=== PATIENT | male | born 1940 | race Caucasian/White ===

== ENCOUNTER → 2016-10-02 | Outpatient (CLI) | payer MEDICARE ==
[2016-10-02 09:50] LABS: INR 1.2 (<1.1); Partial Thromboplastin Time 26.7 sec (22.0-30.0); Prothrombin Time 11.8 sec (9.0-12.0)
[2016-10-02 10:00] LABS: Potassium 4.4 mmol/L (3.5-5.1)
== END | disposition home or self-care (01) ==
LOC: LABMAIN 08:28
PROVIDERS: ATTEND Orthopaedic Surgery
DX: Z01.812 Encounter for preprocedural laboratory examination (principal)
CPT/HCPCS: 36415; 80051; 85610; 85730

== ENCOUNTER → 2016-12-28 | Outpatient (CLI) | payer MEDICARE ==
--- NOTE | 2016-12-28 08:19 | CT ---
EXAMINATION TYPE: CT lumbar spine wo con DATE OF EXAM: 12/28/2016 7:15 AM COMPARISON: 07/02/2015 HISTORY: Hx of Lumbar Fusion CT DLP: 2158 mGycm CONTRAST: Unenhanced CT of the lumbar spine is performed. Unenhanced CT of the lumbar spine was performed. Bone and soft tissue window settings are submitted as well as coronal and sagittal reconstructions. L1-L2: Severe degenerative disc disease with vacuum disks noted. Circumferential disc bulge with enca psulating spur resulting in disc endplate complex. Mild effacement ventral thecal sac. No evidence fo r flash central stenosis. Facet joint arthropathy resulting in bilateral foraminal encroachment. L2-L3: Severe degenerative disc disease with vacuum disks noted. Circumferential disc bulge with enca psulating spur resulting in disc endplate complex. Mild effacement ventral thecal sac. No evidence fo r flash central stenosis. Facet joint arthropathy resulting in bilateral foraminal encroachment. L3-L4: Severe degenerative disc disease with vacuum disks noted. Circumferential disc bulge with enca psulating spur resulting in disc endplate complex. Moderate effacement ventral thecal sac. Borderline to mild central stenosis difficult to exclude. Facet joint arthropathy resulting in bilateral forami nal encroachment. L4-L5: Postoperative changes of lumbar fusion and laminectomy. Pedicular screws are in place. Grade 1 retrolisthesis L4 and L5 of 5 mm is unchanged. Streak artifact limits evaluation of the spinal canal . No definite disc herniation appreciated at this time. L5-S1: Postoperative changes of lumbar fusion and laminectomy. Pedicular screws are in place. Grade 2 anterolisthesis L5 on S1 measuring 1.3 cm appears stable. Extensive streak artifact limits evaluatio n of this level. Distortion of the thecal sac without definite central stenosis. No paraspinal masses are identified. Lumbar segments are free if fracture. IMPRESSION: 1. Interval postoperative changes of lumbar laminectomy and fusion at L4-5 and L5-S1. Grade 1 retroli sthesis of L4 on L5 and grade 2 anterolisthesis of L5 on S1. 2. Severe multilevel degenerative disc disease. Mild central stenosis at L3-4 difficult to exclude.
== END | disposition home or self-care (01) ==
LOC: RADCTMAIN 06:54
PROVIDERS: ATTEND Specialist
DX: Z09 Encounter for follow-up examination after completed treatment for conditions other than malignant neoplasm (principal); M51.36 Other intervertebral disc degeneration, lumbar region; M43.17 Spondylolisthesis, lumbosacral region; Z98.890 Other specified postprocedural states
CPT/HCPCS: 72131

== ENCOUNTER → 2017-03-28 | Outpatient (CLI) | payer MEDICARE ==
[2017-03-28 12:44] LABS: CH 29.9; CHCM 32.9; HDW 2.63; HGB 13.3 gm/dL (13.0-17.5); MCH 30.2 pg (25.0-35.0); MCHC 33.2 g/dL (31.0-37.0); MCV 91.1 fL (80.0-100.0); Mean Platelet Volume 7.9; RBC 4.39 m/uL (4.30-5.90); RDW 15.3 % (11.5-15.5); WBC 5.7 k/uL (3.8-10.6)
[2017-03-28 12:47] LABS: Appearance,Urine Clear (Clear); Bilirubin,Urine Negative (Negative); Glucose,Urine (UA) Negative (Negative); Ketones,Urine Negative (Negative); Leukocyte Esterase,Urine Negative (Negative); Nitrite,Urine Negative (Negative); PH, Urine 6.5 (5.0-8.0); Protein,Urine Negative (Negative); Specific Gravity,Urine 1.013 (1.001-1.035); UA Billing (MACRO vs. MICRO) CHEM; Urobilinogen,Urine <2.0 mg/dL (<2.0)
[2017-03-28 12:53] LABS: INR 1.9 (<1.2); Partial Thromboplastin Time 33.4 sec (22.0-30.0)
[2017-03-28 13:00] LABS: ALT 32 U/L (21-72); AST 28 U/L (17-59); Alkaline Phosphatase 64 U/L (38-126); Anion Gap 7 mmol/L; Blood Urea Nitrogen 27 mg/dL (9-20); Calcium 9.2 mg/dL (8.4-10.2); Carbon Dioxide 35 mmol/L (22-30); Chloride 97 mmol/L (98-107); Glucose 83 mg/dL (74-99); Non-African American GFR(MDRD) >60 (>60 ml/min/1.73 sqM); Sodium 139 mmol/L (137-145); Total Bilirubin 0.9 mg/dL (0.2-1.3); Total Protein 6.9 g/dL (6.3-8.2)
== END | disposition home or self-care (01) ==
LOC: LABPAT 12:26
PROVIDERS: ATTEND Orthopaedic Surgery Sports Medicine
DX: Z01.810 Encounter for preprocedural cardiovascular examination (principal); Z79.01 Long term (current) use of anticoagulants; Z01.812 Encounter for preprocedural laboratory examination
CPT/HCPCS: 80053; 81003; 85027; 85610; 85730

== ENCOUNTER 2017-03-30 12:10 | Inpatient (IN) | payer MEDICARE ==
[2017-03-29 09:32] VITALS: BMI 48.5
[~2017-03-30 12:10] MED LIST: DEXAMETHASONE SOD PHOSPHATE 10 MG/ML 1 ML VIAL IV ONE; LIDOCAINE 1% 20 ML VIAL (10MG/ML) FOR IV START INTRADERMA PRN; MELOXICAM 7.5 MG TAB PO ONE; MIDAZOLAM 2 MG/2 ML VIAL IV PRN; ONDANSETRON 4 MG/2 ML VIAL IVP ONE; SCOPOLAMINE 1.5MG/72HR PATCH TRANSDERM ONE; ceFAZolin 3 GM in SODIUM CHLORIDE 0.9% 100 ML IVPB ONE
[2017-03-30] MEDS: ACETAMINOPHEN TAB 500 MG TAB PO ONE ×2 (13:03→16:53)
[2017-03-30] MEDS: LACTATED RINGERS 1,000 ML IV SCH ×3 (13:06→19:55)
[2017-03-30 13:31] LABS: INR 1.4 (<1.2); Prothrombin Time 13.8 sec (9.0-12.0)
[2017-03-30] MEDS ORDERED: SUCCINYLCHOLINE CHLORIDE VIAL 200 MG/10 ML VIAL IV ONE (13:46)
[2017-03-30] MEDS ORDERED: LIDOCAINE 1% INJ 10MG/ML (20 ML MDV) ONE (13:46)
[2017-03-30] MEDS ORDERED: MIDAZOLAM 2 MG/2 ML VIAL ONE (13:46)
[2017-03-30] MEDS ORDERED: PROPOFOL 10 MG/ML 20 ML VIAL IV ONE (13:46)
[2017-03-30] MEDS ORDERED: ROCURONIUM BROMIDE 10 MG/ML 10 ML VIAL IV ONE (13:46)
[2017-03-30] MEDS ORDERED: ePHEDrine 50 MG/ML 1 ML AMP ONE (13:46)
[2017-03-30] MEDS ORDERED: NEOSTIGMINE 1 MG/ML 10 ML VIAL ONE (13:46)
[2017-03-30] MEDS ORDERED: GLYCOPYRROLATE 0.2 MG/ML 2 ML VIAL ONE (13:46)
[2017-03-30] MEDS ORDERED: fentaNYL (PF) 50 MCG/ML 2 ML AMP ONE (13:46)
[2017-03-30] MEDS ORDERED: ceFAZolin 3,000 MG in SODIUM CHLORIDE 0.9% IRRIGATIO 3,000 ML IRRIGATION ONE (14:28)
[2017-03-30] MEDS ORDERED: VANCOMYCIN 1,000 MG VIAL MISCELLANE ONE (14:41)
[2017-03-30] MEDS ORDERED: LACTATED RINGERS 1,000 ML IV ONE (15:13)
[2017-03-30] MEDS ORDERED: NALOXONE 0.4 MG/ML 1 ML VIAL IV PRN (15:26)
[2017-03-30] MEDS ORDERED: HYDROmorphone 1 MG/ML 1 ML SYRINGE IVP PRN ×2 (15:26)
[2017-03-30] MEDS ORDERED: DIAZEPAM 5 MG TAB PO PRN ×2 (15:26→19:58)
[2017-03-30] MEDS ORDERED: ONDANSETRON 4 MG/2 ML VIAL IVP PRN (15:26)
[2017-03-30] MEDS ORDERED: HYDROcodone/APAP 7.5-325MG 1 EACH TAB PO PRN (15:26)
[2017-03-30] MEDS ORDERED: MAGNESIUM HYDROXIDE 2,400 MG/10 ML CUP PO PRN (15:26)
[2017-03-30] MEDS ORDERED: NA PHOS,M-B/NA PHOS,DI-BA 133 ML ENEMA RECTAL PRN (15:26)
[2017-03-30] MEDS ORDERED: ACETAMINOPHEN TAB 325 MG TAB PO PRN (15:26)
[2017-03-30] MEDS ORDERED: BISACODYL 10 MG SUPP RECTAL PRN (15:26)
[2017-03-30] MEDS ORDERED: TEMAZEPAM 15 MG CAP PO PRN (15:26)
[2017-03-30] MEDS: HYDROmorphone 1 MG/ML 1 ML SYRINGE IVP PRN ×6 (15:47→20:15)
[2017-03-30] MEDS ORDERED: KETOROLAC 30 MG/ML 1 ML VIAL IVP ONE (15:53)
[2017-03-30] MEDS: MEPERIDINE 50 MG/ML SYRINGE IVP ONE ×2 (16:16→16:22)
[2017-03-30] MEDS ORDERED: WARFARIN 2.5 MG TAB PO ONE (18:00)
[2017-03-30] MEDS: SENNOSIDES-DOCUSATE SODIUM 1 EACH TAB PO SCH (20:18)
[2017-03-30] MEDS: ceFAZolin 3 GM in SODIUM CHLORIDE 0.9% 100 ML IVPB SCH (20:18)
[2017-03-30] MEDS: CARVEDILOL 6.25 MG TAB PO SCH (22:04)
[2017-03-30] MEDS: GABAPENTIN 100 MG CAP PO SCH (22:04)
[2017-03-30] MEDS: LOSARTAN 25 MG TAB PO SCH (22:05)
[2017-03-30] MEDS: PRAVASTATIN SODIUM 40 MG TAB PO SCH (22:05)
[2017-03-31] MEDS: HYDROcodone/APAP 7.5-325MG 1 EACH TAB PO PRN ×4 (00:56→21:19)
[2017-03-31] MEDS: LACTATED RINGERS 1,000 ML IV SCH ×2 (05:20→15:19)
[2017-03-31] MEDS: ceFAZolin 3 GM in SODIUM CHLORIDE 0.9% 100 ML IVPB SCH (05:22)
[2017-03-31] MEDS: PRAMIPEXOLE 1 MG TAB PO PRN ×3 (07:26→20:21)
[2017-03-31] MEDS: CARVEDILOL 6.25 MG TAB PO SCH ×2 (07:28→18:09)
[2017-03-31] MEDS: METOLAZONE 2.5 MG TAB PO SCH (07:28)
[2017-03-31] MEDS: CHOLECALCIFEROL 1,000 UNIT TAB PO SCH (07:28)
[2017-03-31] MEDS: GABAPENTIN 100 MG CAP PO SCH ×2 (07:28→20:21)
[2017-03-31] MEDS: PANTOPRAZOLE 40 MG TABLET PO SCH (07:28)
[2017-03-31 08:00] LABS: Basophils % (A) 0 %; CH 30.2; CHCM 33.2; Eosinophils % (A) 0 %; HCT 37.8 % (39.0-53.0); HDW 2.56; HGB 12.2 gm/dL (13.0-17.5); Luc # (Auto) 0.06; Luc % (Auto) 1; Lymphocytes # (A) 0.6 k/uL (1.0-4.8); Lymphocytes % (A) 8 %; MCH 29.4 pg (25.0-35.0); MCHC 32.2 g/dL (31.0-37.0); MCV 91.5 fL (80.0-100.0); Mean Platelet Volume 7.6; Monocytes # (A) 0.3 k/uL (0-1.0); Monocytes % (A) 4 %; Neutrophils # (A) 6.3 k/uL (1.3-7.7); Neutrophils % (A) 87 %; RBC 4.13 m/uL (4.30-5.90); RDW 15.2 % (11.5-15.5); WBC 7.3 k/uL (3.8-10.6); WBC (Perox) 7.15
[2017-03-31 08:13] LABS: INR 1.3 (<1.2); Prothrombin Time 12.6 sec (9.0-12.0)
[2017-03-31] MEDS ORDERED: MULTIVITAMIN PO SCH (09:00)
--- NOTE | 2017-03-31 09:41 | P.PN ---
Subjective Principal diagnosis: Patellar instability Patient is seen at bedside this morning. He is postop day #1 from left knee lateral retinacular release and medial reefing. He has pain at the surgical site as expected but denies any new complaints. He denies numbness, tingling or calf pain. Review of systems is negative for fever, chills, chest pain, shortness of breath or other Objective - Vital Signs Vital signs: Vital Signs Temp 97.8 F 03/31/17 07:25 Pulse 92 03/31/17 07:25 Resp 16 03/31/17 07:25 BP 137/71 03/31/17 07:25 Pulse Ox 97 03/31/17 07:25 Intake & Output 03/30/17 03/31/17 03/31/17 18:59 06:59 18:59 Intake Total 2151 1470 Output Total 600 1040 Balance 1551 430 Intake: IV 1501 800 Lactated Ringers 1,000 ml 800 @ 100 mls/hr IV .Q10H PHUONG Rx#:[id number] Oral 650 670 Output: Urine 550 1040 Uretheral (Rooney) 340 Estimated Blood Loss 50 Other: Voiding Method Indwelling Catheter Indwelling Catheter Indwelling Catheter - Exam Inspection reveals a benign surgical wound with immobilizer and bandage intact. There is no signs of active bleeding or drainage. Neurovascular status is intact throughout the lower extremity with motor and sensation fully intact. Calf is soft and nontender. 2+ dorsalis pedis pulse and less than 2 second cap refill is present. - Constitutional General appearance: Present: no acute distress - Psychiatric Psychiatric: Present: A&O x's 3, appropriate affect, intact judgment & insight - Labs CBC & Chem 7: 03/31/17 07:19 Labs: Abnormal Lab Results - Last 24 Hours (Table) 03/30/17 03/31/17 03/31/17 Range/Units 12:59 07:19 07:19 RBC 4.13 L (4.30-5.90) m/uL Hgb 12.2 L (13.0-17.5) gm/dL Hct 37.8 L (39.0-53.0) % Lymphocytes # 0.6 L (1.0-4.8) k/uL PT 13.8 H 12.6 H (9.0-12.0) sec INR 1.4 H 1.3 H (<1.2) Assessment and Plan (1) Patellar instability Narrative/Plan: He will continue with routine postop orthopedic protocol including pain management, wound care, physical therapy, DVT prophylaxis and medical management. He is to maintain knee immobilizer at all times. He is touchdown weightbearing. Plan is for him to transfer to an extended Care facility in the next few days Status: Acute Time with Patient: Less than 30
--- NOTE | 2017-03-31 11:19 | XR ---
EXAMINATION TYPE: XR chest 1V DATE OF EXAM: 03/31/2017 COMPARISON: 04/05/2016 INDICATION: Rehabilitation placement TECHNIQUE: Single frontal view of the chest is obtained. FINDINGS: The heart size is normal. The pulmonary vasculature is normal. The lungs are clear. Previous right lower lobe infiltrate has resolved. Pacemaker overlies left chest IMPRESSION: 1. No acute pulmonary process.
[2017-03-31] MEDS: MULTIVITAMINS, THERA 1 EACH TAB PO SCH (13:29)
[2017-03-31] MEDS: FERROUS SULFATE 325 MG TAB PO SCH (13:29)
[2017-03-31] MEDS: hydrOXYzine PAMOATE 25 MG CAP PO PRN (13:30)
[2017-03-31] MEDS ORDERED: WARFARIN 7.5 MG TAB PO ONE (18:00)
[2017-03-31] MEDS ORDERED: WARFARIN 5 MG TAB PO ONE (18:15)
[2017-03-31] MEDS: PRAVASTATIN SODIUM 40 MG TAB PO SCH (20:21)
[2017-03-31] MEDS: LOSARTAN 25 MG TAB PO SCH (20:21)
[2017-03-31] MEDS: SENNOSIDES-DOCUSATE SODIUM 1 EACH TAB PO SCH (20:21)
[2017-04-01] MEDS: LACTATED RINGERS 1,000 ML IV SCH ×4 (00:09→18:06)
[2017-04-01 07:35] LABS: INR 1.4 (<1.2); Prothrombin Time 13.4 sec (9.0-12.0)
[2017-04-01] MEDS: PANTOPRAZOLE 40 MG TABLET PO SCH (08:43)
[2017-04-01] MEDS: CARVEDILOL 6.25 MG TAB PO SCH ×2 (08:43→16:11)
[2017-04-01] MEDS: HYDROcodone/APAP 7.5-325MG 1 EACH TAB PO PRN ×3 (08:44→21:55)
[2017-04-01] MEDS: CHOLECALCIFEROL 1,000 UNIT TAB PO SCH (08:44)
[2017-04-01] MEDS: GABAPENTIN 100 MG CAP PO SCH ×2 (08:44→21:56)
[2017-04-01] MEDS: METOLAZONE 2.5 MG TAB PO SCH (08:44)
--- NOTE | 2017-04-01 08:47 | P.PN ---
Subjective Principal diagnosis: Patellar instability left knee This is a 77-year-old male who is status post lateral retinacular release and medial reefing of the left knee. He is doing well from an orthopedic standpoint. He has no new complaints or concerns today. Objective - Vital Signs Vital signs: Vital Signs Temp 97.5 F L 04/01/17 03:12 Pulse 60 04/01/17 03:12 Resp 16 04/01/17 03:12 BP 108/69 04/01/17 03:12 Pulse Ox 94 L 04/01/17 03:12 Intake & Output 03/31/17 04/01/17 04/01/17 18:59 06:59 18:59 Intake Total 300 1150 Output Total 900 1200 Balance -600 -50 Intake: IV 300 Lactated Ringers 1,000 ml 300 @ 100 mls/hr IV .Q10H PHUONG Rx#:[id number] Oral 1150 Output: Urine 900 1200 Uretheral (Rooney) 700 Other: Voiding Method Indwelling Catheter Toilet Urinal # Voids 4 - Exam This is a pleasant 77-year-old male in no acute distress. He is alert and oriented 3. Exam of the left knee reveals that his dressing is clean, dry and intact. Knee immobilizer is in place. He has full foot and ankle motion without difficulty or pain. There is mild calf pain with palpation but Homans is negative. Neurovascular status to the lower extremity is intact. - Labs CBC & Chem 7: 03/31/17 07:19 Labs: Abnormal Lab Results - Last 24 Hours (Table) 04/01/17 Range/Units 06:18 PT 13.4 H (9.0-12.0) sec INR 1.4 H (<1.2) Assessment and Plan (1) Patellar instability Status: Acute (2) Morbid obesity Status: Acute Plan: The clinical findings are discussed the patient. His knee immobilizer is well padded with ABDs and repositioned. We are planning discharge to inpatient rehab Monday. Continue current care.
--- NOTE | 2017-04-01 09:30 | CONS ---
REASON FOR CONSULTATION: Medical management for patient after his knee surgery. HISTORY OF PRESENT ILLNESS: This 77-year-old male with past medical history significant for hypertension, atrial fibrillation and knee pain who presented to the hospital after he failed conservative outpatient management and tolerated the procedure well. The patient seems to be in no acute distress, denying chest pain, shortness of breath, nausea, vomiting, abdominal pain, dizziness, lightheadedness or blurry vision. The patient underwent complete rehab evaluation by his family care physician including blood work, EKG and chest x-ray that all showed normal findings. REVIEW OF SYSTEMS: All 14 systems were reviewed and negative except as above. Home medications reviewed and you can find in chart. PAST MEDICAL AND SURGICAL HISTORY: 1. Hypertension. 2. Atrial fibrillation. 3. Hyperlipidemia. 4. Obstructive sleep apnea. 5. Anxiety. 6. Anemia. 7. Peripheral neuropathy. 8. Morbid obesity. 9. Obstructive sleep apnea. 10. Atrial fibrillation. 11. Vitamin D deficiency. 12. Bilateral shoulder surgery. 13. Appendectomy. 14. Prior knee surgery. FAMILY HISTORY: Reviewed and negative. SOCIAL HISTORY: The patient denied tobacco, alcohol or drug abuse. Said that he is independent, lives with his who is at the bedside. PHYSICAL EXAMINATION: VITAL SIGNS: Reviewed and stable. HEENT: Atraumatic, normocephalic. PERRLA. NECK: Supple. No masses, no thyromegaly. LUNGS: Clear to auscultation bilaterally. HEART: S1/S2. ABDOMEN: Soft, no tenderness. Positive bowel sounds. LEFT KNEE: Dressing clean, intact and dry. Pulses are positive bilaterally. PSYCH: Alert and oriented x3. IMAGING AND LABS: Reviewed and stable. ASSESSMENT AND PLAN: 1. Patellar instability of the left knee. We will continue with current recommendation for DVT prophylaxis and pain management per your recommendation. 2. Atrial fibrillation. Heart rate is controlled. Will continue his home regimen. Will resume Coumadin per primary recommendation. 3. Hypertension, under control. Will resume his home medication. 4. Hyperlipidemia. Continue statin. 5 . Obstructive sleep apnea. Use his own CPAP from home. 6. Morbid obesity. Consultation regarding weight loss. 7. Discharge planning per primary team recommendation. CHEMO
[2017-04-01] MEDS: MULTIVITAMINS, THERA 1 EACH TAB PO SCH (12:25)
[2017-04-01] MEDS: FERROUS SULFATE 325 MG TAB PO SCH (12:25)
[2017-04-01] MEDS: PRAMIPEXOLE 1 MG TAB PO PRN ×3 (13:47→22:24)
--- NOTE | 2017-04-01 15:29 | P.PN ---
Subjective 77-year-old male one of Dr Francisco's patients with multiple medical problem known to have atherosclerotic heart disease A. fib and congestive heart failure and hypertension, with morbid obesity with obstructive sleep apnea, patient appeared he was standing and try to turn around and suddenly felt a popping sensation of the left knee and severe pain he ended up seeing orthopedic surgery and he ended up going for a lateral release of the knee tendon with medial reehing due to left knee instability, currently in an immobilizer, his pain is well controlled today, and he is to be seen by physical therapy , and the plan to go to [facility] a Monday morning. Objective - Vital Signs Vital signs: Vital Signs Temp 98.1 F 04/01/17 07:00 Pulse 68 04/01/17 07:00 Resp 16 04/01/17 07:00 BP 123/85 04/01/17 07:00 Pulse Ox 96 04/01/17 07:00 Intake & Output 03/31/17 04/01/17 04/01/17 18:59 06:59 18:59 Intake Total 300 1150 Output Total 900 1200 Balance -600 -50 Intake: IV 300 Lactated Ringers 1,000 ml 300 @ 100 mls/hr IV .Q10H PHUONG Rx#:[id number] Oral 1150 Output: Urine 900 1200 Uretheral (Rooney) 700 Other: Voiding Method Indwelling Catheter Toilet Toilet Urinal Urinal # Voids 4 - Constitutional General appearance: Present: no acute distress, obese - EENT Eyes: Present: anicteric sclerae, EOMI, PERRLA, normal appearance. Absent: ptosis, scleral icterus ENT: Present: hearing grossly normal, NA/AT, normal oropharynx. Absent: thrush Ears: bilateral: normal - Neck Neck: Present: normal ROM. Absent: lymphadenopathy, rigidity Carotids: bilateral: upstroke normal Thyroid: bilateral: normal size - Respiratory Respiratory: bilateral: diminished, negative: dullness, rales, rhonchi, wheezing , prolonged expiration, prolonged inspiration - Cardiovascular Rhythm: regularly irregular Heart sounds: normal: S1, S2 Abnormal Heart Sounds: Present: systolic murmur - Gastrointestinal General gastrointestinal: Present: normal bowel sounds, soft. Absent: tenderness, umbilical hernia, ventral hernia - Integumentary Integumentary: Present: normal, normal turgor - Neurologic Neurologic: Present: CNII-XII intact - Musculoskeletal Musculoskeletal: Absent: gait normal - Psychiatric Psychiatric: Present: A&O x's 3, appropriate affect, intact judgment & insight - Labs CBC & Chem 7: 03/31/17 07:19 Labs: Abnormal Lab Results - Last 24 Hours (Table) 04/01/17 Range/Units 06:18 PT 13.4 H (9.0-12.0) sec INR 1.4 H (<1.2) Assessment and Plan Plan: Assessment and plan: 1. Postoperative day #1 status post left knee instability with the lateral release of the tendon and reefing of the medial aspect. Patient is currently in an immobilizer, continue current pain management, patient was instructed about valuation by physical therapy and his likely will need to go for physical therapy and rehabilitation at [facility]. 2. chronic systolic heart failure. Continue Coreg 6.25 mg orally twice every day, metolazone 2.5 mg orally once every day, losartan 25 mg orally once every day. 3. Chronic atrial fibrillation. Continue patient on Coreg 6.25 mg orally twice every day, Coumadin keep an INR between 2-3. 4. BPH: Continue Flomax 0.4 mg daily. 5. chronic anemia. Remain on iron 325 mg orally once every day. 6.Restless leg syndrome. Continue Mirapex 1 mg 3 times a day. 7. Hyperlipidemia. On Pravachol 40 mg daily. 8. chronic pain syndrome: Patient remain on hydrocodone and tramadol as needed. 9. obstructive sleep apnea. Continue CPAP. 10. GI prophylaxis. Continue Protonix 40 mg orally once every day. 11. DVT prophylaxis. Continue Coumadin to keep the INR 2-3. 12. Hypertension and hypertensive cardiovascular disease. Continue losartan 25 mg orally once every day, Coreg 6.25 mg orally twice every day. 13. Discharge planning. [facility] on Monday.
[2017-04-01] MEDS: WARFARIN 2.5 MG TAB PO SCH (18:08)
[2017-04-01] MEDS: SENNOSIDES-DOCUSATE SODIUM 1 EACH TAB PO SCH (21:56)
[2017-04-01] MEDS: LOSARTAN 25 MG TAB PO SCH (21:56)
[2017-04-01] MEDS: PRAVASTATIN SODIUM 40 MG TAB PO SCH (21:56)
[2017-04-02] MEDS: HYDROcodone/APAP 7.5-325MG 1 EACH TAB PO PRN ×3 (04:09→17:50)
[2017-04-02] MEDS: hydrOXYzine PAMOATE 25 MG CAP PO PRN (05:29)
[2017-04-02] MEDS: traMADol 50 MG TAB PO PRN ×2 (05:29→15:40)
[2017-04-02] MEDS: LACTATED RINGERS 1,000 ML IV SCH ×3 (06:11→14:06)
[2017-04-02 07:57] LABS: Basophils % (A) 1 %; CH 29.7; CHCM 32.5; Eosinophils # (A) 0.2 k/uL (0-0.7); Eosinophils % (A) 4 %; HCT 39.1 % (39.0-53.0); HDW 2.53; HGB 12.6 gm/dL (13.0-17.5); Luc % (Auto) 2; Lymphocytes % (A) 19 %; MCH 29.6 pg (25.0-35.0); MCHC 32.3 g/dL (31.0-37.0); MCV 91.8 fL (80.0-100.0); Mean Platelet Volume 6.6; Monocytes # (A) 0.3 k/uL (0-1.0); Monocytes % (A) 6 %; Neutrophils # (A) 3.5 k/uL (1.3-7.7); Neutrophils % (A) 69 %; RBC 4.26 m/uL (4.30-5.90); RDW 14.7 % (11.5-15.5); WBC 5.1 k/uL (3.8-10.6); WBC (Perox) 5.39
[2017-04-02 08:16] LABS: INR 1.5 (<1.2); Prothrombin Time 14.2 sec (9.0-12.0)
[2017-04-02] MEDS: CHOLECALCIFEROL 1,000 UNIT TAB PO SCH (08:28)
[2017-04-02] MEDS: CARVEDILOL 6.25 MG TAB PO SCH ×2 (08:28→17:50)
[2017-04-02] MEDS: GABAPENTIN 100 MG CAP PO SCH ×2 (08:28→20:41)
[2017-04-02] MEDS: METOLAZONE 2.5 MG TAB PO SCH (08:28)
[2017-04-02] MEDS: PANTOPRAZOLE 40 MG TABLET PO SCH (08:28)
[2017-04-02 08:44] LABS: ALT 23 U/L (21-72); AST 40 U/L (17-59); Alkaline Phosphatase 51 U/L (38-126); Anion Gap 4 mmol/L; Blood Urea Nitrogen 22 mg/dL (9-20); Calcium 8.8 mg/dL (8.4-10.2); Carbon Dioxide 34 mmol/L (22-30); Chloride 100 mmol/L (98-107); Glucose 79 mg/dL (74-99); Non-African American GFR(MDRD) >60 (>60 ml/min/1.73 sqM); Sodium 138 mmol/L (137-145); Total Protein 6.2 g/dL (6.3-8.2)
[2017-04-02 08:50] LABS: Potassium 4.5 mmol/L (3.5-5.1)
--- NOTE | 2017-04-02 10:08 | P.PN ---
Subjective Principal diagnosis: Patellar instability left knee This is a 77-year-old male who is status post lateral retinacular release and medial reefing of the left knee. He is doing well from an orthopedic standpoint. He has no new complaints or concerns today. Objective - Vital Signs Vital signs: Vital Signs Temp 97.0 F L 04/02/17 07:00 Pulse 63 04/02/17 07:00 Resp 16 04/02/17 07:00 BP 136/63 04/02/17 07:00 Pulse Ox 96 04/02/17 07:00 Intake & Output 04/01/17 04/02/17 04/02/17 18:59 06:59 18:59 Intake Total 450 240 Output Total 450 400 Balance 0 -160 Intake: Oral 450 240 Output: Urine 450 400 Other: Voiding Method Toilet Urinal # Voids 3 1 - Exam This is a pleasant 77-year-old male in no acute distress. He is alert and oriented 3. Knee immobilizer is in place but is completely vent and distorted on the posterior aspect. Immobilizer is removed. The patient's dressing has slid down the lower leg. Dressing is removed and changed. Incision looks good with no erythema and no drainage.. He has full foot and ankle motion without difficulty or pain. There is mild calf pain with palpation but Homans is negative. Neurovascular status to the lower extremity is intact. - Labs CBC & Chem 7: 04/02/17 07:18 04/02/17 07:18 Labs: Abnormal Lab Results - Last 24 Hours (Table) 04/02/17 04/02/17 04/02/17 Range/Units 07:18 07:18 07:18 RBC 4.26 L (4.30-5.90) m/uL Hgb 12.6 L (13.0-17.5) gm/dL Plt Count 147 L (150-450) k/uL PT 14.2 H (9.0-12.0) sec INR 1.5 H (<1.2) Carbon Dioxide 34 H (22-30) mmol/L BUN 22 H (9-20) mg/dL Total Protein 6.2 L (6.3-8.2) g/dL Albumin 3.4 L (3.5-5.0) g/dL Assessment and Plan (1) Patellar instability Status: Acute (2) Morbid obesity Status: Acute Plan: The clinical findings are discussed the patient. I have ordered a new knee immobilizer which the nurses instructed to pad well and apply to the leg when it arrives. We are planning discharge to inpatient rehab Monday. Continue current care.
[2017-04-02] MEDS: MULTIVITAMINS, THERA 1 EACH TAB PO SCH (11:27)
[2017-04-02] MEDS: FERROUS SULFATE 325 MG TAB PO SCH (11:27)
[2017-04-02] MEDS: PRAMIPEXOLE 1 MG TAB PO PRN ×2 (14:07→20:41)
--- NOTE | 2017-04-02 14:53 | P.PN ---
Subjective 77-year-old male one of Dr Francisco's patients with multiple medical problem known to have atherosclerotic heart disease A. fib and congestive heart failure and hypertension, with morbid obesity with obstructive sleep apnea, patient appeared he was standing and try to turn around and suddenly felt a popping sensation of the left knee and severe pain he ended up seeing orthopedic surgery and he ended up going for a lateral release of the knee tendon with medial reehing due to left knee instability, currently in an immobilizer, his pain is well controlled today, and he is to be seen by physical therapy , and the plan to go to [facility] a Monday morning. 04/02: Patient moved to a different room today because of significant issues with the patient next door, patient is tolerating his treatment very well, he denies any chest pain, shortness of breath, he has no abdominal pain, he has urinary frequency, without any dysuria, the plan is to transfer the patient to [facility] for physical therapy rehabitation tomorrow morning. Objective - Vital Signs Vital signs: Vital Signs Temp 97.5 F L 04/02/17 02:18 Pulse 68 04/02/17 02:18 Resp 17 04/02/17 02:18 BP 106/67 04/02/17 02:18 Pulse Ox 96 04/02/17 02:18 Intake & Output 04/01/17 04/02/17 04/02/17 18:59 06:59 18:59 Intake Total 450 240 Output Total 450 400 Balance 0 -160 Intake: Oral 450 240 Output: Urine 450 400 Other: Voiding Method Toilet Urinal # Voids 3 1 - Exam - Constitutional General appearance: Present: no acute distress, obese - EENT Eyes: Present: anicteric sclerae, EOMI, PERRLA, normal appearance. Absent: ptosis, scleral icterus ENT: Present: hearing grossly normal, NA/AT, normal oropharynx. Absent: thrush Ears: bilateral: normal - Neck Neck: Present: normal ROM. Absent: lymphadenopathy, rigidity Carotids: bilateral: upstroke normal Thyroid: bilateral: normal size - Respiratory Respiratory: bilateral: diminished, negative: dullness, rales, rhonchi, wheezing , prolonged expiration, prolonged inspiration - Cardiovascular Rhythm: regularly irregular Heart sounds: normal: S1, S2 Abnormal Heart Sounds: Present: systolic murmur - Gastrointestinal General gastrointestinal: Present: normal bowel sounds, soft. Absent: tenderness, umbilical hernia, ventral hernia - Integumentary Integumentary: Present: normal, normal turgor - Neurologic Neurologic: Present: CNII-XII intact - Musculoskeletal Musculoskeletal: Absent: gait normal - Psychiatric Psychiatric: Present: A&O x's 3, appropriate affect, intact judgment & insight - Labs CBC & Chem 7: 04/02/17 07:18 04/02/17 07:18 Labs: Abnormal Lab Results - Last 24 Hours (Table) 04/02/17 04/02/17 04/02/17 Range/Units 07:18 07:18 07:18 RBC 4.26 L (4.30-5.90) m/uL Hgb 12.6 L (13.0-17.5) gm/dL Plt Count 147 L (150-450) k/uL PT 14.2 H (9.0-12.0) sec INR 1.5 H (<1.2) Carbon Dioxide 34 H (22-30) mmol/L BUN 22 H (9-20) mg/dL Total Protein 6.2 L (6.3-8.2) g/dL Albumin 3.4 L (3.5-5.0) g/dL Assessment and Plan Plan: Assessment and plan: 1. Postoperative day #1 status post left knee instability with the lateral release of the tendon and reefing of the medial aspect. Patient is currently in an immobilizer, continue current pain management, patient was instructed about valuation by physical therapy and his likely will need to go for physical therapy and rehabilitation at [facility]. 2. chronic systolic heart failure. Continue Coreg 6.25 mg orally twice every day, metolazone 2.5 mg orally once every day, losartan 25 mg orally once every day. 3. Chronic atrial fibrillation. Continue patient on Coreg 6.25 mg orally twice every day, Coumadin keep an INR between 2-3. 4. BPH: Continue Flomax 0.4 mg daily. 5. chronic anemia. Remain on iron 325 mg orally once every day. 6.Restless leg syndrome. Continue Mirapex 1 mg 3 times a day. 7. Hyperlipidemia. On Pravachol 40 mg daily. 8. chronic pain syndrome: Patient remain on hydrocodone and tramadol as needed. 9. obstructive sleep apnea. Continue CPAP. 10. GI prophylaxis. Continue Protonix 40 mg orally once every day. 11. DVT prophylaxis. Continue Coumadin to keep the INR 2-3. 12. Hypertension and hypertensive cardiovascular disease. Continue losartan 25 mg orally once every day, Coreg 6.25 mg orally twice every day. 13. Discharge planning. on Monday.
[2017-04-02] MEDS: WARFARIN 2.5 MG TAB PO SCH (17:50)
[2017-04-02] MEDS: SENNOSIDES-DOCUSATE SODIUM 1 EACH TAB PO SCH (20:40)
[2017-04-02] MEDS: PRAVASTATIN SODIUM 40 MG TAB PO SCH (20:41)
[2017-04-02] MEDS: LOSARTAN 25 MG TAB PO SCH (20:41)
[2017-04-03] MEDS: LACTATED RINGERS 1,000 ML IV SCH ×2 (02:41→09:42)
[2017-04-03] MEDS: HYDROcodone/APAP 7.5-325MG 1 EACH TAB PO PRN ×2 (06:23→11:31)
[2017-04-03 07:26] VITALS: BP 139/76; PULSE 61; RESP 16; TEMP 98.1
[2017-04-03 07:36] LABS: INR 1.5 (<1.2); Prothrombin Time 14.4 sec (9.0-12.0)
--- NOTE | 2017-04-03 08:32 | P.DS ---
Providers Date of admission: 03/30/17 12:10 Expected date of discharge: 04/03/17 Attending physician: Robert Gonzalez Consults: 03/30/17 15:26 Consult Physician Routine Consulting Provider: Ethan Francisco Reason/Comments: post op medical management Do you want consulting provider notified?: Yes Primary care physician: Ethan Francisco - Discharge Diagnosis(es) (1) Patellar instability Current Visit: Yes Status: Acute Hospital Course: This is a pleasant 77-year-old male who was admitted for left knee lateral retinacular release and medial reefing for patellar instability. Patient has been progressing postsurgically. The patient tolerated the procedure well and did well postoperatively. A new knee immobilizer was ordered yesterday. This has been placed and appears to be in good position. Patient states he does have some pain with the left lower extremity while he's mobile. We discussed he will be toe-touch weightbearing on left lower extremity only. He feels he is ready for discharge today. Condition on day of discharge stable. Patient will be discharged home [facility] rehabilitation facility. Patient was cleared preoperatively for surgery by Dr. Francisco. Patient currently denies any nausea, vomiting, fever, or chills. Patient is eating and voiding freely without difficulty. Patient was keep the immobilizer intact at all times. He should continue to keep the wound clean and dry. He may elevate the left lower extremity and apply ice for comfort support as needed. He will continue me toe- touch weightbearing only. He is given prescriptions for [place] 7.5 mg/325 mg 1- 2 tabs every 4-6 hours dispense 90 as needed for pain. We will plan to have him continue with warfarin as previously prescribed. Patient takes warfarin 5 mg Monday, Monday, and Monday. Patient takes warfarin 2.5 mg on Monday, Monday, , and Monday. Patient will plan to follow up with Dr. Robert Gonzalez in 10 days. Physical Exam on day of discharge: Patient is awake, alert, and oriented 3 Vital signs stable Good chest excursion with deep inspiration and expiration Abdomen soft nontender Knee immobilizer intact over the left lower extremity Dressing remains intact below the knee immobilizer Knee immobilizer is clean, dry, and intact with no obvious signs of drainage Patient is able to perform dorsiflexion and plantarflexion mobile toes left lower extremity has significant difficulty Neurovascularly intact left lower extremity No significant calf pain Procedures: Left knee lateral retinacular release and medial reefing Patient Condition at Discharge: Stable Plan - Discharge Summary New Discharge Prescriptions: New HYDROcodone/APAP 7.5-325MG [[place] 7.5-325] 1 - 2 each PO Q4-6H PRN #90 tab PRN Reason: Pain Continue Omeprazole [PriLOSEC] 20 mg PO AC-BRKFST Cholecalciferol [Vitamin D3] 2,000 unit PO DAILY Warfarin [Coumadin] 5 mg PO MOWE Pravastatin Sodium [Pravachol] 40 mg PO HS Warfarin [Coumadin] 2.5 mg PO SUTUTHSA Ferrous Sulfate [Iron (65 MG Elemental)] 325 mg PO DAILY Carvedilol [Coreg] 6.25 mg PO BID #0 Metolazone [Zaroxolyn] 2.5 mg PO DAILY Losartan Potassium [Cozaar] 25 mg PO HS Pramipexole [Mirapex] 1 mg PO TID PRN PRN Reason: RESTLESS LEG SYNDROME Furosemide [Lasix] 40 mg PO DAILY Gabapentin [Neurontin] 100 mg PO BID Multivitamin [Multivitamins Adult Gummies] 1 tab PO DAILY Diazepam [Valium] 10 mg PO DAILY PRN PRN Reason: RESTLESS LEG SYNDROME Discontinued traMADol HCL [Ultram] 50 mg PO TID PRN PRN Reason: Pain HYDROcodone/APAP 7.5-325MG [[place] 7.5-325] 1 tab PO Q6HR PRN PRN Reason: Pain Discharge Medication List Cholecalciferol [Vitamin D3] 2,000 unit PO DAILY 11/22/14 [History] Omeprazole [PriLOSEC] 20 mg PO AC-BRKFST 11/22/14 [History] Pravastatin Sodium [Pravachol] 40 mg PO HS 11/22/14 [History] Warfarin [Coumadin] 5 mg PO MOWEFR 11/22/14 [History] Warfarin [Coumadin] 2.5 mg PO SUTUTHSA 01/02/15 [History] Ferrous Sulfate [Iron (65 MG Elemental)] 325 mg PO DAILY 08/26/15 [History] Carvedilol [Coreg] 6.25 mg PO BID #0 08/31/15 [Rx] Losartan Potassium [Cozaar] 25 mg PO HS 04/04/16 [History] Metolazone [Zaroxolyn] 2.5 mg PO DAILY 04/04/16 [History] Diazepam [Valium] 10 mg PO DAILY PRN 03/29/17 [History] Furosemide [Lasix] 40 mg PO DAILY 03/29/17 [History] Gabapentin [Neurontin] 100 mg PO BID 03/29/17 [History] Multivitamin [Multivitamins Adult Gummies] 1 tab PO DAILY 03/29/17 [History] Pramipexole [Mirapex] 1 mg PO TID PRN 03/29/17 [History] HYDROcodone/APAP 7.5-325MG [[place] 7.5-325] 1 - 2 each PO Q4-6H PRN #90 tab 04/02 [Rx] Follow up Appointment(s)/Referral(s): Robert Gonzalez MD [STAFF PHYSICIAN] - 10 Days Ambulatory/Diagnostic Orders: Prothrombin Time INR [LAB.AMB] Location: Determined By Patient Activity/Diet/Wound Care/Special Instructions: Touch down weightbearing Maintain knee immobilizer at all times Keep wound clean and dry Take meds as directed F/U with Dr. Gonzalez in office, [phone] Elevate lower extremity Discharge Disposition: TRANSFER TO SNF/ECF
[2017-04-03] MEDS: GABAPENTIN 100 MG CAP PO SCH (09:45)
[2017-04-03] MEDS: CHOLECALCIFEROL 1,000 UNIT TAB PO SCH (09:45)
[2017-04-03] MEDS: CARVEDILOL 6.25 MG TAB PO SCH (09:45)
[2017-04-03] MEDS: METOLAZONE 2.5 MG TAB PO SCH (09:45)
[2017-04-03] MEDS: PANTOPRAZOLE 40 MG TABLET PO SCH (09:45)
[2017-04-03] MEDS: PRAMIPEXOLE 1 MG TAB PO PRN (10:37)
[2017-04-03] MEDS: hydrOXYzine PAMOATE 25 MG CAP PO PRN (11:31)
--- NOTE | 2017-04-03 15:07 | P.PN ---
Subjective 77-year-old male one of Dr Francisco's patients with multiple medical problem known to have atherosclerotic heart disease A. fib and congestive heart failure and hypertension, with morbid obesity with obstructive sleep apnea, patient appeared he was standing and try to turn around and suddenly felt a popping sensation of the left knee and severe pain he ended up seeing orthopedic surgery and he ended up going for a lateral release of the knee tendon with medial reehing due to left knee instability, currently in an immobilizer, his pain is well controlled today, and he is to be seen by physical therapy , and the plan to go to [facility] a Monday morning. 04/02: Patient moved to a different room today because of significant issues with the patient next door, patient is tolerating his treatment very well, he denies any chest pain, shortness of breath, he has no abdominal pain, he has urinary frequency, without any dysuria, the plan is to transfer the patient to [facility] for physical therapy rehabitation tomorrow morning. 04/03: Patient is being prepared for discharge today to [facility] under the care of Dr. Francisco. INR today is at 1.5 and patient will resume his normal regime of Coumadin. Hemoglobin is stable at 12.6. Patient is being discharged today in stable condition. Medication reconciliation completed. Objective - Vital Signs Vital signs: Vital Signs Temp 98.1 F 04/03/17 07:00 Pulse 61 04/03/17 07:00 Resp 16 04/03/17 07:00 BP 139/76 04/03/17 07:00 Pulse Ox 94 L 04/03/17 07:00 Intake & Output 04/02/17 04/03/17 04/03/17 18:59 06:59 18:59 Intake Total 240 980 180 Output Total 400 1 Balance -160 980 179 Intake: Oral 240 980 180 Output: Urine 400 Stool 1 Other: Voiding Method Toilet Urinal # Voids 1 2 1 - Exam General appearance: Present: no acute distress, obese - EENT Eyes: Present: anicteric sclerae, EOMI, PERRLA, normal appearance. Absent: ptosis, scleral icterus ENT: Present: hearing grossly normal, NA/AT, normal oropharynx. Absent: thrush Ears: bilateral: normal - Neck Neck: Present: normal ROM. Absent: lymphadenopathy, rigidity Carotids: bilateral: upstroke normal Thyroid: bilateral: normal size - Respiratory Respiratory: bilateral: diminished, negative: dullness, rales, rhonchi, wheezing , prolonged expiration, prolonged inspiration - Cardiovascular Rhythm: regularly irregular Heart sounds: normal: S1, S2 Abnormal Heart Sounds: Present: systolic murmur - Gastrointestinal General gastrointestinal: Present: normal bowel sounds, soft. Absent: tenderness, umbilical hernia, ventral hernia - Integumentary Integumentary: Present: normal, normal turgor - Neurologic Neurologic: Present: CNII-XII intact - Musculoskeletal Musculoskeletal: Absent: gait normal - Psychiatric Psychiatric: Present: A&O x's 3, appropriate affect, intact judgment & insight - Labs CBC & Chem 7: 04/02/17 07:18 04/02/17 07:18 Labs: Abnormal Lab Results - Last 24 Hours (Table) 04/03/17 Range/Units 06:53 PT 14.4 H (9.0-12.0) sec INR 1.5 H (<1.2) Assessment and Plan Plan: 1. Status post left knee instability with the lateral release of the tendon and reefing of the medial aspect. Patient is currently in an immobilizer, continue current pain management, patient was instructed about valuation by physical therapy and his likely will need to go for physical therapy and rehabilitation at [facility]. 2. chronic systolic heart failure. Continue Coreg 6.25 mg orally twice every day, metolazone 2.5 mg orally once every day, losartan 25 mg orally once every day. 3. Chronic atrial fibrillation. Continue patient on Coreg 6.25 mg orally twice every day, Coumadin keep an INR between 2-3. 4. BPH: Continue Flomax 0.4 mg daily. 5. chronic anemia. Remain on iron 325 mg orally once every day. 6.Restless leg syndrome. Continue Mirapex 1 mg 3 times a day. 7. Hyperlipidemia. On Pravachol 40 mg daily. 8. chronic pain syndrome: Patient remain on hydrocodone and tramadol as needed. 9. obstructive sleep apnea. Continue CPAP. 10. GI prophylaxis. Continue Protonix 40 mg orally once every day. 11. DVT prophylaxis. Continue Coumadin to keep the INR 2-3. 12. Hypertension and hypertensive cardiovascular disease. Continue losartan 25 mg orally once every day, Coreg 6.25 mg orally twice every day. 13. Discharge planning. [facility] on Monday under the care of Dr. Francisco. Impression and plan of care have been directed as dictated by the signing physician. Martha Monsivais nurse practitioner acting as scribe for signing physician.
[2017-04-03] MEDS ORDERED: WARFARIN 5 MG TAB PO SCH (18:00)
--- NOTE | 2017-04-05 11:50 | OP ---
DATE OF PROCEDURE: 03/30/2017 PREOPERATIVE DIAGNOSIS: Left knee lateral patellar instability. POSTOPERATIVE DIAGNOSIS: Left knee lateral patellar instability. OPERATION: 1. Left knee open lateral retinacular release. 2. Left knee medical retinaculum imbrication. SURGEON: JENNIFER BAILEY MD DIRECTOR OF EARLY CHILDHOOD: RUFINO LIU PA-C ANESTHESIA: General endotracheal. ESTIMATED BLOOD LOSS: 50 mL. TOURNIQUET TIME: 23 minutes at 250 mmHg. COMPLICATIONS: None apparent. DRAINS: None. DISPOSITION: Post-anesthesia care. INDICATIONS: Derrick is a very pleasant 77-year-old male who I performed a left total knee arthroplasty on 6 to 9 months ago. Recently, he had a twisting injury where he sprained his medical collateral ligament and then subsequently has developed lateral patellar instability. This was late onset instability, did not have any instability up until this twisting incident that happened in the last 3 weeks. He is having a fairly debilitating lateral patellar instability at this point and it is bother him with sleep. Unfortunately, Derrick is unable to do much by way of physical therapy and that has complicated the management of this. We did discuss surgical treatment and at this point, he feels as if he would like to proceed with operative management of his patellar instability. The risks of the procedure were discussed with him in detail. The risks include , but are not limited to a risk of infection, nerve damage, bleeding, pain and a small risk of deep vein thrombosis which could lead to pulmonary embolism. There is also risk of recurrent patellar instability. He understands these risks. He understands that there is no guarantee as to a resolution of his symptoms. All of his questions were answered to his satisfaction. An appropriate informed consent was obtained. DESCRIPTION OF THE PROCEDURE: Patient identified in the preoperative holding area, surgical site is marked by both the patient and myself. He is given 2 gm of Ancef IV for prophylactic purposes. He was then transferred to the operative suite, was placed supine on the operative table. General anesthetic was then administered and dose per the Anesthesia Department without apparent complication. Examination under anesthesia was then performed. The patient had full extension. He had flexed into 115 degrees. The medial collateral ligament showed grade 1 opening in full extension and grade 1 to 2 opening and 20 degrees of flexion. The posterior cruciate ligament was stable. The lateral patellar instability was not reproducible on the table in an examination under anesthesia. A tourniquet was then placed high in the left upper thigh, well padded in preparation for surgery. The patient's left lower extremity is then prepped and draped in the usual sterile fashion. Standard surgical pause was then undertaken which showed that were are operating on the correct site and the appropriate preoperative antibiotics have been given. All staff in the room were in agreement and we proceeded. Previous midline incision was then marked with surgical pen. The lower two- thirds of the incision was than opened incised with a 10 blade scalpel. Sections were then carried down sharply to the overlying fascia. Great care was taken to minimize the skin flaps as much as possible. I then performed a lateral retinacular release. This was done utilizing the Bovie. I released the lateral retinaculum. It was released from the joint line and then proximally to the level of the vastus lateralis insertion. We stopped short of the vastus lateralis insertion in hopes of preserving the lateral genicular artery blood supply to the patella. I utilized palpation and my finger to insure a complete release laterally. I then proceeded with a medial imbrication. The nonabsorbable sutures that were used for the closely had migrated medially, insignificant laxity noted in the medial tissues of the knee. I then utilized a technique where the vastus medialis was then freed up and released at the nearest attachment onto the quadriceps tendon. The medial retinaculum was also opened. I then performed a pants over vest type repair and imbrication of the medial retinaculum. The vastus medialis was then advanced inferiorly and laterally as much as possible. The imbrication was done and the suture was to the overlying fascia of the patella. This tightened up the medial soft tissues of his knee quite a bit. The wound was then thoroughly irrigated with sterile saline solution with antibiotic additive. I did use 1 gm of vancomycin powder which was sprinkled within the wound. The subcutaneous tissues were closed with 2-0 Vicryl interrupted suture and the skin was closed with a running 3-0 Quill suture. Sterile compression dressing was then applied and the patient was placed into a knee immobilizer with his knee locked in full extension. The tourniquet was deflated prior to closure. The total tourniquet time for the procedure was 23 minutes at 250 mmHg. All sponge and needle counts were deemed correct prior to closure. The patient tolerated the procedure without apparent complication. He is transferred to the recovery room in stable condition. CHEMO
== END 2017-04-03 13:19 | DRG 501 ==
LOC: 2ORMAIN 12:10 → 3SUR 15:51
PROVIDERS: ADMIT Orthopaedic Surgery Sports Medicine; ATTEND Orthopaedic Surgery Sports Medicine
PROC: 0LQR0ZZ Repair Left Knee Tendon, Open Approach (ICD-10-PCS; principal; 2017-03-30 14:25)
PROC: 0LNR0ZZ Release Left Knee Tendon, Open Approach (ICD-10-PCS; principal; 2017-03-30 14:25)
DX: S83.412A Sprain of medial collateral ligament of left knee, initial encounter (principal); I50.22 Chronic systolic (congestive) heart failure; I11.0 Hypertensive heart disease with heart failure; I48.2 Chronic atrial fibrillation; D64.9 Anemia, unspecified; G62.9 Polyneuropathy, unspecified; E66.01 Morbid (severe) obesity due to excess calories; E78.5 Hyperlipidemia, unspecified; E55.9 Vitamin D deficiency, unspecified; G25.81 Restless legs syndrome; Z79.899 Other long term (current) drug therapy; Z95.0 Presence of cardiac pacemaker; Z87.891 Personal history of nicotine dependence; G47.33 Obstructive sleep apnea (adult) (pediatric); G89.4 Chronic pain syndrome; I25.10 Atherosclerotic heart disease of native coronary artery without angina pectoris; N40.0 Benign prostatic hyperplasia without lower urinary tract symptoms; Z79.01 Long term (current) use of anticoagulants; Z96.652 Presence of left artificial knee joint; F41.9 Anxiety disorder, unspecified
CPT/HCPCS: 71010; 80053; 85025; 85610

== ENCOUNTER 2017-10-04 08:49 | Day surgery (SDC) | payer MEDICARE ==
[2017-09-29 15:42] VITALS: BMI 48.8
[~2017-10-04 08:49] MED LIST changes: -DEXAMETHASONE SOD PHOSPHATE 10 MG/ML 1 ML VIAL IV ONE; +LACTATED RINGERS 1,000 ML IV SCH; -MELOXICAM 7.5 MG TAB PO ONE; -MIDAZOLAM 2 MG/2 ML VIAL IV PRN; -ONDANSETRON 4 MG/2 ML VIAL IVP ONE; -SCOPOLAMINE 1.5MG/72HR PATCH TRANSDERM ONE; -ceFAZolin 3 GM in SODIUM CHLORIDE 0.9% 100 ML IVPB ONE
[2017-10-04 09:09] VITALS: RESP 16; TEMP 97.8
[2017-10-04] MEDS ORDERED: PROPOFOL 10 MG/ML 20 ML VIAL IV ONE (09:31)
[2017-10-04] MEDS ORDERED: KETAMINE 10 MG/ML 20 ML VIAL ONE (09:31)
[2017-10-04] MEDS ORDERED: GLYCOPYRROLATE 0.2 MG/ML 2 ML VIAL ONE (09:31)
--- NOTE | 2017-10-04 09:52 | P.PCN ---
Date of Procedure: 10/04/17 Procedure(s) Performed: BRIEF HISTORY: Patient is a 77-year-old pleasant white male, scheduled for an elective colonoscopy as a part of evaluation of prior history of colon polyps. Last colonoscopy was 5 years ago. PROCEDURE PERFORMED: Colonoscopy with snare polypectomy. PREOPERATIVE DIAGNOSIS: History of colon polyps. IV sedation per Anesthesia. PROCEDURE: After informed consent was obtained, the patient, was brought into the endoscopy unit. IV sedation was administered by Anesthesia under continuous monitoring. Digital rectal examination was normal. Initially the Olympus CF- 160 flexible video colonoscope was then inserted in the rectum, gradually advanced into the cecum without any difficulty. Careful examination was performed as the scope was gradually being withdrawn. Ileocecal valve and the appendiceal orifice were visualized and appeared normal. Prep was excellent. Mucosa of the cecum, ascending colon, appeared normal. In the transverse colon there was a 7 mm polyp removed by snare polypectomy. The rest of the transverse colon, descending colon, sigmoid colon, and rectum appeared normal. Retroflexion was performed in the rectum and no lesions were seen. Scattered sigmoidal diverticulosis seen. The patient tolerated the procedure well. IMPRESSION: 7 mm transverse colon polyp status post polypectomy Scattered sigmoid diverticulosis RECOMMENDATIONS: Findings of this examination were discussed with the patient as well as family. He was advised to follow with the biopsy results. If the biopsy shows a tubular adenoma he can have a repeat colonoscopy in 5 years.
[2017-10-04 10:20] VITALS: BP 102/63; PULSE 66
== END 2017-10-04 10:35 | disposition home or self-care (01) ==
LOC: ORWHC2ENDO 08:49
PROVIDERS: ATTEND Internal Medicine Gastroenterology
DX: Z12.11 Encounter for screening for malignant neoplasm of colon (principal); D12.3 Benign neoplasm of transverse colon; K57.30 Diverticulosis of large intestine without perforation or abscess without bleeding; I10 Essential (primary) hypertension; K21.9 Gastro-esophageal reflux disease without esophagitis; E78.5 Hyperlipidemia, unspecified; G47.33 Obstructive sleep apnea (adult) (pediatric); G25.81 Restless legs syndrome; I48.91 Unspecified atrial fibrillation; Z79.01 Long term (current) use of anticoagulants; Z79.891 Long term (current) use of opiate analgesic; Z79.899 Other long term (current) drug therapy; Z90.3 Acquired absence of stomach [part of]; Z95.0 Presence of cardiac pacemaker
CPT/HCPCS: 88305; 45385; J2704

== ENCOUNTER → 2017-11-29 | Outpatient (CLI) | payer MEDICARE ==
[2017-11-29 10:30] LABS: HCT 40.6 % (39.0-53.0); HGB 13.3 gm/dL (13.0-17.5); MCH 29.2 pg (25.0-35.0); MCHC 32.7 g/dL (31.0-37.0); MCV 89.4 fL (80.0-100.0); Mean Platelet Volume 6.9; Platelet Count 144 k/uL (150-450); RBC 4.54 m/uL (4.30-5.90); RDW 14.8 % (11.5-15.5); WBC 6.9 k/uL (3.8-10.6)
[2017-11-29 13:19] LABS: Color,BF Red
[2017-11-29 13:20] LABS: Appearance,BF Bloody; Nucleated Cells, Body Fluid 160 /uL; RBC, Body Fluid 69480 /uL
[2017-11-29 13:24] LABS: Mononuclear WBC,Body Fluid 86 %; Polynuclear WBC,Body Fluid 14 %; Total Cells Counted,Body Fluid 100
[2017-11-29 13:39] LABS: Erythrocyte Sedimentation Rate 29 mm/hr (0-15)
== END | disposition home or self-care (01) ==
LOC: LABWHC1 10:09
PROVIDERS: ATTEND Orthopaedic Surgery Sports Medicine
DX: M17.12 Unilateral primary osteoarthritis, left knee (principal); S83.412D Sprain of medial collateral ligament of left knee, subsequent encounter; M54.30 Sciatica, unspecified side; Z47.1 Aftercare following joint replacement surgery; Z79.01 Long term (current) use of anticoagulants; Z48.89 Encounter for other specified surgical aftercare
CPT/HCPCS: 36415; 83520; 85027; 85652; 86140; 87070; 87075; 87205; 89050; 89060

== ENCOUNTER → 2017-12-18 | Outpatient (CLI) | payer MEDICARE ==
[2017-12-18 09:22] LABS: Appearance,Urine Clear (Clear); Bilirubin,Urine Negative (Negative); Blood,Urine Negative (Negative); Color,Urine Yellow; Glucose,Urine (UA) Negative (Negative); Ketones,Urine Negative (Negative); Leukocyte Esterase,Urine Negative (Negative); Nitrite,Urine Negative (Negative); Protein,Urine Trace (Negative); Specific Gravity,Urine 1.019 (1.001-1.035); Urobilinogen,Urine <2.0 mg/dL (<2.0)
[2017-12-18 09:23] LABS: HCT 41.4 % (39.0-53.0); HGB 13.5 gm/dL (13.0-17.5); MCH 29.1 pg (25.0-35.0); MCHC 32.5 g/dL (31.0-37.0); MCV 89.5 fL (80.0-100.0); Mean Platelet Volume 6.6; Platelet Count 157 k/uL (150-450); RBC 4.62 m/uL (4.30-5.90); RDW 14.5 % (11.5-15.5); WBC 5.7 k/uL (3.8-10.6)
[2017-12-18 09:36] LABS: ALT 22 U/L (21-72); AST 24 U/L (17-59); Albumin 3.7 g/dL (3.5-5.0); Alkaline Phosphatase 76 U/L (38-126); Anion Gap 11 mmol/L; Blood Urea Nitrogen 28 mg/dL (9-20); Calcium 9.1 mg/dL (8.4-10.2); Carbon Dioxide 32 mmol/L (22-30); Chloride 100 mmol/L (98-107); Glucose 97 mg/dL (74-99); Potassium 4.1 mmol/L (3.5-5.1); Sodium 143 mmol/L (137-145); Total Protein 6.3 g/dL (6.3-8.2)
[2017-12-18 09:37] LABS: INR 2.9 (<1.2); Partial Thromboplastin Time 35.7 sec (22.0-30.0); Prothrombin Time 25.6 sec (9.0-12.0)
== END | disposition home or self-care (01) ==
LOC: LABPAT 08:11
PROVIDERS: ATTEND Orthopaedic Surgery
DX: Z01.812 Encounter for preprocedural laboratory examination (principal)
CPT/HCPCS: 36415; 80053; 81003; 85027; 85610; 85730; 87070

== ENCOUNTER 2017-12-26 09:23 | Inpatient (IN) | payer MEDICARE ==
[2017-12-18 14:29] VITALS: BMI 48.8
[~2017-12-26 09:23] MED LIST changes: +ACETAMINOPHEN TAB 500 MG TAB PO ONE; +DEXAMETHASONE SOD PHOSPHATE 10 MG/ML 1 ML VIAL IV ONE; +HYDROmorphone 0.5 MG/0.5 ML SYRINGE IVP PRN; -LACTATED RINGERS 1,000 ML IV SCH; +MELOXICAM 7.5 MG TAB PO ONE; +MIDAZOLAM 2 MG/2 ML VIAL IV PRN; +ONDANSETRON ODT 4 MG TAB PO ONE; +ROPIVACAINE 246.25 MG, EPINEPHrine 0.5 MG, KETOROLAC 30 MG, cloNIDine HCL/PF 80 MCG, WA... MISCELLANE ONE; +SCOPOLAMINE 1.5MG/72HR PATCH TRANSDERM ONE; +TRANEXAMIC ACID 1,000 MG in SODIUM CHLORIDE 0.9% 50 ML IVPB ONE
[2017-12-26] MEDS ORDERED: ONDANSETRON 4 MG/2 ML VIAL ONE (10:27)
[2017-12-26 10:45] LABS: INR 1.2 (<1.2); Prothrombin Time 11.4 sec (9.0-12.0)
[2017-12-26] MEDS: LACTATED RINGERS 1,000 ML IV SCH (10:45)
[2017-12-26] MEDS ORDERED: ONDANSETRON 4 MG/2 ML VIAL IVP ONE (10:46)
[2017-12-26] MEDS ORDERED: NA PHOS,M-B/NA PHOS,DI-BA 133 ML ENEMA RECTAL PRN (11:32)
[2017-12-26] MEDS ORDERED: DIAZEPAM 5 MG TAB PO PRN ×2 (11:32)
[2017-12-26] MEDS ORDERED: NALOXONE 0.4 MG/ML 1 ML VIAL IV PRN (11:32)
[2017-12-26] MEDS ORDERED: MORPHINE SULFATE 4 MG/ML SYRINGE IVP PRN ×4 (11:32)
[2017-12-26] MEDS ORDERED: MAGNESIUM HYDROXIDE 2,400 MG/10 ML CUP PO PRN (11:32)
[2017-12-26] MEDS ORDERED: BISACODYL 10 MG SUPP RECTAL PRN (11:32)
[2017-12-26] MEDS ORDERED: hydrOXYzine PAMOATE 25 MG CAP PO PRN (11:32)
[2017-12-26] MEDS ORDERED: ONDANSETRON 4 MG/2 ML VIAL IVP PRN (11:32)
[2017-12-26] MEDS ORDERED: ceFAZolin 3,000 MG in SODIUM CHLORIDE 0.9% IRRIGATIO 3,000 ML IRRIGATION ONE ×4 (12:41)
[2017-12-26] MEDS ORDERED: LACTATED RINGERS 1,000 ML IV ONE (14:09)
--- NOTE | 2017-12-26 14:20 | P.OP ---
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 Anesthesia: spinal Surgeon: Manohar Street Casing Cleaner #1: Robert Gonzalez Casing Cleaner #2: Candi Aviles Estimated Blood Loss (ml): 50 Pathology: other (Cultures aerobic and anaerobic 2. Frozen section) Condition: stable Disposition: PACU Indications for Procedure: This is a 77-year-old gentleman has had a left total knee arthroplasty performed by Dr. Robert Gonzalez in the past. Continues to have pain in his x-rays demonstrate subsidence of his tibial component indicating loosening. After discussing the surgical nonsurgical treatment options with him at length, he wishes to have a revision of his left total knee arthroplasty and informed consent was obtained. Operative Findings: The operative findings are consistent with a loose left tibial component. The intraoperative frozen section was found to be negative. Description of Procedure: Patient was seen in the preoperative area consent was reviewed and operative site was marked with a skin marker. Patient was then brought to the operating room and given preoperative antibiotics intravenously. A spinal anesthetic was administered by the anesthesia department. A tourniquet was placed on the upper thigh and the lower extremity was prepped and draped in usual sterile fashion. A gram of transexamic acid was given. A universal timeout was then performed which confirmed the patient's name, surgical site, ALLERGIES, and consent. The lower extremity was then exsanguinated and tourniquet was inflated to 250 mmHg. A standard and anterior midline approach to the knee was performed with the prior scar being excised.. The skin and subcutaneous tissue was dissected down to the patellar tendon. A medial parapatellar arthrotomy was then performed. The knee was then extended, the patellar was everted, and the knee was again flexed. The knee fluid was cultured 2 and a frozen section was obtained of the synovium. The frozen section was negative for acute inflammation. On gross visual inspection, the tibial component was found to be subsided and loose. First, using a small oscillating saw, the interface between the femoral component and the cement was disrupted. The femoral component was then removed with minimal bone loss. Attention was then directed to the tibia. The tibial component was then removed with an osteotome and a mallet. The tibial component was removed easily secondary to the component being loose. Next, attention was redirected back to the femur. The femoral canal was sequentially hand reamed to the appropriate size. The distal cutting block was then placed over the reamer, and the distal femur was then cut. Minimal bone was resected. Next the femur was sized, and the 4-in-1 cutting block was then placed over the reamer and pinned in place and appropriate rotation. Anterior, posterior, and chamfer cuts were then performed through this cutting guide. The femoral trial was then placed, and the box cutting guide was then placed. Using the box reamer, the bone was reamed for the femoral box. Femoral trial was then removed. The tibia was then gently subluxed forward with a large bent knee retractor and exposed. Sequential hand reaming of the tibial canal was then performed with appropriate size. The extra medullary tibial cutting guide was then placed over the reamer, the proximal tibia was then cut. The tibia was then sized and the proximal tibia is broached and reamed. Both tibia and femoral trials were then placed with appropriate stems and sequential sized constrained liners were used. Final liner showed excellent stability of the knee throughout all range of motion with full extension and flexion to 115. The trials were then removed. The cut surfaces of bone were then irrigated with pulsatile lavage. The posterior structures were injected with the ropivacaine solution. The knee was also irrigated with Irrisept solution. The components were then opened, the cement was mixed, and the components were then cemented in place. The cement was allowed to harden with the knee in full extension. While the cement was hardening, the remaining soft tissues were then injected with a ropivacaine solution, which consisted of 246.25 mg of ropivacaine, 0.5 mg of epinephrine, 30 mg of Toradol, 80 g of clonidine, and 48.45 mL of sterile water, for a total of 100 mL of fluid injected. After the cemented hardened. The tourniquet was released, and hemostasis was obtained. A second gram of transexamic acid was given. The knee was again irrigated. The knee was again taken through range of motion and found to be stable throughout all range of motion of 0-130 , and the patella tracked normally. The fascia was then closed with #2 strata fix suture. The subcutaneous tissue was closed with 3-0 Vicryl and 3-0 strata fix. Dermabond glue was used for the skin and placed with the knee in flexion. The patient was placed in a sterile silver dressing. Patient was then transferred to recovery room in stable condition. The recruitment and outreach assistant DOROTHY Barnes was required due the complexity surgery and the need for a skilled surgical asst. She assisted in positioning, draping, retraction, and closure of the wound.
[2017-12-26] MEDS: MORPHINE SULFATE 2 MG/ML SYRINGE IV PRN ×2 (15:25→15:37)
--- NOTE | 2017-12-26 15:32 | XR ---
EXAMINATION TYPE: XR knee limited LT DATE OF EXAM: 12/26/2017 CLINICAL HISTORY: Left knee prosthesis replacement. TECHNIQUE: Portable AP and crosstable lateral views of the left knee are obtained immediately postop eratively. COMPARISON: Left knee x-ray June 23, 2016 FINDINGS: Metallic hardware from new long stem total left knee arthroplasty is seen and appears sati sfactory in alignment and position. There is evidence of recent surgery with diffuse subcutaneous ga s and soft tissue swelling noted anteriorly. IMPRESSION: METALLIC HARDWARE FROM TOTAL LEFT KNEE LONG STEM ARTHROPLASTY IS SATISFACTORY IN ALIGNME NT.
[2017-12-26] MEDS: HYDROcodone/APAP 7.5-325MG 1 EACH TAB PO PRN (17:32)
[2017-12-26] MEDS ORDERED: WARFARIN 2.5 MG TAB PO SCH (18:00)
[2017-12-26] MEDS: SENNOSIDES-DOCUSATE SODIUM 1 EACH TAB PO SCH (19:27)
[2017-12-26] MEDS: PRAMIPEXOLE 1 MG TAB PO PRN (22:48)
[2017-12-27] MEDS: SODIUM CHLORIDE 0.9% 1,000 ML IV SCH ×3 (00:45→21:05)
[2017-12-27] MEDS: HYDROcodone/APAP 7.5-325MG 1 EACH TAB PO PRN ×3 (05:01→21:41)
[2017-12-27 07:40] LABS: Basophils % (A) 0 %; Eosinophils % (A) 0 %; HCT 37.4 % (39.0-53.0); HGB 11.9 gm/dL (13.0-17.5); Lymphocytes # (A) 0.6 k/uL (1.0-4.8); Lymphocytes % (A) 5 %; MCH 28.2 pg (25.0-35.0); MCHC 31.7 g/dL (31.0-37.0); MCV 88.9 fL (80.0-100.0); Mean Platelet Volume 7.8; Monocytes # (A) 0.5 k/uL (0-1.0); Monocytes % (A) 4 %; Neutrophils # (A) 10.6 k/uL (1.3-7.7); Neutrophils % (A) 91 %; Platelet Count 160 k/uL (150-450); RBC 4.21 m/uL (4.30-5.90); RDW 14.5 % (11.5-15.5); WBC 11.7 k/uL (3.8-10.6)
[2017-12-27] MEDS: LACTATED RINGERS 1,000 ML IV SCH (07:43)
[2017-12-27 07:47] LABS: INR 1.3 (<1.2); Prothrombin Time 12.1 sec (9.0-12.0)
[2017-12-27] MEDS ORDERED: HYDROmorphone 2 MG TAB PO PRN ×3 (07:53→07:54)
[2017-12-27] MEDS ORDERED: HYDROmorphone 4 MG TABLET PO PRN (07:54)
[2017-12-27] MEDS: FERROUS SULFATE 325 MG TAB PO SCH (08:09)
[2017-12-27] MEDS: CHOLECALCIFEROL 1,000 UNIT TAB PO SCH (08:09)
[2017-12-27] MEDS: GABAPENTIN 100 MG CAP PO SCH ×2 (08:09→21:06)
[2017-12-27] MEDS: CARVEDILOL 6.25 MG TAB PO SCH ×2 (08:09→18:12)
[2017-12-27] MEDS: POTASSIUM CHLORIDE ER 20 MEQ TAB.ER PO SCH (08:09)
[2017-12-27] MEDS: FUROSEMIDE 40 MG TAB PO SCH (08:09)
[2017-12-27] MEDS: METOLAZONE 2.5 MG TAB PO SCH (08:10)
--- NOTE | 2017-12-27 08:37 | P.PN ---
Subjective Progress Note Date: 12/27/17 This is a 77-year-old male who is status post revision left total knee arthroplasty. This is postoperative day #1. Patient states that he does have pain today, but it is under control. Patient denies any new complaints today. Patient denies any fever/chills, numbness, weakness, tingling, abdominal pain, shortness of breath or chest pain. Objective - Vital Signs Vital signs: Vital Signs Temp 98.8 F 12/27/17 07:15 Pulse 63 12/27/17 07:15 Resp 16 12/27/17 01:14 BP 118/71 12/27/17 07:15 Pulse Ox 95 12/27/17 07:15 Intake & Output 12/26/17 12/27/17 12/27/17 18:59 06:59 18:59 Intake Total 1401 1727.5 180 Output Total 50 1250 Balance 1351 477.5 180 Intake: IV 1401 Intake, IV Titration 977.5 Amount Sodium Chloride 0.9% 1, 877.5 000 ml @ 65 mls/hr IV . [id number] [facility] Rx#:[id number] ceFAZolin 3 gm In Sodium 100 Chloride 0.9% 50 ml @ 100 mls/hr IVPB Q8H [facility] Rx#: [id number] Oral 750 180 Output: Urine 1250 Straight 1250 Estimated Blood Loss 50 - Exam Vital signs are stable. Patient is in no acute distress and is alert and oriented 3. Calf is soft and nontender to palpation. Dressing is clean, dry, and intact. Patient has full foot and ankle motion without pain or difficulty. Neurovascular status and circulatory status are intact. - Labs CBC & Chem 7: 12/27/17 07:17 Labs: Abnormal Lab Results - Last 24 Hours (Table) 12/26/17 12/27/17 12/27/17 Range/Units 10:15 07:17 07:17 WBC 11.7 H (3.8-10.6) k/uL RBC 4.21 L (4.30-5.90) m/uL Hgb 11.9 L (13.0-17.5) gm/dL Hct 37.4 L (39.0-53.0) % Neutrophils # 10.6 H (1.3-7.7) k/uL Lymphocytes # 0.6 L (1.0-4.8) k/uL PT 12.1 H (9.0-12.0) sec INR 1.2 H 1.3 H (<1.2) Microbiology - Last 24 Hours (Table) 12/26/17 12:35 Gram Stain - Preliminary Knee - Left Wound Culture - Preliminary 12/26/17 12:35 Gram Stain - Preliminary Knee - Left Wound Culture - Preliminary 12/26/17 12:35 Anaerobic Culture - Preliminary Knee - Left 12/26/17 12:35 Anaerobic Culture - Preliminary Knee - Left Assessment and Plan (1) Status post revision of total replacement of left knee Current Visit: Yes Status: Acute Code(s): Z96.652 - PRESENCE OF LEFT ARTIFICIAL KNEE JOINT SNOMED Code(s): 673903541 (2) Loose total knee arthroplasty Current Visit: Yes Status: Acute Code(s): T84.038A - MECHANICAL LOOSENING OF OTH INTERNAL PROSTHETIC JOINT, INIT; Z96.659 - PRESENCE OF UNSPECIFIED ARTIFICIAL KNEE JOINT SNOMED Code(s): 675645392 Plan: #1 Continue with routine postoperative care, leave dressing in place for 10 days. #2 Anticoagulation with Coumadin. #3 Physical therapy and CPM today. #4 Appreciate input from medicine. #5 Anticipate discharge home with home care or to rehab in the next 1-2 days.
[2017-12-27] MEDS: TAMSULOSIN 0.4 MG CAP.ER.24H PO SCH (08:48)
[2017-12-27] MEDS ORDERED: CALCIUM CARBONATE 500 MG CHEWABLE PO PRN (10:24)
[2017-12-27] MEDS: PANTOPRAZOLE 40 MG TABLET PO SCH (10:52)
[2017-12-27] MEDS ORDERED: traMADol 50 MG TAB PO PRN (10:57)
[2017-12-27] MEDS: PRAMIPEXOLE 1 MG TAB PO PRN (11:56)
--- NOTE | 2017-12-27 13:25 | P.CONS ---
History of Present Illness - Reason for Consult Consult date: 12/27/17 Medical management - History of Present Illness This is a 77-year-old male patient of Dr. Francisco. He has underlying history of chronic systolic heart failure, chronic atrial fibrillation on Coumadin, benign prostatic hypertrophy, chronic anemia, restless leg syndrome, hyperlipidemia, chronic pain syndrome, obstructive sleep apnea, hypertension hypertensive cardio vascular disease. Patient has been admitted by Dr. Manohar Street status post revision left total knee arthroplasty. Patient had low blood pressure readings yesterday which has resolved. Patient has required straight cath 2. He'll be started on Flomax. He has had problems with urinary retention on previous admission. Patient is complaining of gastric reflux and Protonix added. Review of Systems All systems: negative Constitutional: Denies chills, Denies fever Eyes: denies blurred vision, denies pain Ears, nose, mouth and throat: Denies headache, Denies sore throat Cardiovascular: Denies chest pain, Denies shortness of breath Respiratory: Denies cough Gastrointestinal: Denies abdominal pain, Denies diarrhea, Denies nausea, Denies vomiting Genitourinary: Reports urinary retention Musculoskeletal: Denies myalgias Musculoskeletal: left: knee pain Integumentary: Denies pruritus, Denies rash Neurological: Denies numbness, Denies weakness Psychiatric: Denies anxiety, Denies depression Endocrine: Denies fatigue, Denies weight change Past Medical History Past Medical History: Atrial Fibrillation, GERD/Reflux, Hyperlipidemia, Hypertension, Osteoarthritis (OA), Prostate Disorder, Sleep Apnea/CPAP/BIPAP Additional Past Medical History / Comment(s): HX OF POLYPS, restless leg syndrome,chronic back pain, DDD spinal stenosis, hemorrhoids, UTI in past. History of Any Multi-Drug Resistant Organisms: None Reported Past Surgical History: Back Surgery, Bariatric Surgery, Cholecystectomy, Heart Catheterization, Orthopedic Surgery, Pacemaker, Prostate Surgery Additional Past Surgical History / Comment(s): RODS IN BACK, PACEMAKER 11/2004 & REPLACED 04/2013, TURP, GASTRIC SLEEVE (12/2012),LEFT HEEL SPUR, RUMA TOTAL KNEE., RUMA ROTATOR CUFF, Back injections; RUMA KNEE SCOPES x 4, SINUS SX X 2. LEFT KNEE SX TENDON REPAIR Past Anesthesia/Blood Transfusion Reactions: No Reported Reaction Type of Cardiac Device: Permanent Pacemaker Device Placement Date:: -11/2004, REPLACED 04/2013-[employer] Past Psychological History: Depression Additional Psychological History / Comment(s): Pt resides with his spouse. He uses a cane to ambulate. He drives. Smoking Status: Former smoker Past Alcohol Use History: Occasional Additional Past Alcohol Use History / Comment(s): Patient smoked one pack per day for 20 years ago quit in 1987. He drinks 4-5 drinks per week. Past Drug Use History: None Reported - Past Family History Father Family Medical History: Cancer Additional Family Medical History / Comment(s): Father of prostate cancer in his mid 60's. Mother Family Medical History: Coronary Artery Disease (CAD), Myocardial Infarction ([place] ) Additional Family Medical History / Comment(s): Mother of a [place] at the age of 73 yrs. Brother(s) Family Medical History: No Reported History Sister(s) Family Medical History: CVA/TIA Daughter(s) Family Medical History: No Reported History Son(s) Family Medical History: No Reported History Medications and Allergies Home Medications Medication Instructions Recorded Confirmed Type Cholecalciferol [Vitamin D3] 2,000 unit PO DAILY 11/22/14 12/26/17 History Pravastatin Sodium [Pravachol] 40 mg PO HS 11/22/14 12/26/17 History Warfarin [Coumadin] 5 mg PO MOWEFR 11/22/14 12/26/17 History Warfarin [Coumadin] 2.5 mg PO SUTUTHSA 01/02/15 12/26/17 History Ferrous Sulfate [Iron (65 MG 325 mg PO DAILY 08/26/15 12/26/17 History Elemental)] Carvedilol [Coreg] 6.25 mg PO BID #0 08/31/15 12/26/17 Rx Losartan Potassium [Cozaar] 25 mg PO HS 04/04/16 12/26/17 History Metolazone [Zaroxolyn] 2.5 mg PO DAILY 04/04/16 12/26/17 History Furosemide [Lasix] 40 mg PO DAILY 03/29/17 12/26/17 History Gabapentin [Neurontin] 200 mg PO BID 03/29/17 12/26/17 History Pramipexole [Mirapex] 1 mg PO TID PRN 03/29/17 12/26/17 History Diazepam [Valium] 10 mg PO TID PRN 09/29/17 12/26/17 History Potassium Chloride [Klor-Con 20] 20 meq PO DAILY 09/29/17 12/26/17 History traMADol HCL [Ultram] 50 mg PO Q8H PRN 09/29/17 12/26/17 History HYDROcodone/APAP 7.5-325MG [[place] 1 - 2 tab PO Q4-6H PRN 12/26/17 12/26/17 History 7.5-325] Allergies Allergy/AdvReac Type Severity Reaction Status Date / Time No Known Allergies Allergy Verified 12/26/17 11:41 Physical Exam Vitals: Vital Signs Temp Pulse Resp BP Pulse Ox 12/27/17 07:15 98.8 F 63 118/71 95 12/27/17 01:14 97.6 F 62 16 105/66 96 12/26/17 20:00 97.8 F 66 18 101/68 95 12/26/17 17:30 77 111/68 12/26/17 17:15 69 135/74 12/26/17 17:00 61 134/73 12/26/17 16:45 67 156/74 12/26/17 16:30 161/82 12/26/17 16:12 97.0 F L 65 14 145/83 95 12/26/17 16:00 60 16 144/69 96 12/26/17 15:45 70 16 125/83 97 12/26/17 15:30 61 16 139/81 97 12/26/17 15:15 67 16 139/87 96 12/26/17 15:00 61 16 140/86 94 L 12/26/17 14:50 96.8 F L 60 16 133/70 95 12/26/17 10:18 97.2 F L 63 16 124/71 96 Intake and Output 12/26/17 12/27/17 12/27/17 22:59 06:59 14:59 Intake Total 527.5 1200 180 Output Total 900 350 Balance -372.5 850 180 Intake: Intake, IV Titration 277.5 700 Amount Sodium Chloride 0.9% 1, 227.5 650 000 ml @ 65 mls/hr IV . [id number] [facility] Rx#:[id number] ceFAZolin 3 gm In Sodium 50 50 Chloride 0.9% 50 ml @ 100 mls/hr IVPB Q8H [facility] Rx#: [id number] Oral 250 500 180 Output: Urine 900 350 Straight 900 350 General appearance: Present: no acute distress, obese - EENT Eyes: Present: anicteric sclerae, EOMI, PERRLA, normal appearance. Absent: ptosis, scleral icterus ENT: Present: hearing grossly normal, NA/AT, normal oropharynx. Absent: thrush Ears: bilateral: normal - Neck Neck: Present: normal ROM. Absent: lymphadenopathy, rigidity Carotids: bilateral: upstroke normal Thyroid: bilateral: normal size - Respiratory Respiratory: bilateral: diminished, negative: dullness, rales, rhonchi, wheezing , prolonged expiration, prolonged inspiration - Cardiovascular Rhythm: regularly irregular Heart sounds: normal: S1, S2 Abnormal Heart Sounds: Present: systolic murmur - Gastrointestinal General gastrointestinal: Present: normal bowel sounds, soft. Absent: tenderness, umbilical hernia, ventral hernia - Integumentary Integumentary: Present: normal, normal turgor - Neurologic Neurologic: Present: CNII-XII intact - Musculoskeletal Musculoskeletal: Absent: gait normal - Psychiatric Psychiatric: Present: A&O x's 3, appropriate affect, intact judgment & insight Results CBC & Chem 7: 12/27/17 07:17 Labs: Abnormal Lab Results - Last 24 Hours (Table) 12/26/17 12/27/17 12/27/17 Range/Units 10:15 07:17 07:17 WBC 11.7 H (3.8-10.6) k/uL RBC 4.21 L (4.30-5.90) m/uL Hgb 11.9 L (13.0-17.5) gm/dL Hct 37.4 L (39.0-53.0) % Neutrophils # 10.6 H (1.3-7.7) k/uL Lymphocytes # 0.6 L (1.0-4.8) k/uL PT 12.1 H (9.0-12.0) sec INR 1.2 H 1.3 H (<1.2) Microbiology - Last 24 Hours (Table) 12/26/17 12:35 Gram Stain - Preliminary Knee - Left Wound Culture - Preliminary 12/26/17 12:35 Gram Stain - Preliminary Knee - Left Wound Culture - Preliminary 12/26/17 12:35 Anaerobic Culture - Preliminary Knee - Left 12/26/17 12:35 Anaerobic Culture - Preliminary Knee - Left Assessment and Plan Plan: 1. Status post revision left total knee arthroplasty. Continue current pain management, continue PT and OT per orthopedics. Continue incentive spirometry to reduce incidence of atelectasis and hospital-acquired pneumonia. 2. Chronic systolic heart failure. Continue Coreg 6.25 mg twice daily, metolazone 2.5 mg daily, losartan 25 mg at hs. 3. Chronic atrial fibrillation. Continue patient on Coreg 6.25 mg orally twice daily, Coumadin keep an INR between 2-3. 4. BPH and urinary retention requiring straight cath 2. Flomax started at 0.4 mg daily. 5. Chronic anemia. Continue iron 325 mg orally daily. 6. Hypertension and hypertensive cardiovascular disease. Continue losartan 25 mg daily, Coreg 6.25 mg orally twice daily. 7. Hyperlipidemia. On Pravachol 40 mg hs. 8. Chronic pain syndrome. Continue current pain management 9. Obstructive sleep apnea. Continue CPAP. 10. Restless leg syndrome. Continue Mirapex 1 mg 3 times a day. 11. DVT prophylaxis. Continue Coumadin to keep the INR 2-3. 12. GI prophylaxis. Continue Protonix 40 mg orally once every day. Discharge planning: Home with [facility]. Impression and plan of care have been directed as dictated by the signing physician. Martha Monsivais nurse practitioner acting as scribe for signing physician.
[2017-12-27] MEDS ORDERED: WARFARIN 5 MG TAB PO SCH (18:00)
[2017-12-27] MEDS ORDERED: PRAVASTATIN SODIUM 40 MG TAB PO SCH (21:00)
[2017-12-27] MEDS ORDERED: LOSARTAN 25 MG TAB PO SCH (21:00)
[2017-12-27] MEDS: SENNOSIDES-DOCUSATE SODIUM 1 EACH TAB PO SCH (21:08)
[2017-12-28 02:57] VITALS: RESP 16
[2017-12-28] MEDS: LACTATED RINGERS 1,000 ML IV SCH (04:42)
[2017-12-28] MEDS: HYDROcodone/APAP 7.5-325MG 1 EACH TAB PO PRN (04:58)
[2017-12-28 07:42] LABS: INR 1.4 (<1.2); Prothrombin Time 12.7 sec (9.0-12.0)
[2017-12-28 08:09] VITALS: BP 95/64; PULSE 62; TEMP 98
--- NOTE | 2017-12-28 09:01 | P.DS ---
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 The patient presents for evaluation. After discussion and consideration patient elects to proceed with revision left total knee arthroplasty. The patient is seen preoperatively by Dr. Street and medically cleared for surgery by their primary care physician. Patient is admitted to [facility] on 12/26/2017 for revision left total knee arthroplasty. The procedures performed without complication or sequelae. The patient is doing well postoperatively. Labs and vital signs are stable on day of discharge. On day of discharge patient's knee incision is healing well. There is minimal erythema. There is no drainage noted at this time. There is minimal soft tissue swelling to the knee. Patient has full foot and ankle motion without difficulty or pain. Calf is soft and nontender to palpation. Neurovascular status to the left lower extremity is intact. Patient is discharged home in good condition. Please see med rec for accurate list of home medications. Plan - Discharge Summary Discharge Rx Participant: Yes New Discharge Prescriptions: New Sennosides [Senokot] 1 tab PO BID #60 tablet traMADol HCl [Ultram] 1 - 2 tab PO Q6H PRN #90 tab PRN Reason: Pain No Action Cholecalciferol [Vitamin D3] 2,000 unit PO DAILY Warfarin [Coumadin] 5 mg PO MOWEFR Pravastatin Sodium [Pravachol] 40 mg PO HS Warfarin [Coumadin] 2.5 mg PO SUTUTHSA Ferrous Sulfate [Iron (65 MG Elemental)] 325 mg PO DAILY Carvedilol [Coreg] 6.25 mg PO BID #0 Metolazone [Zaroxolyn] 2.5 mg PO DAILY Losartan Potassium [Cozaar] 25 mg PO HS Pramipexole [Mirapex] 1 mg PO TID PRN PRN Reason: RESTLESS LEG SYNDROME Furosemide [Lasix] 40 mg PO DAILY Gabapentin [Neurontin] 200 mg PO BID Potassium Chloride [Klor-Con 20] 20 meq PO DAILY traMADol HCL [Ultram] 50 mg PO Q8H PRN PRN Reason: RESTLESS LEG Diazepam [Valium] 10 mg PO TID PRN PRN Reason: restless legs HYDROcodone/APAP 7.5-325MG [[place] 7.5-325] 1 - 2 tab PO Q4-6H PRN PRN Reason: Pain Discharge Medication List Cholecalciferol [Vitamin D3] 2,000 unit PO DAILY 11/22/14 [History] Pravastatin Sodium [Pravachol] 40 mg PO HS 11/22/14 [History] Warfarin [Coumadin] 5 mg PO MOWEFR 11/22/14 [History] Warfarin [Coumadin] 2.5 mg PO SUTUTHSA 01/02/15 [History] Ferrous Sulfate [Iron (65 MG Elemental)] 325 mg PO DAILY 08/26/15 [History] Carvedilol [Coreg] 6.25 mg PO BID #0 08/31/15 [Rx] Losartan Potassium [Cozaar] 25 mg PO HS 04/04/16 [History] Metolazone [Zaroxolyn] 2.5 mg PO DAILY 04/04/16 [History] Furosemide [Lasix] 40 mg PO DAILY 03/29/17 [History] Gabapentin [Neurontin] 200 mg PO BID 03/29/17 [History] Pramipexole [Mirapex] 1 mg PO TID PRN 03/29/17 [History] Diazepam [Valium] 10 mg PO TID PRN 09/29/17 [History] Potassium Chloride [Klor-Con 20] 20 meq PO DAILY 09/29/17 [History] traMADol HCL [Ultram] 50 mg PO Q8H PRN 09/29/17 [History] HYDROcodone/APAP 7.5-325MG [[place] 7.5-325] 1 - 2 tab PO Q4-6H PRN 12/26/17 [ History] Sennosides [Senokot] 1 tab PO BID #60 tablet 12/28/17 [Rx] traMADol HCl [Ultram] 1 - 2 tab PO Q6H PRN #90 tab 12/28/17 [Rx] Follow up Appointment(s)/Referral(s): [facility], [NON-STAFF] - Manohar Street DO [Doctor of Osteopathic Medicine] - 01/08/18 8:00 am Ambulatory/Diagnostic Orders: Continuous Passive Motion (CPM) Machine [DME.AMB1] Time Frame: 3 Weeks, Location : Determined By Patient Activity/Diet/Wound Care/Special Instructions: [facility] - [facility] - Please call once home to set up [facility] - [phone] Discharge Disposition: HOME WITH HOME HEALTH SERVICES
[2017-12-28] MEDS: PANTOPRAZOLE 40 MG TABLET PO SCH (09:29)
[2017-12-28] MEDS: FUROSEMIDE 40 MG TAB PO SCH (09:29)
[2017-12-28] MEDS: FERROUS SULFATE 325 MG TAB PO SCH (09:29)
[2017-12-28] MEDS: GABAPENTIN 100 MG CAP PO SCH (09:29)
[2017-12-28] MEDS: CHOLECALCIFEROL 1,000 UNIT TAB PO SCH (09:30)
[2017-12-28] MEDS: TAMSULOSIN 0.4 MG CAP.ER.24H PO SCH (09:30)
[2017-12-28] MEDS: POTASSIUM CHLORIDE ER 20 MEQ TAB.ER PO SCH (09:30)
[2017-12-28] MEDS: SODIUM CHLORIDE 0.9% 1,000 ML IV SCH (09:31)
[2017-12-28] MEDS: METOLAZONE 2.5 MG TAB PO SCH (09:31)
[2017-12-28] MEDS: CARVEDILOL 6.25 MG TAB PO SCH (09:32)
[2017-12-28] MEDS: PRAMIPEXOLE 1 MG TAB PO PRN (12:48)
[2017-12-28] MEDS ORDERED: WARFARIN 5 MG TAB PO ONE (18:00)
[2017-12-30] MEDS ORDERED: WARFARIN 2.5 MG TAB PO SCH (18:00)
== END 2017-12-28 13:25 | disposition home health service (06) | DRG 467 ==
LOC: 2ORMAIN 09:23 → 3SUR 15:10
PROVIDERS: ADMIT Orthopaedic Surgery; ATTEND Orthopaedic Surgery
PROC: 0SRD069 Replacement of Left Knee Joint with Oxidized Zirconium on Polyethylene Synthetic Substitute, Cemented, Open Approach (ICD-10-PCS; 2017-12-26)
PROC: 0SPD0JZ Removal of Synthetic Substitute from Left Knee Joint, Open Approach (ICD-10-PCS; principal; 2017-12-26 11:35)
DX: T84.033A Mechanical loosening of internal left knee prosthetic joint, initial encounter (principal); I50.22 Chronic systolic (congestive) heart failure; D63.8 Anemia in other chronic diseases classified elsewhere; I11.0 Hypertensive heart disease with heart failure; I48.2 Chronic atrial fibrillation; G25.81 Restless legs syndrome; G89.4 Chronic pain syndrome; G47.33 Obstructive sleep apnea (adult) (pediatric); R33.9 Retention of urine, unspecified; F32.9 Major depressive disorder, single episode, unspecified; M48.00 Spinal stenosis, site unspecified; N40.1 Benign prostatic hyperplasia with lower urinary tract symptoms; D64.9 Anemia, unspecified; E78.00 Pure hypercholesterolemia, unspecified; R33.8 Other retention of urine; R01.1 Cardiac murmur, unspecified; K21.9 Gastro-esophageal reflux disease without esophagitis; Z87.440 Personal history of urinary (tract) infections; Z87.19 Personal history of other diseases of the digestive system; Z98.84 Bariatric surgery status; Z90.49 Acquired absence of other specified parts of digestive tract; Z95.0 Presence of cardiac pacemaker; Z79.01 Long term (current) use of anticoagulants; Z96.653 Presence of artificial knee joint, bilateral; Z87.891 Personal history of nicotine dependence; Z80.42 Family history of malignant neoplasm of prostate; Z82.49 Family history of ischemic heart disease and other diseases of the circulatory system; Z82.3 Family history of stroke; Z79.899 Other long term (current) drug therapy; Z79.891 Long term (current) use of opiate analgesic; Z83.3 Family history of diabetes mellitus
CPT/HCPCS: 85025; 85610; 87070; 87075; 87205; 88305; 88331; 94760

== ENCOUNTER → 2018-01-19 | Outpatient (CLI) | payer MEDICARE ==
[2018-01-19 11:46] LABS: Appearance,Urine Clear (Clear); Bilirubin,Urine Negative (Negative); Blood,Urine Negative (Negative); Color,Urine Yellow; Glucose,Urine (UA) Negative (Negative); Ketones,Urine Negative (Negative); Leukocyte Esterase,Urine Negative (Negative); Nitrite,Urine Negative (Negative); Protein,Urine Negative (Negative); Specific Gravity,Urine 1.013 (1.001-1.035); Urobilinogen,Urine <2.0 mg/dL (<2.0)
[2018-01-19 11:58] LABS: HCT 36.6 % (39.0-53.0); HGB 11.9 gm/dL (13.0-17.5); Hypochromasia Slight; MCH 29.2 pg (25.0-35.0); MCHC 32.5 g/dL (31.0-37.0); MCV 89.9 fL (80.0-100.0); Mean Platelet Volume 6.4; Platelet Count 214 k/uL (150-450); RBC 4.07 m/uL (4.30-5.90); RDW 14.7 % (11.5-15.5); WBC 5.4 k/uL (3.8-10.6)
[2018-01-19 12:10] LABS: Albumin 3.7 g/dL (3.5-5.0); Calcium 9.2 mg/dL (8.4-10.2); Potassium 3.9 mmol/L (3.5-5.1); Total Bilirubin 0.8 mg/dL (0.2-1.3); Total Protein 6.5 g/dL (6.3-8.2)
[2018-01-19 12:16] LABS: INR 2.5 (<1.2); Partial Thromboplastin Time 36.8 sec (22.0-30.0); Prothrombin Time 22.3 sec (9.0-12.0)
== END | disposition home or self-care (01) ==
LOC: LABPAT 10:55
PROVIDERS: ATTEND Orthopaedic Surgery
DX: Z01.812 Encounter for preprocedural laboratory examination (principal); Z79.01 Long term (current) use of anticoagulants
CPT/HCPCS: 36415; 80053; 81003; 85027; 85610; 85730

== ENCOUNTER 2018-01-23 11:44 | Inpatient (IN) | payer MEDICARE ==
[2018-01-19 13:35] VITALS: BMI 48.8
[2018-01-23] MEDS ORDERED: LIDOCAINE 1% 20 ML VIAL (10MG/ML) FOR IV START INTRADERMA PRN (11:52)
[2018-01-23] MEDS ORDERED: LACTATED RINGERS 1,000 ML IV SCH (11:52)
[2018-01-23] MEDS ORDERED: MIDAZOLAM 2 MG/2 ML VIAL IV PRN (11:52)
[2018-01-23] MEDS ORDERED: ONDANSETRON 4 MG/2 ML VIAL IVP ONE (12:11)
[2018-01-23] MEDS ORDERED: DEXAMETHASONE SOD PHOSPHATE 10 MG/ML 1 ML VIAL IV ONE (12:11)
[2018-01-23] MEDS ORDERED: ONDANSETRON 4 MG/2 ML VIAL ONE (12:12)
[2018-01-23 12:26] LABS: INR 1.3 (<1.2); Prothrombin Time 12.3 sec (9.0-12.0)
[2018-01-23] MEDS ORDERED: HYDROmorphone 0.5 MG/0.5 ML SYRINGE IVP ONE ×3 (12:47→16:03)
[2018-01-23] MEDS ORDERED: hydrOXYzine PAMOATE 25 MG CAP PO PRN (14:35)
[2018-01-23] MEDS ORDERED: DIAZEPAM 5 MG TAB PO PRN ×2 (14:35)
[2018-01-23] MEDS ORDERED: BISACODYL 10 MG SUPP RECTAL PRN (14:35)
[2018-01-23] MEDS ORDERED: NA PHOS,M-B/NA PHOS,DI-BA 133 ML ENEMA RECTAL PRN (14:35)
[2018-01-23] MEDS ORDERED: ONDANSETRON 4 MG/2 ML VIAL IVP PRN (14:35)
[2018-01-23] MEDS ORDERED: NALOXONE 0.4 MG/ML 1 ML VIAL IV PRN (14:35)
[2018-01-23] MEDS ORDERED: MAGNESIUM HYDROXIDE 2,400 MG/10 ML CUP PO PRN (14:35)
[2018-01-23] MEDS ORDERED: HYDROmorphone 0.5 MG/0.5 ML SYRINGE IVP PRN ×4 (14:35)
[2018-01-23] MEDS ORDERED: HYDROcodone/APAP 7.5-325MG 1 EACH TAB PO PRN ×2 (14:35)
[2018-01-23] MEDS ORDERED: fentaNYL (PF) 50 MCG/ML 2 ML AMP ONE (14:55)
[2018-01-23] MEDS ORDERED: SUCCINYLCHOLINE CHLORIDE 100 MG/5 ML SYR IV ONE (14:55)
[2018-01-23] MEDS ORDERED: MIDAZOLAM 2 MG/2 ML VIAL ONE (14:55)
[2018-01-23] MEDS ORDERED: LIDOCAINE 1% INJ 10MG/ML (20 ML MDV) ONE (14:55)
[2018-01-23] MEDS ORDERED: MEPERIDINE 50 MG/ML SYRINGE ONE (14:55)
[2018-01-23] MEDS ORDERED: PROPOFOL 10 MG/ML 20 ML VIAL IV ONE (14:55)
--- NOTE | 2018-01-23 15:32 | P.OP ---
Date of Procedure: 01/23/18 Preoperative Diagnosis: Rupture medial retinaculum left knee Postoperative Diagnosis: Rupture medial retinaculum left knee Procedure(s) Performed: Medial retinacular repair and lateral release of the left knee Anesthesia: spinal Surgeon: Manohar Street Package Dyer #1: Candi Aviles Estimated Blood Loss (ml): 10 Pathology: none sent Condition: stable Disposition: PACU Indications for Procedure: This is a 77-year-old gentleman that had a revision of his left total knee done approximately 4 weeks ago. He has a history of having trouble with his patellar tracking from his prior knee replacement. He was doing well initially after surgery, then fell began having more pain in his knee. X-rays demonstrate lateral subluxation of his patella. Because of this, I recommended repair of his medial retinaculum. He is agreeable to this and informed consent was obtained. Operative Findings: The operative findings are consistent with a tear of the medial retinaculum of the left knee. Description of Procedure: Patient was seen and evaluated in the preoperative area. The consent was reviewed and the operative site was marked with a skin marker. Patient was then brought to the operating room and given 3 g of Ancef intravenously. A spinal anesthetic was administered by the anesthesia department. Tourniquet was placed on the left upper thigh and the left lower extremity is prepped and draped in the usual sterile fashion. A universal timeout was performed, which confirmed the patient's name, ALLERGIES, surgical site, and consent. The limb was then exsanguinated, and the tourniquet was inflated to 300 mmHg. His prior incision was utilized with the skin and subcutaneous tissue sharply incised. Incision was carried down to the medial retinaculum which was found to be torn. Hematoma was also evacuated. Next, a lateral release was performed of his patella. Then, using #5 Ethibond suture medial retinaculum was repaired and imbricated. After the repair, the patella appeared to be stable. Wound was then irrigated and closed with 2-0 Vicryl followed by veronica for the skin. Patient was then placed in the immobilizer and transferred to recovery room in stable condition. The public services assistant DOROTHY Barnes was required due to to the complexity of the surgery and the need for a skilled director surgical.
--- NOTE | 2018-01-23 16:30 | XR ---
EXAMINATION TYPE: XR knee limited LT DATE OF EXAM: 01/23/2018 CLINICAL HISTORY: Left knee pain and arthritis status post total knee replacement. TECHNIQUE: Portable AP and crosstable lateral views of the left knee are obtained immediately postop eratively. COMPARISON: Left knee x-ray December 26, 2017. FINDINGS: Metallic hardware from total left knee arthroplasty is again seen and appears satisfactory in alignment and position. Made of osseous structures are demineralized. There is evidence of recen t surgery with diffuse subcutaneous gas , vertical skin veronica, and subcutaneous edema noted more pr ominent versus most recent prior. IMPRESSION: METALLIC HARDWARE FROM TOTAL LEFT KNEE ARTHROPLASTY IS SATISFACTORY IN ALIGNMENT.
[2018-01-23] MEDS ORDERED: LACTATED RINGERS 1,000 ML IV ONE (16:45)
[2018-01-23] MEDS ORDERED: WARFARIN 5 MG TAB PO SCH (17:45)
--- NOTE | 2018-01-23 17:45 | P.CONS ---
History of Present Illness - Reason for Consult Consult date: 01/23/18 Medical Management Requesting physician: Manohar Street - Chief Complaint Post medial retinaculum repair. - History of Present Illness This is a 77-year-old male patient of Dr. Francisco. He has underlying history of chronic systolic heart failure, chronic atrial fibrillation on Coumadin, benign prostatic hypertrophy, chronic anemia, restless leg syndrome, hyperlipidemia, chronic pain syndrome, obstructive sleep apnea, hypertension hypertensive cardiovascular disease. Patient has been admitted by Dr. Manohar Street status post revision left total knee arthroplasty about 4 weeks ago and unfortunately fell coming out of the shower and landed on his buttock but his left knee hit the door, develop pain in his knee had an X-ray on Monday which showed lateral dislocation of his patella and he underwent medial retinaculum repair by Dr. Street today and was asked to see him for medical management. Review of Systems Eyes: denies blurred vision, denies bulging eye, denies decreased vision, denies diplopia Ears: deny: decreased hearing Ears, nose, mouth and throat: Denies dysphagia, Denies neck lump, Denies sore throat Cardiovascular: Reports decreased exercise tolerance, Reports dyspnea on exertion, Reports high blood pressure, Reports shortness of breath, Denies chest pain, Denies rapid heart beat, Denies syncope Respiratory: Reports sleep apnea, Reports snoring, Denies congestion, Denies cough with sputum, Denies home oxygen, Denies wheezing Gastrointestinal: Denies abdominal pain, Denies BRBPR, Denies heartburn, Denies hematemesis, Denies melena, Denies nausea, Denies vomiting Genitourinary: Reports nocturia, Denies dysuria Musculoskeletal: Denies myalgias Musculoskeletal: left: knee pain, absent: ankle pain, ankle stiffness, ankle swelling, elbow pain, elbow stiffness, elbow swelling, foot pain, foot stiffness , foot swelling, hand pain, hand stiffness, hand swelling, hip pain, hip stiffness, hip swelling, knee stiffness, knee swelling, shoulder pain, shoulder stiffness, shoulder swelling, wrist pain, wrist stiffness, wrist swelling Integumentary: Denies pruritus, Denies rash Neurological: Denies numbness, Denies weakness Psychiatric: Denies anxiety, Denies depression Endocrine: Denies fatigue, Denies weight change Past Medical History Past Medical History: Atrial Fibrillation, GERD/Reflux, Hyperlipidemia, Hypertension, Osteoarthritis (OA), Prostate Disorder, Sleep Apnea/CPAP/BIPAP Additional Past Medical History / Comment(s): HX OF POLYPS, restless leg syndrome, obesity,chronic back pain, DDD spinal stenosis, hemorrhoids, UTI in past. USES CPAP. PREVIOUS HX OF PROSTATE PROBLEMS. FELL W/ INJURY TO LT KNEECAP, HAD TOTAL LT KNEE 12/26/17. History of Any Multi-Drug Resistant Organisms: None Reported Past Surgical History: Back Surgery, Bariatric Surgery, Cholecystectomy, Heart Catheterization, Joint Replacement, Orthopedic Surgery, Pacemaker, Prostate Surgery Additional Past Surgical History / Comment(s): RODS IN BACK, PACEMAKER 11/2004 & REPLACED 04/2013, TURP, GASTRIC SLEEVE (12/2012),LEFT HEEL SPUR, RUMA TOTAL KNEE., RUMA ROTATOR CUFF, Back injections; RUMA KNEE SCOPES x 4, SINUS SX X 2. LEFT KNEE SX TENDON REPAIR. TOTAL LT KNEE 12/26/17. Past Anesthesia/Blood Transfusion Reactions: No Reported Reaction Type of Cardiac Device: Permanent Pacemaker Device Placement Date:: -11/2004, REPLACED 04/2013-[employer] Smoking Status: Former smoker - Past Family History Father Family Medical History: Cancer Additional Family Medical History / Comment(s): Father of prostate cancer in his mid 60's. Mother Family Medical History: Coronary Artery Disease (CAD), Myocardial Infarction ([place] ) Additional Family Medical History / Comment(s): Mother of a [place] at the age of 73 yrs. Brother(s) Family Medical History: No Reported History Sister(s) Family Medical History: CVA/TIA Daughter(s) Family Medical History: No Reported History Son(s) Family Medical History: No Reported History Medications and Allergies Home Medications Medication Instructions Recorded Confirmed Type Cholecalciferol [Vitamin D3] 2,000 unit PO DAILY 11/22/14 01/23/18 History Pravastatin Sodium [Pravachol] 40 mg PO HS 11/22/14 01/23/18 History Warfarin [Coumadin] 5 mg PO MOWEFR 11/22/14 01/23/18 History Warfarin [Coumadin] 2.5 mg PO SUTUTHSA 01/02/15 01/23/18 History Ferrous Sulfate [Iron (65 MG 325 mg PO DAILY 08/26/15 01/23/18 History Elemental)] Carvedilol [Coreg] 6.25 mg PO BID #0 08/31/15 01/23/18 Rx Losartan Potassium [Cozaar] 25 mg PO HS 04/04/16 01/23/18 History Metolazone [Zaroxolyn] 2.5 mg PO DAILY 04/04/16 01/23/18 History Furosemide [Lasix] 40 mg PO DAILY 03/29/17 01/23/18 History Gabapentin [Neurontin] 200 mg PO BID 03/29/17 01/23/18 History Pramipexole [Mirapex] 1 mg PO TID PRN 03/29/17 01/23/18 History Diazepam [Valium] 10 mg PO TID PRN 09/29/17 01/23/18 History Potassium Chloride [Klor-Con 20] 20 meq PO DAILY 09/29/17 01/23/18 History traMADol HCL [Ultram] 50 mg PO Q8H PRN 09/29/17 01/23/18 History HYDROcodone/APAP 7.5-325MG [[place] 1 - 2 tab PO Q4-6H PRN 12/26/17 01/23/18 History 7.5-325] Tamsulosin [Flomax] 0.4 mg PO DAILY #30 cap 12/28/17 01/23/18 Rx Sennosides [Senokot] 8.6 mg PO BID 01/23/18 01/23/18 History Allergies Allergy/AdvReac Type Severity Reaction Status Date / Time No Known Allergies Allergy Verified 01/23/18 16:36 Physical Exam Vitals: Vital Signs Temp Pulse Resp BP Pulse Ox 01/23/18 16:30 60 14 134/63 96 01/23/18 16:15 60 14 117/77 97 01/23/18 16:00 49 L 16 123/59 97 01/23/18 15:55 97.2 F L 63 16 122/66 96 01/23/18 12:48 61 99 01/23/18 12:01 97.2 F L 65 18 140/72 98 Intake and Output 01/23/18 01/23/18 01/23/18 06:59 14:59 22:59 Intake Total 700 350 Output Total 10 Balance 700 340 Intake: IV 700 350 Output: Estimated Blood Loss 10 - Constitutional General appearance: no acute distress, obese - EENT Eyes: anicteric sclerae, EOMI, PERRLA, no ptosis, no scleral icterus, normal appearance ENT: hearing grossly normal, NA/AT, normal oropharynx, no thrush Ears: bilateral: normal - Neck Neck: no lymphadenopathy, normal ROM, no rigidity, no stridor Carotids: bilateral: upstroke normal Thyroid: bilateral: normal size - Respiratory Respiratory: bilateral: diminished, negative: dullness, rales, rhonchi, wheezing , prolonged expiration, prolonged inspiration - Cardiovascular Rhythm: regular Heart sounds: normal: S1, S2 Abnormal Heart Sounds: systolic murmur - Gastrointestinal General gastrointestinal: soft, no splenomegaly, no tenderness, no umbilical hernia, no ventral hernia - Integumentary Integumentary: normal, normal turgor - Neurologic Neurologic: CNII-XII intact - Musculoskeletal Musculoskeletal: strength equal bilaterally - Psychiatric Psychiatric: A&O x's 3, appropriate affect, intact judgment & insight Results Labs: Abnormal Lab Results - Last 24 Hours (Table) 01/23/18 Range/Units 12:05 PT 12.3 H (9.0-12.0) sec INR 1.3 H (<1.2) Assessment and Plan Assessment: Assessment and plan: 1. Status post revision left medial retinaculum repair. Continue current pain management, continue PT and OT per orthopedics. Continue incentive spirometry to reduce incidence of atelectasis and hospital-acquired pneumonia, we will continue with his coumadin for DVT prophylaxis. 2. Chronic systolic heart failure. Continue Coreg 6.25 mg twice daily, metolazone 2.5 mg daily, losartan 25 mg at hs. 3. Chronic atrial fibrillation. Continue patient on Coreg 6.25 mg orally twice daily, Coumadin keep an INR between 2-3. 4. BPH and urinary retention in the past we will continue with Flomax 0.4 mg orally daily. 5. Chronic anemia. Continue iron 325 mg orally daily. 6. Hypertension and hypertensive cardiovascular disease. Continue losartan 25 mg daily, Coreg 6.25 mg orally twice daily. 7. Hyperlipidemia. On Pravachol 40 mg hs. 8. Chronic pain syndrome. Continue current pain management 9. Obstructive sleep apnea. Continue CPAP. 10. Restless leg syndrome. Continue Mirapex 1 mg 3 times a day. 11. DVT prophylaxis. continue with coumadin and will monitor INR. 12. GI prophylaxis. Continue Protonix 40 mg orally once every day. 13. Thank you for allowing us to be part in the care of your patient , we will follow up with you.
[2018-01-23] MEDS ORDERED: WARFARIN 2.5 MG TAB PO ONE (18:00)
[2018-01-23] MEDS ORDERED: WARFARIN 5 MG TAB PO ONE (18:00)
[2018-01-23] MEDS: CARVEDILOL 6.25 MG TAB PO SCH (19:07)
[2018-01-23] MEDS: SODIUM CHLORIDE 0.9% 1,000 ML IV SCH (20:25)
[2018-01-23] MEDS: SENNOSIDES 8.6 MG TAB PO SCH (20:40)
[2018-01-23] MEDS: GABAPENTIN 100 MG CAP PO SCH (20:40)
[2018-01-23] MEDS ORDERED: SENNOSIDES-DOCUSATE SODIUM 1 EACH TAB PO SCH (21:00)
[2018-01-23] MEDS ORDERED: PRAVASTATIN SODIUM 40 MG TAB PO SCH (21:00)
[2018-01-23] MEDS ORDERED: LOSARTAN 25 MG TAB PO SCH (21:00)
[2018-01-23] MEDS: PRAMIPEXOLE 1 MG TAB PO PRN (22:12)
[2018-01-24] MEDS: PRAMIPEXOLE 1 MG TAB PO PRN (05:27)
[2018-01-24] MEDS: SODIUM CHLORIDE 0.9% 1,000 ML IV SCH (05:27)
[2018-01-24 07:48] VITALS: BP 131/82; PULSE 76; RESP 20; TEMP 97.9
[2018-01-24 08:08] LABS: Basophils % (A) 0 %; Eosinophils % (A) 0 %; HCT 37.2 % (39.0-53.0); HGB 11.8 gm/dL (13.0-17.5); Hypochromasia Slight; Lymphocytes # (A) 0.5 k/uL (1.0-4.8); Lymphocytes % (A) 8 %; MCH 29.1 pg (25.0-35.0); MCHC 31.6 g/dL (31.0-37.0); MCV 91.9 fL (80.0-100.0); Mean Platelet Volume 6.5; Monocytes # (A) 0.2 k/uL (0-1.0); Monocytes % (A) 3 %; Neutrophils # (A) 6.3 k/uL (1.3-7.7); Neutrophils % (A) 88 %; Platelet Count 171 k/uL (150-450); RBC 4.04 m/uL (4.30-5.90); RDW 14.8 % (11.5-15.5); WBC 7.2 k/uL (3.8-10.6)
[2018-01-24 08:17] LABS: INR 1.3 (<1.2); Prothrombin Time 12.6 sec (9.0-12.0)
[2018-01-24] MEDS ORDERED: FERROUS SULFATE 325 MG TAB PO SCH (09:00)
[2018-01-24] MEDS ORDERED: METOLAZONE 2.5 MG TAB PO SCH (09:00)
[2018-01-24] MEDS ORDERED: TAMSULOSIN 0.4 MG CAP.ER.24H PO SCH (09:00)
[2018-01-24] MEDS ORDERED: CHOLECALCIFEROL 1,000 UNIT TAB PO SCH (09:00)
[2018-01-24] MEDS ORDERED: FUROSEMIDE 40 MG TAB PO SCH (09:00)
[2018-01-24] MEDS ORDERED: POTASSIUM CHLORIDE ER 20 MEQ TAB.ER PO SCH (09:00)
[2018-01-24] MEDS: GABAPENTIN 100 MG CAP PO SCH (09:04)
[2018-01-24] MEDS: CARVEDILOL 6.25 MG TAB PO SCH (09:04)
[2018-01-24] MEDS: SENNOSIDES 8.6 MG TAB PO SCH (09:05)
--- NOTE | 2018-01-24 09:51 | P.DS ---
Providers Date of admission: 01/23/18 11:44 Expected date of discharge: 01/24/18 Attending physician: Manohar Street Consults: 01/23/18 14:35 Consult Physician Routine Consulting Provider: Ethan Francisco Reason/Comments: medical management Do you want consulting provider notified?: Yes Primary care physician: Ethan Francisco - Discharge Diagnosis(es) (1) Traumatic rupture of left patella Current Visit: Yes Status: Acute Hospital Course: This is a 77-year-old male who sustained a rupture of the medial retinaculum and lateral subluxation of the left patella after a fall. Patient is status post revision left total knee arthroplasty on 12/26/2017. The patient presents for evaluation. After discussion and consideration patient elects to proceed with medial retinacular repair and lateral release of the left knee. The patient is seen preoperatively by Dr. Street and medically cleared for surgery by their primary care physician. Patient is admitted to [facility] on 01/23/2018 for medial retinacular repair and lateral release of the left knee. The procedures performed without complication or sequelae. The patient is doing well postoperatively. Labs and vital signs are stable on day of discharge. On day of discharge patient's knee incision is healing well. There is minimal erythema. There is no drainage noted at this time. There is minimal soft tissue swelling to the knee. Patient has full foot and ankle motion without difficulty or pain. Neurovascular status to the left lower extremity is intact. Patient is discharged home in good condition. Please see med rec for accurate list of home medications. Plan - Discharge Summary Discharge Rx Participant: No New Discharge Prescriptions: No Action Cholecalciferol [Vitamin D3] 2,000 unit PO DAILY Warfarin [Coumadin] 5 mg PO MOWEFR Pravastatin Sodium [Pravachol] 40 mg PO HS Warfarin [Coumadin] 2.5 mg PO SUTUTHSA Ferrous Sulfate [Iron (65 MG Elemental)] 325 mg PO DAILY Carvedilol [Coreg] 6.25 mg PO BID #0 Metolazone [Zaroxolyn] 2.5 mg PO DAILY Losartan Potassium [Cozaar] 25 mg PO HS Pramipexole [Mirapex] 1 mg PO TID PRN PRN Reason: RESTLESS LEG SYNDROME Furosemide [Lasix] 40 mg PO DAILY Gabapentin [Neurontin] 200 mg PO BID Potassium Chloride [Klor-Con 20] 20 meq PO DAILY traMADol HCL [Ultram] 50 mg PO Q8H PRN PRN Reason: RESTLESS LEG Diazepam [Valium] 10 mg PO TID PRN PRN Reason: restless legs HYDROcodone/APAP 7.5-325MG [[place] 7.5-325] 1 - 2 tab PO Q4-6H PRN PRN Reason: Pain Tamsulosin [Flomax] 0.4 mg PO DAILY #30 cap Sennosides [Senokot] 8.6 mg PO BID Discharge Medication List Cholecalciferol [Vitamin D3] 2,000 unit PO DAILY 11/22/14 [History] Pravastatin Sodium [Pravachol] 40 mg PO HS 11/22/14 [History] Warfarin [Coumadin] 5 mg PO MOWEFR 11/22/14 [History] Warfarin [Coumadin] 2.5 mg PO SUTUTHSA 01/02/15 [History] Ferrous Sulfate [Iron (65 MG Elemental)] 325 mg PO DAILY 08/26/15 [History] Carvedilol [Coreg] 6.25 mg PO BID #0 08/31/15 [Rx] Losartan Potassium [Cozaar] 25 mg PO HS 04/04/16 [History] Metolazone [Zaroxolyn] 2.5 mg PO DAILY 04/04/16 [History] Furosemide [Lasix] 40 mg PO DAILY 03/29/17 [History] Gabapentin [Neurontin] 200 mg PO BID 03/29/17 [History] Pramipexole [Mirapex] 1 mg PO TID PRN 03/29/17 [History] Diazepam [Valium] 10 mg PO TID PRN 09/29/17 [History] Potassium Chloride [Klor-Con 20] 20 meq PO DAILY 09/29/17 [History] traMADol HCL [Ultram] 50 mg PO Q8H PRN 09/29/17 [History] HYDROcodone/APAP 7.5-325MG [[place] 7.5-325] 1 - 2 tab PO Q4-6H PRN 12/26/17 [ History] Tamsulosin [Flomax] 0.4 mg PO DAILY #30 cap 12/28/17 [Rx] Sennosides [Senokot] 8.6 mg PO BID 01/23/18 [History] Follow up Appointment(s)/Referral(s): Manohar Street DO [Doctor of Osteopathic Medicine] - 2 Weeks Activity/Diet/Wound Care/Special Instructions: Weightbearing as tolerated with a walker and knee immobilizer. Avoid bending the left knee. Leave dressing intact. May be removed by home care nurse in 10 days. May shower with dressing on. Please call [facility] with any questions or concerns, Discharge Disposition: HOME SELF-CARE
--- NOTE | 2018-01-24 12:51 | P.PN ---
Subjective Progress Note Date: 01/24/18 This is a 77-year-old male patient of Dr. Francisco. He has underlying history of chronic systolic heart failure, chronic atrial fibrillation on Coumadin, benign prostatic hypertrophy, chronic anemia, restless leg syndrome, hyperlipidemia, chronic pain syndrome, obstructive sleep apnea, hypertension hypertensive cardiovascular disease. Patient has been admitted by Dr. Manohar Street status post revision left total knee arthroplasty about 4 weeks ago and unfortunately fell coming out of the shower and landed on his buttock but his left knee hit the door, develop pain in his knee had an X-ray on Monday which showed lateral dislocation of his patella and he underwent medial retinaculum repair by Dr. Street today and was asked to see him for medical management. 01/24: Patient is scheduled for discharge home today. Patient is to be weightbearing as tolerated with knee immobilizer in place. Patient states he does not have any significant pain. Hemoglobin 11.8, INR 1.3. Vital signs and stable. Pulse ox is 93% on room air. Objective - Vital Signs Vital signs: Vital Signs Temp 97.9 F 01/24/18 07:46 Pulse 76 01/24/18 07:46 Resp 20 01/24/18 07:46 BP 131/82 01/24/18 07:46 Pulse Ox 93 L 01/24/18 11:49 Intake & Output 01/23/18 01/24/18 01/24/18 18:59 06:59 18:59 Intake Total 1050 200 Output Total 10 400 Balance 1040 -400 200 Weight 158.757 kg Intake: IV 1050 Oral 200 Output: Urine 400 Estimated Blood Loss 10 Other: # Voids 1 - Exam General appearance: no acute distress, obese - EENT Eyes: anicteric sclerae, EOMI, PERRLA, no ptosis, no scleral icterus, normal appearance ENT: hearing grossly normal, NA/AT, normal oropharynx, no thrush Ears: bilateral: normal - Neck Neck: no lymphadenopathy, normal ROM, no rigidity, no stridor Carotids: bilateral: upstroke normal Thyroid: bilateral: normal size - Respiratory Respiratory: bilateral: diminished, negative: dullness, rales, rhonchi, wheezing , prolonged expiration, prolonged inspiration - Cardiovascular Rhythm: regular Heart sounds: normal: S1, S2 Abnormal Heart Sounds: systolic murmur - Gastrointestinal General gastrointestinal: soft, no splenomegaly, no tenderness, no umbilical hernia, no ventral hernia - Integumentary Integumentary: normal, normal turgor - Neurologic Neurologic: CNII-XII intact - Musculoskeletal Musculoskeletal: strength equal bilaterally - Psychiatric Psychiatric: A&O x's 3, appropriate affect, intact judgment & insight - Labs CBC & Chem 7: 01/24/18 07:36 Labs: Abnormal Lab Results - Last 24 Hours (Table) 01/24/18 01/24/18 Range/Units 07:36 07:36 RBC 4.04 L (4.30-5.90) m/uL Hgb 11.8 L (13.0-17.5) gm/dL Hct 37.2 L (39.0-53.0) % Lymphocytes # 0.5 L (1.0-4.8) k/uL PT 12.6 H (9.0-12.0) sec INR 1.3 H (<1.2) Assessment and Plan Plan: 1. Status post revision left medial retinaculum repair. Continue current pain management, continue PT and OT per orthopedics. Continue incentive spirometry to reduce incidence of atelectasis and hospital-acquired pneumonia, we will continue with his coumadin for DVT prophylaxis. 2. Chronic systolic heart failure. Continue Coreg 6.25 mg twice daily, metolazone 2.5 mg daily, losartan 25 mg at hs. 3. Chronic atrial fibrillation. Continue patient on Coreg 6.25 mg orally twice daily, Coumadin keep an INR between 2-3. 4. BPH and urinary retention in the past we will continue with Flomax 0.4 mg orally daily. 5. Chronic anemia. Continue iron 325 mg orally daily. 6. Hypertension and hypertensive cardiovascular disease. Continue losartan 25 mg daily, Coreg 6.25 mg orally twice daily. 7. Hyperlipidemia. On Pravachol 40 mg hs. 8. Chronic pain syndrome. Continue current pain management 9. Obstructive sleep apnea. Continue CPAP. 10. Restless leg syndrome. Continue Mirapex 1 mg 3 times a day. 11. DVT prophylaxis. continue with coumadin and will monitor INR. 12. GI prophylaxis. Continue Protonix 40 mg orally once every day. Discharge plan: Home Impression and plan of care have been directed as dictated by the signing physician. Martha Monsivais nurse practitioner acting as scribe for signing physician.
[2018-01-24] MEDS ORDERED: WARFARIN 5 MG TAB PO SCH (17:45)
[2018-01-24] MEDS ORDERED: WARFARIN 5 MG TAB PO ONE (18:00)
== END 2018-01-24 14:00 | disposition home or self-care (01) | DRG 501 ==
LOC: 2ORMAIN 11:44 → EDSTATUS 14:20 → 3SUR 16:28
PROVIDERS: ADMIT Orthopaedic Surgery; ATTEND Orthopaedic Surgery
PROC: 0MNP0ZZ Release Left Knee Bursa and Ligament, Open Approach (ICD-10-PCS; principal; 2018-01-23 13:50)
PROC: 0LQR0ZZ Repair Left Knee Tendon, Open Approach (ICD-10-PCS; principal; 2018-01-23 13:50)
DX: S83.012A Lateral subluxation of left patella, initial encounter (principal); I50.22 Chronic systolic (congestive) heart failure; D64.9 Anemia, unspecified; E78.5 Hyperlipidemia, unspecified; G25.81 Restless legs syndrome; G47.33 Obstructive sleep apnea (adult) (pediatric); G89.4 Chronic pain syndrome; I11.0 Hypertensive heart disease with heart failure; I48.2 Chronic atrial fibrillation; K21.9 Gastro-esophageal reflux disease without esophagitis; N40.1 Benign prostatic hyperplasia with lower urinary tract symptoms; W19.XXXA Unspecified fall, initial encounter; Z79.01 Long term (current) use of anticoagulants; Z79.899 Other long term (current) drug therapy; Z80.42 Family history of malignant neoplasm of prostate; Z82.49 Family history of ischemic heart disease and other diseases of the circulatory system; Z87.440 Personal history of urinary (tract) infections; Z87.891 Personal history of nicotine dependence; Z96.652 Presence of left artificial knee joint; Z79.891 Long term (current) use of opiate analgesic; Z95.0 Presence of cardiac pacemaker; Z98.84 Bariatric surgery status
CPT/HCPCS: 85025; 85610; 94760

== ENCOUNTER 2018-07-18 09:37 | Inpatient (IN) | payer MEDICARE ==
[2018-07-18] MEDS ORDERED: MAGNESIUM HYDROXIDE 2,400 MG/10 ML CUP PO PRN (09:59)
[2018-07-18] MEDS ORDERED: traMADol 50 MG TAB PO PRN (09:59)
[2018-07-18] MEDS ORDERED: HYDROcodone/APAP 7.5-325MG 1 EACH TAB PO PRN (09:59)
[2018-07-18] MEDS ORDERED: DIAZEPAM 5 MG TAB PO PRN ×2 (09:59→14:52)
[2018-07-18] MEDS ORDERED: HYDROcodone/APAP 5-325MG 1 EACH TAB PO PRN ×2 (09:59)
[2018-07-18] MEDS ORDERED: NA PHOS,M-B/NA PHOS,DI-BA 133 ML ENEMA RECTAL PRN (09:59)
[2018-07-18] MEDS ORDERED: ONDANSETRON 4 MG/2 ML VIAL IVP PRN (09:59)
[2018-07-18] MEDS ORDERED: BISACODYL 10 MG SUPP RECTAL PRN (09:59)
[2018-07-18] MEDS ORDERED: hydrOXYzine PAMOATE 25 MG CAP PO PRN (09:59)
[2018-07-18] MEDS ORDERED: HYDROmorphone 1 MG/ML 1 ML SYRINGE IVP PRN ×2 (09:59)
[2018-07-18] MEDS ORDERED: TEMAZEPAM 15 MG CAP PO PRN (09:59)
[2018-07-18] MEDS ORDERED: NALOXONE 0.4 MG/ML 1 ML VIAL IV PRN (09:59)
[2018-07-18] MEDS ORDERED: ACETAMINOPHEN TAB 325 MG TAB PO PRN (09:59)
--- NOTE | 2018-07-18 10:42 | P.HPOR ---
History of Present Illness H&P Date: 07/18/18 Chief Complaint: Right knee pain, inability to ambulate, s/p TKA Patient is 78 year old male direct admitted from our office today. Patient sustained new injury to his knee when his leg gave out on him causing him to fall on 07/15/18. He is status post revision left total knee arthroplasty on 12/26/17 and then medial retinacular repair and lateral release of the left knee on 01/23/2018. Xrays in office showed anterior subluxation of femur on tibia. COmponents remain intact and no evidence of fracture. He has knee pain as expected. He has no other current complaints Review of Systems All systems: negative Constitutional: Denies chills, Denies fever Eyes: denies blurred vision, denies pain Ears, nose, mouth and throat: Denies headache, Denies sore throat Cardiovascular: Denies chest pain, Denies shortness of breath Respiratory: Denies cough Gastrointestinal: Denies abdominal pain, Denies diarrhea, Denies nausea, Denies vomiting Musculoskeletal: Denies myalgias Integumentary: Denies pruritus, Denies rash Neurological: Denies numbness, Denies weakness Psychiatric: Denies anxiety, Denies depression Endocrine: Denies fatigue, Denies weight change Past Medical History Past Medical History: Atrial Fibrillation, GERD/Reflux, Hyperlipidemia, Hypertension, Osteoarthritis (OA), Prostate Disorder, Sleep Apnea/CPAP/BIPAP Additional Past Medical History / Comment(s): HX OF POLYPS, restless leg syndrome, obesity,chronic back pain, DDD spinal stenosis, hemorrhoids, UTI in past. USES CPAP. PREVIOUS HX OF PROSTATE PROBLEMS. FELL W/ INJURY TO LT KNEECAP, HAD TOTAL LT KNEE 12/26/17. History of Any Multi-Drug Resistant Organisms: None Reported Past Surgical History: Back Surgery, Bariatric Surgery, Cholecystectomy, Heart Catheterization, Joint Replacement, Orthopedic Surgery, Pacemaker, Prostate Surgery Additional Past Surgical History / Comment(s): RODS IN BACK, PACEMAKER 11/2004 & REPLACED 04/2013, TURP, GASTRIC SLEEVE (12/2012),LEFT HEEL SPUR, RUMA TOTAL KNEE., RUMA ROTATOR CUFF, Back injections; RUMA KNEE SCOPES x 4, SINUS SX X 2. LEFT KNEE SX TENDON REPAIR. TOTAL LT KNEE 12/26/17. Past Anesthesia/Blood Transfusion Reactions: No Reported Reaction Type of Cardiac Device: Permanent Pacemaker Device Placement Date:: , REPLACED 04/2013-[employer] Smoking Status: Former smoker - Past Family History Father Family Medical History: Cancer Additional Family Medical History / Comment(s): Father of prostate cancer in his mid 60's. Mother Family Medical History: Coronary Artery Disease (CAD), Myocardial Infarction ([place] ) Additional Family Medical History / Comment(s): Mother of a [place] at the age of 73 yrs. Brother(s) Family Medical History: No Reported History Sister(s) Family Medical History: CVA/TIA Daughter(s) Family Medical History: No Reported History Son(s) Family Medical History: No Reported History Medications and Allergies Home Medications Medication Instructions Recorded Confirmed Type Cholecalciferol [Vitamin D3] 2,000 unit PO DAILY 11/22/14 01/23/18 History Pravastatin Sodium [Pravachol] 40 mg PO HS 11/22/14 01/23/18 History Warfarin [Coumadin] 5 mg PO MOWEFR 11/22/14 01/23/18 History Warfarin [Coumadin] 2.5 mg PO SUTUTHSA 01/02/15 01/23/18 History Ferrous Sulfate [Iron (65 MG 325 mg PO DAILY 08/26/15 01/23/18 History Elemental)] Carvedilol [Coreg] 6.25 mg PO BID #0 08/31/15 01/23/18 Rx Losartan Potassium [Cozaar] 25 mg PO HS 04/04/16 01/23/18 History Metolazone [Zaroxolyn] 2.5 mg PO DAILY 04/04/16 01/23/18 History Furosemide [Lasix] 40 mg PO DAILY 03/29/17 01/23/18 History Gabapentin [Neurontin] 200 mg PO BID 03/29/17 01/23/18 History Pramipexole [Mirapex] 1 mg PO TID PRN 03/29/17 01/23/18 History Diazepam [Valium] 10 mg PO TID PRN 09/29/17 01/23/18 History Potassium Chloride [Klor-Con 20] 20 meq PO DAILY 09/29/17 01/23/18 History traMADol HCL [Ultram] 50 mg PO Q8H PRN 09/29/17 01/23/18 History HYDROcodone/APAP 7.5-325MG [[place] 1 - 2 tab PO Q4-6H PRN 12/26/17 01/23/18 History 7.5-325] Tamsulosin [Flomax] 0.4 mg PO DAILY #30 cap 12/28/17 01/23/18 Rx Sennosides [Senokot] 8.6 mg PO BID 01/23/18 01/23/18 History Allergies Allergy/AdvReac Type Severity Reaction Status Date / Time No Known Allergies Allergy Verified 01/23/18 16:36 Physical Examination General Exam: Constitutional: Patient is adequately groomed with no evidence of malnutrition. Skin: There are no rashes, ulcerations or lesions in the regions examined. Mental Status: Patient is oriented to time, place and person. Mood and affect are appropriate. Respiratory: No labored effort. No accessory muscle use. HEENT: Normal cephalic atraumatic. Extraocular movements are intact. T-scope brace is removed. He cannot fully extend the knee. Incision is healed well. There is no erythema or redness. Calf is soft and nontender to palpation. Neurovascular status and circulatory status are intact. Assessment and Plan (1) Morbid obesity Narrative/Plan: Patient is being admitted for pain management, neurovascular checks, DVT prophylaxis, medical management and placement/transfer as he will need additional surgery regarding his knee. He is strict non weightbearing. He needs constanza lift. Requesting Dr. Francisco's assistance with medical management and anticoagulation recommendations. Current Visit: No Status: Acute Code(s): E66.01 - MORBID (SEVERE) OBESITY DUE TO EXCESS CALORIES SNOMED Code(s): 335722201 (2) S/P total knee arthroplasty Current Visit: No Status: Acute Code(s): Z96.659 - PRESENCE OF UNSPECIFIED ARTIFICIAL KNEE JOINT SNOMED Code(s): 2456715921225 (3) Inability to ambulate due to knee Current Visit: Yes Status: Acute Code(s): R26.2 - DIFFICULTY IN WALKING, NOT ELSEWHERE CLASSIFIED SNOMED Code(s): 011264113 Time with Patient: Less than 30
[2018-07-18 11:09] VITALS: BMI 50.6
[2018-07-18] MEDS: HYDROmorphone 1 MG/ML 1 ML SYRINGE IVP PRN ×2 (12:13→16:48)
[2018-07-18 12:54] LABS: Albumin 3.7 g/dL (3.5-5.0); Calcium 9.2 mg/dL (8.4-10.2); Potassium 4.3 mmol/L (3.5-5.1); Total Bilirubin 1.3 mg/dL (0.2-1.3); Total Protein 6.8 g/dL (6.3-8.2)
[2018-07-18 13:01] LABS: HCT 44.9 % (39.0-53.0); HGB 14.7 gm/dL (13.0-17.5); MCH 29.3 pg (25.0-35.0); MCHC 32.8 g/dL (31.0-37.0); MCV 89.3 fL (80.0-100.0); Mean Platelet Volume 6.9; Platelet Count 154 k/uL (150-450); RBC 5.03 m/uL (4.30-5.90); RDW 15.4 % (11.5-15.5); WBC 7.1 k/uL (3.8-10.6)
--- NOTE | 2018-07-18 15:05 | P.CONS ---
History of Present Illness - Reason for Consult Consult date: 07/18/18 Medical management Requesting physician: Robert Gonzalez - Chief Complaint Right knee effusion pain and inability to ambulate knee gives out - History of Present Illness This is a 78-year-old male patient of Dr. Francisco. He has underlying history of chronic systolic heart failure, chronic atrial fibrillation on Coumadin, benign prostatic hypertrophy, chronic anemia, restless leg syndrome, hyperlipidemia, chronic pain syndrome, obstructive sleep apnea, hypertension hypertensive cardiovascular disease. Patient has been admitted under the service of Dr. Gonzalez for left knee effusion, difficulty ambulating, uncontrolled pain,. He had underwent a primary left total knee arthroplasty in December 2014, followed by a knee replacement 12/27/2017, in the division 2017. During his last admission, he had an injury after falling coming out of the shower and landed on his buttock but his left knee hit the door, develop pain in his knee had an X-ray on Monday which showed lateral dislocation of his patella and he underwent medial retinaculum repair by Dr. Street 01/23/2018 patient was admitted this time secondary to increasing effusion left knee increasing pain and inability to ambulate, patient apparently again fell down at home, hitting his left knee in the pavement. Patient denies any skin tears however he does have significant effusion, x-rays in the orthopedic office shows anterior subluxation of the femur on tibia.. Patient denies any history of spinal stenosis the past however he had lumbar disc surgery, patient denies any neuropathy in the lower extremities related to radiculitis or spinal stenosis. Patient denies any fever no cellulitis in the knee in the past, no septic joint history in the past. Patient has a knee brace left side, patient comes in now for Pain control, possible additional surgery regarding the knee, physical therapy. He needs a Farshad lift, history: Nonweightbearing to medicine is consulted for medical management as well as anticoagulation. Paper patient, patient does not require any surgery during this visit, he also will be referred to tertiary facility for planned left knee surgery in the future Review of Systems Constitutional: Reports as per HPI, Reports weight gain, Denies anorexia, Denies chills, Denies chronic headaches, Denies chronic pain, Denies daytime sleepiness, Denies fatigue, Denies fever, Denies lethargy, Denies malaise, Denies night sweats, Denies poor appetite, Denies sweats, Denies weakness, Denies weight loss Ears, nose, mouth and throat: Reports as per HPI, Denies ant. neck pain, Denies bleeding gums, Denies dental pain, Denies dysphagia, Denies epistaxis, Denies headache, Denies hoarseness, Denies mouth pain, Denies nasal congestion, Denies nasal discharge, Denies neck fullness/pressure, Denies neck lump, Denies nose pain, Denies odynophagia, Denies post-nasal drip, Denies sinus pain, Denies sinus pressure, Denies swelling in mouth, Denies swelling in throat, Denies sore throat, Denies vertigo, Denies voice changes Cardiovascular: Reports as per HPI, Denies chest pain, Denies claudication, Denies decreased exercise tolerance, Denies dyspnea on exertion, Denies edema, Denies high blood pressure, Denies irregular heart beat, Denies leg edema, Denies lightheadedness, Denies orthopnea, Denies palpitations, Denies paroxysmal nocturnal dyspnea, Denies phlebitis, Denies rapid heart beat, Denies shortness of breath, Denies syncope Respiratory: Reports as per HPI, Denies congestion, Denies cough, Denies cough with sputum, Denies dyspnea, Denies excessive sputum, Denies hemoptysis, Denies home oxygen, Denies pain, Denies pain on inspiration, Denies pleurisy, Denies respiratory infections, Denies sleep apnea, Denies snoring, Denies wheezing Gastrointestinal: Reports as per HPI, Denies abdominal pain, Denies belching, Denies bloating, Denies BRBPR, Denies change in bowel habits, Denies coffee ground emesis, Denies constipation, Denies diarrhea, Denies dyspepsia, Denies early satiety, Denies excessive gas, Denies heartburn, Denies hematemesis, Denies hematochezia, Denies indigestion, Denies jaundice, Denies lactose intolerance, Denies loss of appetite, Denies melena, Denies nausea, Denies vomiting Genitourinary: Denies nocturia, Denies polyuria, Denies urinary frequency, Denies urinary hesitancy, Denies urinary retention Musculoskeletal: Reports as per HPI, Reports frequent falls, Reports gait dysfunction, Reports limitation of motion, Reports low back pain, Reports muscle weakness, Reports shooting leg pain, Denies arm numbness/tingling, Denies atrophy, Denies fractures, Denies hot joints, Denies leg numbness/ tingling, Denies loss of height, Denies morning stiffness, Denies muscle cramps , Denies myalgias, Denies neck pain, Denies neck stiffness, Denies prior amputations, Denies redness of joints, Denies shooting arm pain Integumentary: Denies as per HPI, Denies boils Neurological: Reports as per HPI, Denies motor disturbance, Denies spasticity, Denies tremors Psychiatric: Reports as per HPI, Reports sleep disturbances Endocrine: Reports as per HPI Hematologic/Lymphatic: Reports as per HPI, Denies easy bleeding, Denies easy bruising, Denies lymphadenopathy, Denies lymphedema, Denies thrombophilia Allergic/Immunologic: Reports as per HPI, Denies allergic rhinitis, Denies anaphylaxis, Denies angioedema, Denies gluten intolerance, Denies persistent infections, Denies seasonal allergies, Denies urticaria, Denies wheezing Past Medical History Past Medical History: Atrial Fibrillation, GERD/Reflux, Hyperlipidemia, Hypertension, Osteoarthritis (OA), Prostate Disorder, Sleep Apnea/CPAP/BIPAP Additional Past Medical History / Comment(s): HX OF POLYPS, restless leg syndrome, obesity,chronic back pain, DDD spinal stenosis, hemorrhoids, UTI in past. USES CPAP. PREVIOUS HX OF PROSTATE PROBLEMS. FELL W/ INJURY TO LT KNEECAP, HAD TOTAL LT KNEE 12/26/17. History of Any Multi-Drug Resistant Organisms: None Reported Past Surgical History: Back Surgery, Bariatric Surgery, Cholecystectomy, Heart Catheterization, Joint Replacement, Orthopedic Surgery, Pacemaker, Prostate Surgery Additional Past Surgical History / Comment(s): RODS IN BACK, PACEMAKER 11/2004 & REPLACED 04/2013, TURP, GASTRIC SLEEVE (12/2012),LEFT HEEL SPUR, RUMA TOTAL KNEE., RUMA ROTATOR CUFF, Back injections; RUMA KNEE SCOPES x 4, SINUS SX X 2. LEFT KNEE SX TENDON REPAIR. TOTAL LT KNEE 12/26/17. Past Anesthesia/Blood Transfusion Reactions: No Reported Reaction Type of Cardiac Device: Permanent Pacemaker Device Placement Date:: -11/2004, REPLACED 04/2013-[facility] Past Psychological History: No Psychological Hx Reported Additional Psychological History / Comment(s): Pt resides with his spouse. He uses a walker to ambulate. He drives. Smoking Status: Never smoker Past Alcohol Use History: Occasional Additional Past Alcohol Use History / Comment(s): Patient smoked one pack per day for 20 years ago quit in 1987. He drinks 4-5 drinks per week. Past Drug Use History: None Reported - Past Family History Father Family Medical History: Cancer Additional Family Medical History / Comment(s): Father of prostate cancer in his mid 60's. Mother Family Medical History: Coronary Artery Disease (CAD), Myocardial Infarction (MO ) Additional Family Medical History / Comment(s): Mother of a MO at the age of 73 yrs. Brother(s) Family Medical History: No Reported History Sister(s) Family Medical History: CVA/TIA Daughter(s) Family Medical History: No Reported History Son(s) Family Medical History: No Reported History Medications and Allergies Home Medications Medication Instructions Recorded Confirmed Type Cholecalciferol [Vitamin D3] 2,000 unit PO DAILY 11/22/14 07/18/18 History Pravastatin Sodium [Pravachol] 40 mg PO HS 11/22/14 07/18/18 History Warfarin [Coumadin] 5 mg PO MOWEFRSA 11/22/14 07/18/18 History Warfarin [Coumadin] 2.5 mg PO SUTUTH 01/02/15 07/18/18 History Ferrous Sulfate [Iron (65 MG 325 mg PO DAILY 08/26/15 07/18/18 History Elemental)] Carvedilol [Coreg] 6.25 mg PO BID #0 08/31/15 07/18/18 Rx Losartan Potassium [Cozaar] 25 mg PO HS 04/04/16 07/18/18 History Metolazone [Zaroxolyn] 2.5 mg PO DAILY 04/04/16 07/18/18 History Furosemide [Lasix] 40 mg PO DAILY 03/29/17 07/18/18 History Pramipexole [Mirapex] 1 mg PO TID 03/29/17 07/18/18 History Potassium Chloride [Klor-Con 20] 20 meq PO DAILY 09/29/17 07/18/18 History traMADol HCL [Ultram] 50 mg PO Q8H 09/29/17 07/18/18 History HYDROcodone/APAP 7.5-325MG [[place] 1 tab PO Q4H PRN 12/26/17 07/18/18 History 7.5-325] Diazepam [Valium] 5 mg PO DAILY PRN 07/18/18 07/18/18 History Pregabalin [Lyrica] 75 mg PO BID 07/18/18 07/18/18 History Allergies Allergy/AdvReac Type Severity Reaction Status Date / Time No Known Allergies Allergy Verified 07/18/18 11:29 Physical Exam Vitals: Intake and Output 07/17/18 07/18/18 07/18/18 22:59 06:59 14:59 Other: Weight 164.654 kg - Constitutional General appearance: cooperative, morbidly obese - EENT Eyes: anicteric sclerae, EOMI, PERRLA, dentition normal, normal appearance ENT: hearing grossly normal, NA/AT, normal oropharynx - Neck Neck: normal ROM - Respiratory Respiratory: bilateral: CTA, negative: diminished, dullness, rales - Cardiovascular Rhythm: regular Heart sounds: normal: S1, S2 Abnormal Heart Sounds: no systolic murmur, no diastolic murmur, no rub, no S3 Gallop, no S4 Gallop, no click, no other - Gastrointestinal General gastrointestinal: normal bowel sounds, soft - Integumentary Integumentary: decreased turgor, normal - Neurologic Neurologic: CNII-XII intact - Musculoskeletal Musculoskeletal: gait normal, strength equal bilaterally - Psychiatric Psychiatric: A&O x's 3, appropriate affect, intact judgment & insight Results CBC & Chem 7: 07/18/18 12:06 07/18/18 12:06 Labs: Abnormal Lab Results - Last 24 Hours (Table) 07/18/18 Range/Units 12:06 Carbon Dioxide 32 H (22-30) mmol/L BUN 29 H (9-20) mg/dL Glucose 106 H (74-99) mg/dL ALT 20 L (21-72) U/L Laboratory Results WBC 7.1 k/uL (3.8-10.6) 07/18/18 12:06 RBC 5.03 m/uL (4.30-5.90) 07/18/18 12:06 Hgb 14.7 gm/dL (13.0-17.5) 07/18/18 12:06 Hct 44.9 % (39.0-53.0) 07/18/18 12:06 MCV 89.3 fL (80.0-100.0) 07/18/18 12:06 MCH 29.3 pg (25.0-35.0) 07/18/18 12:06 MCHC 32.8 g/dL (31.0-37.0) 07/18/18 12:06 RDW 15.4 % (11.5-15.5) 07/18/18 12:06 Plt Count 154 k/uL (150-450) 07/18/18 12:06 Sodium 139 mmol/L (137-145) 07/18/18 12:06 Potassium 4.3 mmol/L (3.5-5.1) 07/18/18 12:06 Chloride 100 mmol/L (98-107) 07/18/18 12:06 Carbon Dioxide 32 mmol/L (22-30) H 07/18/18 12:06 Anion Gap 7 mmol/L 07/18/18 12:06 BUN 29 mg/dL (9-20) H 07/18/18 12:06 Creatinine 1.08 mg/dL (0.66-1.25) 07/18/18 12:06 Est GFR (CKD-EPI)AfAm 77 (>60 ml/min/1.73 sqM) 07/18/18 12:06 Est GFR (CKD-EPI)NonAf 66 (>60 ml/min/1.73 sqM) 07/18/18 12:06 Glucose 106 mg/dL (74-99) H 07/18/18 12:06 Calcium 9.2 mg/dL (8.4-10.2) 07/18/18 12:06 Total Bilirubin 1.3 mg/dL (0.2-1.3) 07/18/18 12:06 AST 25 U/L (17-59) 07/18/18 12:06 ALT 20 U/L (21-72) L 07/18/18 12:06 Alkaline Phosphatase 73 U/L (38-126) 07/18/18 12:06 Total Protein 6.8 g/dL (6.3-8.2) 07/18/18 12:06 Albumin 3.7 g/dL (3.5-5.0) 07/18/18 12:06 Assessment and Plan Plan: 1. Internal derangement left knee with impaired walking, status post fall with effusions left knee, history of knee replacement, knee revision, and repair of retinaculum December 2017 patient is chronically on anticoagulation for atrial fibrillation, patient would be seen by physical therapy and occupational therapy , no plan for current surgical intervention, continue on anti-collate duration at this time. Patient most likely would be discharged to skilled therapy, with referral to a tertiary facility as noted by the patient after skilled rehabilitation at pain control, 2. Chronic systolic heart failure stable, chronic edema,. Continue Coreg 6.25 mg twice daily, metolazone 2.5 mg daily, losartan 25 mg at hs. continue Lasix 40 mg daily and Zaroxolyn 2.5 mg daily potassium 3. Chronic atrial fibrillation rate controlled. Continue patient on Coreg 6.25 mg orally twice daily, Coumadin keep an INR between 2-3. 4. BPH without lower in tract symptomatology, prior history of urinary retention, might need Flomax patient not on it prior to admission 5. Chronic anemia and anemia of chronic disease no GI losses at this time. Continue iron 325 mg orally daily. 6. Hypertension and hypertensive cardiovascular disease. Continue losartan 25 mg daily, Coreg 6.25 mg orally twice daily. 7. Hyperlipidemia. On Pravachol 40 mg hs. 8. Chronic pain syndrome. Continue current pain management 9. Obstructive sleep apnea. Continue CPAP. 10. Restless leg syndrome. Continue Mirapex 1 mg 3 times a day. 11. Peripheral neuropathy on Lyrica and tramadol no changes made 12. Long-term anticoagulation for atrial fibrillation, Coumadin dose at 5 mg Monday, others 2.5 mg Monday 13. DVT prophylaxis. Continue Coumadin to keep the INR 2-3. 12. GI prophylaxis. Continue Protonix 40 mg orally once every day. Discharge planning: skilled ecf
[2018-07-18] MEDS: POTASSIUM CHLORIDE ER 20 MEQ TAB.ER PO SCH (15:39)
[2018-07-18] MEDS: METOLAZONE 2.5 MG TAB PO SCH (15:39)
[2018-07-18] MEDS: FUROSEMIDE 40 MG TAB PO SCH (15:39)
[2018-07-18 15:55] LABS: INR 1.9 (<1.2); Prothrombin Time 17.3 sec (9.0-12.0)
[2018-07-18] MEDS: PRAMIPEXOLE 1 MG TAB PO SCH ×2 (16:05→20:41)
[2018-07-18] MEDS: traMADol 50 MG TAB PO SCH ×2 (16:05→23:29)
[2018-07-18] MEDS: WARFARIN 5 MG TAB PO SCH (17:24)
[2018-07-18] MEDS: CARVEDILOL 6.25 MG TAB PO SCH (17:24)
[2018-07-18] MEDS: LOSARTAN 25 MG TAB PO SCH (19:31)
[2018-07-18] MEDS: SENNOSIDES-DOCUSATE SODIUM 1 EACH TAB PO SCH (20:40)
[2018-07-18] MEDS: PREGABALIN 75 MG CAP PO SCH (20:41)
[2018-07-18] MEDS: PRAVASTATIN SODIUM 40 MG TAB PO SCH (20:41)
[2018-07-19] MEDS: FERROUS SULFATE 325 MG TAB PO SCH (07:22)
[2018-07-19] MEDS: traMADol 50 MG TAB PO SCH ×2 (07:22→16:43)
[2018-07-19] MEDS: METOLAZONE 2.5 MG TAB PO SCH (07:22)
[2018-07-19] MEDS: POTASSIUM CHLORIDE ER 20 MEQ TAB.ER PO SCH (07:22)
[2018-07-19] MEDS: FUROSEMIDE 40 MG TAB PO SCH (07:23)
[2018-07-19] MEDS: CARVEDILOL 6.25 MG TAB PO SCH ×2 (07:23→18:14)
[2018-07-19] MEDS: PREGABALIN 75 MG CAP PO SCH ×2 (07:23→20:22)
[2018-07-19] MEDS: PRAMIPEXOLE 1 MG TAB PO SCH ×3 (07:24→20:22)
[2018-07-19] MEDS: HYDROcodone/APAP 7.5-325MG 1 EACH TAB PO PRN ×4 (07:31→21:30)
[2018-07-19 08:59] LABS: Basophils % (A) 1 %; Eosinophils # (A) 0.2 k/uL (0-0.7); Eosinophils % (A) 4 %; HCT 41.7 % (39.0-53.0); Lymphocytes # (A) 0.9 k/uL (1.0-4.8); Lymphocytes % (A) 14 %; MCH 28.4 pg (25.0-35.0); MCHC 31.3 g/dL (31.0-37.0); MCV 90.8 fL (80.0-100.0); Mean Platelet Volume 7.4; Monocytes # (A) 0.4 k/uL (0-1.0); Monocytes % (A) 7 %; Neutrophils # (A) 4.8 k/uL (1.3-7.7); Neutrophils % (A) 73 %; Platelet Count 169 k/uL (150-450); RBC 4.59 m/uL (4.30-5.90); RDW 15.4 % (11.5-15.5); WBC 6.6 k/uL (3.8-10.6)
[2018-07-19 09:00] LABS: INR 1.9 (<1.2); Prothrombin Time 17.6 sec (9.0-12.0)
--- NOTE | 2018-07-19 09:35 | P.PN ---
Subjective Progress Note Date: 07/19/18 Principal diagnosis: Dislocated total left knee. This is a 78-year-old male admitted for placement. He has history of revision total left knee arthroplasty which is now dislocated. Attempt to reduce the knee in the office was unsuccessful. The patient is awaiting procedure scheduled with Dr. Cedeno for removal of implants and fusion of the knee. He is stable at this time. Vital signs are stable. He has no new complaints or concerns. Objective - Vital Signs Vital signs: Vital Signs Temp 98.7 F 07/19/18 07:00 Pulse 61 07/19/18 01:22 Resp 18 07/19/18 07:00 BP 98/66 07/19/18 07:00 Pulse Ox 94 L 07/19/18 07:00 Intake & Output 07/18/18 07/19/18 07/19/18 18:59 06:59 18:59 Intake Total 240 Output Total 200 Balance 40 Weight 164.654 kg Intake: Oral 240 Output: Urine 200 - Exam This is a pleasant 78-year-old male in no acute distress. He is alert and oriented 3. Exam of the lower extremity reveals that his knee has moderate swelling. There is no erythema or ecchymosis. There is pain on palpation about the knee. He has full foot and ankle motion without difficulty or pain. Neurovascular status to the lower extremity is intact. - Labs CBC & Chem 7: 07/19/18 07:15 07/18/18 12:06 Labs: Abnormal Lab Results - Last 24 Hours (Table) 07/18/18 07/18/18 07/19/18 Range/Units 12:06 12:06 07:15 Lymphocytes # 0.9 L (1.0-4.8) k/uL PT 17.3 H (9.0-12.0) sec INR 1.9 H (<1.2) Carbon Dioxide 32 H (22-30) mmol/L BUN 29 H (9-20) mg/dL Glucose 106 H (74-99) mg/dL ALT 20 L (21-72) U/L 07/19/18 Range/Units 07:15 Lymphocytes # (1.0-4.8) k/uL PT 17.6 H (9.0-12.0) sec INR 1.9 H (<1.2) Carbon Dioxide (22-30) mmol/L BUN (9-20) mg/dL Glucose (74-99) mg/dL ALT (21-72) U/L Assessment and Plan (1) Dislocation of knee, left, closed Current Visit: Yes Status: Acute Code(s): S83.105A - UNSPECIFIED DISLOCATION OF LEFT KNEE, INITIAL ENCOUNTER SNOMED Code(s): 27783328 (2) Inability to ambulate due to knee Current Visit: Yes Status: Acute Code(s): R26.2 - DIFFICULTY IN WALKING, NOT ELSEWHERE CLASSIFIED SNOMED Code(s): 262338227 (3) Morbid obesity Current Visit: No Status: Acute Code(s): E66.01 - MORBID (SEVERE) OBESITY DUE TO EXCESS CALORIES SNOMED Code(s): 255836096 Plan: The clinical findings are discussed the patient. He is planning on going to inpatient rehab Monday or Monday. Continue current care.
--- NOTE | 2018-07-19 11:56 | P.PN ---
Subjective Progress Note Date: 07/19/18 This is a 78-year-old male patient of Dr. Francisco. He has underlying history of chronic systolic heart failure, chronic atrial fibrillation on Coumadin, benign prostatic hypertrophy, chronic anemia, restless leg syndrome, hyperlipidemia, chronic pain syndrome, obstructive sleep apnea, hypertension hypertensive cardiovascular disease. Patient has been admitted under the service of Dr. Gonzalez for left knee effusion, difficulty ambulating, uncontrolled pain,. He had underwent a primary left total knee arthroplasty in December 2014, followed by a knee replacement 12/27/2017, in the division 2017. During his last admission, he had an injury after falling coming out of the shower and landed on his buttock but his left knee hit the door, develop pain in his knee had an X-ray on Monday which showed lateral dislocation of his patella and he underwent medial retinaculum repair by Dr. Street 01/23/2018 patient was admitted this time secondary to increasing effusion left knee increasing pain and inability to ambulate, patient apparently again fell down at home, hitting his left knee in the pavement. Patient denies any skin tears however he does have significant effusion, x-rays in the orthopedic office shows anterior subluxation of the femur on tibia.. Patient denies any history of spinal stenosis the past however he had lumbar disc surgery, patient denies any neuropathy in the lower extremities related to radiculitis or spinal stenosis. Patient denies any fever no cellulitis in the knee in the past, no septic joint history in the past. Patient has a knee brace left side, patient comes in now for Pain control, possible additional surgery regarding the knee, physical therapy. He needs a Farshad lift, history: Nonweightbearing to medicine is consulted for medical management as well as anticoagulation. Paper patient, patient does not require any surgery during this visit, he also will be referred to tertiary facility for planned left knee surgery in the future. 07/19: Patient is resting comfortably. He continues to be nonweightbearing and using a knee immobilizer for transfers. He is being followed by orthopedics as we await for him to be transferred to an extended care facility due to the nonweightbearing status. Patient to have surgery at [facility]. He is continue with upper extremity physical therapy. He denies any pain, nausea or vomiting. Objective - Vital Signs Vital signs: Vital Signs Temp 98.7 F 07/19/18 08:00 Pulse 64 07/19/18 08:00 Resp 18 07/19/18 08:00 BP 98/66 07/19/18 08:00 Pulse Ox 94 L 07/19/18 08:00 Intake & Output 07/18/18 07/19/18 07/19/18 18:59 06:59 18:59 Intake Total 240 Output Total 200 Balance 40 Weight 164.654 kg Intake: Oral 240 Output: Urine 200 - Labs CBC & Chem 7: 07/19/18 07:15 07/18/18 12:06 Labs: Abnormal Lab Results - Last 24 Hours (Table) 07/18/18 07/18/18 07/19/18 Range/Units 12:06 12:06 07:15 Lymphocytes # 0.9 L (1.0-4.8) k/uL PT 17.3 H (9.0-12.0) sec INR 1.9 H (<1.2) Carbon Dioxide 32 H (22-30) mmol/L BUN 29 H (9-20) mg/dL Glucose 106 H (74-99) mg/dL ALT 20 L (21-72) U/L 07/19/18 Range/Units 07:15 Lymphocytes # (1.0-4.8) k/uL PT 17.6 H (9.0-12.0) sec INR 1.9 H (<1.2) Carbon Dioxide (22-30) mmol/L BUN (9-20) mg/dL Glucose (74-99) mg/dL ALT (21-72) U/L Assessment and Plan Plan: 1. Internal derangement left knee with impaired walking, status post fall with effusions left knee, history of knee replacement, knee revision, and repair of retinaculum December 2017 patient is chronically on anticoagulation for atrial fibrillation, patient will have upper extremity physical therapy and occupational therapy, surgical intervention will be performed at another [facility], continue on anti-collate duration at this time. Patient most likely would be discharged to skilled therapy, with referral to a tertiary facility as noted by the patient after skilled rehabilitation for pain control and nonweightbearing status. 2. Chronic systolic heart failure stable, chronic edema,. Continue Coreg 6.25 mg twice daily, metolazone 2.5 mg daily, losartan 25 mg at hs. continue Lasix 40 mg daily and Zaroxolyn 2.5 mg daily potassium 3. Chronic atrial fibrillation rate controlled. Continue patient on Coreg 6.25 mg orally twice daily, Coumadin keep an INR between 2-3. 4. BPH without lower in tract symptomatology, prior history of urinary retention, might need Flomax patient not on it prior to admission 5. Chronic anemia and anemia of chronic disease no GI losses at this time. Continue iron 325 mg orally daily. 6. Hypertension and hypertensive cardiovascular disease. Continue losartan 25 mg daily, Coreg 6.25 mg orally twice daily. 7. Hyperlipidemia. On Pravachol 40 mg hs. 8. Chronic pain syndrome. Continue current pain management 9. Obstructive sleep apnea. Continue CPAP. 10. Restless leg syndrome. Continue Mirapex 1 mg 3 times a day. 11. Peripheral neuropathy on Lyrica and tramadol no changes made 12. Long-term anticoagulation for atrial fibrillation, Coumadin dose at 5 mg Monday, others 2.5 mg Monday 13. DVT prophylaxis. Continue Coumadin to keep the INR 2-3. 12. GI prophylaxis. Continue Protonix 40 mg orally once every day. Discharge planning: skilled ecf Impression and plan of care have been directed as dictated by the signing physician. Stephanie Bernstein nurse practitioner acting as scribe for signing physician.
[2018-07-19] MEDS: MULTIVITAMINS, THERA 1 EACH TAB PO SCH (12:05)
[2018-07-19] MEDS: CHOLECALCIFEROL 1,000 UNIT TAB PO SCH (12:05)
[2018-07-19] MEDS: WARFARIN 2.5 MG TAB PO SCH (16:43)
[2018-07-19] MEDS: SENNOSIDES-DOCUSATE SODIUM 1 EACH TAB PO SCH (20:18)
[2018-07-19] MEDS: LOSARTAN 25 MG TAB PO SCH (20:22)
[2018-07-19] MEDS: PRAVASTATIN SODIUM 40 MG TAB PO SCH (20:22)
[2018-07-20] MEDS: traMADol 50 MG TAB PO SCH ×3 (01:18→16:11)
[2018-07-20] MEDS: HYDROcodone/APAP 7.5-325MG 1 EACH TAB PO PRN (04:33)
[2018-07-20 08:17] LABS: Basophils % (A) 1 %; Eosinophils # (A) 0.3 k/uL (0-0.7); Eosinophils % (A) 5 %; HCT 42.3 % (39.0-53.0); Lymphocytes # (A) 0.9 k/uL (1.0-4.8); Lymphocytes % (A) 15 %; MCHC 30.7 g/dL (31.0-37.0); MCV 91.2 fL (80.0-100.0); Mean Platelet Volume 6.7; Monocytes # (A) 0.3 k/uL (0-1.0); Monocytes % (A) 5 %; Neutrophils # (A) 3.9 k/uL (1.3-7.7); Neutrophils % (A) 71 %; Platelet Count 171 k/uL (150-450); RBC 4.64 m/uL (4.30-5.90); RDW 15.2 % (11.5-15.5); WBC 5.6 k/uL (3.8-10.6)
[2018-07-20 08:19] LABS: Prothrombin Time 18.4 sec (9.0-12.0)
[2018-07-20 08:29] LABS: Albumin 3.2 g/dL (3.5-5.0); Calcium 9.1 mg/dL (8.4-10.2); Potassium 4.4 mmol/L (3.5-5.1); Total Bilirubin 0.8 mg/dL (0.2-1.3); Total Protein 6.2 g/dL (6.3-8.2)
[2018-07-20] MEDS: METOLAZONE 2.5 MG TAB PO SCH (09:25)
[2018-07-20] MEDS: PRAMIPEXOLE 1 MG TAB PO SCH ×3 (09:25→21:00)
[2018-07-20] MEDS: FERROUS SULFATE 325 MG TAB PO SCH (09:25)
[2018-07-20] MEDS: CARVEDILOL 6.25 MG TAB PO SCH (09:25)
[2018-07-20] MEDS: POTASSIUM CHLORIDE ER 20 MEQ TAB.ER PO SCH (09:25)
[2018-07-20] MEDS: PREGABALIN 75 MG CAP PO SCH ×2 (09:25→21:00)
[2018-07-20] MEDS: FUROSEMIDE 40 MG TAB PO SCH (09:25)
--- NOTE | 2018-07-20 10:06 | P.PN ---
Subjective Progress Note Date: 07/20/18 Principal diagnosis: Dislocated total left knee. This is a 78-year-old male admitted for placement. He has history of revision total left knee arthroplasty which is now dislocated. Attempt to reduce the knee in the office was unsuccessful. The patient is awaiting procedure scheduled with Dr. Cedeno for removal of implants and fusion of the knee. He is stable at this time. Vital signs are stable. He has no new complaints or concerns. He is awaiting transfer to inpatient rehab currently. Objective - Vital Signs Vital signs: Vital Signs Temp 98.1 F 07/20/18 07:00 Pulse 62 07/20/18 07:00 Resp 18 07/20/18 07:00 BP 96/62 07/20/18 07:00 Pulse Ox 97 07/20/18 07:00 Intake & Output 07/19/18 07/20/18 07/20/18 18:59 06:59 18:59 Intake Total 540 180 Output Total 350 825 Balance -350 -285 180 Intake: Oral 540 180 Output: Urine 350 825 Other: # Voids 1 - Exam This is a pleasant 78-year-old male in no acute distress. He is alert and oriented 3. Exam of the lower extremity reveals that his knee has moderate swelling. There is no erythema or ecchymosis. There is pain on palpation about the knee. He has full foot and ankle motion without difficulty or pain. Neurovascular status to the lower extremity is intact. - Labs CBC & Chem 7: 07/20/18 07:37 07/20/18 07:37 Labs: Abnormal Lab Results - Last 24 Hours (Table) 07/20/18 07/20/18 07/20/18 Range/Units 07:37 07:37 07:37 MCHC 30.7 L (31.0-37.0) g/dL Lymphocytes # 0.9 L (1.0-4.8) k/uL PT 18.4 H (9.0-12.0) sec INR 2.0 H (<1.2) Carbon Dioxide 33 H (22-30) mmol/L BUN 26 H (9-20) mg/dL Total Protein 6.2 L (6.3-8.2) g/dL Albumin 3.2 L (3.5-5.0) g/dL Assessment and Plan (1) Dislocation of knee, left, closed Current Visit: Yes Status: Acute Code(s): S83.105A - UNSPECIFIED DISLOCATION OF LEFT KNEE, INITIAL ENCOUNTER SNOMED Code(s): 84910728 (2) Inability to ambulate due to knee Current Visit: Yes Status: Acute Code(s): R26.2 - DIFFICULTY IN WALKING, NOT ELSEWHERE CLASSIFIED SNOMED Code(s): 884437855 (3) Morbid obesity Current Visit: No Status: Acute Code(s): E66.01 - MORBID (SEVERE) OBESITY DUE TO EXCESS CALORIES SNOMED Code(s): 578339230 Plan: The clinical findings are discussed with the patient. He is planning on going to inpatient rehab today or tomorrow. Dr. Gonzalez will be talking to Dr. Cedeno today to arrange for follow-up and discuss plan.
--- NOTE | 2018-07-20 10:18 | P.DS ---
Providers Date of admission: 07/18/18 10:25 Expected date of discharge: 07/20/18 Attending physician: Robert Gonzalez Consults: 07/18/18 09:59 Consult Physician Routine Consulting Provider: Ethan Francisco Reason/Comments: medical management, anticoagulation DVT prophylaxis Do you want consulting provider notified?: Yes Primary care physician: Ethan Francisco - Discharge Diagnosis(es) (1) Dislocation of knee, left, closed Current Visit: Yes Status: Acute (2) Inability to ambulate due to knee Current Visit: Yes Status: Acute (3) Morbid obesity Current Visit: No Status: Acute Hospital Course: He presented to the office on 07/18/2018 with a dislocated total knee replacement. Reduction was attempted in the office which was unsuccessful. The patient is admitted for placement. He is scheduled to follow-up with Dr. Cedeno to schedule a fusion of the knee with removal of implants. He will be discharged from the hospital to inpatient rehab. The patient is stable on 07/20/2018 for discharge to rehab. Plan - Discharge Summary New Discharge Prescriptions: New Bisacodyl [Dulcolax] 10 mg RECTAL DAILY PRN supp PRN Reason: Constipation Carvedilol [Coreg] 3.125 mg PO BID-W/MEALS tab Magnesium Hydroxide [Milk of Magnesia Concentrate] 2,400 mg PO DAILY PRN ml PRN Reason: Constipation Multivitamins, Thera [Multivitamin (formulary)] 1 each PO DAILY@1200 tab Sennosides-Docusate Sodium [Senokot-S] 2 each PO DAILY tab HYDROcodone/APAP 7.5-325MG [Paris 7.5-325] 1 - 2 tab PO Q4-6H PRN #84 tab PRN Reason: Pain Continue Cholecalciferol [Vitamin D3] 2,000 unit PO DAILY Warfarin [Coumadin] 5 mg PO MOWEFRSA Pravastatin Sodium [Pravachol] 40 mg PO HS Warfarin [Coumadin] 2.5 mg PO SUTUTH Ferrous Sulfate [Iron (65 MG Elemental)] 325 mg PO DAILY Metolazone [Zaroxolyn] 2.5 mg PO DAILY Losartan Potassium [Cozaar] 25 mg PO HS Pramipexole [Mirapex] 1 mg PO TID Furosemide [Lasix] 40 mg PO DAILY Potassium Chloride [Klor-Con 20] 20 meq PO DAILY Pregabalin [Lyrica] 75 mg PO BID Diazepam [Valium] 5 mg PO DAILY PRN #3 tab PRN Reason: Pain HYDROcodone/APAP 7.5-325MG [Paris 7.5-325] 1 tab PO Q4H PRN #18 tab PRN Reason: Pain traMADol HCL [Ultram] 50 mg PO Q8H #9 tablet Discontinued Carvedilol [Coreg] 6.25 mg PO BID #0 Discharge Medication List Cholecalciferol [Vitamin D3] 2,000 unit PO DAILY 11/22/14 [History] Pravastatin Sodium [Pravachol] 40 mg PO HS 11/22/14 [History] Warfarin [Coumadin] 5 mg PO MOWEFRSA 11/22/14 [History] Warfarin [Coumadin] 2.5 mg PO SUTUTH 01/02/15 [History] Ferrous Sulfate [Iron (65 MG Elemental)] 325 mg PO DAILY 08/26/15 [History] Losartan Potassium [Cozaar] 25 mg PO HS 04/04/16 [History] Metolazone [Zaroxolyn] 2.5 mg PO DAILY 04/04/16 [History] Furosemide [Lasix] 40 mg PO DAILY 03/29/17 [History] Pramipexole [Mirapex] 1 mg PO TID 03/29/17 [History] Potassium Chloride [Klor-Con 20] 20 meq PO DAILY 09/29/17 [History] Pregabalin [Lyrica] 75 mg PO BID 07/18/18 [History] Bisacodyl [Dulcolax] 10 mg RECTAL DAILY PRN supp 07/20/18 [Rx] Carvedilol [Coreg] 3.125 mg PO BID-W/MEALS tab 07/20/18 [Rx] Diazepam [Valium] 5 mg PO DAILY PRN #3 tab 07/20/18 [Rx] HYDROcodone/APAP 7.5-325MG [[place] 7.5-325] 1 - 2 tab PO Q4-6H PRN #84 tab [Rx] HYDROcodone/APAP 7.5-325MG [[place] 7.5-325] 1 tab PO Q4H PRN #18 tab 07/20/18 [Rx ] Magnesium Hydroxide [Milk of Magnesia Concentrate] 2,400 mg PO DAILY PRN ml [Rx] Multivitamins, Thera [Multivitamin (formulary)] 1 each PO DAILY@1200 tab [Rx] Sennosides-Docusate Sodium [Senokot-S] 2 each PO DAILY tab 07/20/18 [Rx] traMADol HCL [Ultram] 50 mg PO Q8H #9 tablet 07/20/18 [Rx] Follow up Appointment(s)/Referral(s): Ethan Francisco MD [Primary Care Provider] - 1 Week (one week after discharge from [facility]) [facility], [NON-STAFF] - As Needed Activity/Diet/Wound Care/Special Instructions: Follow-up with Dr. Cedeno as scheduled. Non wt bearing LLE Discharge Disposition: TRANSFER TO SNF/ECF
[2018-07-20] MEDS: SENNOSIDES-DOCUSATE SODIUM 1 EACH TAB PO SCH (10:49)
[2018-07-20] MEDS: MULTIVITAMINS, THERA 1 EACH TAB PO SCH (10:50)
[2018-07-20] MEDS: CHOLECALCIFEROL 1,000 UNIT TAB PO SCH (10:50)
--- NOTE | 2018-07-20 13:03 | P.PN ---
Subjective Progress Note Date: 07/20/18 This is a 78-year-old male patient of Dr. Francisco. He has underlying history of chronic systolic heart failure, chronic atrial fibrillation on Coumadin, benign prostatic hypertrophy, chronic anemia, restless leg syndrome, hyperlipidemia, chronic pain syndrome, obstructive sleep apnea, hypertension hypertensive cardiovascular disease. Patient has been admitted under the service of Dr. Gonzalez for left knee effusion, difficulty ambulating, uncontrolled pain,. He had underwent a primary left total knee arthroplasty in December 2014, followed by a knee replacement 12/27/2017, in the division 2017. During his last admission, he had an injury after falling coming out of the shower and landed on his buttock but his left knee hit the door, develop pain in his knee had an X-ray on Monday which showed lateral dislocation of his patella and he underwent medial retinaculum repair by Dr. Street 01/23/2018 patient was admitted this time secondary to increasing effusion left knee increasing pain and inability to ambulate, patient apparently again fell down at home, hitting his left knee in the pavement. Patient denies any skin tears however he does have significant effusion, x-rays in the orthopedic office shows anterior subluxation of the femur on tibia.. Patient denies any history of spinal stenosis the past however he had lumbar disc surgery, patient denies any neuropathy in the lower extremities related to radiculitis or spinal stenosis. Patient denies any fever no cellulitis in the knee in the past, no septic joint history in the past. Patient has a knee brace left side, patient comes in now for Pain control, possible additional surgery regarding the knee, physical therapy. He needs a Farshad lift, history: Nonweightbearing to medicine is consulted for medical management as well as anticoagulation. Paper patient, patient does not require any surgery during this visit, he also will be referred to tertiary facility for planned left knee surgery in the future. 07/19: Patient is resting comfortably. He continues to be nonweightbearing and using a knee immobilizer for transfers. He is being followed by orthopedics as we await for him to be transferred to an extended care facility due to the nonweightbearing status. Patient to have surgery at [facility]. He is continue with upper extremity physical therapy. He denies any pain, nausea or vomiting. 07/20: Patient is planned to go to [facility] for rehab and then surgery following that at [facility]. He denies any new complaints. No lightheadedness or dizziness but he states he has not been up out of bed. He denies any nausea. He states he slept well last night. His blood pressures on the low side at 96/62 most likely secondary to pain medications and cord will be decreased. He denies having a bowel movement. He is on stool softeners. He continues to have lower extremity edema. Medication reconciliation will be completed in anticipation that he will be transferred to [facility] tomorrow. Review Of Systems: Constitutional: No fever, no chills, no night sweats. No weight change. No weakness, fatigue or lethargy. No daytime sleepiness. EENT: No headache. No blurred vision or double vision, no loss of vision. No loss of Hearing, no ringing in the ears, no dizziness. No nasal drainage or congestion. No epistaxis. No sore throat. Lungs: No shortness of breath, cough, no sputum production. No wheezing. Cardiovascular: No chest pain, no lower extremity edema. No palpitations. No paroxysmal nocturnal dyspnea. No orthopnea. No lightheadedness or dizziness. No syncopal episodes. Abdominal: No abdominal pain. No nausea, vomiting. No diarrhea. No constipation. No bloody or tarry stools.. No loss of appetite. Genitourinary: No dysuria, increased frequency, urgency. No urinary retention. Musculoskeletal: No myalgias. No muscle weakness, no gait dysfunction, no frequent falls. No back pain. No neck pain. Left knee swelling and pain. Integumentary: No wounds, no lesions. No rash or pruritus. No unusual bruising. No change in hair or nails. Neurologic: No aphasia. No facial droop. No change in mentation. No head injury. No headache. No paralysis. No paresthesia. Psychiatric: No depression. No anxiety. No mood swings. Endocrine: No abnormal blood sugars. No weight change. No excessive sweating or thirst. No cold intolerance. No weight change. Objective - Vital Signs Vital signs: Vital Signs Temp 98.0 F 07/19/18 23:52 Pulse 63 07/19/18 23:52 Resp 15 07/19/18 23:52 BP 106/66 07/19/18 23:52 Pulse Ox 97 07/19/18 23:52 Intake & Output 07/19/18 07/20/18 07/20/18 18:59 06:59 18:59 Intake Total 540 Output Total 350 825 Balance -350 -285 Intake: Oral 540 Output: Urine 350 825 Other: # Voids 1 - Exam General appearance: cooperative, morbidly obese - EENT Eyes: anicteric sclerae, EOMI, PERRLA, dentition normal, normal appearance ENT: hearing grossly normal, NA/AT, normal oropharynx - Neck Neck: normal ROM - Respiratory Respiratory: bilateral: CTA, negative: diminished, dullness, rales - Cardiovascular Rhythm: regular Heart sounds: normal: S1, S2 Abnormal Heart Sounds: no systolic murmur, no diastolic murmur, no rub, no S3 Gallop, no S4 Gallop, no click, no other - Gastrointestinal General gastrointestinal: normal bowel sounds, soft - Integumentary Integumentary: decreased turgor, normal - Neurologic Neurologic: CNII-XII intact - Musculoskeletal Musculoskeletal: gait normal, strength equal bilaterally. Pain and tenderness to the left knee - Psychiatric Psychiatric: A&O x's 3, appropriate affect, intact judgment & insight - Labs CBC & Chem 7: 07/20/18 07:37 07/20/18 07:37 Labs: Abnormal Lab Results - Last 24 Hours (Table) 07/19/18 07/19/18 Range/Units 07:15 07:15 Lymphocytes # 0.9 L (1.0-4.8) k/uL PT 17.6 H (9.0-12.0) sec INR 1.9 H (<1.2) Assessment and Plan Plan: 1. Internal derangement left knee with impaired walking, status post fall with effusions left knee, history of knee replacement, knee revision, and repair of retinaculum December 2017 patient is chronically on anticoagulation for atrial fibrillation, continue physical therapy and occupational therapy, surgical intervention will be performed at another [facility] at later time, continue Coumadin for DVT prophylaxis as well. 2. Chronic systolic heart failure stable, chronic edema,. Continue Coreg 6.25 mg twice daily, metolazone 2.5 mg daily, losartan 25 mg at hs. continue Lasix 40 mg daily and Zaroxolyn 2.5 mg daily potassium 3. Chronic atrial fibrillation rate controlled. Continue patient on Coreg 6.25 mg orally twice daily, Coumadin keep an INR between 2-3. 4. BPH without lower in tract symptomatology, prior history of urinary retention, might need Flomax patient not on it prior to admission 5. Chronic anemia and anemia of chronic disease no GI losses at this time. Continue iron 325 mg orally daily. 6. Hypertension and hypertensive cardiovascular disease now with hypotension most likely secondary to pain medication. Continue losartan 25 mg daily, Coreg 3.125 mg orally twice daily. 7. Hyperlipidemia. On Pravachol 40 mg hs. 8. Chronic pain syndrome. Continue current pain management 9. Obstructive sleep apnea. Continue CPAP. 10. Restless leg syndrome. Continue Mirapex 1 mg 3 times a day. 11. Peripheral neuropathy on Lyrica and tramadol no changes made 12. Long-term anticoagulation for atrial fibrillation, Coumadin dose at 5 mg Monday, others 2.5 mg Monday 13. DVT prophylaxis. Continue Coumadin to keep the INR 2-3. 12. GI prophylaxis. Continue Protonix 40 mg orally once every day. Discharge planning: [facility] on Monday. Medication reconciliation has been completed. Impression and plan of care have been directed as dictated by the signing physician. Martha Monsivais nurse practitioner acting as scribe for signing physician.
[2018-07-20] MEDS: HYDROcodone/APAP 10-325MG 1 EACH TAB PO PRN (13:25)
[2018-07-20] MEDS: WARFARIN 2.5 MG TAB PO SCH (17:58)
[2018-07-20] MEDS: CARVEDILOL 3.125 MG TAB PO SCH (17:58)
[2018-07-20] MEDS: WARFARIN 5 MG TAB PO SCH (17:59)
[2018-07-20] MEDS: PRAVASTATIN SODIUM 40 MG TAB PO SCH (21:00)
[2018-07-20] MEDS: LOSARTAN 25 MG TAB PO SCH (22:15)
[2018-07-21] MEDS: traMADol 50 MG TAB PO SCH ×3 (00:59→15:11)
[2018-07-21] MEDS: HYDROcodone/APAP 10-325MG 1 EACH TAB PO PRN (05:36)
--- NOTE | 2018-07-21 07:56 | P.PN ---
Progress Note - Text Progress Note Date: 07/21/18 This is a 78-year-old male who we're following regarding his dislocated total knee arthroplasty. He will be transferred to inpatient rehab today. He is to follow-up with Dr. Cedeno as scheduled. He is nonweightbearing to the left lower extremity.
[2018-07-21] MEDS: SENNOSIDES-DOCUSATE SODIUM 1 EACH TAB PO SCH (08:52)
[2018-07-21] MEDS: PREGABALIN 75 MG CAP PO SCH ×2 (08:53→20:36)
[2018-07-21] MEDS: FERROUS SULFATE 325 MG TAB PO SCH (08:53)
[2018-07-21] MEDS: PRAMIPEXOLE 1 MG TAB PO SCH ×3 (08:53→20:36)
[2018-07-21] MEDS: FUROSEMIDE 40 MG TAB PO SCH (08:53)
[2018-07-21] MEDS: METOLAZONE 2.5 MG TAB PO SCH (08:54)
[2018-07-21] MEDS: POTASSIUM CHLORIDE ER 20 MEQ TAB.ER PO SCH (08:54)
[2018-07-21] MEDS: CARVEDILOL 3.125 MG TAB PO SCH ×2 (08:54→17:40)
[2018-07-21 08:59] LABS: Basophils # (A) 0.1 k/uL (0-0.2); Basophils % (A) 1 %; Eosinophils # (A) 0.3 k/uL (0-0.7); Eosinophils % (A) 4 %; HCT 43.7 % (39.0-53.0); HGB 13.9 gm/dL (13.0-17.5); Lymphocytes % (A) 16 %; MCH 28.6 pg (25.0-35.0); MCHC 31.8 g/dL (31.0-37.0); Mean Platelet Volume 6.8; Monocytes # (A) 0.3 k/uL (0-1.0); Monocytes % (A) 5 %; Neutrophils # (A) 4.4 k/uL (1.3-7.7); Neutrophils % (A) 72 %; Platelet Count 172 k/uL (150-450); RBC 4.86 m/uL (4.30-5.90); RDW 15.1 % (11.5-15.5); WBC 6.1 k/uL (3.8-10.6)
[2018-07-21 09:05] LABS: INR 1.9 (<1.2); Prothrombin Time 17.3 sec (9.0-12.0)
[2018-07-21 09:27] LABS: Albumin 3.4 g/dL (3.5-5.0); Total Bilirubin 0.9 mg/dL (0.2-1.3); Total Protein 6.4 g/dL (6.3-8.2)
[2018-07-21 09:56] LABS: Potassium 4.2 mmol/L (3.5-5.1)
[2018-07-21] MEDS: CHOLECALCIFEROL 1,000 UNIT TAB PO SCH (12:05)
[2018-07-21] MEDS: MULTIVITAMINS, THERA 1 EACH TAB PO SCH (12:05)
--- NOTE | 2018-07-21 16:36 | P.PN ---
Subjective Progress Note Date: 07/21/18 This is a 78-year-old male patient of Dr. Francisco. He has underlying history of chronic systolic heart failure, chronic atrial fibrillation on Coumadin, benign prostatic hypertrophy, chronic anemia, restless leg syndrome, hyperlipidemia, chronic pain syndrome, obstructive sleep apnea, hypertension hypertensive cardiovascular disease. Patient has been admitted under the service of Dr. Gonzalez for left knee effusion, difficulty ambulating, uncontrolled pain,. He had underwent a primary left total knee arthroplasty in December 2014, followed by a knee replacement 12/27/2017, in the division 2017. During his last admission, he had an injury after falling coming out of the shower and landed on his buttock but his left knee hit the door, develop pain in his knee had an X-ray on Monday which showed lateral dislocation of his patella and he underwent medial retinaculum repair by Dr. Street 01/23/2018 patient was admitted this time secondary to increasing effusion left knee increasing pain and inability to ambulate, patient apparently again fell down at home, hitting his left knee in the pavement. Patient denies any skin tears however he does have significant effusion, x-rays in the orthopedic office shows anterior subluxation of the femur on tibia.. Patient denies any history of spinal stenosis the past however he had lumbar disc surgery, patient denies any neuropathy in the lower extremities related to radiculitis or spinal stenosis. Patient denies any fever no cellulitis in the knee in the past, no septic joint history in the past. Patient has a knee brace left side, patient comes in now for Pain control, possible additional surgery regarding the knee, physical therapy. He needs a Farshad lift, history: Nonweightbearing to medicine is consulted for medical management as well as anticoagulation. Paper patient, patient does not require any surgery during this visit, he also will be referred to tertiary facility for planned left knee surgery in the future. 07/19: Patient is resting comfortably. He continues to be nonweightbearing and using a knee immobilizer for transfers. He is being followed by orthopedics as we await for him to be transferred to an extended care facility due to the nonweightbearing status. Patient to have surgery at [facility]. He is continue with upper extremity physical therapy. He denies any pain, nausea or vomiting. 07/20: Patient is planned to go to [facility] for rehab and then surgery following that at [facility]. He denies any new complaints. No lightheadedness or dizziness but he states he has not been up out of bed. He denies any nausea. He states he slept well last night. His blood pressures on the low side at 96/62 most likely secondary to pain medications and cord will be decreased. He denies having a bowel movement. He is on stool softeners. He continues to have lower extremity edema. Medication reconciliation will be completed in anticipation that he will be transferred to [facility] tomorrow. 07/21: Patient was planning to go to [facility] on the [place] for rehab and then surgery following at [facility]. However, Dr. Gonzalez is going to attempt a manipulation of the right knee prior to transfer to [facility] for surgery. This will occur either tomorrow or Monday depending on orthopod availability. Patient denies any new complaints today. No lightheadedness or dizziness but he has not been out of bed. Patient denies any nausea. Vital signs are stable. He continues to have lower extremity edema. Review Of Systems: Constitutional: No fever, no chills, no night sweats. No weight change. No weakness, fatigue or lethargy. No daytime sleepiness. EENT: No headache. No blurred vision or double vision, no loss of vision. No loss of Hearing, no ringing in the ears, no dizziness. No nasal drainage or congestion. No epistaxis. No sore throat. Lungs: No shortness of breath, cough, no sputum production. No wheezing. Cardiovascular: No chest pain, no lower extremity edema. No palpitations. No paroxysmal nocturnal dyspnea. No orthopnea. No lightheadedness or dizziness. No syncopal episodes. Abdominal: No abdominal pain. No nausea, vomiting. No diarrhea. No constipation. No bloody or tarry stools.. No loss of appetite. Genitourinary: No dysuria, increased frequency, urgency. No urinary retention. Musculoskeletal: No myalgias. No muscle weakness, no gait dysfunction, no frequent falls. No back pain. No neck pain. Left knee swelling and pain. Integumentary: No wounds, no lesions. No rash or pruritus. No unusual bruising. No change in hair or nails. Neurologic: No aphasia. No facial droop. No change in mentation. No head injury. No headache. No paralysis. No paresthesia. Psychiatric: No depression. No anxiety. No mood swings. Endocrine: No abnormal blood sugars. No weight change. No excessive sweating or thirst. No cold intolerance. No weight change. Objective - Vital Signs Vital signs: Vital Signs Temp 97.9 F 07/21/18 15:47 Pulse 68 07/21/18 15:47 Resp 16 07/21/18 15:47 BP 124/71 07/21/18 15:47 Pulse Ox 95 07/21/18 15:47 Intake & Output 07/20/18 07/21/18 07/21/18 18:59 06:59 18:59 Intake Total 600 500 Output Total 1000 Balance -400 500 Weight 164.654 kg Intake: Oral 600 500 Output: Urine 1000 Other: Voiding Method Urinal Urinal # Voids 3 4 - Constitutional General appearance: Present: cooperative, no acute distress, obese - EENT Eyes: Present: anicteric sclerae, EOMI, PERRLA ENT: Present: hearing grossly normal - Neck Neck: Present: normal ROM - Respiratory Respiratory: bilateral: CTA, negative: diminished, dullness, rales, rhonchi, wheezing - Cardiovascular Rhythm: regular Heart sounds: normal: S1, S2 Abnormal Heart Sounds: Absent: systolic murmur, diastolic murmur, rub, S3 Gallop , S4 Gallop, click, other - Gastrointestinal General gastrointestinal: Present: normal bowel sounds, soft. Absent: organomegaly, tenderness - Integumentary Integumentary: Present: decreased turgor - Neurologic Neurologic: Present: CNII-XII intact - Musculoskeletal Musculoskeletal Comment(s): Pain and tenderness to left knee Musculoskeletal: Present: strength equal bilaterally - Psychiatric Psychiatric: Present: A&O x's 3, appropriate affect, intact judgment & insight - Labs CBC & Chem 7: 07/21/18 08:05 07/21/18 08:05 Labs: Abnormal Lab Results - Last 24 Hours (Table) 07/21/18 07/21/18 Range/Units 08:05 08:05 PT 17.3 H (9.0-12.0) sec INR 1.9 H (<1.2) Chloride 96 L (98-107) mmol/L Carbon Dioxide 33 H (22-30) mmol/L BUN 25 H (9-20) mg/dL Glucose 119 H (74-99) mg/dL ALT 18 L (21-72) U/L Albumin 3.4 L (3.5-5.0) g/dL Assessment and Plan Plan: 1. Internal derangement left knee with impaired walking, status post fall with effusions left knee, history of knee replacement, knee revision, and repair of retinaculum December 2017 patient is chronically on anticoagulation for atrial fibrillation, patient will have upper extremity physical therapy and occupational therapy, surgical intervention will be performed at another [facility], continue on anti-coagulation at this time. Patient is planned to have a manipulation to the left knee either today or tomorrow with Dr. Gonzalez. Post manipulation patient plans to be transferred to [facility] for possible surgery 2. Chronic systolic heart failure stable, chronic edema,. Continue Coreg 6.25 mg twice daily, metolazone 2.5 mg daily, losartan 25 mg at hs. continue Lasix 40 mg daily and Zaroxolyn 2.5 mg daily potassium 3. Chronic atrial fibrillation rate controlled. Continue patient on Coreg 6.25 mg orally twice daily, Coumadin keep an INR between 2-3. 4. BPH without lower in tract symptomatology, prior history of urinary retention, might need Flomax patient not on it prior to admission 5. Chronic anemia and anemia of chronic disease no GI losses at this time. Continue iron 325 mg orally daily. 6. Hypertension and hypertensive cardiovascular disease. Continue losartan 25 mg daily, Coreg 6.25 mg orally twice daily. 7. Hyperlipidemia. On Pravachol 40 mg hs. 8. Chronic pain syndrome. Continue current pain management 9. Obstructive sleep apnea. Continue CPAP. 10. Restless leg syndrome. Continue Mirapex 1 mg 3 times a day. 11. Peripheral neuropathy on Lyrica and tramadol no changes made 12. Long-term anticoagulation for atrial fibrillation, Coumadin dose at 5 mg Monday, others 2.5 mg Monday 13. DVT prophylaxis. Continue Coumadin to keep the INR 2-3. 12. GI prophylaxis. Continue Protonix 40 mg orally once every day. Discharge planning: skilled ecf Impression and plan of care have been directed as dictated by the signing physician. Stephanie Bernstein nurse practitioner acting as scribe for signing physician.
[2018-07-21] MEDS: WARFARIN 5 MG TAB PO SCH (17:40)
[2018-07-21] MEDS: LOSARTAN 25 MG TAB PO SCH (20:37)
[2018-07-21] MEDS: PRAVASTATIN SODIUM 40 MG TAB PO SCH (20:37)
[2018-07-22] MEDS: traMADol 50 MG TAB PO SCH ×3 (00:08→16:11)
[2018-07-22 07:55] LABS: Prothrombin Time 18.4 sec (9.0-12.0)
[2018-07-22] MEDS: METOLAZONE 2.5 MG TAB PO SCH (08:16)
[2018-07-22] MEDS: SENNOSIDES-DOCUSATE SODIUM 1 EACH TAB PO SCH (08:16)
[2018-07-22] MEDS: CARVEDILOL 3.125 MG TAB PO SCH ×2 (08:16→18:00)
[2018-07-22] MEDS: FUROSEMIDE 40 MG TAB PO SCH (08:16)
[2018-07-22] MEDS: FERROUS SULFATE 325 MG TAB PO SCH (08:16)
[2018-07-22] MEDS: POTASSIUM CHLORIDE ER 20 MEQ TAB.ER PO SCH (08:17)
[2018-07-22] MEDS: PRAMIPEXOLE 1 MG TAB PO SCH ×3 (08:17→20:01)
[2018-07-22] MEDS: PREGABALIN 75 MG CAP PO SCH ×2 (08:17→20:01)
[2018-07-22] MEDS: HYDROcodone/APAP 7.5-325MG 1 EACH TAB PO PRN ×2 (08:17→16:09)
--- NOTE | 2018-07-22 11:19 | P.PN ---
Subjective Progress Note Date: 07/22/18 Principal diagnosis: Dislocated total left knee. This is a 78-year-old male admitted for placement. He has history of revision total left knee arthroplasty which is now dislocated. Attempt to reduce the knee in the office was unsuccessful. The patient is awaiting procedure scheduled with Dr. Cedeno for removal of implants and fusion of the knee. He is stable at this time. Vital signs are stable. He has no new complaints or concerns. He is awaiting transfer to inpatient rehab currently. Dr. Gonzalez is considering possible closed reduction in the OR tomorrow. Objective - Vital Signs Vital signs: Vital Signs Temp 98.2 F 07/22/18 07:00 Pulse 60 07/22/18 08:00 Resp 18 07/22/18 08:00 BP 114/76 07/22/18 07:00 Pulse Ox 95 07/22/18 07:00 Intake & Output 07/21/18 07/22/18 07/22/18 18:59 06:59 18:59 Intake Total 500 Output Total 250 700 Balance 250 -700 Intake: Oral 500 Output: Urine 250 700 Other: Voiding Method Urinal Urinal # Voids 2 - Exam This is a pleasant 78-year-old male in no acute distress. He is alert and oriented 3. Exam of the lower extremity reveals that his knee has moderate swelling. There is no erythema or ecchymosis. There is pain on palpation about the knee. He has full foot and ankle motion without difficulty or pain. Neurovascular status to the lower extremity is intact. - Labs CBC & Chem 7: 07/21/18 08:05 07/21/18 08:05 Labs: Abnormal Lab Results - Last 24 Hours (Table) 07/22/18 Range/Units 07:12 PT 18.4 H (9.0-12.0) sec INR 2.0 H (<1.2) Assessment and Plan (1) Dislocation of knee, left, closed Current Visit: Yes Status: Acute Code(s): S83.105A - UNSPECIFIED DISLOCATION OF LEFT KNEE, INITIAL ENCOUNTER SNOMED Code(s): 77122447 (2) Inability to ambulate due to knee Current Visit: Yes Status: Acute Code(s): R26.2 - DIFFICULTY IN WALKING, NOT ELSEWHERE CLASSIFIED SNOMED Code(s): 291636417 (3) Morbid obesity Current Visit: No Status: Acute Code(s): E66.01 - MORBID (SEVERE) OBESITY DUE TO EXCESS CALORIES SNOMED Code(s): 479474818 Plan: The clinical findings are discussed with the patient. Dr. Gonzalez will be talking to Dr. Cedeno to arrange for follow-up and discuss plan. Dr. Gonazlez is considering possible closed reduction in the OR tomorrow.
[2018-07-22] MEDS ORDERED: IPRATROPIUM-ALBUTEROL 3 ML NEB INHALATION PRN (11:52)
[2018-07-22] MEDS: predniSONE 20 MG TAB PO SCH (12:31)
[2018-07-22] MEDS: MULTIVITAMINS, THERA 1 EACH TAB PO SCH (12:32)
[2018-07-22] MEDS: CHOLECALCIFEROL 1,000 UNIT TAB PO SCH (12:32)
--- NOTE | 2018-07-22 13:10 | XR ---
EXAMINATION TYPE: XR chest 1V DATE OF EXAM: 07/22/2018 HISTORY: Shortness of breath. COMPARISON: March 31, 2017 TECHNIQUE: Single view of the chest is submitted. FINDINGS: Demonstrated are scattered senescent parenchymal change. There is no evidence for focal infiltrate. The heart is stable. Hilar and mediastinal structures are within normal limits. Degenerative changes are seen of the dorsal spine. IMPRESSION: 1. Chronic changes without evidence for acute pulmonary disease.
--- NOTE | 2018-07-22 15:58 | P.PN ---
Subjective Progress Note Date: 07/22/18 This is a 78-year-old male patient of Dr. Francisco. He has underlying history of chronic systolic heart failure, chronic atrial fibrillation on Coumadin, benign prostatic hypertrophy, chronic anemia, restless leg syndrome, hyperlipidemia, chronic pain syndrome, obstructive sleep apnea, hypertension hypertensive cardiovascular disease. Patient has been admitted under the service of Dr. Gonzalez for left knee effusion, difficulty ambulating, uncontrolled pain,. He had underwent a primary left total knee arthroplasty in December 2014, followed by a knee replacement 12/27/2017, in the division 2017. During his last admission, he had an injury after falling coming out of the shower and landed on his buttock but his left knee hit the door, develop pain in his knee had an X-ray on Monday which showed lateral dislocation of his patella and he underwent medial retinaculum repair by Dr. Street 01/23/2018 patient was admitted this time secondary to increasing effusion left knee increasing pain and inability to ambulate, patient apparently again fell down at home, hitting his left knee in the pavement. Patient denies any skin tears however he does have significant effusion, x-rays in the orthopedic office shows anterior subluxation of the femur on tibia.. Patient denies any history of spinal stenosis the past however he had lumbar disc surgery, patient denies any neuropathy in the lower extremities related to radiculitis or spinal stenosis. Patient denies any fever no cellulitis in the knee in the past, no septic joint history in the past. Patient has a knee brace left side, patient comes in now for Pain control, possible additional surgery regarding the knee, physical therapy. He needs a Farshad lift, history: Nonweightbearing to medicine is consulted for medical management as well as anticoagulation. Paper patient, patient does not require any surgery during this visit, he also will be referred to tertiary facility for planned left knee surgery in the future. 07/19: Patient is resting comfortably. He continues to be nonweightbearing and using a knee immobilizer for transfers. He is being followed by orthopedics as we await for him to be transferred to an extended care facility due to the nonweightbearing status. Patient to have surgery at [facility]. He is continue with upper extremity physical therapy. He denies any pain, nausea or vomiting. 07/20: Patient is planned to go to [facility] for rehab and then surgery following that at [facility]. He denies any new complaints. No lightheadedness or dizziness but he states he has not been up out of bed. He denies any nausea. He states he slept well last night. His blood pressures on the low side at 96/62 most likely secondary to pain medications and cord will be decreased. He denies having a bowel movement. He is on stool softeners. He continues to have lower extremity edema. Medication reconciliation will be completed in anticipation that he will be transferred to [facility] tomorrow. 07/21: Patient was planning to go to [facility] on the [place] for rehab and then surgery following at [facility]. However, Dr. Gonzalez is going to attempt a manipulation of the right knee prior to transfer to [facility] for surgery. This will occur either tomorrow or Monday depending on orthopod availability. Patient denies any new complaints today. No lightheadedness or dizziness but he has not been out of bed. Patient denies any nausea. Vital signs are stable. He continues to have lower extremity edema. 07/22: Patient is sitting up in the bed today. Complaining of 8 dry cough and some wheezing, and tightness in his chest that is new for him. Patient continues to be therapeutic for his INR. However he is scheduled to have a closed reduction of his left knee dislocation that may require Coumadin to be held. We'll wait for direction from or so if this needs to be held. Patient denies any fever or chills. No lightheadedness or dizziness but he has not been out of bed. Patient denies any nausea or vomiting. He continues to have lower extremity edema. Vital signs are stable. INR 2.0. Review Of Systems: Constitutional: No fever, no chills, no night sweats. No weight change. No weakness, fatigue or lethargy. No daytime sleepiness. EENT: No headache. No blurred vision or double vision, no loss of vision. No loss of Hearing, no ringing in the ears, no dizziness. No nasal drainage or congestion. No epistaxis. No sore throat. Lungs: No shortness of breath, + cough, no sputum production. + wheezing. Cardiovascular: No chest pain, no lower extremity edema. No palpitations. No paroxysmal nocturnal dyspnea. No orthopnea. No lightheadedness or dizziness. No syncopal episodes. Abdominal: No abdominal pain. No nausea, vomiting. No diarrhea. No constipation. No bloody or tarry stools.. No loss of appetite. Genitourinary: No dysuria, increased frequency, urgency. No urinary retention. Musculoskeletal: No myalgias. No muscle weakness, no gait dysfunction, no frequent falls. No back pain. No neck pain. Left knee swelling and pain. Integumentary: No wounds, no lesions. No rash or pruritus. No unusual bruising. No change in hair or nails. Neurologic: No aphasia. No facial droop. No change in mentation. No head injury. No headache. No paralysis. No paresthesia. Psychiatric: No depression. No anxiety. No mood swings. Endocrine: No abnormal blood sugars. No weight change. No excessive sweating or thirst. No cold intolerance. No weight change. Objective - Vital Signs Vital signs: Vital Signs Temp 98.2 F 07/22/18 07:00 Pulse 60 07/22/18 08:00 Resp 18 07/22/18 08:00 BP 114/76 07/22/18 07:00 Pulse Ox 95 07/22/18 07:00 Intake & Output 07/21/18 07/22/18 07/22/18 18:59 06:59 18:59 Intake Total 500 500 Output Total 250 700 Balance 250 -700 500 Intake: Oral 500 500 Output: Urine 250 700 Other: Voiding Method Urinal Urinal # Voids 2 - Constitutional General appearance: Present: cooperative, no acute distress, obese - EENT Eyes: Present: anicteric sclerae, EOMI, PERRLA ENT: Present: hearing grossly normal, NA/AT, normal oropharynx - Neck Neck: Present: normal ROM. Absent: lymphadenopathy, rigidity - Respiratory Respiratory: bilateral: wheezing, negative: diminished, dullness, rales, rhonchi - Cardiovascular Rhythm: regular Heart sounds: normal: S1, S2 Abnormal Heart Sounds: Absent: systolic murmur, diastolic murmur, rub, S3 Gallop , S4 Gallop, click, other - Gastrointestinal General gastrointestinal: Present: normal bowel sounds, soft. Absent: tenderness - Integumentary Integumentary: Present: decreased turgor - Neurologic Neurologic: Present: CNII-XII intact - Musculoskeletal Musculoskeletal Comment(s): Edema, pain and tenderness to left knee. Musculoskeletal: Present: strength equal bilaterally - Psychiatric Psychiatric: Present: A&O x's 3, appropriate affect, intact judgment & insight - Labs CBC & Chem 7: 07/21/18 08:05 07/21/18 08:05 Labs: Abnormal Lab Results - Last 24 Hours (Table) 07/22/18 Range/Units 07:12 PT 18.4 H (9.0-12.0) sec INR 2.0 H (<1.2) Assessment and Plan Plan: 1. Internal derangement left knee with impaired walking, status post fall with effusions left knee, history of knee replacement, knee revision, and repair of retinaculum December 2017 patient is chronically on anticoagulation for atrial fibrillation, patient will have upper extremity physical therapy and occupational therapy, surgical intervention will be performed at another [facility], continue on anti-coagulation at this time. Patient is planned to have a manipulation to the left knee either today or tomorrow with Dr. Gonzalez. Post manipulation patient plans to be transferred to [facility] for possible surgery 2. Chronic systolic heart failure stable, chronic edema,. Continue Coreg 6.25 mg twice daily, metolazone 2.5 mg daily, losartan 25 mg at hs. continue Lasix 40 mg daily and Zaroxolyn 2.5 mg daily potassium 3. Chronic atrial fibrillation rate controlled. Continue patient on Coreg 6.25 mg orally twice daily, Coumadin keep an INR between 2-3. May hold Coumadin for upcoming procedure awaiting recommendations from ortho. 4. BPH without lower in tract symptomatology, prior history of urinary retention, might need Flomax patient not on it prior to admission 5. Chronic anemia and anemia of chronic disease no GI losses at this time. Continue iron 325 mg orally daily. 6. Hypertension and hypertensive cardiovascular disease. Continue losartan 25 mg daily, Coreg 6.25 mg orally twice daily. 7. Hyperlipidemia. On Pravachol 40 mg hs. 8. Chronic pain syndrome. Continue current pain management 9. Obstructive sleep apnea. Continue CPAP. 10. Restless leg syndrome. Continue Mirapex 1 mg 3 times a day. 11. Peripheral neuropathy on Lyrica and tramadol no changes made 12. Long-term anticoagulation for atrial fibrillation, Coumadin dose at 5 mg Monday, others 2.5 mg Monday 13. DVT prophylaxis. Continue Coumadin to keep the INR 2-3. 14. GI prophylaxis. Continue Protonix 40 mg orally once every day. 15. Cough and wheezes. Obtain chest x-ray, start by mouth prednisone Discharge planning: skilled [facility] Impression and plan of care have been directed as dictated by the signing physician. Stephanie Bernstein nurse practitioner acting as scribe for signing physician.
[2018-07-22] MEDS ORDERED: WARFARIN 2.5 MG TAB PO ONE (18:00)
[2018-07-22] MEDS: LOSARTAN 25 MG TAB PO SCH (20:01)
[2018-07-22] MEDS: PRAVASTATIN SODIUM 40 MG TAB PO SCH (20:01)
[2018-07-23] MEDS: traMADol 50 MG TAB PO SCH ×3 (00:10→16:10)
[2018-07-23] MEDS: SENNOSIDES-DOCUSATE SODIUM 1 EACH TAB PO SCH (07:15)
[2018-07-23] MEDS: PREGABALIN 75 MG CAP PO SCH ×2 (07:15→21:29)
[2018-07-23] MEDS: POTASSIUM CHLORIDE ER 20 MEQ TAB.ER PO SCH (07:16)
[2018-07-23] MEDS: FUROSEMIDE 40 MG TAB PO SCH (07:16)
[2018-07-23] MEDS: CARVEDILOL 3.125 MG TAB PO SCH ×2 (07:16→18:13)
[2018-07-23] MEDS: PRAMIPEXOLE 1 MG TAB PO SCH ×3 (07:16→21:29)
[2018-07-23] MEDS: predniSONE 20 MG TAB PO SCH (07:17)
[2018-07-23] MEDS: FERROUS SULFATE 325 MG TAB PO SCH (07:17)
[2018-07-23] MEDS: METOLAZONE 2.5 MG TAB PO SCH (07:18)
[2018-07-23 09:38] LABS: INR 2.2 (<1.2); Prothrombin Time 20.1 sec (9.0-12.0)
--- NOTE | 2018-07-23 10:55 | P.PN ---
Subjective Progress Note Date: 07/23/18 This is a 78-year-old male patient of Dr. Francisco. He has underlying history of chronic systolic heart failure, chronic atrial fibrillation on Coumadin, benign prostatic hypertrophy, chronic anemia, restless leg syndrome, hyperlipidemia, chronic pain syndrome, obstructive sleep apnea, hypertension hypertensive cardiovascular disease. Patient has been admitted under the service of Dr. Gonzalez for left knee effusion, difficulty ambulating, uncontrolled pain,. He had underwent a primary left total knee arthroplasty in December 2014, followed by a knee replacement 12/27/2017, in the division 2017. During his last admission, he had an injury after falling coming out of the shower and landed on his buttock but his left knee hit the door, develop pain in his knee had an X-ray on Monday which showed lateral dislocation of his patella and he underwent medial retinaculum repair by Dr. Street 01/23/2018 patient was admitted this time secondary to increasing effusion left knee increasing pain and inability to ambulate, patient apparently again fell down at home, hitting his left knee in the pavement. Patient denies any skin tears however he does have significant effusion, x-rays in the orthopedic office shows anterior subluxation of the femur on tibia.. Patient denies any history of spinal stenosis the past however he had lumbar disc surgery, patient denies any neuropathy in the lower extremities related to radiculitis or spinal stenosis. Patient denies any fever no cellulitis in the knee in the past, no septic joint history in the past. Patient has a knee brace left side, patient comes in now for Pain control, possible additional surgery regarding the knee, physical therapy. He needs a Farshad lift, history: Nonweightbearing to medicine is consulted for medical management as well as anticoagulation. Paper patient, patient does not require any surgery during this visit, he also will be referred to tertiary facility for planned left knee surgery in the future. 07/19: Patient is resting comfortably. He continues to be nonweightbearing and using a knee immobilizer for transfers. He is being followed by orthopedics as we await for him to be transferred to an extended care facility due to the nonweightbearing status. Patient to have surgery at [facility]. He is continue with upper extremity physical therapy. He denies any pain, nausea or vomiting. 07/20: Patient is planned to go to [facility] for rehab and then surgery following that at [facility]. He denies any new complaints. No lightheadedness or dizziness but he states he has not been up out of bed. He denies any nausea. He states he slept well last night. His blood pressures on the low side at 96/62 most likely secondary to pain medications and cord will be decreased. He denies having a bowel movement. He is on stool softeners. He continues to have lower extremity edema. Medication reconciliation will be completed in anticipation that he will be transferred to [facility] tomorrow. 07/21: Patient was planning to go to [facility] on the [place] for rehab and then surgery following at [facility]. However, Dr. Gonzalez is going to attempt a manipulation of the right knee prior to transfer to [facility] for surgery. This will occur either tomorrow or Monday depending on orthopod availability. Patient denies any new complaints today. No lightheadedness or dizziness but he has not been out of bed. Patient denies any nausea. Vital signs are stable. He continues to have lower extremity edema. 07/22: Patient is sitting up in the bed today. Complaining of 8 dry cough and some wheezing, and tightness in his chest that is new for him. Patient continues to be therapeutic for his INR. However he is scheduled to have a closed reduction of his left knee dislocation that may require Coumadin to be held. We'll wait for direction from or so if this needs to be held. Patient denies any fever or chills. No lightheadedness or dizziness but he has not been out of bed. Patient denies any nausea or vomiting. He continues to have lower extremity edema. Vital signs are stable. INR 2.0. 07/23: Patient is scheduled for closed reduction under sedation with Dr. Gonzalez in or today. Chest x-ray from yesterday shows chronic changes without evidence of acute pulmonary disease. Prednisone was started yesterday for bronchitis. INR today is at 2.2. Most likely, patient will be ready for discharge either late today or tomorrow. Review Of Systems: Constitutional: No fever, no chills, no night sweats. No weight change. No weakness, fatigue or lethargy. No daytime sleepiness. EENT: No headache. No blurred vision or double vision, no loss of vision. No loss of Hearing, no ringing in the ears, no dizziness. No nasal drainage or congestion. No epistaxis. No sore throat. Lungs: No shortness of breath, cough, no sputum production. No wheezing. Cardiovascular: No chest pain, no lower extremity edema. No palpitations. No paroxysmal nocturnal dyspnea. No orthopnea. No lightheadedness or dizziness. No syncopal episodes. Abdominal: No abdominal pain. No nausea, vomiting. No diarrhea. No constipation. No bloody or tarry stools.. No loss of appetite. Genitourinary: No dysuria, increased frequency, urgency. No urinary retention. Musculoskeletal: No myalgias. No muscle weakness, no gait dysfunction, no frequent falls. No back pain. No neck pain. Left knee swelling and pain. Integumentary: No wounds, no lesions. No rash or pruritus. No unusual bruising. No change in hair or nails. Neurologic: No aphasia. No facial droop. No change in mentation. No head injury. No headache. No paralysis. No paresthesia. Psychiatric: No depression. No anxiety. No mood swings. Endocrine: No abnormal blood sugars. No weight change. No excessive sweating or thirst. No cold intolerance. Objective - Vital Signs Vital signs: Vital Signs Temp 98.2 F 07/23/18 07:00 Pulse 84 07/23/18 07:00 Resp 16 07/23/18 07:00 BP 107/70 07/23/18 07:00 Pulse Ox 96 07/23/18 07:00 Intake & Output 07/22/18 07/23/18 07/23/18 18:59 06:59 18:59 Intake Total 500 240 Balance 500 240 Intake: Oral 500 240 Other: Voiding Method Urinal # Voids 1 - Exam General appearance: cooperative, morbidly obese, no new complaints - EENT Eyes: anicteric sclerae, EOMI, PERRLA, dentition normal, normal appearance ENT: hearing grossly normal, NA/AT, normal oropharynx - Neck Neck: normal ROM - Respiratory Respiratory: bilateral: CTA, negative: diminished, dullness, rales - Cardiovascular Rhythm: regular Heart sounds: normal: S1, S2 Abnormal Heart Sounds: no systolic murmur, no diastolic murmur, no rub, no S3 Gallop, no S4 Gallop, no click, no other - Gastrointestinal General gastrointestinal: normal bowel sounds, soft - Integumentary Integumentary: decreased turgor, normal - Neurologic Neurologic: CNII-XII intact - Musculoskeletal Musculoskeletal: gait normal, strength equal bilaterally. Pain and tenderness to the left knee - Psychiatric Psychiatric: A&O x's 3, appropriate affect, intact judgment & insight - Labs CBC & Chem 7: 07/21/18 08:05 07/21/18 08:05 Assessment and Plan Plan: 1. Internal derangement left knee with impaired walking, status post fall with effusions left knee, history of knee replacement, knee revision, and repair of retinaculum December 2017 patient is chronically on anticoagulation for atrial fibrillation, continue physical therapy and occupational therapy, surgical intervention will be performed at another [facility] at later time, continue Coumadin for DVT prophylaxis as well. Closed reduction today with Dr. Gonzalez 2. Chronic systolic heart failure stable, chronic edema,. Continue Coreg 6.25 mg twice daily, metolazone 2.5 mg daily, losartan 25 mg at hs. continue Lasix 40 mg daily and Zaroxolyn 2.5 mg daily potassium 3. Chronic atrial fibrillation rate controlled. Continue patient on Coreg 6.25 mg orally twice daily, Coumadin keep an INR between 2-3. 4. BPH without lower in tract symptomatology, prior history of urinary retention, might need Flomax patient not on it prior to admission 5. Chronic anemia and anemia of chronic disease no GI losses at this time. Continue iron 325 mg orally daily. 6. Hypertension and hypertensive cardiovascular disease now with hypotension most likely secondary to pain medication. Continue losartan 25 mg daily, Coreg 3.125 mg orally twice daily. 7. Hyperlipidemia. On Pravachol 40 mg hs. 8. Chronic pain syndrome. Continue current pain management 9. Obstructive sleep apnea. Continue CPAP. 10. Restless leg syndrome. Continue Mirapex 1 mg 3 times a day. 11. Peripheral neuropathy on Lyrica and tramadol no changes made 12. Long-term anticoagulation for atrial fibrillation, Coumadin dose at 5 mg Monday, others 2.5 mg Monday 13. DVT prophylaxis. Continue Coumadin to keep the INR 2-3. 12. GI prophylaxis. Continue Protonix 40 mg orally once every day. 13. Acute bronchitis. Prednisone started. Discharge planning: [facility] on Monday Medication reconciliation has been completed. Impression and plan of care have been directed as dictated by the signing physician. Martha Monsivais nurse practitioner acting as scribe for signing physician.
[2018-07-23] MEDS ORDERED: LACTATED RINGERS 1,000 ML IV ONE (11:03)
[2018-07-23] MEDS ORDERED: LIDOCAINE 1% 20 ML VIAL (10MG/ML) FOR IV START INTRADERMA ONE (11:34)
[2018-07-23] MEDS ORDERED: SUCCINYLCHOLINE CHLORIDE VIAL 200 MG/10 ML VIAL IV ONE (12:14)
[2018-07-23] MEDS ORDERED: PROPOFOL 10 MG/ML 20 ML VIAL IV ONE (12:14)
[2018-07-23] MEDS ORDERED: LIDOCAINE 1% INJ 10MG/ML (20 ML MDV) ONE (12:14)
[2018-07-23] MEDS ORDERED: ePHEDrine SULFATE/0.9% NACL/PF 50 MG/5 ML SYRINGE IV ONE (12:14)
[2018-07-23] MEDS ORDERED: MIDAZOLAM 2 MG/2 ML VIAL ONE (12:14)
[2018-07-23] MEDS ORDERED: fentaNYL (PF) 50 MCG/ML 2 ML AMP ONE (12:14)
[2018-07-23] MEDS ORDERED: PHENYLEPHRINE-0.9% NACL SYG 1 MG/10 ML SYRINGE ONE (12:14)
[2018-07-23] MEDS: MULTIVITAMINS, THERA 1 EACH TAB PO SCH (13:41)
[2018-07-23] MEDS: CHOLECALCIFEROL 1,000 UNIT TAB PO SCH (13:41)
[2018-07-23 14:02] VITALS: RESP 16
--- NOTE | 2018-07-23 15:53 | FL ---
EXAMINATION TYPE: FL guidance operating room DATE OF EXAM: 07/23/2018 CLINICAL HISTORY: Closed reduction of the left knee TECHNIQUE: Fluoroscopy. COMPARISON: None. FINDINGS/IMPRESSION: Fluoroscopic guidance was provided during procedure performed by Dr. Gonzalez. A total of 7 seconds of fluoroscopic time was utilized during the procedure and 2 spot images was acqu ired demonstrating appropriate anatomic alignment of the left knee arthroplasty after closed reductio n.
[2018-07-23] MEDS: WARFARIN 5 MG TAB PO SCH (18:13)
[2018-07-23] MEDS: LOSARTAN 25 MG TAB PO SCH (21:24)
[2018-07-23] MEDS: PRAVASTATIN SODIUM 40 MG TAB PO SCH (21:29)
[2018-07-23] MEDS: HYDROcodone/APAP 7.5-325MG 1 EACH TAB PO PRN (22:06)
[2018-07-24] MEDS: traMADol 50 MG TAB PO SCH ×2 (00:15→07:41)
[2018-07-24 07:39] VITALS: BP 119/80; PULSE 71; TEMP 98
[2018-07-24] MEDS: CARVEDILOL 3.125 MG TAB PO SCH (07:41)
[2018-07-24] MEDS: FERROUS SULFATE 325 MG TAB PO SCH (08:52)
[2018-07-24] MEDS: PREGABALIN 75 MG CAP PO SCH (08:52)
[2018-07-24] MEDS: SENNOSIDES-DOCUSATE SODIUM 1 EACH TAB PO SCH (08:52)
[2018-07-24] MEDS: predniSONE 20 MG TAB PO SCH (08:52)
[2018-07-24] MEDS: FUROSEMIDE 40 MG TAB PO SCH (08:52)
[2018-07-24] MEDS: PRAMIPEXOLE 1 MG TAB PO SCH (08:52)
[2018-07-24] MEDS: POTASSIUM CHLORIDE ER 20 MEQ TAB.ER PO SCH (08:52)
[2018-07-24] MEDS: METOLAZONE 2.5 MG TAB PO SCH (08:53)
[2018-07-24 09:48] LABS: INR 2.4 (<1.2); Prothrombin Time 21.8 sec (9.0-12.0)
--- NOTE | 2018-07-24 12:27 | P.PN ---
Subjective Progress Note Date: 07/24/18 This is a 78-year-old male patient of Dr. Francisco. He has underlying history of chronic systolic heart failure, chronic atrial fibrillation on Coumadin, benign prostatic hypertrophy, chronic anemia, restless leg syndrome, hyperlipidemia, chronic pain syndrome, obstructive sleep apnea, hypertension hypertensive cardiovascular disease. Patient has been admitted under the service of Dr. Gonzalez for left knee effusion, difficulty ambulating, uncontrolled pain,. He had underwent a primary left total knee arthroplasty in December 2014, followed by a knee replacement 12/27/2017, in the division 2017. During his last admission, he had an injury after falling coming out of the shower and landed on his buttock but his left knee hit the door, develop pain in his knee had an X-ray on Monday which showed lateral dislocation of his patella and he underwent medial retinaculum repair by Dr. Street 01/23/2018 patient was admitted this time secondary to increasing effusion left knee increasing pain and inability to ambulate, patient apparently again fell down at home, hitting his left knee in the pavement. Patient denies any skin tears however he does have significant effusion, x-rays in the orthopedic office shows anterior subluxation of the femur on tibia.. Patient denies any history of spinal stenosis the past however he had lumbar disc surgery, patient denies any neuropathy in the lower extremities related to radiculitis or spinal stenosis. Patient denies any fever no cellulitis in the knee in the past, no septic joint history in the past. Patient has a knee brace left side, patient comes in now for Pain control, possible additional surgery regarding the knee, physical therapy. He needs a Farshad lift, history: Nonweightbearing to medicine is consulted for medical management as well as anticoagulation. Paper patient, patient does not require any surgery during this visit, he also will be referred to tertiary facility for planned left knee surgery in the future. 07/19: Patient is resting comfortably. He continues to be nonweightbearing and using a knee immobilizer for transfers. He is being followed by orthopedics as we await for him to be transferred to an extended care facility due to the nonweightbearing status. Patient to have surgery at [facility]. He is continue with upper extremity physical therapy. He denies any pain, nausea or vomiting. 07/20: Patient is planned to go to [facility] for rehab and then surgery following that at [facility]. He denies any new complaints. No lightheadedness or dizziness but he states he has not been up out of bed. He denies any nausea. He states he slept well last night. His blood pressures on the low side at 96/62 most likely secondary to pain medications and cord will be decreased. He denies having a bowel movement. He is on stool softeners. He continues to have lower extremity edema. Medication reconciliation will be completed in anticipation that he will be transferred to [facility] tomorrow. 07/21: Patient was planning to go to [facility] on the [address] for rehab and then surgery following at [facility]. However, Dr. Gonzalez is going to attempt a manipulation of the right knee prior to transfer to [facility] for surgery. This will occur either tomorrow or Monday depending on orthopod availability. Patient denies any new complaints today. No lightheadedness or dizziness but he has not been out of bed. Patient denies any nausea. Vital signs are stable. He continues to have lower extremity edema. 07/22: Patient is sitting up in the bed today. Complaining of 8 dry cough and some wheezing, and tightness in his chest that is new for him. Patient continues to be therapeutic for his INR. However he is scheduled to have a closed reduction of his left knee dislocation that may require Coumadin to be held. We'll wait for direction from or so if this needs to be held. Patient denies any fever or chills. No lightheadedness or dizziness but he has not been out of bed. Patient denies any nausea or vomiting. He continues to have lower extremity edema. Vital signs are stable. INR 2.0. 07/23: Patient is scheduled for closed reduction under sedation with Dr. Gonzalez in or today. Chest x-ray from yesterday shows chronic changes without evidence of acute pulmonary disease. Prednisone was started yesterday for bronchitis. INR today is at 2.2. Most likely, patient will be ready for discharge either late today or tomorrow. 07/24: INR is 2.4. Patient underwent procedure yesterday with orthopedics. Patient states cough is almost gone. He denies any shortness of breath. We will plan to continue prednisone for 3 more days. Patient is cleared medically for transfer to rehab. Review Of Systems: Constitutional: No fever, no chills, no night sweats. No weight change. No weakness, fatigue or lethargy. No daytime sleepiness. EENT: No headache. No blurred vision or double vision, no loss of vision. No loss of Hearing, no ringing in the ears, no dizziness. No nasal drainage or congestion. No epistaxis. No sore throat. Lungs: No shortness of breath, no cough, no sputum production. No wheezing. Cardiovascular: No chest pain, no lower extremity edema. No palpitations. No paroxysmal nocturnal dyspnea. No orthopnea. No lightheadedness or dizziness. No syncopal episodes. Abdominal: No abdominal pain. No nausea, vomiting. No diarrhea. No constipation. No bloody or tarry stools.. No loss of appetite. Genitourinary: No dysuria, increased frequency, urgency. No urinary retention. Musculoskeletal: No myalgias. No muscle weakness, no gait dysfunction, no frequent falls. No back pain. No neck pain. Left knee swelling and pain. Integumentary: No wounds, no lesions. No rash or pruritus. No unusual bruising. No change in hair or nails. Neurologic: No aphasia. No facial droop. No change in mentation. No head injury. No headache. No paralysis. No paresthesia. Psychiatric: No depression. No anxiety. No mood swings. Endocrine: No abnormal blood sugars. No weight change. No excessive sweating or thirst. No cold intolerance. Objective - Vital Signs Vital signs: Vital Signs Temp 98.0 F 07/24/18 07:38 Pulse 71 07/24/18 07:38 Resp 16 07/24/18 07:38 BP 119/80 07/24/18 07:38 Pulse Ox 96 07/24/18 07:38 Intake & Output 07/23/18 07/24/18 07/24/18 18:59 06:59 18:59 Intake Total 450 720 Output Total 0 250 Balance 450 470 Intake: IV 450 Oral 720 Output: Urine 250 Estimated Blood Loss 0 Other: Voiding Method Urinal # Voids 1 - Exam General appearance: cooperative, morbidly obese, no new complaints, patient is resting in bed. - EENT Eyes: anicteric sclerae, EOMI, PERRLA, dentition normal, normal appearance ENT: hearing grossly normal, NA/AT, normal oropharynx - Neck Neck: normal ROM - Respiratory Respiratory: bilateral: CTA, negative: diminished, dullness, rales - Cardiovascular Rhythm: regular Heart sounds: normal: S1, S2 Abnormal Heart Sounds: no systolic murmur, no diastolic murmur, no rub, no S3 Gallop, no S4 Gallop, no click, no other - Gastrointestinal General gastrointestinal: normal bowel sounds, soft - Integumentary Integumentary: decreased turgor, normal - Neurologic Neurologic: CNII-XII intact - Musculoskeletal Musculoskeletal: gait normal, strength equal bilaterally. Pain and tenderness to the left knee - Psychiatric Psychiatric: A&O x's 3, appropriate affect, intact judgment & insight - Labs CBC & Chem 7: 07/21/18 08:05 07/21/18 08:05 Labs: Abnormal Lab Results - Last 24 Hours (Table) 07/24/18 Range/Units 08:58 PT 21.8 H (9.0-12.0) sec INR 2.4 H (<1.2) Assessment and Plan Plan: 1. Internal derangement left knee with impaired walking, status post fall with effusions left knee, history of knee replacement, knee revision, and repair of retinaculum December 2017 patient is chronically on anticoagulation for atrial fibrillation, continue physical therapy and occupational therapy, surgical intervention will be performed at another [facility] at later time, continue Coumadin for DVT prophylaxis as well. Closed reduction with Dr. Gonzalez 2. Chronic systolic heart failure stable, chronic edema,. Continue Coreg 6.25 mg twice daily, metolazone 2.5 mg daily, losartan 25 mg at hs. continue Lasix 40 mg daily and Zaroxolyn 2.5 mg daily potassium 3. Chronic atrial fibrillation rate controlled. Continue patient on Coreg 6.25 mg orally twice daily, Coumadin keep an INR between 2-3. 4. BPH without lower in tract symptomatology, prior history of urinary retention, might need Flomax patient not on it prior to admission 5. Chronic anemia and anemia of chronic disease no GI losses at this time. Continue iron 325 mg orally daily. 6. Hypertension and hypertensive cardiovascular disease now with hypotension most likely secondary to pain medication. Continue losartan 25 mg daily, Coreg 3.125 mg orally twice daily. 7. Hyperlipidemia. On Pravachol 40 mg hs. 8. Chronic pain syndrome. Continue current pain management 9. Obstructive sleep apnea. Continue CPAP. 10. Restless leg syndrome. Continue Mirapex 1 mg 3 times a day. 11. Peripheral neuropathy on Lyrica and tramadol no changes made 12. Long-term anticoagulation for atrial fibrillation, Coumadin dose at 5 mg Monday, others 2.5 mg Monday 13. DVT prophylaxis. Continue Coumadin to keep the INR 2-3. 12. GI prophylaxis. Continue Protonix 40 mg orally once every day. 13. Acute bronchitis. Prednisone started. Patient to complete 3 more days. Discharge planning: [facility] on Monday Medication reconciliation has been completed. Impression and plan of care have been directed as dictated by the signing physician. Martha Monsivais nurse practitioner acting as scribe for signing physician.
[2018-07-24] MEDS: CHOLECALCIFEROL 1,000 UNIT TAB PO SCH (12:40)
[2018-07-24] MEDS: MULTIVITAMINS, THERA 1 EACH TAB PO SCH (12:40)
[2018-07-24] MEDS: HYDROcodone/APAP 10-325MG 1 EACH TAB PO PRN (13:59)
--- NOTE | 2018-07-24 16:13 | OP ---
OPERATIVE REPORT DATE OF PROCEDURE: 07/23/2018 PRE-PROCEDURE DIAGNOSIS: Left total knee arthroplasty anterior subluxation. POST-PROCEDURE DIAGNOSIS: Left total knee arthroplasty anterior subluxation. PROCEDURE PERFORMED: Closed reduction of left revision total knee arthroplasty subluxation. SURGEON: Robert Gonzalez MD WILDLIFE SCIENCE PROFESSOR: Manohar Street DO ANESTHESIA: General and conscious sedation. BLOOD LOSS: None. DRAINS: None. COMPLICATIONS: None apparent. DISPOSITION: Post-Anesthesia Care Unit. INDICATIONS: Derrick is a very pleasant 78-year-old male who fell approximately a week ago. He has had a revision left total knee arthroplasty. He fell at home in the middle of the night. He subsequently jumped the post of his posterior stabilized revision knee replacement. This resulted in an anterior subluxation of the left knee. He had no neurovascular compromise with this. It is very difficult for him to ambulate, however, with the knee subluxed like this. He is going to be undergoing a left knee fusion in the near future at [facility]. In the meantime, a decision was made to attempt a closed reduction under conscious sedation to allow for increased comfort level for him in the next couple of weeks as he awaits this operation. The risks of the procedure were discussed with Derrick in detail. These risks include but are not limited to risk of fracture and the possibility of inability to reduce the knee. We did discuss preoperatively that we would not attempt an open reduction if we were unable to reduce it with closed means. All of Derrick's questions with regards to the procedure were answered to his satisfaction. Appropriate informed consent was obtained. DESCRIPTION OF THE PROCEDURE: Patient was identified in preoperative holding area. The procedure site was marked by myself. He was then transferred to the operative suite. He was placed supine on the operating room table. Conscious sedation was then administered by the anesthesia department. We then reduced the knee with longitudinal traction and then anteriorly a second set of hands to provide an anteriorly directed force on the tibia. An obvious reduction was attained. We felt the knee clunk back into place. Fluoroscopy was then brought in to confirm the reduction, and it in fact was reduced. Conscious sedation was then reversed without complication. The patient was transferred to the recovery room in stable condition. MMODL / IJN: [id number] /
== END 2018-07-24 15:10 | DRG 560 ==
LOC: 4SSUR 10:25
PROVIDERS: ADMIT Orthopaedic Surgery Sports Medicine; ATTEND Orthopaedic Surgery Sports Medicine
PROC: 0SWDXJZ Revision of Synthetic Substitute in Left Knee Joint, External Approach (ICD-10-PCS; principal; 2018-07-24)
DX: T84.023A Instability of internal left knee prosthesis, initial encounter (principal); Z68.43 Body mass index [BMI] 50.0-59.9, adult; I50.22 Chronic systolic (congestive) heart failure; T40.605A Adverse effect of unspecified narcotics, initial encounter; I11.0 Hypertensive heart disease with heart failure; E66.01 Morbid (severe) obesity due to excess calories; I48.2 Chronic atrial fibrillation; G62.9 Polyneuropathy, unspecified; D64.9 Anemia, unspecified; E78.5 Hyperlipidemia, unspecified; J20.9 Acute bronchitis, unspecified; I95.2 Hypotension due to drugs; G25.81 Restless legs syndrome; G89.4 Chronic pain syndrome; M54.9 Dorsalgia, unspecified; N40.0 Benign prostatic hyperplasia without lower urinary tract symptoms; M48.00 Spinal stenosis, site unspecified; M19.90 Unspecified osteoarthritis, unspecified site; G47.33 Obstructive sleep apnea (adult) (pediatric); K21.9 Gastro-esophageal reflux disease without esophagitis; Z79.01 Long term (current) use of anticoagulants; Z79.891 Long term (current) use of opiate analgesic; Z79.899 Other long term (current) drug therapy; Z87.440 Personal history of urinary (tract) infections; Z71.3 Dietary counseling and surveillance; Z99.89 Dependence on other enabling machines and devices; Z90.49 Acquired absence of other specified parts of digestive tract; Z98.84 Bariatric surgery status; Z95.0 Presence of cardiac pacemaker; Z87.891 Personal history of nicotine dependence; Z96.651 Presence of right artificial knee joint; Z80.42 Family history of malignant neoplasm of prostate; Z82.49 Family history of ischemic heart disease and other diseases of the circulatory system; Z82.3 Family history of stroke; Y92.002 Bathroom of unspecified non-institutional (private) residence as the place of occurrence of the external cause; W01.198A Fall on same level from slipping, tripping and stumbling with subsequent striking against other object, initial encounter
CPT/HCPCS: 71045; 80053; 85025; 85027; 85610

== ENCOUNTER 2020-11-25 10:29 | Emergency (ER) | payer MEDICARE ==
[2020-11-25] MEDS ORDERED: MORPHINE SULFATE 2 MG/ML SYRINGE IM STA (11:34)
--- NOTE | 2020-11-25 12:39 | ED ---
Extremity Problem HPI - General Chief complaint: Extremity Problem,Nontraumatic Stated complaint: Lt leg pain Time Seen by Provider: 11/25/20 11:16 Source: patient Mode of arrival: EMS Limitations: physical limitation - History of Present Illness Initial comments: Patient is a 80-year-old male presenting to the emergency Department with complaints of increasing left leg pain over the past week. Patient had a hay with fusion place in his left lower extremity extending from his left hip down to his left ankle. This is a second time this procedure has been done. He had this done at [facility], about a month and a half ago. He had multiple left knee replacements that have failed and also had this procedure done about 2 years ago which also started to fail. Patient states he did well immediately after the surgery, went to rehab center and was doing well, walking with a walker without significant pain. He states about a week ago he woke up in the morning to go to the bathroom and his first step he had significant pain from his left hip down to his left knee. He denies any falls or trauma. He states over the past past week, he has been having significant pain while ambulating. He states even at rest it seems to be aching. He did call his doctor who gave him a course of steroids which were not helping. He did call his surgeon's ye who started him on gabapentin and also wanted him to go in to the hospital to get x-rays. Patient states he attempted to come here today for the x-rays but was not able to ambulate at all secondary to the pain so his daughter called EMS. He again denies any falls or trauma over the past few weeks. He denies any fevers or chills. He is prescribed oxycodone for severe pain which she did take about 2 hours prior to arrival. He denies history of blood clots, no chest pain or shortness of breath, no cough. He does take eliquis for A.fib. He has no further complaints at this time. Upon arrival to the ER his vitals are stable. - Related Data Home Medications Medication Instructions Recorded Confirmed Pravastatin Sodium [Pravachol] 40 mg PO HS 11/22/14 11/25/20 metOLazone [Zaroxolyn] 2.5 mg PO DAILY 04/04/16 11/25/20 Pramipexole [Mirapex] 1 mg PO TID 03/29/17 11/25/20 Potassium Chloride [Klor-Con 20] 20 meq PO DAILY 09/29/17 11/25/20 Apixaban [Eliquis] 5 mg PO BID 11/25/20 11/25/20 Diazepam [Valium] 5 mg PO TID PRN 11/25/20 11/25/20 Gabapentin [Neurontin] 600 mg PO BID 11/25/20 11/25/20 Midodrine HCl [ProAmatine] 10 mg PO AC-TID 11/25/20 11/25/20 Olmesartan [Benicar] 20 mg PO DAILY 11/25/20 11/25/20 Tamsulosin HCl [Flomax] 0.4 mg PO DAILY 11/25/20 11/25/20 carvediloL [Coreg] 6.25 mg PO BID 11/25/20 11/25/20 oxyCODONE HCL 5 mg PO Q6H PRN 11/25/20 11/25/20 Allergies Allergy/AdvReac Type Severity Reaction Status Date / Time No Known Allergies Allergy Verified 11/25/20 12:25 Review of Systems ROS Statement: Those systems with pertinent positive or pertinent negative responses have been documented in the HPI. ROS Other: All systems not noted in ROS Statement are negative. Past Medical History Past Medical History: Atrial Fibrillation, GERD/Reflux, Hyperlipidemia, Hypertension, Osteoarthritis (OA), Prostate Disorder, Sleep Apnea/CPAP/BIPAP Additional Past Medical History / Comment(s): HX OF POLYPS, restless leg syndrome, obesity,chronic back pain, DDD spinal stenosis, hemorrhoids, UTI in past. USES CPAP. PREVIOUS HX OF PROSTATE PROBLEMS. FELL W/ INJURY TO LT KNEECAP, HAD TOTAL LT KNEE 12/26/17. History of Any Multi-Drug Resistant Organisms: None Reported Past Surgical History: Back Surgery, Bariatric Surgery, Cholecystectomy, Heart Catheterization, Joint Replacement, Orthopedic Surgery, Pacemaker, Prostate Surgery Additional Past Surgical History / Comment(s): RODS IN BACK, PACEMAKER 11/2004 & REPLACED 04/2013, TURP, GASTRIC SLEEVE (12/2012),LEFT HEEL SPUR, RUMA TOTAL KNEE., RUMA ROTATOR CUFF, Back injections; RUMA KNEE SCOPES x 4, SINUS SX X 2. LEFT KNEE SX TENDON REPAIR. TOTAL LT KNEE 12/26/17. Past Anesthesia/Blood Transfusion Reactions: No Reported Reaction Type of Cardiac Device: Permanent Pacemaker Device Placement Date:: -11/2004, REPLACED 04/2013-[employer] Past Psychological History: No Psychological Hx Reported Smoking Status: Former smoker Past Alcohol Use History: Occasional Past Drug Use History: None Reported - Past Family History Father Family Medical History: Cancer Additional Family Medical History / Comment(s): Father of prostate cancer in his mid 60's. Mother Family Medical History: Coronary Artery Disease (CAD), Myocardial Infarction (IL) Additional Family Medical History / Comment(s): Mother of a IL at the age of 73 yrs. Brother(s) Family Medical History: No Reported History Sister(s) Family Medical History: CVA/TIA Daughter(s) Family Medical History: No Reported History Son(s) Family Medical History: No Reported History General Exam - General Exam Comments Initial Comments: GENERAL: Patient is well-developed and well-nourished. Patient is nontoxic and in no acute distress. HEAD: Atraumatic, normocephalic. EYES: Pupils equal round and reactive to light, extraocular movements intact, sclera anicteric, conjunctiva are normal. Eyelids were unremarkable. ENT: TMs normal, nares patent, oropharynx clear without exudates. Moist mucous membranes. NECK: Normal range of motion, supple without lymphadenopathy or JVD. LUNGS: Unlabored respirations. Breath sounds clear to auscultation bilaterally and equal. No wheezes rales or rhonchi. HEART: Regular rate and rhythm without murmurs, rubs or gallops. ABDOMEN: Soft, nontender, normoactive bowel sounds. No guarding, no rebound. No masses appreciated. : Deferred MUSCULOSKELETAL: Right lower extremity is normal, adequate strength and normal range of motion. Left lower extremity is fused, surgical incisions appear well-healed, no erythema or signs of infection. He is able to bend forward at the hip with mild pain. He has achiness extending throughout the entire extremity. He is neurovascular intact bilateral lower extremities. No clubbing or cyanosis. NEUROLOGICAL: Patient is alert and oriented x 3. Motor and sensory are also intact. Cranial nerves II through XII grossly intact. Symmetrical smile. Normal speech. Unable to bear weight/ambulate secondary to pain. PSYCH: Normal mood, normal affect. SKIN: Warm, Dry, normal turgor, no rashes or lesions noted. Limitations: physical limitation Course Vital Signs 11/25/20 11/25/20 11/25/20 10:35 17:03 17:29 Temperature 97.7 F 98.3 F Pulse Rate 68 79 Respiratory 18 17 18 Rate Blood Pressure 120/81 123/71 O2 Sat by Pulse 93 L 94 L Oximetry Medical Decision Making - Medical Decision Making Patient is a 72-year-old male who is status post hay placement in the left lower extremity 1-1/2 months ago at [facility]. Patient has been having increase in lower left extremity pain over the past week. No falls or trauma. He has been doing well since his surgery, completed rehab and normally walks without difficulty with a walker. She presented today via EMS due to unable to bear weight at all today. No signs of infection, no fevers. He is able to bend at the waist with minimal discomfort. I did do x-rays a left lower extremity which revealed no acute process, there are surgical changes chronic changes. I did give patient 2 mg of morphine here in the ER with some mild improvement in symptoms. Patient states he has been in contact with his orthopedic surgeons who started him on gabapentin 2 days ago without improvement in his symptoms and did tell patient to go to local ER if he was unable to walk. Patient is requesting transfer to [facility] for further evaluation. Patient was accepted by Dr. Quevedo. Patient and patient's daughter are in agreement with this plan of care. Case discussed with Dr. Ramachandran. - Lab Data Lab Results 11/25/20 Range/Units 14:38 Coronavirus (PCR) Not Detected (Not Detectd) Disposition Clinical Impression: Pain of left lower extremity, Unable to ambulate Disposition: OTHER INSTITUTION NOT DEFINED Condition: Stable Referrals: Ethan Francisco MD [Primary Care Provider] - 1-2 days - Out of Hospital Transfer - Req. Specs Out of Hospital Transfer - Requested Specifics: Other Emergency Center ([facility])
[2020-11-25] MEDS ORDERED: PRAMIPEXOLE 1 MG TAB PO STA (12:42)
--- NOTE | 2020-11-25 13:21 | XR ---
EXAMINATION TYPE: XR ankle limited LT DATE OF EXAM: 11/25/2020 COMPARISON: NONE HISTORY: Pain TECHNIQUE: 2 views of the left ankle are submitted for evaluation. FINDINGS: There is no evidence for fracture or dislocation. Ankle mortise is intact. Soft tissues are within normal limits. Intramedullary hay noted distal tibia. Bony osteopenia. IMPRESSION: 1. No evidence for acute fracture.
--- NOTE | 2020-11-25 13:22 | XR ---
EXAMINATION TYPE: XR knee limited LT DATE OF EXAM: 11/25/2020 CLINICAL HISTORY: pain TECHNIQUE: 2 views of the left knee are obtained. COMPARISON: None. FINDINGS: Intramedullary hay is noted to traverse the knee. There is evidence of severe degenerative joint space narrowing. There appears to be methylmethacrylate injection is noted into the joint space . I do not see evidence for an acute fracture. IMPRESSION: As above
--- NOTE | 2020-11-25 13:23 | XR ---
EXAMINATION TYPE: XR femur LT, XR Hip Limited LT DATE OF EXAM: 11/25/2020 CLINICAL HISTORY: pain TECHNIQUE: Two views of the left femur are obtained. 2 views of the left hip are also submitted. COMPARISON: None. FINDINGS: There is no acute fracture or dislocation seen of the femur. Intramedullary hay is noted to be in place. I do not see evidence for acute fracture or malalignment. IMPRESSION: There is no acute fracture or dislocation seen of the femur. ICD 10 NO FRACTURE, INITIAL EVALUATION
--- NOTE | 2020-11-25 13:23 | XR ---
EXAMINATION TYPE: XR tibia fibula LT DATE OF EXAM: 11/25/2020 COMPARISON: None HISTORY: Pain recent surgery TECHNIQUE: 2 view left tibia and fibula FINDINGS: Medullary hay is present transversing the knee joint space. Superior tibial plateau appears partially resected. Visualized fibula appears intact. No acute fracture is evident. There is some mild cortical thickening through the mid tibia. Correlate with prior injury. Infection is considered less likely. IMPRESSION: 1. No acute osseous abnormality. 2. Status post arthrodesis with medullary hay placement through the knee joint space. 3. Some cortical elevation along the mid tibia. Correlate for prior injury or infection.
[2020-11-25 17:32] VITALS: BP 123/71; PULSE 79; RESP 18; TEMP 98.3
== END 2020-11-25 16:50 | disposition other institution (70) ==
LOC: EC 10:29
DX: M79.605 Pain in left leg (principal); K21.9 Gastro-esophageal reflux disease without esophagitis; E78.5 Hyperlipidemia, unspecified; I48.91 Unspecified atrial fibrillation; M19.90 Unspecified osteoarthritis, unspecified site; Z20.822 Contact with and (suspected) exposure to COVID-19; Z87.891 Personal history of nicotine dependence
CPT/HCPCS: 73501; 87635; 96372; 99283

== ENCOUNTER 2021-07-12 02:33 | Inpatient (IN) | payer MEDICARE ==
--- NOTE | 2021-07-12 03:10 | ED ---
SOB HPI - General Chief Complaint: Shortness of Breath Stated Complaint: FANY Time Seen by Provider: 07/12/21 02:35 Source: patient, EMS, RN notes reviewed, old records reviewed Mode of arrival: EMS Limitations: no limitations - History of Present Illness Initial Comments: This is a 81-year-old male date ER with increased shortness of breath increased cough and congestion with recent exposure to coronavirus patient is recent contact with daughter who is also positive. No chest pain. Difficulty breathing and cough. Increased cough and congestion 2 days worsening, A. fib her blood pressure high cholesterol with heart disease. MD Complaint: shortness of breath, cough -: days(s) (2) Severity: mild Severity scale (1-10): 2 Quality: aching Consistency: intermittent Improves With: nothing Worsens With: exertion, movement Known History Of: COPD Context: recent URI, recent illness Associated Symptoms: fever, cough Treatments Prior to Arrival: none - Related Data Home Oxygen Therapy: No Home Medications Medication Instructions Recorded Confirmed Pravastatin Sodium [Pravachol] 40 mg PO HS 11/22/14 11/25/20 metOLazone [Zaroxolyn] 2.5 mg PO DAILY 04/04/16 11/25/20 Pramipexole [Mirapex] 1 mg PO TID 03/29/17 11/25/20 Potassium Chloride [Klor-Con 20] 20 meq PO DAILY 09/29/17 11/25/20 Apixaban [Eliquis] 5 mg PO BID 11/25/20 11/25/20 Diazepam [Valium] 5 mg PO TID PRN 11/25/20 11/25/20 Gabapentin [Neurontin] 600 mg PO BID 11/25/20 11/25/20 Midodrine HCl [ProAmatine] 10 mg PO AC-TID 11/25/20 11/25/20 Olmesartan [Benicar] 20 mg PO DAILY 11/25/20 11/25/20 Tamsulosin HCl [Flomax] 0.4 mg PO DAILY 11/25/20 11/25/20 carvediloL [Coreg] 6.25 mg PO BID 11/25/20 11/25/20 oxyCODONE HCL 5 mg PO Q6H PRN 11/25/20 11/25/20 Allergies Allergy/AdvReac Type Severity Reaction Status Date / Time No Known Allergies Allergy Verified 07/12/21 02:51 Review of Systems ROS Statement: Those systems with pertinent positive or pertinent negative responses have been documented in the HPI. ROS Other: All systems not noted in ROS Statement are negative. Past Medical History Past Medical History: Atrial Fibrillation, GERD/Reflux, Hyperlipidemia, Hypertension, Osteoarthritis (OA), Prostate Disorder, Sleep Apnea/CPAP/BIPAP Additional Past Medical History / Comment(s): HX OF POLYPS, restless leg syndrome, obesity,chronic back pain, DDD spinal stenosis, hemorrhoids, UTI in past. USES CPAP. PREVIOUS HX OF PROSTATE PROBLEMS. FELL W/ INJURY TO LT KNEECAP, HAD TOTAL LT KNEE 12/26/17. History of Any Multi-Drug Resistant Organisms: None Reported Past Surgical History: Back Surgery, Bariatric Surgery, Cholecystectomy, Heart Catheterization, Joint Replacement, Orthopedic Surgery, Pacemaker, Prostate Surgery Additional Past Surgical History / Comment(s): RODS IN BACK, PACEMAKER 11/2004 & REPLACED 04/2013, TURP, GASTRIC SLEEVE (12/2012),LEFT HEEL SPUR, RUMA TOTAL KNEE., RUMA ROTATOR CUFF, Back injections; RUMA KNEE SCOPES x 4, SINUS SX X 2. LEFT KNEE SX TENDON REPAIR. TOTAL LT KNEE 12/26/17. Past Anesthesia/Blood Transfusion Reactions: No Reported Reaction Type of Cardiac Device: Permanent Pacemaker Device Placement Date:: -11/2004, REPLACED 04/2013-[employer] Past Psychological History: No Psychological Hx Reported Smoking Status: Former smoker Past Alcohol Use History: Occasional Past Drug Use History: None Reported - Past Family History Father Family Medical History: Cancer Additional Family Medical History / Comment(s): Father of prostate cancer in his mid 60's. Mother Family Medical History: Coronary Artery Disease (CAD), Myocardial Infarction ([place]) Additional Family Medical History / Comment(s): Mother of a [place] at the age of 73 yrs. Brother(s) Family Medical History: No Reported History Sister(s) Family Medical History: CVA/TIA Daughter(s) Family Medical History: No Reported History Son(s) Family Medical History: No Reported History General Exam General appearance: alert, in no apparent distress, anxious Head exam: Present: atraumatic, normocephalic, normal inspection Eye exam: Present: normal appearance, PERRL, EOMI. Absent: scleral icterus, conjunctival injection, periorbital swelling ENT exam: Present: normal exam, mucous membranes moist Neck exam: Present: normal inspection. Absent: tenderness, meningismus, lymphadenopathy Respiratory exam: Present: normal lung sounds bilaterally, wheezes. Absent: respiratory distress, rales, rhonchi, stridor Cardiovascular Exam: Present: regular rate, normal rhythm, normal heart sounds. Absent: systolic murmur, diastolic murmur, rubs, gallop, clicks GI/Abdominal exam: Present: soft, normal bowel sounds. Absent: distended, tenderness, guarding, rebound, rigid Extremities exam: Present: normal inspection, full ROM, normal capillary refill. Absent: tenderness, pedal edema, joint swelling, calf tenderness Back exam: Present: normal inspection Neurological exam: Present: alert, oriented X3, CN II-XII intact Psychiatric exam: Present: normal affect, normal mood Skin exam: Present: warm, dry, intact, normal color. Absent: rash Course Vital Signs 07/12/21 07/12/21 02:46 02:51 Temperature 98.0 F Pulse Rate 75 Respiratory 22 24 Rate Blood Pressure 114/73 O2 Sat by Pulse 99 Oximetry - Reevaluation(s) Reevaluation #1: 07/12/21 04:46 Medical record is reviewed Reevaluation #2: 07/12/21 04:47 A shunt informed results and questions answered Medical Decision Making - Lab Data Lab Results 07/12/21 Range/Units 02:57 Coronavirus (PCR) Not Detected (Not Detectd) - EKG Data -: EKG Interpreted by Me (EKG is occasionally sinus and paced. Rate of 66 QRS 168 QTc 482) - Radiology Data Radiology results: report reviewed (Chest x-rays negative for acute disease), image reviewed Disposition Clinical Impression: Morbid obesity, Asthma with acute exacerbation, Acute exacerbation of chronic obstructive pulmonary disease Disposition: ADMITTED IP TO THIS HOSP Condition: Fair Is patient prescribed a controlled substance at d/c from ED?: No Referrals: Ethan Francisco MD [Primary Care Provider] - 1-2 days
--- NOTE | 2021-07-12 03:20 | XR ---
EXAMINATION TYPE: XR chest 2V DATE OF EXAM: 07/12/2021 COMPARISON: 07/22/2018 HISTORY: 2 views TECHNIQUE: FINDINGS: There is no heart failure nor confluent pneumonic infiltrate. There is left axillary pacemaker. There are chest leads. Costophrenic angles are fairly clear. IMPRESSION: No active cardiopulmonary disease. No change.
[2021-07-12] MEDS ORDERED: ALBUTEROL NEBULIZED 2.5 MG/3 ML INHALATION STA (04:44)
[2021-07-12] MEDS ORDERED: SODIUM CHLORIDE 0.9% 1,000 ML IV STA (04:44)
[2021-07-12] MEDS ORDERED: IPRATROPIUM 0.5 MG/2.5 ML NEBU INHALATION STA (04:44)
[2021-07-12] MEDS ORDERED: methylPREDNISolone SOD SUCCI 125 MG/2 ML VIAL IV STA (04:57)
[2021-07-12] MEDS ORDERED: ONDANSETRON 4 MG/2 ML VIAL IVP PRN (04:57)
[2021-07-12] MEDS ORDERED: IPRATROPIUM-ALBUTEROL 3 ML NEB INHALATION PRN (04:57)
[2021-07-12] MEDS ORDERED: NALOXONE 0.4 MG/ML 1 ML VIAL IV PRN (04:57)
[2021-07-12 05:03] LABS: Basophils % (A) 1 %; Eosinophils # (A) 0.2 k/uL (0-0.7); Eosinophils % (A) 4 %; HCT 39.6 % (39.0-53.0); HGB 13.1 gm/dL (13.0-17.5); Lymphocytes # (A) 0.6 k/uL (1.0-4.8); Lymphocytes % (A) 12 %; MCH 31.8 pg (25.0-35.0); MCV 96.4 fL (80.0-100.0); Mean Platelet Volume 7.5; Monocytes # (A) 0.3 k/uL (0-1.0); Monocytes % (A) 7 %; Neutrophils # (A) 3.5 k/uL (1.3-7.7); Neutrophils % (A) 74 %; Platelet Count 141 k/uL (150-450); RBC 4.11 m/uL (4.30-5.90); RDW 13.8 % (11.5-15.5); WBC 4.7 k/uL (3.8-10.6)
[2021-07-12 05:13] LABS: Partial Thromboplastin Time 28.7 sec (22.0-30.0); Prothrombin Time 10.7 sec (9.0-12.0)
[2021-07-12 05:17] LABS: ALT 11 U/L (4-49); AST 33 U/L (17-59); African American GFR (CKD) >90 (>60 ml/min/1.73 sqM); Albumin 3.8 g/dL (3.5-5.0); Alkaline Phosphatase 61 U/L (38-126); Anion Gap 8 mmol/L; Blood Urea Nitrogen 14 mg/dL (9-20); Calcium 8.8 mg/dL (8.4-10.2); Carbon Dioxide 28 mmol/L (22-30); Chloride 98 mmol/L (98-107); Glucose 87 mg/dL (74-99); Magnesium 2.1 mg/dL (1.6-2.3); Non-African American GFR(CKD) 83 (>60 ml/min/1.73 sqM); Potassium 4.9 mmol/L (3.5-5.1); Sodium 134 mmol/L (137-145); Total Bilirubin 0.6 mg/dL (0.2-1.3); Total Protein 6.6 g/dL (6.3-8.2)
[2021-07-12] MEDS: methylPREDNISolone SOD SUCCI 125 MG/2 ML VIAL IV SCH ×4 (06:04→23:10)
[2021-07-12] MEDS: ACETAMINOPHEN TAB 325 MG TAB PO PRN ×3 (06:26→23:33)
[2021-07-12] MEDS: AZITHROMYCIN 500 MG in SODIUM CHLORIDE 0.9% 250 ML IVPB STA ×2 (07:40→07:42)
[2021-07-12] MEDS ORDERED: ENOXAPARIN 40 MG/0.4 ML SYRINGE SQ SCH (09:00)
--- NOTE | 2021-07-12 11:10 | P.CNPUL ---
History of Present Illness Consult date: 07/12/21 Reason for consult: dyspnea, cough, hypoxemia, abnormal CXR/CT Chief complaint: Coughing, shortness of breath, wheezing History of present illness: This is a 81-year-old male patient of Dr. Francisco with past medical history of COPD, obstructive sleep apnea on CPAP, patient does not wear home oxygen at baseline, chronic atrial fibrillation on Eliquis, hypertension, hyperlipidemia, and obesity with past history of gastric sleeve surgery 2012, osteoarthritis, chronic back pain, benign prostatic hypertrophy, former smoker, history of permanent pacemaker implantation, patient presented to the emergency department on 07/12/2021 with complaints of coughing, shortness of breath and wheezing. Denied any fever or chills, does report orthopnea, he does not usually wear oxygen. Patient tested negative for COVID-19, his chest x-ray showed no active cardiopulmonary disease. Admission blood work showed a white blood cell count of 4.7, hemoglobin of 13.1, quite patient profile was unremarkable, sodium was 134, the rest of the electrolytes and renal profile were unremarkable, lactic acid was 0.9, LFTs were within normal limits, proBNP was 2420, troponin was 0.025. She is currently on 2 L of oxygen a pulse ox of 98%, she was started on empiric antibiotic in the form of azithromycin and Rocephin, she was started on nebulized bronchodilators, she was given IV fluid hydration and he is currently on 0.9 normal saline at a rate of 1:30 ML per hour. He is also on IV steroids. He normally takes 40 mg daily, and he is on Zaroxolyn 2.5 mg on Monday schedule. He states for the last 2 days he forgot to take his water pills. His chest x-ray shows possibility of some mild interstitial prominence. We will start the patient on Lasix 40 mg twice daily, we'll hold off on metolazone for now, we'll continue antibiotics, IV steroids and nebulized bronchodilators. Review of Systems All systems: negative Constitutional: Denies chills, Denies fever Eyes: denies blurred vision, denies pain Ears, nose, mouth and throat: Denies headache, Denies sore throat Cardiovascular: Reports orthopnea, Denies chest pain, Denies shortness of breath Respiratory: Reports cough, Reports dyspnea, Reports wheezing Gastrointestinal: Denies abdominal pain, Denies diarrhea, Denies nausea, Denies vomiting Musculoskeletal: Denies myalgias Integumentary: Denies pruritus, Denies rash Neurological: Denies numbness, Denies weakness Psychiatric: Denies anxiety, Denies depression Endocrine: Denies fatigue, Denies weight change Past Medical History Past Medical History: Atrial Fibrillation, GERD/Reflux, Hyperlipidemia, Hypertension, Osteoarthritis (OA), Prostate Disorder, Sleep Apnea/CPAP/BIPAP Additional Past Medical History / Comment(s): HX OF POLYPS, restless leg syndrome, obesity,chronic back pain, DDD spinal stenosis, hemorrhoids, UTI in past. USES CPAP. PREVIOUS HX OF PROSTATE PROBLEMS. FELL W/ INJURY TO LT KNEECAP, HAD TOTAL LT KNEE 12/26/17. History of Any Multi-Drug Resistant Organisms: None Reported Past Surgical History: Back Surgery, Bariatric Surgery, Cholecystectomy, Heart Catheterization, Joint Replacement, Orthopedic Surgery, Pacemaker, Prostate Surgery Additional Past Surgical History / Comment(s): RODS IN BACK, PACEMAKER 11/2004 & REPLACED 04/2013, TURP, GASTRIC SLEEVE (12/2012),LEFT HEEL SPUR, RUMA TOTAL KNEE., RUMA ROTATOR CUFF, Back injections; RUMA KNEE SCOPES x 4, SINUS SX X 2. LEFT KNEE SX TENDON REPAIR. TOTAL LT KNEE 12/26/17. Past Anesthesia/Blood Transfusion Reactions: No Reported Reaction Type of Cardiac Device: Permanent Pacemaker Device Placement Date:: -11/2004, REPLACED 04/2013-[employer] Past Psychological History: No Psychological Hx Reported Smoking Status: Former smoker Past Alcohol Use History: Occasional Past Drug Use History: None Reported - Past Family History Father Family Medical History: Cancer Additional Family Medical History / Comment(s): Father of prostate cancer in his mid 60's. Mother Family Medical History: Coronary Artery Disease (CAD), Myocardial Infarction ([place]) Additional Family Medical History / Comment(s): Mother of a [place] at the age of 73 yrs. Brother(s) Family Medical History: No Reported History Sister(s) Family Medical History: CVA/TIA Daughter(s) Family Medical History: No Reported History Son(s) Family Medical History: No Reported History Medications and Allergies Home Medications Medication Instructions Recorded Confirmed Type Pravastatin Sodium [Pravachol] 40 mg PO HS 11/22/14 07/12/21 History metOLazone [Zaroxolyn] 2.5 mg PO MOWEFR 04/04/16 07/12/21 History Pramipexole [Mirapex] 1 mg PO BID PRN 03/29/17 07/12/21 History Potassium Chloride [Klor-Con 20] 20 meq PO HS 09/29/17 07/12/21 History Apixaban [Eliquis] 5 mg PO BID 11/25/20 07/12/21 History Diazepam [Valium] 10 mg PO TID PRN 11/25/20 07/12/21 History carvediloL [Coreg] 6.25 mg PO BID 11/25/20 07/12/21 History Cholecalciferol [Vitamin D3 (25 50 mcg PO HS 07/12/21 07/12/21 History Mcg = 1000 Iu)] Ferrous Sulfate [Feosol] 325 mg PO DAILY 07/12/21 07/12/21 History Furosemide [Lasix] 40 mg PO DAILY 07/12/21 07/12/21 History Gabapentin [Neurontin] 100 mg PO HS 07/12/21 07/12/21 History Allergies Allergy/AdvReac Type Severity Reaction Status Date / Time No Known Allergies Allergy Verified 07/12/21 08:42 Physical Exam Vitals: Vital Signs Temp Pulse Resp BP Pulse Ox 07/12/21 07:48 66 22 143/79 97 07/12/21 06:14 98 07/12/21 06:12 66 07/12/21 04:51 97 07/12/21 02:51 24 07/12/21 02:46 98.0 F 75 22 114/73 99 Intake and Output 07/11/21 07/12/21 07/12/21 22:59 06:59 14:59 Other: Weight 133.81 kg GENERAL EXAM: Alert, very pleasant, 81-year-old morbidly obese white male, on 2 L of oxygen with pulse ox of 90%, seen in the emergency department resting comfortably on the gurney comfortable in no apparent distress. HEAD: Normocephalic/atraumatic. EYES: Normal reaction of pupils, equal size. Conjunctiva pink, sclera white. NOSE: Clear with pink turbinates. THROAT: No erythema or exudates. NECK: No masses, no JVD, no thyroid enlargement, no adenopathy. CHEST: No chest wall deformity. Symmetrical expansion. Left upper chest pacemaker insertion site clean dry and intact. LUNGS: Equal air entry with diffuse wheezes CVS: Regular rate and rhythm, normal S1 and S2, no gallops, no murmurs, no rubs ABDOMEN: Soft, nontender. No hepatosplenomegaly, normal bowel sounds, no guarding or rigidity. EXTREMITIES: No clubbing, chronic swelling in the left lower extremity, and trace pretibial edema in the right lower extremity no cyanosis, 2+ pulses and upper and lower extremities. MUSCULOSKELETAL: Muscle strength and tone normal. SPINE: No scoliosis or deformity SKIN: No rashes CENTRAL NERVOUS SYSTEM: Alert and oriented -3. No focal deficits, tone is normal in all 4 extremities. PSYCHIATRIC: Alert and oriented -3. Appropriate affect. Intact judgment and insight. Results - Laboratory Findings CBC and BMP: 07/12/21 04:44 07/12/21 04:44 PT/INR, D-dimer PT 10.7 sec (9.0-12.0) 07/12/21 04:44 INR 1.0 (<1.2) 07/12/21 04:44 Abnormal lab findings: Abnormal Labs 07/12/21 07/12/21 04:44 04:44 RBC 4.11 L Plt Count 141 L Lymphocytes # 0.6 L Sodium 134 L - Diagnostic Findings Chest x-ray: report reviewed, image reviewed Assessment and Plan Plan: Assessment: #1. Dyspnea, related to acute exacerbation of COPD, and mild fluid overload. COVID-19 PCR was negative #2. COPD, not oxygen dependent at baseline #3. Former smoker quit smoking 33 years ago #4. Chronic atrial fibrillation on Eliquis #5. Hypertension #6. Hyperlipidemia #7. Osteoarthritis #8. Prostate disorder #9. Sleep apnea on CPAP therapy #10. Chronic swelling in the left lower extremity #11. Morbid obesity with past history of gastric sleeve surgery in December 2012 #12. Chronic back pain #13. Permanent pacemaker Plan: Continue IV steroids Continue nebulized bronchodilators with DuoNeb and Symbicort We'll start patient on Lasix 40 mg twice daily We will hold off on Zaroxolyn for now Acute intake and output Daily weight Follow-up labs including electrolytes and renal profile in follow-up chest x-ray tomorrow Ask the patient to bring his CPAP from home Will continue to follow I performed a history & physical examination of the patient and discussed their management with my nurse practitioner, Cara Marlow. I reviewed the nurse practitioner's note and agree with the documented findings and plan of care. Lung sounds are positive for diffuse wheezes throughout the lung garcia. The findings and the impression was discussed with the patient. I attest to the documentation by the nurse practitioner. Time with Patient: Greater than 30
[2021-07-12] MEDS: metOLazone 2.5 MG TAB PO SCH (11:35)
[2021-07-12] MEDS: APIXABAN 5 MG TAB PO SCH ×2 (11:47→21:59)
[2021-07-12] MEDS: carvediloL 6.25 MG TAB PO SCH ×2 (11:47→22:42)
[2021-07-12] MEDS: FUROSEMIDE 10 MG/ML 4 ML VIAL IV SCH ×2 (11:48→21:59)
--- NOTE | 2021-07-12 12:00 | ECHOF ---
Referral Reason:dyspnea MEASUREMENTS -------- HEIGHT: 177.8 cm WEIGHT: 133.8 kg BP: 143/79 IVSd: 1.3 cm (0.6 - 1.1) LVIDd: 4.3 cm (3.9 - 5.3) LVPWd: 1.3 cm (0.6 - 1.1) IVSs: 1.8 cm LVIDs: 2.6 cm LVPWs: 2.1 cm LAESV Index (A-L): 55.86 ml/m RAP: 5.00 mmHg RVSP: 33.53 mmHg FINDINGS -------- Sinus rhythm. This was a technically difficult study with suboptimal views. The left ventricular size is normal. There is mild concentric left ventricular hypertrophy. Overa ll left ventricular systolic function is mild-moderately impaired with, an EF between 40 - 45 %. The RV was not well visualized. LA is severely dilated >40 ml/m2 The right atrium was not well visualized. Electronic pacemaker lead seen in the right atrial cavity . 5.0mg of Lumason was utilized for enhancement of images Interatrial and interventricular septum intact. There is no evidence of aortic regurgitation. There is no evidence of aortic stenosis. Moderate mitral regurgitation is present. Mild tricuspid regurgitation present. There is no evidence of pulmonary hypertension. The right v entricular systolic pressure, as measured by Doppler, is 33.53mmHg. There is no pulmonic regurgitation present. The aortic root size is normal. IVC Not well visulized. There is no pericardial effusion. CONCLUSIONS -------- 1. The left ventricular size is normal. 2. There is mild concentric left ventricular hypertrophy. 3. Overall left ventricular systolic function is mild-moderately impaired with, an EF between 40 - 45 %. 4. LA is severely dilated >40 ml/m2 5. Moderate mitral regurgitation is present. 6. Mild tricuspid regurgitation present. TRANSITION MANAGER: Ankita Martinez RDCS
--- NOTE | 2021-07-12 14:00 | P.HPIM ---
History of Present Illness H&P Date: 07/12/21 HISTORY OF PRESENT ILLNESS This is a 81-year-old male patient of Dr. Francisco with past medical history of chronic systolic heart failure, chronic atrial fibrillation on Eliquis, benign prostatic hypertrophy, chronic anemia, restless leg syndrome, hyperlipidemia, chronic pain syndrome, obstructive sleep apnea, hypertension hypertensive cardiovascular disease, septic arthritis of the left knee status post fusion of the left knee joint, left lower extremity DVT history. Patient gives history that he had difficulty breathing starting on Monday and continue to worsen over the weekend. He does state he has had choking with eating. He hasn't increased lower extremity edema. He has a cough with yellow sputum production. He denies having any fever or chills. No chest pain. He denies any dysuria. Patient presented to [facility] emergency center for evaluation and found to be afebrile, blood pressure 114/73, pulse ox 99% on 3 L nasal cannula. Heart rate 75. WBC 4.7, hemoglobin 13.1, platelet count 141. Sodium 134 otherwise CMP normal. ProBNP 2420. Troponin 0.025. Lactic acid 0.9. Magnesium 2.1. Coronavirus PCR not detected. Chest x-ray shows no acute cardiac pulmonary process. Echocardiogram reveals EF of 40-45% with mild concentric left ventricular hypertrophy, probably severely dilated greater than 40. Moderate mitral regurgitation, mild tricuspid regurgitation. Patient is seen today in the emergency center waiting for a bed on the observation unit, patient's been started on IV Lasix 40 mg twice daily, Solu- Medrol 60 mg IV every 6 hours, DuoNeb treatments, consult with pulmonary medicine. REVIEW OF SYSTEMS Constitutional: No fever, no chills, no night sweats. No weight change. No weakness, fatigue or lethargy. No daytime sleepiness. EENT: No headache. No blurred vision or double vision, no loss of vision. No loss of Hearing, no ringing in the ears, no dizziness. No nasal drainage or congestion. No epistaxis. No sore throat. Lungs: No shortness of breath, cough, no sputum production. No wheezing. Cardiovascular: No chest pain, no lower extremity edema. No palpitations. No paroxysmal nocturnal dyspnea. No orthopnea. No lightheadedness or dizziness. No syncopal episodes. Abdominal: No abdominal pain. No nausea, vomiting. No diarrhea. No constipation. No bloody or tarry stools. No loss of appetite. Genitourinary: No dysuria, increased frequency, urgency. No urinary retention. Musculoskeletal: No myalgias. No muscle weakness, no gait dysfunction, no frequent falls. No back pain. No neck pain. Integumentary: No wounds, no lesions. No rash or pruritus. No unusual bruising. No change in hair or nails. Neurologic: No aphasia. No facial droop. No change in mentation. No head injury. No headache. No paralysis. No paresthesia. Psychiatric: No depression. No anxiety. No mood swings. Endocrine: No abnormal blood sugars. No weight change. No excessive sweating or thirst. No cold intolerance. SOCIAL HISTORY Patient was a smoker and quit 33 years ago. Patient drinks wine on a regular basis but not daily, no marijuana or illicit drug use. He lives at home with his undergoing treatment for cancer and daughter has been helping at home. She does not have oxygen at home. He does have a nebulizer. FAMILY HISTORY Father at age 65 from prostate. Mother at age 73 from myocardial infarction. A sister has from CVA. Patient has 2 brothers the past one from suicide and one from lung cancer with history of smoking. Patient has 1 brother that is living with history of heart failure and alcohol abuse. Patient has 2 children with no major medical problems. PHYSICAL EXAMINATION Gen: This is a 81-year-old morbidly obese male. His resting on the ear stretcher and appears to be comfortable at rest. HEENT: Head is atraumatic, normocephalic. Pupils equal, round. Sclerae is anicteric. NECK: Supple. No JVD. No lymphadenopathy. No thyromegaly. LUNGS: diminished bilaterally. No wheezes or rhonchi. No intercostal retractions. HEART: Irregular rate and rhythm. No murmur. ABDOMEN: Soft. Bowel sounds are present. No masses. No tenderness. EXTREMITIES: Chronic left lower extremity edema unchanged. Trace right lower coming edema. Dorsalis pedis +2 bilaterally No calf tenderness. NEUROLOGICAL: Patient is awake, alert and oriented x3. Cranial nerves 2 through 12 are grossly intact. ASSESSMENT AND PLAN 1. Acute exacerbation of COPD. Continue Cymetra 60 mg IV every 6 hours, Symbicort 2 puffs twice daily, DuoNeb treatments every 4 hours as needed, azithromycin and ceftriaxone, pulmonary consult. 2. Acute on chronic systolic heart failure. Continue IV Lasix 40 mg twice daily, monitor I&O and daily weights, monitor electrolytes and renal function. 3. Chronic atrial fibrillation. Continue Coreg 6.25 mg twice daily, eliquis 5 mg twice daily 4. Benign prostatic hypertrophy. Monitor for urinary retention. 5. Fusion of the left knee joint, stable. 6. GI prophylaxis. Protonix. 7. DVT prophylaxis. Eliquis. 8. COVID-19 testing negative. Patient has been hospitalized during a pandemic. Patient will be admitted to the hospital for a minimum of 2 night stay. DISCHARGE PLAN TBD. Most likely return home. Impression and plan of care have been directed as dictated by the signing physician. Martha Monsivais nurse practitioner acting as scribe for signing physician. Past Medical History Past Medical History: Atrial Fibrillation, GERD/Reflux, Hyperlipidemia, Hypertension, Osteoarthritis (OA), Prostate Disorder, Sleep Apnea/CPAP/BIPAP Additional Past Medical History / Comment(s): HX OF POLYPS, restless leg syndrome, obesity,chronic back pain, DDD spinal stenosis, hemorrhoids, UTI in past. USES CPAP. PREVIOUS HX OF PROSTATE PROBLEMS. FELL W/ INJURY TO LT KN EECAP, HAD TOTAL LT KNEE 12/26/17. History of Any Multi-Drug Resistant Organisms: None Reported Past Surgical History: Back Surgery, Bariatric Surgery, Cholecystectomy, Heart Catheterization, Joint Replacement, Orthopedic Surgery, Pacemaker, Prostate S urgery Additional Past Surgical History / Comment(s): RODS IN BACK, PACEMAKER 11/2004 & REPLACED 04/2013, TURP, GASTRIC SLEEVE (12/2012),LEFT HEEL SPUR, RUMA TOTAL KNEE., RUMA ROTATOR CUFF, Back injections; RUMA KNEE SCOPES x 4, SINUS SX X 2. LEFT KNEE SX TENDON REPAIR. TOTAL LT KNEE 12/26/17. Past Anesthesia/Blood Transfusion Reactions: No Reported Reaction Type of Cardiac Device: Permanent Pacemaker Device Placement Date:: , REPLACED 04/2013-[employer] Past Psychological History: No Psychological Hx Reported Smoking Status: Former smoker Past Alcohol Use History: Occasional Past Drug Use History: None Reported - Past Family History Father Family Medical History: Cancer Additional Family Medical History / Comment(s): Father of prostate cancer in his mid 60's. Mother Family Medical History: Coronary Artery Disease (CAD), Myocardial Infarction (ID) Additional Family Medical History / Comment(s): Mother of a ID at the age of 73 yrs. Brother(s) Family Medical History: No Reported History Sister(s) Family Medical History: CVA/TIA Daughter(s) Family Medical History: No Reported History Son(s) Family Medical History: No Reported History Medications and Allergies Home Medications Medication Instructions Recorded Confirmed Type Pravastatin Sodium [Pravachol] 40 mg PO HS 11/22/14 07/12/21 History metOLazone [Zaroxolyn] 2.5 mg PO MOWEFR 04/04/16 07/12/21 History Pramipexole [Mirapex] 1 mg PO BID PRN 03/29/17 07/12/21 History Potassium Chloride [Klor-Con 20] 20 meq PO HS 09/29/17 07/12/21 History Apixaban [Eliquis] 5 mg PO BID 11/25/20 07/12/21 History Diazepam [Valium] 10 mg PO TID PRN 11/25/20 07/12/21 History carvediloL [Coreg] 6.25 mg PO BID 11/25/20 07/12/21 History Cholecalciferol [Vitamin D3 (25 50 mcg PO HS 07/12/21 07/12/21 History Mcg = 1000 Iu)] Ferrous Sulfate [Feosol] 325 mg PO DAILY 07/12/21 07/12/21 History Furosemide [Lasix] 40 mg PO DAILY 07/12/21 07/12/21 History Gabapentin [Neurontin] 100 mg PO HS 07/12/21 07/12/21 History Allergies Allergy/AdvReac Type Severity Reaction Status Date / Time No Known Allergies Allergy Verified 07/12/21 08:42 Physical Exam Vitals: Vital Signs Temp Pulse Resp BP Pulse Ox 07/12/21 07:48 66 22 143/79 97 07/12/21 06:14 98 07/12/21 06:12 66 07/12/21 04:51 97 07/12/21 02:51 24 07/12/21 02:46 98.0 F 75 22 114/73 99 Intake and Output 07/11/21 07/12/21 07/12/21 22:59 06:59 14:59 Other: Weight 133.81 kg Results CBC & Chem 7: 07/12/21 04:44 07/12/21 04:44 Labs: Abnormal Lab Results - Last 24 Hours (Table) 07/12/21 07/12/21 Range/Units 04:44 04:44 RBC 4.11 L (4.30-5.90) m/uL Plt Count 141 L (150-450) k/uL Lymphocytes # 0.6 L (1.0-4.8) k/uL Sodium 134 L (137-145) mmol/L
[2021-07-12] MEDS: ALBUTEROL NEBULIZED 2.5 MG/3 ML INHALATION SCH ×3 (14:29→19:40)
[2021-07-12] MEDS: PRAMIPEXOLE 1 MG TAB PO PRN ×2 (16:20→22:42)
[2021-07-12] MEDS: SYMBICORT 160-4.5 MCG INHALER INHALATION SCH (20:52)
[2021-07-12] MEDS: INSULIN ASPART (NovoLOG) 100 UNIT/ML VIAL SQ SCH ×2 (21:44→22:00)
[2021-07-12 21:47] LABS: Glucose,Whole Blood 165 mg/dL (75-99)
[2021-07-12] MEDS: CHOLECALCIFEROL 25 MCG (1000 IU) TABLET PO SCH (22:00)
[2021-07-12] MEDS: GABAPENTIN 100 MG CAP PO SCH (22:00)
[2021-07-12] MEDS: POTASSIUM CHLORIDE ER 20 MEQ TAB.ER PO SCH (22:00)
[2021-07-12] MEDS: PRAVASTATIN SODIUM 40 MG TAB PO SCH (22:42)
[2021-07-13] MEDS: diazePAM 5 MG TAB PO PRN ×2 (02:10→21:24)
[2021-07-13] MEDS: methylPREDNISolone SOD SUCCI 125 MG/2 ML VIAL IV SCH ×3 (05:24→17:40)
[2021-07-13] MEDS: ALBUTEROL NEBULIZED 2.5 MG/3 ML INHALATION SCH ×4 (07:31→19:33)
[2021-07-13] MEDS: SYMBICORT 160-4.5 MCG INHALER INHALATION SCH ×2 (07:31→19:33)
[2021-07-13] MEDS: APIXABAN 5 MG TAB PO SCH ×2 (07:35→21:14)
[2021-07-13] MEDS: FUROSEMIDE 10 MG/ML 4 ML VIAL IV SCH ×2 (07:36→21:14)
[2021-07-13] MEDS: FERROUS SULFATE 325 MG TAB PO SCH (07:36)
[2021-07-13 08:59] LABS: Glucose,Whole Blood 166 mg/dL (75-99)
[2021-07-13] MEDS ORDERED: CALCIUM CARBONATE 500 MG CHEWABLE PO PRN (09:02)
[2021-07-13] MEDS: INSULIN ASPART (NovoLOG) 100 UNIT/ML VIAL SQ SCH ×4 (09:07→21:14)
[2021-07-13] MEDS: carvediloL 6.25 MG TAB PO SCH ×2 (09:08→17:41)
[2021-07-13] MEDS: AZITHROMYCIN 500 MG in SODIUM CHLORIDE 0.9% 250 ML IVPB SCH (09:25)
[2021-07-13 11:22] LABS: HCT 38.2 % (39.6-50.0); MCH 30.2 pg (27.0-32.0); MCHC 31.4 g/dL (32.0-37.0); MCV 96.2 fL (80.0-97.0); Mean Platelet Volume 9.7 fL (9.5-12.2); Platelet Count 126 X 10*3/uL (140-440); RBC 3.97 X 10*6/uL (4.40-5.60); RDW 13.1 % (11.5-14.5); WBC 5.63 X 10*3/uL (4.50-10.00)
[2021-07-13 12:14] LABS: African American GFR (CKD) 82.6 (60.0-200.0); Albumin/Globulin Ratio 1.74 (1.60-3.17); Anion Gap 12.7 mmol/L (4.00-12.00); BUN/Creat Ratio 20.4 Ratio (12.00-20.00); Blood Urea Nitrogen 20.4 mg/dL (9.0-27.0); Calcium 8.9 mg/dL (8.7-10.3); Carbon Dioxide 27.3 mmol/L (21.6-31.8); Globulin 2.3 g/dL (1.6-3.3); Non-African American GFR(CKD) 71.3 (60.0-200.0); Potassium 4.5 mmol/L (3.5-5.5); Total Bilirubin 0.3 mg/dL (0.30-1.20); Total Protein 6.3 g/dL (6.2-8.2)
--- NOTE | 2021-07-13 12:22 | P.PN ---
Subjective Progress Note Date: 07/13/21 This is a 81-year-old male patient of Dr. Francisco with past medical history of COPD, obstructive sleep apnea on CPAP, patient does not wear home oxygen at baseline, chronic atrial fibrillation on Eliquis, hypertension, hyperlipidemia, and obesity with past history of gastric sleeve surgery 2012, osteoarthritis, chronic back pain, benign prostatic hypertrophy, former smoker, history of permanent pacemaker implantation, patient presented to the emergency department on 07/12/2021 with complaints of coughing, shortness of breath and wheezing. Denied any fever or chills, does report orthopnea, he does not usually wear oxygen. Patient tested negative for COVID-19, his chest x-ray showed no active cardiopulmonary disease. Admission blood work showed a white blood cell count of 4.7, hemoglobin of 13.1, quite patient profile was unremarkable, sodium was 134, the rest of the electrolytes and renal profile were unremarkable, lactic acid was 0.9, LFTs were within normal limits, proBNP was 2420, troponin was 0.025. She is currently on 2 L of oxygen a pulse ox of 98%, she was started on empiric antibiotic in the form of azithromycin and Rocephin, she was started on nebulized bronchodilators, she was given IV fluid hydration and he is currently on 0.9 normal saline at a rate of 1:30 ML per hour. He is also on IV steroids. He normally takes 40 mg daily, and he is on Zaroxolyn 2.5 mg on Monday schedule. He states for the last 2 days he forgot to take his water pills. His chest x-ray shows possibility of some mild interstitial prominence. We will start the patient on Lasix 40 mg twice daily, we'll hold off on metolazone for now, we'll continue antibiotics, IV steroids and nebulized bronchodilators. The patient is seen today 07/13/2021 in follow-up on the regular medical floor. He is currently sitting up. Awake and alert in no acute distress. Breathing quite a bit better today compared to yesterday. No phlegm production today. He is maintaining good O2 saturations in the 90s on 3 L/m per nasal cannula. Still somewhat about end expiratory wheeze. He is diuresing well from the Lasix. In a -2.8 L. White count 5.6. Hemoglobin 12.0. Sodium 137. Potassium 4.5. Creatinine 1.0. Glucose 139. He is anticoagulated with Eliquis. Remains on antibiotics in the form of ceftriaxone and azithromycin. Continued on IV Solu- Medrol, Symbicort, DuoNeb inhalations. Objective - Vital Signs Vital signs: Vital Signs Temp 98.1 F 07/13/21 08:00 Pulse 64 07/13/21 10:57 Resp 18 07/13/21 08:00 BP 153/92 07/13/21 08:00 Pulse Ox 97 07/13/21 08:00 Intake & Output 07/12/21 07/13/21 07/13/21 18:59 06:59 18:59 Output Total 4450 Balance -4450 Weight 134.5 kg Output: Urine 4450 Uretheral (Rooney) 1650 Other: Voiding Method Indwelling Catheter Indwelling Catheter - Exam GENERAL EXAM: Alert, very pleasant, 81-year-old morbidly obese male, on 3 L of oxygen with pulse ox of 97%, comfortable in no apparent distress. HEAD: Normocephalic/atraumatic. EYES: Normal reaction of pupils, equal size. Conjunctiva pink, sclera white. NOSE: Clear with pink turbinates. THROAT: No erythema or exudates. NECK: No masses, no JVD, no thyroid enlargement, no adenopathy. CHEST: No chest wall deformity. Symmetrical expansion. Left upper chest pacemaker insertion site clean dry and intact. LUNGS: Equal air entry with bilateral end wheeze CVS: Regular rate and rhythm, normal S1 and S2, no gallops, no murmurs, no rubs ABDOMEN: Soft, nontender. No hepatosplenomegaly, normal bowel sounds, no guarding or rigidity. EXTREMITIES: No clubbing, chronic swelling in the left lower extremity, and trace pretibial edema in the right lower extremity no cyanosis, 2+ pulses and upper and lower extremities. MUSCULOSKELETAL: Muscle strength and tone normal. SPINE: No scoliosis or deformity SKIN: No rashes CENTRAL NERVOUS SYSTEM: No focal deficits, tone is normal in all 4 extremities. PSYCHIATRIC: Alert and oriented -3. Appropriate affect. Intact judgment and insight. - Labs CBC & Chem 7: 07/13/21 06:55 07/13/21 06:55 Labs: Abnormal Lab Results - Last 24 Hours (Table) 07/12/21 07/13/2121 Range/Units 21:45 06:55 06:55 RBC 3.97 L (4.40-5.60) X 10*6/uL Hgb 12.0 L (13.0-17.0) g/dL Hct 38.2 L (39.6-50.0) % MCHC 31.4 L (32.0-37.0) g/dL Plt Count 126 L (140-440) X 10*3/uL Anion Gap 12.70 H (4.00-12.00) mmol/L BUN/Creatinine Ratio 20.40 H (12.00-20.00) Ratio Glucose 139 H (70-110) mg/dL POC Glucose (mg/dL) 165 H (75-99) mg/dL ALT 8 L (10-49) U/L 07/13/21 Range/Units 08:57 RBC (4.40-5.60) X 10*6/uL Hgb (13.0-17.0) g/dL Hct (39.6-50.0) % MCHC (32.0-37.0) g/dL Plt Count (140-440) X 10*3/uL Anion Gap (4.00-12.00) mmol/L BUN/Creatinine Ratio (12.00-20.00) Ratio Glucose (70-110) mg/dL POC Glucose (mg/dL) 166 H (75-99) mg/dL ALT (10-49) U/L Assessment and Plan Assessment: 1 Dyspnea, related to acute exacerbation of COPD, and mild fluid overload. COV ID-19 PCR was negative 2 COPD, not oxygen dependent at baseline 3 Former smoker quit smoking 33 years ago 4 Chronic atrial fibrillation on Eliquis 5 Hypertension 6 Hyperlipidemia 7 Osteoarthritis 8 Prostate disorder 9 Sleep apnea on CPAP therapy 10 Chronic swelling in the left lower extremity 11 Morbid obesity with past history of gastric sleeve surgery in December 2012 12 Chronic back pain 13 Permanent pacemaker Plan: The patient was seen and evaluated by Dr. Ventura He is improved today compared to yesterday Continue the current treatment plan Probable home in the next 24 hours We will continue to follow I, the cosigning physician, performed a history & physical examination of the patient. Lungs sounds with bilateral wheeze, diminished Maintaining good O2 saturations in the 90s on 3 L per minute per nasal cannula. I discussed the assessment and plan of care with my nurse practitioner, Moraima Arambula. I attest to the above note as dictated by her.
[2021-07-13 12:23] LABS: Glucose,Whole Blood 121 mg/dL (75-99)
[2021-07-13 13:03] LABS: Basophils # (A) 0 X 10*3/uL (0.00-0.10); Basophils % (A) 0 %; Eosinophils # (A) 0 X 10*3/uL (0.04-0.35); Eosinophils % (A) 0 %; Lymphocytes # (A) 0.63 X 10*3/uL (0.90-5.00); Lymphocytes % (A) 11.2 %; Monocytes # (A) 0.08 X 10*3/uL (0.20-1.00); Monocytes % (A) 1.4 %
[2021-07-13 14:29] VITALS: TEMP 97.7
[2021-07-13] MEDS: CALCIUM CARBONATE 500 MG CHEWABLE PO PRN (15:28)
[2021-07-13] MEDS: PRAMIPEXOLE 1 MG TAB PO PRN ×2 (15:28→21:15)
[2021-07-13 17:18] LABS: Glucose,Whole Blood 165 mg/dL (75-99)
[2021-07-13 20:14] LABS: Glucose,Whole Blood 150 mg/dL (75-99)
[2021-07-13] MEDS: CHOLECALCIFEROL 25 MCG (1000 IU) TABLET PO SCH (21:14)
[2021-07-13] MEDS: GABAPENTIN 100 MG CAP PO SCH (21:14)
[2021-07-13] MEDS: POTASSIUM CHLORIDE ER 20 MEQ TAB.ER PO SCH (21:15)
[2021-07-13] MEDS: PRAVASTATIN SODIUM 40 MG TAB PO SCH (22:36)
[2021-07-14] MEDS: methylPREDNISolone SOD SUCCI 125 MG/2 ML VIAL IV SCH ×3 (00:48→12:03)
[2021-07-14 02:19] VITALS: RESP 17
[2021-07-14 07:57] LABS: Glucose,Whole Blood 114 mg/dL (75-99)
[2021-07-14 08:13] VITALS: BP 161/89
[2021-07-14] MEDS: ALBUTEROL NEBULIZED 2.5 MG/3 ML INHALATION SCH ×2 (08:29→11:38)
[2021-07-14] MEDS: SYMBICORT 160-4.5 MCG INHALER INHALATION SCH (08:29)
[2021-07-14] MEDS: INSULIN ASPART (NovoLOG) 100 UNIT/ML VIAL SQ SCH ×2 (09:07→12:42)
[2021-07-14] MEDS: FERROUS SULFATE 325 MG TAB PO SCH (09:48)
[2021-07-14] MEDS: metOLazone 2.5 MG TAB PO SCH (09:48)
[2021-07-14] MEDS: APIXABAN 5 MG TAB PO SCH (09:48)
[2021-07-14] MEDS: carvediloL 6.25 MG TAB PO SCH (09:48)
[2021-07-14] MEDS: FUROSEMIDE 10 MG/ML 4 ML VIAL IV SCH (09:49)
--- NOTE | 2021-07-14 09:49 | P.DS ---
Providers Date of admission: 07/12/21 13:50 Expected date of discharge: 07/14/21 Attending physician: Ethan Francisco Consults: 07/12/21 04:57 Consult Physician Routine Consulting Provider: Guillermo Sampson Consult Reason/Comments: copd Do you want consulting provider notified?: Yes Primary care physician: Ethan Francisco [facility] Course: HISTORY OF PRESENT ILLNESS This is a 81-year-old male patient of Dr. Francisco with past medical history of chronic systolic heart failure, chronic atrial fibrillation on Eliquis, benign prostatic hypertrophy, chronic anemia, restless leg syndrome, hyperlipidemia, chronic pain syndrome, obstructive sleep apnea, hypertension hypertensive cardiovascular disease, septic arthritis of the left knee status post fusion of the left knee joint, left lower extremity DVT history. Patient gives history that he had difficulty breathing starting on Monday and continue to worsen over the weekend. He does state he has had choking with eating. He hasn't increased lower extremity edema. He has a cough with yellow sputum production. He denies having any fever or chills. No chest pain. He denies any dysuria. Patient presented to [facility] emergency center for evaluation and found to be afebrile, blood pressure 114/73, pulse ox 99% on 3 L nasal cannula. Heart rate 75. WBC 4.7, hemoglobin 13.1, platelet count 141. Sodium 134 otherwise CMP normal. ProBNP 2420. Troponin 0.025. Lactic acid 0.9. Magnesium 2.1. Coronavirus PCR not detected. Chest x-ray shows no acute cardiac pulmonary process. Echocardiogram reveals EF of 40-45% with mild concentric left ventricular hypertrophy, probably severely dilated greater than 40. Moderate mitral regurgitation, mild tricuspid regurgitation. Patient is seen today in the emergency center waiting for a bed on the observation unit, patient's been started on IV Lasix 40 mg twice daily, Solu- Medrol 60 mg IV every 6 hours, DuoNeb treatments, consult with pulmonary medicine. 07/13: Patient is seen today in follow-up a patient states that he has feeling better. He has been afebrile, heart rate 60, 2, pulse ox 97% on 3 L nasal cannula. Repeat blood work reveals WBC 5.6, hemoglobin 12, platelet count 126. Creatinine 1. Blood sugars running between 139 and 166. Patient has been seen by pulmonary medicine with plan to continue current management. Patient is on antibiotics the form of azithromycin and ceftriaxone and also on Solu-Medrol 60 mg IV every 6 hours. Anticipate probable discharge home tomorrow. Patient is to meet with upper caser/family welfare social work professor regarding discharge plan. Patient does state that he just purchased O Richard with wheelchair access so that he will be able to come into doctor's appointments. 07/14: Patient denies any new complaints. He is anxious to be discharged home. We will plan to just continue Rooney catheter and a patient is able to void, discharge home later today. He still has a cough which she states starts after his nebulizer treatment but it has been nonproductive. Patient has been afebrile, heart rate 68, blood pressure 161/89, pulse ox is 98% on room air. Patient will be discharged home today on antibiotics, short course of steroids, inhalers and increased Lasix. Due to transportation issues, patient's first follow-up appointment will be virtual. DISCHARGE DIAGNOSES 1. Acute exacerbation of COPD. 2. Acute on chronic systolic heart failure. 3. Chronic atrial fibrillation. 4. Benign prostatic hypertrophy. 5. Fusion of the left knee joint, stable. 6. COVID-19 testing negative. Patient has been hospitalized during a pandemic. DISCHARGE PLAN Home Greater than 35 minutes was utilized and coordinating patient's discharge. Impression and plan of care have been directed as dictated by the signing physician. Martha Monsivais nurse practitioner acting as scribe for signing physician. Patient Condition at Discharge: Stable Plan - Discharge Summary Discharge Rx Participant: No New Discharge Prescriptions: New Dexamethasone [Decadron] 4 mg PO DAILY #5 tablet Doxycycline Hyclate 100 mg PO BID 7 Days #14 tab Albuterol Inhaler [Ventolin Hfa Inhaler] 2 puff INHALATION RT-TID #8 gm Budesonide-Formot 160-4.5 Mcg [Symbicort 160-4.5 Mcg Inhaler] 2 puff INHALATION RT-BID #1 inh Continue Pravastatin Sodium [Pravachol] 40 mg PO HS metOLazone [Zaroxolyn] 2.5 mg PO MOWEFR Pramipexole [Mirapex] 1 mg PO BID PRN PRN Reason: LEG PAIN Potassium Chloride [Klor-Con 20] 20 meq PO HS Diazepam [Valium] 10 mg PO TID PRN PRN Reason: Anxiety Gabapentin [Neurontin] 100 mg PO HS Ferrous Sulfate [Iron (65 MG Elemental)] 325 mg PO DAILY Apixaban [Eliquis] 5 mg PO BID carvediloL [Coreg] 6.25 mg PO BID Cholecalciferol [Vitamin D3 (25 Mcg = 1000 Iu)] 50 mcg PO HS Changed Furosemide [Lasix] 40 mg PO BID #60 tab Discharge Medication List Pravastatin Sodium [Pravachol] 40 mg PO HS 11/22/14 [History] metOLazone [Zaroxolyn] 2.5 mg PO MOWEFR 04/04/16 [History] Pramipexole [Mirapex] 1 mg PO BID PRN 03/29/17 [History] Potassium Chloride [Klor-Con 20] 20 meq PO HS 09/29/17 [History] Apixaban [Eliquis] 5 mg PO BID 11/25/20 [History] Diazepam [Valium] 10 mg PO TID PRN 11/25/20 [History] carvediloL [Coreg] 6.25 mg PO BID 11/25/20 [History] Cholecalciferol [Vitamin D3 (25 Mcg = 1000 Iu)] 50 mcg PO HS 07/12/21 [History] Ferrous Sulfate [Iron (65 MG Elemental)] 325 mg PO DAILY 07/12/21 [History] Gabapentin [Neurontin] 100 mg PO HS 07/12/21 [History] Albuterol Inhaler [Ventolin Hfa Inhaler] 2 puff INHALATION RT-TID #8 gm 07/14/21 [Rx] Budesonide-Formot 160-4.5 Mcg [Symbicort 160-4.5 Mcg Inhaler] 2 puff INHALATION RT-BID #1 inh 07/14/21 [Rx] Dexamethasone [Decadron] 4 mg PO DAILY #5 tablet 07/14/21 [Rx] Doxycycline Hyclate 100 mg PO BID 7 Days #14 tab 07/14/21 [Rx] Furosemide [Lasix] 40 mg PO BID #60 tab 07/14/21 [Rx] Follow up Appointment(s)/Referral(s): Ethan Francisco MD [Primary Care Provider] - 07/20/21 2:15 pm (APPOINTMENT IS WITH NP. MICKI ) Patient Instructions/Handouts: COPD (Chronic Obstructive Pulmonary Disease) (DC) Discharge Disposition: HOME SELF-CARE
[2021-07-14] MEDS: AZITHROMYCIN 500 MG in SODIUM CHLORIDE 0.9% 250 ML IVPB SCH (09:50)
[2021-07-14] MEDS ORDERED: INFLUENZA VACC HIGH-DOSE (65+) 240 MCG/0.7 ML SYRINGE IM ONE (10:08)
[2021-07-14] MEDS: CALCIUM CARBONATE 500 MG CHEWABLE PO PRN (11:00)
[2021-07-14 11:51] VITALS: PULSE 67
[2021-07-14 12:08] LABS: Glucose,Whole Blood 116 mg/dL (75-99)
--- NOTE | 2021-07-15 08:03 | P.PN ---
Subjective Progress Note Date: 07/13/21 HISTORY OF PRESENT ILLNESS This is a 81-year-old male patient of Dr. Francisco with past medical hi story of chronic systolic heart failure, chronic atrial fibrillation on Eliquis, benign prostatic hypertrophy, chronic anemia, restless leg syndrome, hyperlipidemia, chronic pain syndrome, obstructive sleep apnea, hypertension hypertensive cardiovascular disease, septic arthritis of the left knee status post fusion of the left knee joint, left lower extremity DVT history. Patient gives history that he had difficulty breathing starting on Monday and continue to worsen over the weekend. He does state he has had choking with eating. He hasn't increased lower extremity edema. He has a cough with yellow sputum production. He denies having any fever or chills. No chest pain. He denies any dysuria. Patient presented to [facility] emergency center for evaluation and found to be afebrile, blood pressure 114/73, pulse ox 99% on 3 L nasal cannula. Heart rate 75. WBC 4.7, hemoglobin 13.1, platelet count 141. Sodium 134 otherwise CMP normal. ProBNP 2420. Troponin 0.025. Lactic acid 0.9. Magnesium 2.1. Coronavirus PCR not detected. Chest x-ray shows no acute cardiac pulmonary process. Echocardiogram reveals EF of 40-45% with mild concentric left ventricular hyper trophy, probably severely dilated greater than 40. Moderate mitral regurgitation, mild tricuspid regurgitation. Patient is seen today in the emergency center waiting for a bed on the observation unit, patient's been started on IV Lasix 40 mg twice daily, Solu- Medrol 60 mg IV every 6 hours, DuoNeb treatments, consult with pulmonary medicine. 07/13: Patient is seen today in follow-up a patient states that he has feeling better. He has been afebrile, heart rate 60, 2, pulse ox 97% on 3 L nasal c annula. Repeat blood work reveals WBC 5.6, hemoglobin 12, platelet count 126. Creatinine 1. Blood sugars running between 139 and 166. Patient has been seen by pulmonary medicine with plan to continue current management. Patient is on antibiotics the form of azithromycin and ceftriaxone and also on Solu-Medrol 60 mg IV every 6 hours. Anticipate probable discharge home tomorrow. Patient is to meet with telehealth case manager/delinquency prevention social worker regarding discharge plan. Patient does state that he just purchased O [place] with wheelchair access so that he will be able to come into doctor's appointments. REVIEW OF SYSTEMS Constitutional: No fever, no chills, no night sweats. No weight change. No weakness, fatigue or lethargy. No daytime sleepiness. EENT: No headache. No blurred vision or double vision, no loss of vision. No loss of Hearing, no ringing in the ears, no dizziness. No nasal drainage or congestion. No epistaxis. No sore throat. Lungs: Reported shortness of breath improved, cough, no sputum production. No wheezing. Cardiovascular: No chest pain, no lower extremity edema. No palpitations. No paroxysmal nocturnal dyspnea. No orthopnea. No lightheadedness or dizziness. No syncopal episodes. Abdominal: No abdominal pain. No nausea, vomiting. No diarrhea. No constipation. No bloody or tarry stools. No loss of appetite. Genitourinary: No dysuria, increased frequency, urgency. No urinary retention. Musculoskeletal: No myalgias. No muscle weakness, no gait dysfunction, no frequent falls. No back pain. No neck pain. Integumentary: No wounds, no lesions. No rash or pruritus. No unusual bruising. No change in hair or nails. Neurologic: No aphasia. No facial droop. No change in mentation. No head injury. No headache. No paralysis. No paresthesia. Psychiatric: No depression. No anxiety. No mood swings. Endocrine: No abnormal blood sugars. No weight change. No excessive sweating or thirst. No cold intolerance. PHYSICAL EXAMINATION Gen: This is a 81-year-old morbidly obese male. His resting in bed and appears to be comfortable at rest. HEENT: Head is atraumatic, normocephalic. Pupils equal, round. Sclerae is anicteric. NECK: Supple. No JVD. No lymphadenopathy. No thyromegaly. LUNGS: diminished bilaterally. No wheezes or rhonchi. No intercostal retractions. HEART: Irregular rate and rhythm. No murmur. ABDOMEN: Soft. Bowel sounds are present. No masses. No tenderness. EXTREMITIES: Chronic left lower extremity edema unchanged. Trace right lower coming edema. Dorsalis pedis +2 bilaterally No calf tenderness. NEUROLOGICAL: Patient is awake, alert and oriented x3. Cranial nerves 2 through 12 are grossly intact. ASSESSMENT AND PLAN 1. Acute exacerbation of COPD. Continue Solu-Medrol 60 mg IV every 6 hours, Symbicort 2 puffs twice daily, DuoNeb treatments every 4 hours as needed, azithromycin and ceftriaxone, pulmonary consult appreciated. 2. Acute on chronic systolic heart failure. Continue IV Lasix 40 mg twice daily, monitor I&O and daily weights, monitor electrolytes and renal function. 3. Chronic atrial fibrillation. Continue Coreg 6.25 mg twice daily, eliquis 5 mg twice daily 4. Benign prostatic hypertrophy. Monitor for urinary retention. 5. Fusion of the left knee joint, stable. 6. GI prophylaxis. Protonix. 7. DVT prophylaxis. Eliquis. 8. COVID-19 testing negative. Patient has been hospitalized during a pandemic. DISCHARGE PLAN TBD. Most likely return home on Monday. Impression and plan of care have been directed as dictated by the signing physician. Martha Monsivais nurse practitioner acting as scribe for signing physician. Objective - Vital Signs Vital signs: Vital Signs Temp 98.4 F 07/13/21 01:34 Pulse 64 07/13/21 07:40 Resp 16 07/13/21 01:34 BP 112/60 07/13/21 01:34 Pulse Ox 99 07/13/21 01:34 Intake & Output 07/12/21 07/13/21 07/13/21 18:59 06:59 18:59 Output Total 4450 Balance -4450 Weight 134.5 kg Output: Urine 4450 Uretheral (Rooney) 1650 Other: Voiding Method Indwelling Catheter - Labs CBC & Chem 7: 07/13/21 06:55 07/13/21 06:55 Labs: Abnormal Lab Results - Last 24 Hours (Table) 07/12/21 07/13/21 Range/Units 21:45 08:57 POC Glucose (mg/dL) 165 H 166 H (75-99) mg/dL
== END 2021-07-14 14:33 | disposition home or self-care (01) | DRG 190 ==
LOC: EC 02:33 → 6NMEDSUR 04:58 → OBSVTOIN 13:50 → 6NMEDSUR 16:30
PROVIDERS: ADMIT Internal Medicine Geriatric Medicine; ATTEND Internal Medicine Geriatric Medicine
DX: J44.1 Chronic obstructive pulmonary disease with (acute) exacerbation (principal); I50.23 Acute on chronic systolic (congestive) heart failure; I48.20 Chronic atrial fibrillation, unspecified; Z68.41 Body mass index [BMI] 40.0-44.9, adult; J45.901 Unspecified asthma with (acute) exacerbation; I11.0 Hypertensive heart disease with heart failure; D53.9 Nutritional anemia, unspecified; K21.9 Gastro-esophageal reflux disease without esophagitis; E66.01 Morbid (severe) obesity due to excess calories; Z23 Encounter for immunization; Z20.822 Contact with and (suspected) exposure to COVID-19; R09.02 Hypoxemia; N40.0 Benign prostatic hyperplasia without lower urinary tract symptoms; G25.81 Restless legs syndrome; E78.5 Hyperlipidemia, unspecified; G47.33 Obstructive sleep apnea (adult) (pediatric); M54.9 Dorsalgia, unspecified; G89.4 Chronic pain syndrome; M19.90 Unspecified osteoarthritis, unspecified site; E78.00 Pure hypercholesterolemia, unspecified; I08.1 Rheumatic disorders of both mitral and tricuspid valves; I25.10 Atherosclerotic heart disease of native coronary artery without angina pectoris; K64.9 Unspecified hemorrhoids; M48.00 Spinal stenosis, site unspecified; Z79.01 Long term (current) use of anticoagulants; Z79.899 Other long term (current) drug therapy; Z98.1 Arthrodesis status; Z87.19 Personal history of other diseases of the digestive system; Z87.440 Personal history of urinary (tract) infections; Z98.84 Bariatric surgery status; Z90.49 Acquired absence of other specified parts of digestive tract; Z87.39 Personal history of other diseases of the musculoskeletal system and connective tissue; Z95.0 Presence of cardiac pacemaker; Z96.653 Presence of artificial knee joint, bilateral; Z87.891 Personal history of nicotine dependence; Z86.718 Personal history of other venous thrombosis and embolism; Z98.890 Other specified postprocedural states; Z80.42 Family history of malignant neoplasm of prostate; Z82.49 Family history of ischemic heart disease and other diseases of the circulatory system; Z82.3 Family history of stroke; Z80.1 Family history of malignant neoplasm of trachea, bronchus and lung; Z81.2 Family history of tobacco abuse and dependence; Z81.8 Family history of other mental and behavioral disorders; Z81.1 Family history of alcohol abuse and dependence
CPT/HCPCS: 36415; 71046; 80053; 83605; 83735; 83880; 84484; 85025; 85610; 85730; 87635; 90662; 93005; 93306; 94640; 94760; 99285

== ENCOUNTER → 2022-03-29 | Outpatient (CLI) | payer MEDICARE ==
[2022-03-29 14:35] VITALS: BP 120/83; PULSE 64; RESP 16; TEMP 98.2; BMI 41.1
--- NOTE | 2022-03-29 16:01 | P.BASOAP ---
Subjective Progress Note Date: 03/29/22 Principal diagnosis: Vomiting 82-year-old male known to our service. The patient underwent previous sleeve gastrectomy. Over the last 3-4 months has had increasing vomiting. Says he vomits solid foods daily. No workup. Patient with significant disability and inability to transport well. Patient has a degree in his left leg. Also complaining of heartburn. Tolerating liquids Objective - Vital Signs Vital signs: Vital Signs Temp 98.2 F 03/29/22 14:32 Pulse 64 03/29/22 14:32 Resp 16 03/29/22 14:32 BP 120/83 03/29/22 14:32 Pulse Ox FiO2 Intake & Output 03/28/22 03/29/22 03/29/22 18:59 06:59 18:59 Weight 130.181 kg - Exam Abdomen: Soft, nontender, nondistended Assessment/Plan (1) Intractable vomiting Narrative/Plan: 82-year-old male with intractable vomiting. Options reviewed. We'll proceed with EGD and possible dilation next Monday. This will be scheduled. Plan: Date: 03/29/22 Initial Weight: 130.181 kg Initial BMI: 41.1 Current Weight: 130.181 kg Current BMI: 41.1 Type of Surgery: Total Volume in Band: Previous Volume: Volume Removed: Volume Added: Band Size:
== END ==
LOC: BARWHC3 13:55
PROVIDERS: ATTEND Surgery
DX: R11.10 Vomiting, unspecified (principal); Z98.84 Bariatric surgery status
CPT/HCPCS: 99211

== ENCOUNTER 2022-04-05 09:51 | Day surgery (SDC) | payer MEDICARE ==
[2022-04-04 10:21] VITALS: BMI 40.6
[2022-04-05] MEDS ORDERED: LACTATED RINGERS 1,000 ML IV ONE (10:48)
[2022-04-05 10:50] VITALS: TEMP 97.6
[2022-04-05] MEDS ORDERED: PROPOFOL 10 MG/ML 20 ML VIAL IV ONE (11:30)
[2022-04-05] MEDS ORDERED: LIDOCAINE 2% INJ 20 MG/ML (2 ML VIAL) ONE (11:30)
--- NOTE | 2022-04-05 11:33 | P.GSHP ---
History of Present Illness H&P Date: 04/05/22 Chief Complaint: Dysphagia 82-year-old male with worsening dysphagia and reflux. Patient with history of previous sleeve gastrectomy. Just resumed his antiacids with some improvement. Past Medical History Past Medical History: Atrial Fibrillation, GERD/Reflux, Hyperlipidemia, Hypertension, Osteoarthritis (OA), Prostate Disorder, Sleep Apnea/CPAP/BIPAP Additional Past Medical History / Comment(s): hx colon polyps, RLS, chronic back pain, DDD spinal stenosis, hemorrhoids, C-Pap machine., pacemaker., gastric sleeve., states hay left leg- unable to bend leg, uses w/c and has constanza lift & walker., dysphagia. History of Any Multi-Drug Resistant Organisms: None Reported Past Surgical History: Back Surgery, Bariatric Surgery, Cholecystectomy, Heart Catheterization, Joint Replacement, Orthopedic Surgery, Pacemaker, Prostate Surgery Additional Past Surgical History / Comment(s): RODS IN BACK, PACEMAKER 11/2004 & REPLACED 04/2013, TURP, GASTRIC SLEEVE (12/2012),LEFT HEEL SPUR, RUMA TOTAL KNEE., RUMA ROTATOR CUFF, Back injections; RUMA KNEE SCOPES x 4, SINUS SX X 2. LEFT KNEE SX TENDON REPAIR. TOTAL LT KNEE x2 and then hay placed left leg. Past Anesthesia/Blood Transfusion Reactions: No Reported Reaction Type of Cardiac Device: Permanent Pacemaker Device Placement Date:: , REPLACED 04/2013-[employer] Past Psychological History: Anxiety, Depression Additional Psychological History / Comment(s): spouse passed Smoking Status: Former smoker Past Alcohol Use History: Occasional Additional Past Alcohol Use History / Comment(s): Patient smoked one pack per day for 20 years ago quit in 1989. Past Drug Use History: None Reported - Past Family History Father Family Medical History: Cancer Additional Family Medical History / Comment(s): prostate cancer Mother Family Medical History: Coronary Artery Disease (CAD), Myocardial Infarction (MO) Additional Family Medical History / Comment(s): Mother of a MO at the age of 73 yrs. Brother(s) Family Medical History: No Reported History Sister(s) Family Medical History: CVA/TIA Daughter(s) Family Medical History: No Reported History Son(s) Family Medical History: No Reported History Medications and Allergies Home Medications Medication Instructions Recorded Confirmed Type Pravastatin Sodium [Pravachol] 40 mg PO DAILY 11/22/14 04/04/22 History metOLazone [Zaroxolyn] 2.5 mg PO MOWEFR 04/04/16 04/05/22 History Pramipexole [Mirapex] 1 mg PO TID PRN 03/29/17 04/04/22 History Apixaban [Eliquis] 5 mg PO BID 11/25/20 04/04/22 History carvediloL [Coreg] 6.25 mg PO BID 11/25/20 04/04/22 History diazePAM [Valium] 10 mg PO BID PRN 11/25/20 04/05/22 History Cholecalciferol [Vitamin D3 (25 50 mcg PO DAILY 07/12/21 04/04/22 History Mcg = 1000 Iu)] Ferrous Sulfate [Iron (65 MG 325 mg PO DAILY 07/12/21 04/04/22 History Elemental)] Omeprazole [PriLOSEC] 20 mg PO AC-BID #120 cap 03/29/22 04/04/22 Rx Potassium Chloride [K-Tab ER] 20 meq PO DAILY 03/30/22 04/04/22 History Furosemide [Lasix] 40 mg PO DAILY 04/04/22 04/04/22 History Allergies Allergy/AdvReac Type Severity Reaction Status Date / Time No Known Allergies Allergy Verified 04/05/22 10:26 Surgical - Exam Vital Signs Temp Pulse Resp BP Pulse Ox 97.6 F 69 18 154/83 98 04/05/22 10:45 04/05/22 10:45 04/05/22 10:45 04/05/22 10:45 04/05/22 10:45 Physical exam: General: Well-developed, well-nourished HEENT: Normocephalic, sclerae nonicteric Abdomen: Nontender, nondistended Extremities: No edema Neuro: Alert and oriented Assessment and Plan (1) GERD (gastroesophageal reflux disease) Narrative/Plan: Will proceed with upper endoscopy. Current Visit: Yes Status: Acute Code(s): K21.9 - GASTRO-ESOPHAGEAL REFLUX DISEASE WITHOUT ESOPHAGITIS SNOMED Code(s): 682315266
--- NOTE | 2022-04-05 11:47 | P.PCN ---
Date of Procedure: 04/05/22 Procedure(s) Performed: Preoperative Dx: GERD, dysphagia Postoperative Dx: Mild gastritis Procedure: EGD with Bx and dilation GE junction Anesthesia: Sedation Endoscopist: Dr. Salinas Specimens: Antrum Endoscopic Procedure: The patient was on the endoscopy table in the left decubitus position. The Olympus gastroscope was inserted into the oropharynx and passed under direct visualization to the region of the third portion of the duodenum. From that point the scope was slowly withdrawn inspecting all schmidt rfaces carefully. There were no neoplastic inflammatory or polypoid lesions throughout the duodenum. The pylorus was widely patent. The stomach was carefully inspected. There was mild gastritis present. The previous sleeve appeared appropriately sized. There was no evidence of stricture. There was mild tortuosity of the proximal sleeve and there may have been a hiatal hernia present with this was difficult to state with certainty. As the scope passed the GE junction there did appear to be some hesitancy however there were no inflammatory or neoplastic changes. Given the patient's complaints of dysphagia and the possibility this may represent mild achalasia I decided to balloon the GE junction with a 15-18 mm balloon. Pressure was held at 15, 16.5, and 18 mm for 1 minute each. The remainder the esophagus was examined and appeared normal. The patient was then taken to the recovery room in stable condition per anesthesia guidelines. Recommendations: Await biopsy results. Continue antiacids. Await to see if patient has improvement in his dysphagia symptoms. Consider upper GI and possible manometry if symptoms persist or worsen. Also could perform CT chest to better evaluate for hiatal hernia.
[2022-04-05 11:55] VITALS: RESP 16
[2022-04-05 12:11] VITALS: BP 153/82; PULSE 62
== END 2022-04-05 12:36 | disposition home or self-care (01) ==
LOC: ORWHC2ENDO 09:51
PROVIDERS: ATTEND Surgery
DX: K95.89 Other complications of other bariatric procedure (principal); K29.50 Unspecified chronic gastritis without bleeding; K31.9 Disease of stomach and duodenum, unspecified; K21.9 Gastro-esophageal reflux disease without esophagitis; I48.91 Unspecified atrial fibrillation; E78.5 Hyperlipidemia, unspecified; I10 Essential (primary) hypertension; M19.90 Unspecified osteoarthritis, unspecified site; N42.9 Disorder of prostate, unspecified; G47.30 Sleep apnea, unspecified; Z86.010 Personal history of colon polyps; G25.81 Restless legs syndrome; G89.29 Other chronic pain; M54.9 Dorsalgia, unspecified; Z95.0 Presence of cardiac pacemaker; Z98.890 Other specified postprocedural states; Z96.653 Presence of artificial knee joint, bilateral; F41.9 Anxiety disorder, unspecified; F32.A Depression, unspecified; Z87.891 Personal history of nicotine dependence; Z97.2 Presence of dental prosthetic device (complete) (partial); Z80.42 Family history of malignant neoplasm of prostate; Z82.3 Family history of stroke; Z79.01 Long term (current) use of anticoagulants; Z79.899 Other long term (current) drug therapy
CPT/HCPCS: 88305; 43239; 43249; J2704; J2001; C1726

== ENCOUNTER 2023-04-24 23:23 | Inpatient (IN) | payer MEDICARE ==
[2023-04-25] MEDS ORDERED: SODIUM CHLORIDE 0.9% 500 ML 500 ML IV STA ×2 (00:09→05:20)
[2023-04-25 00:38] LABS: Basophils % (A) 0 %; Eosinophils # (A) 0.1 k/uL (0-0.7); Eosinophils % (A) 2 %; HCT 45.1 % (39.0-53.0); HGB 14.5 gm/dL (13.0-17.5); Lymphocytes # (A) 0.4 k/uL (1.0-4.8); Lymphocytes % (A) 4 %; MCH 31.5 pg (25.0-35.0); MCHC 32.1 g/dL (31.0-37.0); Mean Platelet Volume 7.6; Monocytes # (A) 0.2 k/uL (0-1.0); Monocytes % (A) 2 %; Neutrophils # (A) 8.1 k/uL (1.3-7.7); Neutrophils % (A) 92 %; Platelet Count 161 k/uL (150-450); RDW 13.6 % (11.5-15.5); WBC 8.8 k/uL (3.8-10.6)
[2023-04-25 00:44] LABS: ALT 14 U/L (4-49); AST 28 U/L (17-59); African American GFR (CKD) >90 (>60 ml/min/1.73 sqM); Albumin 3.9 g/dL (3.5-5.0); Alkaline Phosphatase 67 U/L (38-126); Anion Gap 9 mmol/L; Blood Urea Nitrogen 16 mg/dL (9-20); Calcium 9.1 mg/dL (8.4-10.2); Carbon Dioxide 34 mmol/L (22-30); Chloride 93 mmol/L (98-107); Glucose 98 mg/dL (74-99); Magnesium 1.9 mg/dL (1.6-2.3); Non-African American GFR(CKD) 80 (>60 ml/min/1.73 sqM); Potassium 4.5 mmol/L (3.5-5.1); Sodium 136 mmol/L (137-145); Total Protein 7.2 g/dL (6.3-8.2)
[2023-04-25 00:52] LABS: NT-Pro-B-Type Natriuretic Pept 2010 pg/mL
[2023-04-25 00:53] LABS: Partial Thromboplastin Time 25.5 sec (22.0-30.0); Prothrombin Time 10.9 sec (9.0-12.0)
--- NOTE | 2023-04-25 01:02 | XR ---
EXAMINATION TYPE: XR chest 1V DATE OF EXAM: 04/25/2023 COMPARISON: Chest CT October 04, 2022 HISTORY: Difficulty in breathing TECHNIQUE: Single frontal view of the chest is obtained. FINDINGS: There is some chronic parenchymal changes bilaterally without suspicious new focal air spa ce opacity, pleural effusion, or pneumothorax seen. There is mild cardiomegaly with dual lead pacemak er redemonstrated. High riding right humeral head suggests chronic rotator cuff tear. IMPRESSION: Chronic changes and mild cardiomegaly without acute pulmonary process.
[2023-04-25 01:43] LABS: Appearance,Urine Turbid (Clear); Bacteria,Urine Many /hpf; Bilirubin,Urine Negative (Negative); Blood,Urine Large (Negative); Color,Urine Yellow; Glucose,Urine (UA) Negative (Negative); Hyaline Casts,Urine 74 /lpf (0-2); Ketones,Urine Negative (Negative); Leukocyte Esterase,Urine Large (Negative); Mucus,Urine Rare /hpf; Nitrite,Urine Positive (Negative); PH, Urine 5.5 (5.0-8.0); Protein,Urine 2+ (Negative); RBC,Urine >182 /hpf (0-5); Specific Gravity,Urine 1.022 (1.001-1.035); Urobilinogen,Urine <2.0 mg/dL (<2.0); WBC,Urine >182 /hpf (0-5)
[2023-04-25] MEDS ORDERED: ONDANSETRON 4 MG/2 ML VIAL IVP PRN (02:49)
[2023-04-25] MEDS ORDERED: NALOXONE 0.4 MG/ML 1 ML VIAL IV PRN (02:49)
--- NOTE | 2023-04-25 04:14 | ED ---
General Adult HPI - General Chief complaint: Shortness of Breath Stated complaint: Fever Time Seen by Provider: 04/24/23 23:29 Source: patient, EMS, RN notes reviewed, old records reviewed Mode of arrival: EMS Limitations: physical limitation - History of Present Illness Initial comments: Patient is a 83-year-old male with past medical history remarkable for being bedbound, A. fib on blood thinners, chronic leg weakness, sleep apnea on CPAP at night who presents emergency Department claiming of dyspnea, fever and chills. States symptoms all started today. Denies any chest pain, abdominal pain, nausea, vomiting. Patient does have a pacemaker in place. Denies any diarrhea. Denies any known sick contacts. He presents for further evaluation at this time. - Related Data Home Medications Medication Instructions Recorded Confirmed Pravastatin Sodium [Pravachol] 40 mg PO DAILY 11/22/14 04/25/23 Pramipexole [Mirapex] 1 mg PO TID PRN 03/29/17 04/25/23 Apixaban [Eliquis] 5 mg PO BID 11/25/20 04/25/23 carvediloL [Coreg] 6.25 mg PO BID 11/25/20 04/25/23 Ferrous Sulfate [Iron (65 MG 325 mg PO HS 07/12/21 04/25/23 Elemental)] Midodrine [ProAmatine] 5 mg PO BID 09/29/22 04/25/23 ALPRAZolam [Xanax] 0.25 mg PO BID PRN 04/25/23 04/25/23 Omeprazole [PriLOSEC] 20 mg PO AC-BID 04/25/23 04/25/23 Potassium Chloride [Klor-Con M20] 20 meq PO DAILY 04/25/23 04/25/23 Previous Rx's Medication Instructions Recorded Gabapentin [Neurontin] 100 mg PO HS #3 cap 10/04/22 Allergies Allergy/AdvReac Type Severity Reaction Status Date / Time No Known Allergies Allergy Verified 04/25/23 09:54 Review of Systems ROS Statement: Those systems with pertinent positive or pertinent negative responses have been documented in the HPI. Review of Systems: CONST: Endorses fever and chills EYES: Denies blurry vision ENT: Denies nasal congestion C/V: Denies Chest pain RESP: Endorses subjective intermittent dyspnea. Currently at this time. GI: Denies abdominal pain : Denies dysuria SKIN: Denies rash. MSK: Denies joint pain. NEURO: Denies headache ROS Other: All systems not noted in ROS Statement are negative. Past Medical History Past Medical History: Atrial Fibrillation, GERD/Reflux, Hyperlipidemia, Hyper tension, Osteoarthritis (OA), Prostate Disorder, Sleep Apnea/CPAP/BIPAP Additional Past Medical History / Comment(s): hx colon polyps, RLS, chronic back pain, DDD spinal stenosis, hemorrhoids, C-Pap machine., pacemaker., gastric sleeve., states hay left leg- unable to bend leg, uses w/c and has constanza lift & walker., dysphagia, hypotension, History of Any Multi-Drug Resistant Organisms: None Reported Past Surgical History: Back Surgery, Bariatric Surgery, Cholecystectomy, Heart Catheterization, Joint Replacement, Orthopedic Surgery, Pacemaker, Prostate Surgery Additional Past Surgical History / Comment(s): RODS IN BACK, PACEMAKER 11/2004 & REPLACED 04/2013, TURP, GASTRIC SLEEVE (12/2012),LEFT HEEL SPUR, RUMA TOTAL KNEE., RUMA ROTATOR CUFF, Back injections; RUMA KNEE SCOPES x 4, SINUS SX X 2. LEFT KNEE SX TENDON REPAIR. TOTAL LT KNEE x2 and then hay placed left leg, all teeth removed mid year 2021 and he got dentures Past Anesthesia/Blood Transfusion Reactions: No Reported Reaction Type of Cardiac Device: Permanent Pacemaker Device Placement Date:: -11/2004, REPLACED 04/2013-[facility] Past Psychological History: Anxiety, Depression Smoking Status: Former smoker - Past Family History Father Family Medical History: Cancer Additional Family Medical History / Comment(s): prostate cancer Mother Family Medical History: Coronary Artery Disease (CAD), Myocardial Infarction (MN) Additional Family Medical History / Comment(s): Mother of a MN at the age of 73 yrs. Brother(s) Family Medical History: No Reported History Sister(s) Family Medical History: CVA/TIA Daughter(s) Family Medical History: No Reported History Son(s) Family Medical History: No Reported History General Exam - General Exam Comments Initial Comments: General: Appears in no acute distress. HEAD: Normal with no signs of head trauma. EYES: PERRLA, EOMI, conjunctiva normal, no discharge. ENT: Hearing grossly intact, normal oropharynx. RESPIRATORY: Clear breath sounds bilaterally. No wheezes, rales, or rhonchi. Hypoxic on room air to 89%. C/V: Regular rate and rhythm. S1 and S2 auscultated, mild symmetric bilateral pitting edema, peripheral pulses 2+ and intact throughout ABD: Abd is soft, nontender, nondistended EXT: Normal range of motion, no obvious deformity SKIN: No rashes or lesions observed on exposed skin. NEURO: Alert and oriented 4. Limitations: physical limitation Course Vital Signs 04/24/23 04/25/23 04/25/23 23:38 02:00 04:00 Temperature 99.5 F Pulse Rate 65 65 65 Respiratory 18 16 Rate Blood Pressure 113/57 90/54 95/45 O2 Sat by Pulse 100 96 96 Oximetry 04/25/23 04/25/23 04/25/23 05:15 06:03 08:38 Temperature Pulse Rate 65 65 65 Respiratory 16 18 20 Rate Blood Pressure 74/39 99/65 92/63 O2 Sat by Pulse 97 98 99 Oximetry 04/25/23 04/25/23 04/25/23 12:22 12:24 13:00 Temperature Pulse Rate 65 65 65 Respiratory 18 15 18 Rate Blood Pressure 104/75 96/49 104/75 O2 Sat by Pulse 99 94 L 96 Oximetry 04/25/23 04/25/23 04/25/23 13:30 14:00 14:30 Temperature Pulse Rate 65 65 65 Respiratory 18 15 17 Rate Blood Pressure 115/94 115/94 98/50 O2 Sat by Pulse 97 96 94 L Oximetry 04/25/23 04/25/23 04/25/23 15:00 16:00 16:30 Temperature Pulse Rate 65 65 65 Respiratory 17 18 18 Rate Blood Pressure 90/54 94/52 93/55 O2 Sat by Pulse 94 L 95 95 Oximetry 04/25/23 04/25/23 04/25/23 17:00 18:00 18:30 Temperature Pulse Rate 66 64 65 Respiratory 18 19 Rate Blood Pressure 93/55 90/63 81/57 O2 Sat by Pulse 94 L 95 96 Oximetry 04/25/23 04/25/23 19:00 20:33 Temperature 98.1 F Pulse Rate 64 65 Respiratory 18 20 Rate Blood Pressure 85/58 91/56 O2 Sat by Pulse 96 95 Oximetry Medical Decision Making - Medical Decision Making Was pt. sent in by a medical professional or institution (Dr., PA, [employer], urgent care, hospital, or retirement...) When possible be specific @ -No Did you speak to anyone other than the patient for history (EMS, parent, family, police, friend...)? What history was obtained from this source @ -No Did you review nursing and triage notes (agree or disagree)? Why? @ -I reviewed and agree with nursing and triage notes Were old charts reviewed (outside hosp., previous admission, EMS record, old EKG, old radiological studies, urgent care reports/EKG's, retirement records)? Report findings @ -Old charts including EKG is reviewed Differential Diagnosis (chest pain, altered mental status, abdominal pain women, abdominal pain men, vaginal bleeding, weakness, fever, dyspnea, syncope, headache, dizziness, GI bleed, back pain, seizure, CVA, palpatations, mental health, musculoskeletal)? @ -Differential Fever: Pneumonia, viral URI, endocarditis, myocarditis, pericarditis, otitis, sinusitis, peritonsillar Abscess, retropharyngeal Abscess, epiglottitis, peritonitis, appendicitis, Vicky cystitis, diverticulitis, hepatitis, colitis, UTI, PID, TOA, pyelonephritis, prostatitis, epididymitis, meningitis, encephalitis, pulmonary embolism, CVA, thyroid storm, pancreatitis, adrenal crisis, cavernous sinus thrombosis, this is not meant to be an all-inclusive list. Differential Dyspnea: Coronary syndrome, arrhythmia, tamponade, asthma, COPD, pulmonary embolism, pneumonia, pneumothorax, pulmonary effusion, anaphylaxis, diabetic ketoacidosis, flailed chest, pulmonary contusion, diaphragmatic rupture, anemia, neuromuscular, this is not meant to be an all-inclusive list. EKG interpreted by me (3pts min.). @ -As above X-rays interpreted by me (1pt min.). @ -Chest X Ray reveals no obvious acute cardiopulmonary process. CT interpreted by me (1pt min.). @ -None done U/S interpreted by me (1pt. min.). @ -None done What testing was considered but not performed or refused? (CT, X-rays, U/S, labs)? Why? @ -None What meds were considered but not given or refused? Why? @ -None Did you discuss the management of the patient with other professionals (professionals i.e. DOROTHY Romero, [employer], lab, RT, psych nurse, social services coordinator, taxicab driver, teacher, privacy officer, upper caser)? Give summary @ -No Was smoking cessation discussed for >3mins.? @ -No Was critical care preformed (if so, how long)? @ -yes, 36 Were there social determinants of health that impacted care today? How? (Homelessness, low income, unemployed, alcoholism, drug addiction, transportation, low edu. Level, literacy, decrease access to med. care, [facility], rehab)? @ -No Was there de-escalation of care discussed even if they declined (Discuss DNR or withdrawal of care, Hospice)? DNR status @ -No What co-morbidities impacted this encounter? (DM, HTN, Smoking, COPD, CAD, Cancer, CVA, ARF, Chemo, Hep., AIDS, mental health diagnosis, sleep apnea, morbid obesity)? @ -None Was patient admitted / discharged? Hospital course, mention meds given and route, prescriptions, significant lab abnormalities, going to OR and other pertinent info. @ -Based on the patient's presentation and physical exam, she presents with acute dyspnea as well as subjective fevers and chills at home. We will obtain infectious labs. Patient is hypoxic on room air to 89% which is new for the patient. We will obtain a BNP. Patient does require CPAP at night, and I do suspect he has a chronic obstructive sleep apnea but patient is still 89-91% on room air which is atypical for him with chief complaint of dyspnea. Patient is compliant with his blood thinning medication before I'm not concerned for PE at this time. We will evaluate for infectious cause at this time. No history of CHF. Vital signs otherwise within acceptable limits other than low blood pressure which is chronic for the patient. EKG showed no signs of acute ischemia. Chest x-ray shows no obvious infectious process. Patient's labs are remarkable for an elevated BNP of 2000. Urinalysis positive for UTI as well. Blood and urine cultures sent. Patient started on IV Rocephin for UTI. As the patient is requiring low levels of nasal cannula oxygen at this time for his dyspnea, I did recommend that we admit the patient for further evaluation. We will obtain an echo and have pulmonology see him. Patient was in agreement with this plan. I spoke with the admitting physician, NORA Miguel of [facility] who accepted the admission. Undiagnosed new problem with uncertain prognosis? @ -No Drug Therapy requiring intensive monitoring for toxicity (Heparin, Nitro, Insulin, Cardizem)? @ -No Were any procedures done? @ -No Diagnosis/symptom? @ -Acute hypoxic respiratory failure of unknown etiology Acute, or Chronic, or Acute on Chronic? @ -Suspect acute Uncomplicated (without systemic symptoms) or Complicated (systemic symptoms)? @ -Complicated Side effects of treatment? @ -No Exacerbation, Progression, or Severe Exacerbation? @ -No Poses a threat to life or bodily function? How? (Chest pain, [place], [place], pneumonia, PE, COPD, DKA, ARF, appy, cholecystitis, CVA, Diverticulitis, Homicidal, Suicidal, threat to staff... and all critical care pts) @ -Possibly yes Diagnosis/symptom? @ -UTI Acute, or Chronic, or Acute on Chronic? @ -Acute Uncomplicated (without systemic symptoms) or Complicated (systemic symptoms)? @ -Complicated Side effects of treatment? @ -none Exacerbation, Progression, or Severe Exacerbation] @ -no Poses a threat to life or bodily function? @ -Yes - Lab Data Result diagrams: 04/25/23 00:14 04/25/23 00:14 Lab Results 04/25/23 04/25/23 04/25/23 Range/Units 00:14 00:14 00:14 WBC 8.8 (3.8-10.6) k/uL RBC 4.60 (4.30-5.90) m/uL Hgb 14.5 (13.0-17.5) gm/dL Hct 45.1 (39.0-53.0) % MCV 98.0 (80.0-100.0) fL MCH 31.5 (25.0-35.0) pg MCHC 32.1 (31.0-37.0) g/dL RDW 13.6 (11.5-15.5) % Plt Count 161 (150-450) k/uL MPV 7.6 Neutrophils % 92 % Lymphocytes % 4 % Monocytes % 2 % Eosinophils % 2 % Basophils % 0 % Neutrophils # 8.1 H (1.3-7.7) k/uL Lymphocytes # 0.4 L (1.0-4.8) k/uL Monocytes # 0.2 (0-1.0) k/uL Eosinophils # 0.1 (0-0.7) k/uL Basophils # 0.0 (0-0.2) k/uL PT 10.9 (9.0-12.0) sec INR 1.0 (<1.2) APTT 25.5 (22.0-30.0) sec Sodium 136 L (137-145) mmol/L Potassium 4.5 (3.5-5.1) mmol/L Chloride 93 L (98-107) mmol/L Carbon Dioxide 34 H (22-30) mmol/L Anion Gap 9 mmol/L BUN 16 (9-20) mg/dL Creatinine 0.90 (0.66-1.25) mg/dL Est GFR (CKD-EPI)AfAm >90 (>60 ml/min/1.73 sqM) Est GFR (CKD-EPI)NonAf 80 (>60 ml/min/1.73 sqM) Glucose 98 (74-99) mg/dL Plasma Lactic Acid Trey (0.7-2.0) mmol/L Calcium 9.1 (8.4-10.2) mg/dL Magnesium 1.9 (1.6-2.3) mg/dL Total Bilirubin 1.0 (0.2-1.3) mg/dL AST 28 (17-59) U/L ALT 14 (4-49) U/L Alkaline Phosphatase 67 (38-126) U/L NT-Pro-B Natriuret Pep 2010 pg/mL Total Protein 7.2 (6.3-8.2) g/dL Albumin 3.9 (3.5-5.0) g/dL Urine Color Urine Appearance (Clear) Urine pH (5.0-8.0) Ur Specific [place] (1.001-1.035) Urine Protein (Negative) Urine Glucose (UA) (Negative) Urine Ketones (Negative) Urine Blood (Negative) Urine Nitrite (Negative) Urine Bilirubin (Negative) Urine Urobilinogen (<2.0) mg/dL Ur Leukocyte Esterase (Negative) Urine RBC (0-5) /hpf Urine WBC (0-5) /hpf Urine Bacteria (None) /hpf Hyaline Casts (0-2) /lpf Urine Mucus (None) /hpf Influenza Type A (PCR) (Not Detectd) Influenza Type B (PCR) (Not Detectd) RSV (PCR) (Not Detectd) SARS-CoV-2 (PCR) (Not Detectd) 04/25/23 04/25/23 04/25/23 Range/Units 00:14 00:14 00:14 WBC (3.8-10.6) k/uL RBC (4.30-5.90) m/uL Hgb (13.0-17.5) gm/dL Hct (39.0-53.0) % MCV (80.0-100.0) fL MCH (25.0-35.0) pg MCHC (31.0-37.0) g/dL RDW (11.5-15.5) % Plt Count (150-450) k/uL MPV Neutrophils % % Lymphocytes % % Monocytes % % Eosinophils % % Basophils % % Neutrophils # (1.3-7.7) k/uL Lymphocytes # (1.0-4.8) k/uL Monocytes # (0-1.0) k/uL Eosinophils # (0-0.7) k/uL Basophils # (0-0.2) k/uL PT (9.0-12.0) sec INR (<1.2) APTT (22.0-30.0) sec Sodium (137-145) mmol/L Potassium (3.5-5.1) mmol/L Chloride (98-107) mmol/L Carbon Dioxide (22-30) mmol/L Anion Gap mmol/L BUN (9-20) mg/dL Creatinine (0.66-1.25) mg/dL Est GFR (CKD-EPI)AfAm (>60 ml/min/1.73 sqM) Est GFR (CKD-EPI)NonAf (>60 ml/min/1.73 sqM) Glucose (74-99) mg/dL Plasma Lactic Acid Trey 1.7 (0.7-2.0) mmol/L Calcium (8.4-10.2) mg/dL Magnesium (1.6-2.3) mg/dL Total Bilirubin (0.2-1.3) mg/dL AST (17-59) U/L ALT (4-49) U/L Alkaline Phosphatase (38-126) U/L NT-Pro-B Natriuret Pep pg/mL Total Protein (6.3-8.2) g/dL Albumin (3.5-5.0) g/dL Urine Color Yellow Urine Appearance Turbid (Clear) Urine pH 5.5 (5.0-8.0) Ur Specific [place] 1.022 (1.001-1.035) Urine Protein 2+ H (Negative) Urine Glucose (UA) Negative (Negative) Urine Ketones Negative (Negative) Urine Blood Large H (Negative) Urine Nitrite Positive (Negative) Urine Bilirubin Negative (Negative) Urine Urobilinogen <2.0 (<2.0) mg/dL Ur Leukocyte Esterase Large H (Negative) Urine RBC >182 H (0-5) /hpf Urine WBC >182 H (0-5) /hpf Urine Bacteria Many H (None) /hpf Hyaline Casts 74 H (0-2) /lpf Urine Mucus Rare H (None) /hpf Influenza Type A (PCR) Not Detected (Not Detectd) Influenza Type B (PCR) Not Detected (Not Detectd) RSV (PCR) Not Detected (Not Detectd) SARS-CoV-2 (PCR) Not Detected (Not Detectd) - EKG Data -: EKG Interpreted by Me EKG Comments: 12-lead Electrocardiogram Interpretation Note EKG was reviewed and interpreted by myself. 12-lead ECG performed at ventricular pacemaker is interpreted by me as revealing normal sinus rhythm at a rate of 65 beats per minute. Left axis deviation. QRS duration 161 ms. QTC is 430 ms.. There were no ST or T wave abnormalities to suggest myocardial ischemia or injury. . By my interpretation this EKG is non-diagnostic for acute ischemia. No change when compared with EKG from September 2022. Critical Care Time Critical Care Time: Yes Total Critical Care Time: 36 Disposition Clinical Impression: UTI (urinary tract infection), Acute respiratory failure with hypoxia Disposition: ADMITTED IP TO THIS HOSP Condition: Stable Time of Disposition: 02:40
[2023-04-25] MEDS: MIDODRINE 5 MG TAB PO SCH ×2 (05:24→20:31)
--- NOTE | 2023-04-25 06:10 | P.CNPUL ---
History of Present Illness Consult date: 04/25/23 Requesting physician: Abdon Duffy Reason for consult: other (Dyspnea, obstructive sleep apnea) Chief complaint: Fevers, generalized malaise, shortness of breath History of present illness: I am seeing this patient in consultation today 04/25/2023 after he presented to the emergency room earlier this morning with nonspecific symptoms of fever, weakness, and some associated shortness of breath. He was found to have urinary tract infection. Patient is a 83-year-old male with past medical history significant for atrial fibrillation anticoagulated on Eliquis, permanent pacemaker, COPD, obstructive sleep apnea with home CPAP device, BPH, hyperlipidemia, hypertension, GERD, morbid obesity with previous gastric sleeve procedure. Patient denies any history of asthma or COPD. His primary care provider is Dr. Francisco. Patient presented to the emergency room early this morning with subjective fevers at home, generalized weakness, and was mildly dyspneic. He also states that he has had some urinary frequency. Denies any dysuria, hematuria, flank pain. Urinalysis was concerning for UTI. Denies any cough, hemoptysis. Denies sick contacts. Negative for influenza, RSV, COVID- 19. Chest x-ray on arrival showed some mild cardiomegaly without any acute cardiopulmonary process. NT proBNP was elevated at 2000. Patient denies any chest pain, increased lower extremity edema, orthopnea. lightheadedness, syncope. CBC on arrival was unremarkable. No leukocytosis. BMP on arrival show s sodium 136, potassium 4.5, chloride 93, serum bicarbonate 34, BUN 16, creatinine 0.9, glucose 98. Currently receiving a 500 ML normal saline bolus. Blood pressure is marginal at 90/54. Heart rhythm is currently V paced. Patient was started on empiric Rocephin. Lactic acid level was 1.7. Patient is currently sitting up in bed, on 2 L/m nasal cannula, in no acute distress. SpO2 is currently 97-99% on 2 L/m nasal cannula. He does have a home CPAP device which is not currently present. He is quite debilitated and weak, and reportedly bedbound at home. Currently afebrile. Patient will be monitored on the general medical floor. Review of Systems REVIEW OF SYSTEMS: CONSTITUTIONAL: Denies any recent significant weight loss or weight gain. EYES: Denies change in vision. EARS, NOSE, MOUTH, THROAT: Denies headaches, denies sore throat. CARDIOVASCULAR: Denies chest pain, palpitations or syncopal episodes. RESPIRATORY: Denies cough, congestion or hemoptysis. Admits some mild shortness breath on arrival, which is improved GASTROINTESTINAL: Denies change in appetite, abdominal pain, nausea and vomiting, or diarrhea GENITOURINARY: Denies hematuria, dysuria. Admits urinary frequency MUSKULOSKELETAL: Denies pain, denies swelling. INTEGUMENTARY: Denies rash, denies eczema. Admits superficial sacral wound NEUROLOGICAL: Denies recent memory loss, no recent seizure activity. PSYCHIATRIC: Denies anxiety, denies depression. HEMATOLOGIC/LYMPHATIC: Denies anemia, denies enlarged lymph node Past Medical History Past Medical History: Atrial Fibrillation, GERD/Reflux, Hyperlipidemia, H ypertension, Osteoarthritis (OA), Prostate Disorder, Sleep Apnea/CPAP/BIPAP Additional Past Medical History / Comment(s): hx colon polyps, RLS, chronic back pain, DDD spinal stenosis, hemorrhoids, C-Pap machine., pacemaker., gastric sleeve., states hay left leg- unable to bend leg, uses w/c and has constanza lift & walker., dysphagia, hypotension, History of Any Multi-Drug Resistant Organisms: None Reported Past Surgical History: Back Surgery, Bariatric Surgery, Cholecystectomy, Heart Catheterization, Joint Replacement, Orthopedic Surgery, Pacemaker, Prostate Surgery Additional Past Surgical History / Comment(s): RODS IN BACK, PACEMAKER 11/2004 & REPLACED 04/2013, TURP, GASTRIC SLEEVE (12/2012),LEFT HEEL SPUR, RUMA TOTAL KNEE., RUMA ROTATOR CUFF, Back injections; RUMA KNEE SCOPES x 4, SINUS SX X 2. LEFT KNEE SX TENDON REPAIR. TOTAL LT KNEE x2 and then hay placed left leg, all teeth removed mid year 2021 and he got dentures Past Anesthesia/Blood Transfusion Reactions: No Reported Reaction Type of Cardiac Device: Permanent Pacemaker Device Placement Date:: -11/2004, REPLACED 04/2013-[facility] Past Psychological History: Anxiety, Depression Smoking Status: Former smoker - Past Family History Father Family Medical History: Cancer Additional Family Medical History / Comment(s): prostate cancer Mother Family Medical History: Coronary Artery Disease (CAD), Myocardial Infarction ([place]) Additional Family Medical History / Comment(s): Mother of a [place] at the age of 73 yrs. Brother(s) Family Medical History: No Reported History Sister(s) Family Medical History: CVA/TIA Daughter(s) Family Medical History: No Reported History Son(s) Family Medical History: No Reported History Medications and Allergies Home Medications Medication Instructions Recorded Confirmed Type Pravastatin Sodium [Pravachol] 40 mg PO DAILY 11/22/14 09/29/22 History Pramipexole [Mirapex] 1 mg PO TID PRN 03/29/17 09/30/22 History Apixaban [Eliquis] 5 mg PO BID 11/25/20 09/29/22 History carvediloL [Coreg] 6.25 mg PO BID 11/25/20 09/29/22 History Cholecalciferol [Vitamin D3 (25 50 mcg PO DAILY 07/12/21 09/29/22 History Mcg = 1000 Iu)] Ferrous Sulfate [Iron (65 MG 325 mg PO HS 07/12/21 09/29/22 History Elemental)] Midodrine [ProAmatine] 5 mg PO BID 09/29/22 09/29/22 History Multivit,Calc,Min/FA/K1/Lycop 1 tab PO DAILY 09/29/22 09/29/22 History [One-A-Day Men's Complete Tab] ALPRAZolam [Xanax] 0.25 mg PO BID #6 tab 10/04/22 Rx Acetaminophen Tab [Tylenol] 650 mg PO Q6HR PRN tab 10/04/22 Rx Amoxic-Pot Clav 875-125Mg 1 tab PO Q12HR 3 Days #6 tab 10/04/22 Rx [Augmentin 875-125] Gabapentin [Neurontin] 100 mg PO HS #3 cap 10/04/22 Rx Nystatin 100,000 Unit/gm Powd 1 applic TOPICAL TID each 10/04/22 Rx [Mycostatin Powder] Pantoprazole Sodium [Protonix] 40 mg PO DAILY #30 tab 10/04/22 Rx Sennosides [Senokot] 8.6 mg PO BID tab 10/04/22 Rx Sodium Chloride Tab 1 gm PO BID tab 10/04/22 Rx Allergies Allergy/AdvReac Type Severity Reaction Status Date / Time No Known Allergies Allergy Verified 04/24/23 23:49 Physical Exam Vitals: Vital Signs Temp Pulse Resp BP Pulse Ox 04/24/23 23:38 99.5 F 65 18 113/57 100 Intake and Output 04/24/23 04/24/23 04/25/23 14:59 22:59 06:59 Other: Weight 131.542 kg GENERAL EXAM: Alert, 83-year-old white male, debilitated and weak , comfortable in no apparent distress. HEAD: Normocephalic and atraumatic EYES: Normal reaction of pupils, equal size. NOSE: Clear with pink turbinates. THROAT: No erythema or exudates. NECK: No masses, no JVD. CHEST: No chest wall deformity. LUNGS: Equal air entry with no crackles, wheeze, rhonchi or dullness. On 2 L/m nasal cannula oxygenating at 100%. No conversational dyspnea or accessory muscle use.. CVS: S1 and S2 normal with no audible murmur, regular rhythm. No extra heart sounds ABDOMEN: Obese abdomen, no hepatosplenomegaly, active bowel sounds, no guarding or rigidity. SPINE: No scoliosis or deformity SKIN: No rashes CENTRAL NERVOUS SYSTEM: No focal deficits, tone is normal in all 4 extremities. EXTREMITIES: There is mild nonpitting bilateral lower extremity peripheral edema. No clubbing, or cyanosis. Peripheral pulses are intact. Results - Laboratory Findings CBC and BMP: 04/25/23 00:14 04/25/23 00:14 PT/INR, D-dimer PT 10.9 sec (9.0-12.0) 04/25/23 00:14 INR 1.0 (<1.2) 04/25/23 00:14 Abnormal lab findings: Abnormal Labs 04/25/23 04/25/23 04/25/23 00:14 00:14 00:14 Neutrophils # 8.1 H Lymphocytes # 0.4 L Sodium 136 L Chloride 93 L Carbon Dioxide 34 H Urine Protein 2+ H Urine Blood Large H Ur Leukocyte Esterase Large H Urine RBC >182 H Urine WBC >182 H Urine Bacteria Many H Hyaline Casts 74 H Urine Mucus Rare H - Diagnostic Findings Chest x-ray: image reviewed Assessment and Plan Assessment: Suspected urinary tract infection Hypotension, midodrine is to be restarted. Acute hypoxemic respiratory failure, on 2 L/m nasal cannula. Chest x-ray on arrival showed mild cardiomegaly. No acute focal infiltrates, pleural effusion, pneumothorax. NT proBNP 2000. Negative for influenza, RSV, COVID-19 Systolic congestive heart failure, possibly in mild exacerbation. Most recent echocardiogram from 2020 shows a reduced ejection fraction of 40-45%, moderate mitral regurgitation, mild LVH. Chronic obstructive pulmonary disease, stable Obstructive sleep apnea, with home CPAP History of atrial fibrillation, anticoagulated on Eliquis. Patient has permanent pacemaker, is currently V paced Hyperlipidemia Morbid obesity with a BMI of 39 kg/m status/post gastric sleeve surgery in 2013 Benign prostate hypertrophy Osteoarthritis Remote ex-smoker Plan: Patient's medications, labs, chest x-ray reviewed Continue supplemental oxygen, and wean FiO2 as tolerated May bring in home CPAP unit for HS Currently empirically covered on Rocephin Blood and urine cultures are pending Patient has received a total of 500 ML normal saline bolus and Midodrine is to be restarted. Repeat echocardiogram is pending We will continue to follow and make recommendations I have personally seen and examined the patient, performed the documentation and the assessment and plan as written. Number of minutes spent on the visit:20 Time with Patient: Greater than 30
[2023-04-25] MEDS: APIXABAN 5 MG TAB PO SCH ×2 (12:20→20:31)
--- NOTE | 2023-04-25 14:42 | P.HPIM ---
History of Present Illness H&P Date: 04/25/23 This is an 83-year-old male with medical history of GERD, atrial fibrillation anticoagulated with eliquis, hypertension, hyperlipidemia, sleep apnea with CPAP use, cardiac catheterization and has a permanent pacemaker. Patient is a former smoker. Lives alone with caregivers and has been chronically bed bound for about 1 year now, uses a constanza lift for transfers. Presents to ER with complaints of s hortness of breath fever and chills with a 1 day onset. Patient also reports increased urinary frequency and burning sensation with urination. No prior history of enlarged prostate and not having increased nocturia. On admission his blood pressure found to be lower than normal in the 70s systolic and patient met sepsis criteria. Patient denies any nausea vomiting or diarrhea he is not having any abdominal pain denies any chest pain. Denies shortness of breath as well. He is alert and oriented x 3. Chest xray admission shows chronic changes and mild cardiomegaly without acute pulmonary process. There are chronic parenchymal changes. Urinalysis is abnormal with large leukocyte esterase, many bacteria greater than 182 white count. Patient has normal white blood cell count on admission at 8.8, BNP was mildly elevated at 2010. He as started on empiric antibiotics for the urinary tract infection and admitted to the hospital under medicine. REVIEW OF SYSTEMS: CONSTITUTIONAL: Reports fever, chills, fatigue HEENT: No recent visual problems or hearing problems. Denied any sore throat. CARDIOVASCULAR: No chest pain, orthopnea, PND, no palpitations, no syncope. PULMONARY: No shortness of breath, no cough, no hemoptysis. GASTROINTESTINAL: No diarrhea, no nausea, no vomiting, no abdominal pain. NEUROLOGICAL: No headaches, no weakness, no numbness. HEMATOLOGICAL: Denies any bleeding or petechiae. GENITOURINARY: Reports urgency frequency and burning with urination MUSCULOSKELETAL/RHEUMATOLOGICAL: Denies any joint pain, swelling, or any muscle pain. ENDOCRINE: Denies any polyuria or polydipsia. The rest of the 14-point review of systems is negative. PHYSICAL EXAMINATION: GENERAL: The patient is alert and oriented x3, not in any acute distress. Well developed, well nourished. Morbidly obese HEENT: Pupils are round and equally reacting to light. EOMI. No scleral icterus. No conjunctival pallor. Normocephalic, atraumatic. No pharyngeal erythema. No thyromegaly. CARDIOVASCULAR: S1 and S2 present. No murmurs, rubs, or gallops. PULMONARY: Chest is clear to auscultation, no wheezing or crackles. ABDOMEN: Soft, nontender, nondistended, normoactive bowel sounds. No palpable organomegaly. MUSCULOSKELETAL: No joint swelling or deformity. EXTREMITIES: No cyanosis, clubbing, or pedal edema. NEUROLOGICAL: Gross neurological examination did not reveal any focal deficits. SKIN: No rashes. Stage 1/healing stage 2 right buttock pressure injury. Covered with optifoam. Assessment Dyspnea likely related to sepsis Acute urinary tract infection with sepsis present on admission Hypotension from sepsis patient is chronically on midodrine pressures usually run in the 100-110s systolic History of chronic atrial fibrillation with underlying ventricular pacemaker ant icoagulated with eliquis outpatient History of sleep apnea with CPAP use History hypertension History of hyperlipidemia History of cardiac catheterization Morbid obesity Chronic medical debility patient is primarily bedbound uses constanza lift for transfers Stage 1/healing stage 2 pressure injury right buttock Hx of systolic dysfunction Former smoker GI prophylaxis DVT prophylaxis on eliquis as mentioned Full code Plan Continue empiric antibiotics IV ceftriaxone pending urine culture Patient will by hydrated overnight normal saline at 75 mls/ hr received 2 L fluid bolus in the EC recommend cautious hydration due to history of heart failure with EF of 40% Continue local wound care to the right buttock pressure injury utilize barrier cream and optifoam with pressure reduction and frequent repositioning Carvedilol placed on hold and patient started on metoprolol due to the decreased blood pressures Continue on midodrine. Follow up labs in AM. The impression and plan of care has been dictated by Myriam Sebastian, Nurse Practitioner as directed. Dr. Giovanna MD I have performed a history and physical examination and medical decision making of this patient, discussed the same with the dictator, and agree with the dictators assessment and plan as written, documented as a scribe. Based on total visit time, I have performed more than 50% of this visit. Past Medical History Past Medical History: Atrial Fibrillation, GERD/Reflux, Hyperlipidemia, Hypertension, Osteoarthritis (OA), Prostate Disorder, Sleep Apnea/CPAP/BIPAP Additional Past Medical History / Comment(s): hx colon polyps, RLS, chronic back pain, DDD spinal stenosis, hemorrhoids, C-Pap machine., pacemaker., gastric sleeve., states hay left leg- unable to bend leg, uses w/c and has constanza lift & walker., dysphagia, hypotension, History of Any Multi-Drug Resistant Organisms: None Reported Past Surgical History: Back Surgery, Bariatric Surgery, Cholecystectomy, Heart Catheterization, Joint Replacement, Orthopedic Surgery, Pacemaker, Prostate Surgery Additional Past Surgical History / Comment(s): RODS IN BACK, PACEMAKER 11/2004 & REPLACED 04/2013, TURP, GASTRIC SLEEVE (12/2012),LEFT HEEL SPUR, RUMA TOTAL KNEE., RUMA ROTATOR CUFF, Back injections; RUMA KNEE SCOPES x 4, SINUS SX X 2. LEFT KNEE SX TENDON REPAIR. TOTAL LT KNEE x2 and then hay placed left leg, all teeth removed mid year 2021 and he got dentures Past Anesthesia/Blood Transfusion Reactions: No Reported Reaction Type of Cardiac Device: Permanent Pacemaker Device Placement Date:: -11/2004, REPLACED 04/2013-[facility] Past Psychological History: Anxiety, Depression Smoking Status: Former smoker - Past Family History Father Family Medical History: Cancer Additional Family Medical History / Comment(s): prostate cancer Mother Family Medical History: Coronary Artery Disease (CAD), Myocardial Infarction ([place]) Additional Family Medical History / Comment(s): Mother of a [place] at the age of 73 yrs. Brother(s) Family Medical History: No Reported History Sister(s) Family Medical History: CVA/TIA Daughter(s) Family Medical History: No Reported History Son(s) Family Medical History: No Reported History Medications and Allergies Home Medications Medication Instructions Recorded Confirmed Type Pravastatin Sodium [Pravachol] 40 mg PO DAILY 11/22/14 04/25/23 History Pramipexole [Mirapex] 1 mg PO TID PRN 03/29/17 04/25/23 History Apixaban [Eliquis] 5 mg PO BID 11/25/20 04/25/23 History carvediloL [Coreg] 6.25 mg PO BID 11/25/20 04/25/23 History Ferrous Sulfate [Iron (65 MG 325 mg PO HS 07/12/21 04/25/23 History Elemental)] Midodrine [ProAmatine] 5 mg PO BID 09/29/22 04/25/23 History Gabapentin [Neurontin] 100 mg PO HS #3 cap 10/04/22 04/25/23 Rx ALPRAZolam [Xanax] 0.25 mg PO BID PRN 04/25/23 04/25/23 History Omeprazole [PriLOSEC] 20 mg PO AC-BID 04/25/23 04/25/23 History Potassium Chloride [Klor-Con M20] 20 meq PO DAILY 04/25/23 04/25/23 History Allergies Allergy/AdvReac Type Severity Reaction Status Date / Time No Known Allergies Allergy Verified 04/25/23 09:54 Physical Exam Vitals: Vital Signs Temp Pulse Resp BP Pulse Ox 04/25/23 08:38 65 20 92/63 99 04/25/23 06:03 65 18 99/65 98 04/25/23 05:15 65 16 74/39 97 04/25/23 04:00 65 95/45 96 04/25/23 02:00 65 16 90/54 96 04/24/23 23:38 99.5 F 65 18 113/57 100 Intake and Output 04/24/23 04/25/23 04/25/23 22:59 06:59 14:59 Other: Weight 131.542 kg Results CBC & Chem 7: 04/25/23 00:14 04/25/23 00:14 Labs: Abnormal Lab Results - Last 24 Hours (Table) 04/25/23 04/25/23 04/25/23 Range/Units 00:14 00:14 00:14 Neutrophils # 8.1 H (1.3-7.7) k/uL Lymphocytes # 0.4 L (1.0-4.8) k/uL Sodium 136 L (137-145) mmol/L Chloride 93 L (98-107) mmol/L Carbon Dioxide 34 H (22-30) mmol/L Urine Protein 2+ H (Negative) Urine Blood Large H (Negative) Ur Leukocyte Esterase Large H (Negative) Urine RBC >182 H (0-5) /hpf Urine WBC >182 H (0-5) /hpf Urine Bacteria Many H (None) /hpf Hyaline Casts 74 H (0-2) /lpf Urine Mucus Rare H (None) /hpf Assessment and Plan Time with Patient: Less than 30
[2023-04-25] MEDS: ACETAMINOPHEN TAB 325 MG TAB PO PRN (15:04)
[2023-04-25] MEDS: SODIUM CHLORIDE 0.9% 1,000 ML IV SCH (15:06)
[2023-04-25] MEDS: METOPROLOL TARTRATE 25 MG TAB PO SCH (20:19)
[2023-04-25] MEDS: GABAPENTIN 100 MG CAP PO SCH (20:31)
[2023-04-26] MEDS: SODIUM CHLORIDE 0.9% 1,000 ML IV SCH ×4 (04:13→23:39)
--- NOTE | 2023-04-26 07:17 | CA ---
Transthoracic Echo Report Name: Derrick Chester Age: 83 Gender: M : 1940 Exam Date: 04/25/2023 10:54 Exam Location: [facility] Ht (in): 72 Wt (lb): 290 Ordering Physician: Abdon Duffy MD Attending/Referring Phys: Basket Grader Eddie Banuelos Procedure CPT: Indications: eval for chf Cardiac Hx: Technical Quality: Technically difficult study Contrast 1: Lumason Total Dose (mL): 5 Contrast 2: Total Dose (mL): MEASUREMENTS (Male / Female) Normal Values 2D ECHO LV Diastolic Diameter PLAX 4.8 cm 4.2 - 5.9 / 3.9 - 5.3 cm LV Systolic Diameter PLAX 3.6 cm IVS Diastolic Thickness 1.1 cm 0.6 - 1.0 / 0.6 - 0.9 cm LVPW Diastolic Thickness 1.1 cm 0.6 - 1.0 / 0.6 - 0.9 cm LV Relative Wall Thickness 0.5 RV Internal Dim ED PLAX 4.2 cm LVOT Diameter 2.1 cm Aortic Root Diameter 3.1 cm LA Systolic Diameter LX 4.3 cm 3.0 - 4.0 / 2.7 - 3.8 cm LV Diastolic Volume MOD BP 67.5 cm??? 67 - 155 / 56 - 104 cm??? LV Systolic Volume MOD BP 39.2 cm??? 22 - 58 / 19 - 49 cm??? LV Ejection Fraction MOD BP 41.9 % >= 55 % LV Cardiac Index MOD BP 686.2 cm???/min???m??? LV Diastolic Volume MOD 4C 76.4 cm??? LV Systolic Volume MOD 4C 40.9 cm??? LV Ejection Fraction MOD 4C 46.4 % LV Cardiac Index MOD 4C 859.8 cm???/min???m??? LV Diastolic Length 4C 7.1 cm LV Systolic Length 4C 6.7 cm LV Diastolic Volume MOD 2C 60.0 cm??? LV Systolic Volume MOD 2C 35.7 cm??? LV Ejection Fraction MOD 2C 40.5 % LV Cardiac Index MOD 2C 589.4 cm???/min???m??? LV Diastolic Length 2C 7.2 cm LV Systolic Length 2C 6.3 cm LA Volume 124.8 cm??? 18 - 58 / 22 - 52 cm??? DOPPLER AV Peak Velocity 116.4 cm/s AV Peak Gradient 5.4 mmHg AI Peak Velocity 218.5 cm/s AI Peak Gradient 19.1 mmHg AI Pressure Half Time 765.9 ms LVOT Peak Velocity 82.1 cm/s LVOT Peak Gradient 2.7 mmHg AV Area Cont Eq pk 2.5 cm??? MV Peak Velocity 89.9 cm/s MV Peak Gradient 3.2 mmHg MV Mean Velocity 36.6 cm/s MV Mean Gradient 0.7 mmHg MV Velocity Time Integral 31.6 cm MR Peak Velocity 327.1 cm/s MR Peak Gradient 42.8 mmHg Mitral E Point Velocity 86.4 cm/s Mitral A Point Velocity 36.1 cm/s Mitral E to A Ratio 2.4 MV Deceleration Time 198.2 ms MV E' Velocity 7.6 cm/s Mitral E to MV E' Ratio 11.4 TR Peak Velocity 246.8 cm/s TR Peak Gradient 24.4 mmHg Right Ventricular Systolic Press 29.7 mmHg PV Peak Velocity 88.1 cm/s PV Peak Gradient 3.1 mmHg FINDINGS Left Ventricle Normal LV size. Mildly increased septal wall thickness. Left ventricular ejection fraction is estimated at 50-55 %. Right Ventricle Mild right ventricular dilatation. . RVSP= 37mmhg. Right Atrium Mild right atrial dilatation. Catheter/pacemaker wire in the right atrial cavity. Left Atrium Mildly increased left atrial diameter. Severely increased left atrial volume. Moderately increased left atrial area. LA volume index= 50ml/m2 Mitral Valve Structurally normal mitral valve. Aortic Valve Trileaflet aortic valve. Mild AI. Tricuspid Valve Tricuspid valve not well visualized. Mild TR. Pulmonic Valve Pulmonic valve not well visualized. No pulmonic regurgitation. Pericardium Not well visulized. Aorta Normal size aortic root . CONCLUSIONS Technically difficult study for interpretation Normal LV systolic function Mild pulmonary hypertension. Mildly dilated right ventricle Mild aortic insufficiency Previewed by: Dr. El Ortiz MD (Electronically Signed) Final Date: 26 April 2023 07:17
[2023-04-26] MEDS: APIXABAN 5 MG TAB PO SCH ×2 (08:56→20:35)
[2023-04-26] MEDS: ACETAMINOPHEN TAB 325 MG TAB PO PRN ×2 (08:56→17:59)
[2023-04-26] MEDS: PANTOPRAZOLE 40 MG/10 ML VIAL IVP SCH (08:56)
[2023-04-26] MEDS: METOPROLOL TARTRATE 25 MG TAB PO SCH ×2 (08:56→20:35)
[2023-04-26] MEDS: MIDODRINE 5 MG TAB PO SCH ×2 (08:57→20:35)
[2023-04-26] MEDS: PRAVASTATIN SODIUM 40 MG TAB PO SCH (08:57)
--- NOTE | 2023-04-26 11:46 | P.PN ---
Subjective Progress Note Date: 04/26/23 I am seeing this patient in consultation today 04/25/2023 after he presented to the emergency room earlier this morning with nonspecific symptoms of fever, weakness, and some associated shortness of breath. He was found to have urinary tract infection. Patient is a 83-year-old male with past medical history significant for atrial fibrillation anticoagulated on Eliquis, permanent pacemaker, COPD, obstructive sleep apnea with home CPAP device, BPH, hyperlipidemia, hypertension, GERD, morbid obesity with previous gastric sleeve procedure. Patient denies any history of asthma or COPD. His primary care provider is Dr. Francisco. Patient presented to the emergency room early this morning with subjective fevers at home, generalized weakness, and was mildly dyspneic. He also states that he has had some urinary frequency. Denies any dysuria, hematuria, flank pain. Urinalysis was concerning for UTI. Denies any cough, hemoptysis. Denies sick contacts. Negative for influenza, RSV, COVID- 19. Chest x-ray on arrival showed some mild cardiomegaly without any acute cardiopulmonary process. NT proBNP was elevated at 2000. Patient denies any chest pain, increased lower extremity edema, orthopnea. lightheadedness, syncope. CBC on arrival was unremarkable. No leukocytosis. BMP on arrival shows sodium 136, potassium 4.5, chloride 93, serum bicarbonate 34, BUN 16, creatinine 0.9, glucose 98. Currently receiving a 500 ML normal saline bolus. Blood pressure is marginal at 90/54. Heart rhythm is currently V paced. Patient was started on empiric Rocephin. Lactic acid level was 1.7. Patient is currently sitting up in bed, on 2 L/m nasal cannula, in no acute distress. SpO2 is currently 97-99% on 2 L/m nasal cannula. He does have a home CPAP device which is not currently present. He is quite debilitated and weak, and reportedly bedbound at home. Currently afebrile. Patient will be monitored on the general medical floor. The patient is seen today 04/26/2023 in follow-up on the regular medical floor. He is currently sitting up in bed. Awake and alert in no acute distress. Echocardiogram revealed preserved left ventricular systolic function. Mild pulmonary hypertension. Blood cultures are showing gram-negative bacilli. He is currently on ceftriaxone. Anticoagulant with Eliquis. Normal saline at 75 ML's per hour. Objective - Vital Signs Vital signs: Vital Signs Temp 98.2 F 04/26/23 06:58 Pulse 65 04/26/23 06:58 Resp 19 04/26/23 06:58 BP 97/64 04/26/23 06:58 Pulse Ox 95 04/26/23 06:58 FiO2 Intake & Output 04/25/23 04/26/23 04/26/23 18:59 06:59 18:59 Intake Total 1305 Output Total 100 Balance 1205 Weight 140 kg Intake: Intake, IV Titration 825 Amount Sodium Chloride 0.9% 1, 775 000 ml @ 75 mls/hr IV . [id number] [facility] Rx#:[id number] cefTRIAXone 2 gm In 50 Sodium Chloride 0.9% 50 ml @ 100 mls/hr IVPB Q24H [facility] Rx#:[id number] Oral 480 Output: Urine 100 Other: Voiding Method External Catheter - Exam GENERAL EXAM: Alert, pleasant 83-year-old male, debilitated, on room air, comfortable in no apparent distress. HEAD: Normocephalic and atraumatic EYES: Normal reaction of pupils, equal size. NOSE: Clear with pink turbinates. THROAT: No erythema or exudates. NECK: No masses, no JVD. CHEST: No chest wall deformity. LUNGS: Equal air entry with no crackles, wheeze, rhonchi or dullness. No conversational dyspnea or accessory muscle use. CVS: S1 and S2 normal with no audible murmur, regular rhythm. No extra heart s ounds ABDOMEN: Obese abdomen, no hepatosplenomegaly, active bowel sounds, no guarding or rigidity. SPINE: No scoliosis or deformity SKIN: No rashes CENTRAL NERVOUS SYSTEM: No focal deficits, tone is normal in all 4 extremities. EXTREMITIES: There is mild nonpitting bilateral lower extremity peripheral edema. No clubbing, or cyanosis. Peripheral pulses are intact. - Labs CBC & Chem 7: 04/25/23 00:14 04/25/23 00:14 Labs: Microbiology - Last 24 Hours (Table) 04/25/23 03:00 Blood Culture Gram Stain - Preliminary Blood Blood Culture - Preliminary Gram Neg Bacilli Assessment and Plan Assessment: Suspected urinary tract infection, culture pending, currently on ceftriaxone Hypotension, secondary to sepsis, midodrine restarted Bacteremia secondary to gram-negative bacilli suspect from urinary tract infection Acute hypoxemic respiratory failure, recovered and on room air. Chest x-ray on arrival showed mild cardiomegaly. No acute focal infiltrates, pleural effusion, pneumothorax. NT proBNP 2000. Negative for influenza, RSV, COVID-19 Diastolic congestive heart failure, possibly in mild exacerbation. Echocardiogram reveals preserved left ventricular systolic function. Mild pulmonary hypertension. Chronic obstructive pulmonary disease, stable Obstructive sleep apnea, with home CPAP History of atrial fibrillation, anticoagulated on Eliquis. Patient has permanent pacemaker Hyperlipidemia Morbid obesity with a BMI of 41.9 kg/m status/post gastric sleeve surgery in 2013 Benign prostate hypertrophy Osteoarthritis Remote ex-smoker Plan: The patient was seen and evaluated Labs and medications reviewed Continue ceftriaxone Blood culture showing gram-negative bacilli Continue saline at 75 ML's per hour Continue midodrine Anticoagulated with Eliquis We will continue to follow I have personally seen and examined the patient, performed the documentation and the assessment and plan as written. Number of minutes spent on the visit: 10.
[2023-04-26 12:52] LABS: BUN/Creat Ratio 19.33 Ratio (12.00-20.00); Blood Urea Nitrogen 23.2 mg/dL (9.0-27.0); Calcium 8.8 mg/dL (8.7-10.3); Carbon Dioxide 29.5 mmol/L (21.6-31.8); Chloride 96 mmol/L (96-109); Glucose 96 mg/dL (70-110); Sodium 136 mmol/L (135-145)
[2023-04-26 14:22] LABS: Basophils # (A) 0.05 X 10*3/uL (0.00-0.10); Basophils % (A) 0.4 %; Eosinophils # (A) 0.12 X 10*3/uL (0.04-0.35); Eosinophils % (A) 1.1 %; HCT 37.7 % (39.6-50.0); HGB 11.9 d/dL (13.0-17.0); Lymphocytes # (A) 0.64 X 10*3/uL (0.90-5.00); Lymphocytes % (A) 5.6 %; MCH 30.8 pg (27.0-32.0); MCHC 31.6 d/dL (32.0-37.0); MCV 97.7 FL (80.0-97.0); Monocytes # (A) 0.56 X 10*3/uL (0.20-1.00); Monocytes % (A) 4.9 %; NRBC Per 100 WBC 0 X 10*3/uL (0.00-0.01); Neutrophils # (A) 9.91 X 10*3/uL (1.80-7.70); Neutrophils % (A) 87.4 %; Platelet Count 100 X 10*3/uL (140-440); RBC 3.86 X 10*6/uL (4.40-5.60); RBC Morphology Normal (Normal); RDW 14.4 % (11.5-14.5); WBC 11.35 X 10*3/uL (4.50-10.00)
--- NOTE | 2023-04-26 14:44 | P.PN ---
Subjective Progress Note Date: 04/26/23 This is an 83-year-old male with medical history of GERD, atrial fibrillation anticoagulated with eliquis, hypertension, hyperlipidemia, sleep apnea with CPAP use, cardiac catheterization and has a permanent pacemaker. Patient is a former smoker. Lives alone with caregivers and has been chronically bed bound for about 1 year now, uses a constanza lift for transfers. Presents to ER with complaints of shortness of breath fever and chills with a 1 day onset. Patient also reports increased urinary frequency and burning sensation with urination. No prior history of enlarged prostate and not having increased nocturia. On admission his blood pressure found to be lower than normal in the 70s systolic and patient met sepsis criteria. Patient denies any nausea vomiting or diarrhea he is not having any abdominal pain denies any chest pain. Denies shortness of breath as well. He is alert and oriented x 3. Chest xray admission shows chronic changes and mild cardiomegaly without acute pulmonary process. There are chronic parenchymal changes. Urinalysis is abnormal with large leukocyte esterase, many bacteria greater than 182 white count. Patient has normal white blood cell count on admission at 8.8, BNP was mildly elevated at 2010. He as started on empiric antibiotics for the urinary tract infection and admitted to the hospital under medicine. 04/26/2023 Patient is evaluated today in the medical floor. He is resting in bed. He continues to be alert and oriented 3. He does report improvement in symptoms overnight. He remains on antibiotics in the form of IV ceftriaxone pulmonary blood culture is positive for gram-negative bacilli and blood culture has been repeated. Urine culture remains pending at this time. Infectious disease will be consulted for the blood cultures. He remains on normal saline at 75 mL per hour. White count of 11.35 today. Kidney function remained stable. Review of Systems Constitutional: Denied any fatigue denied any fever. Cardio vascular: denied any chest pain, palpitations Gastrointestinal: denied any nausea, vomiting, diarrhea Pulmonary: Denied any shortness of breath cough Neurologic denied any new focal deficits All inpatient medications were reviewed and appropriate changes in these medications as dictated in the interval history and assessment and plan. PHYSICAL EXAMINATION: GENERAL: The patient is alert and oriented x3, not in any acute distress. Well developed, well nourished. Morbidly obese HEENT: Pupils are round and equally reacting to light. EOMI. No scleral icterus. No conjunctival pallor. Normocephalic, atraumatic. No pharyngeal erythema. No thyromegaly. CARDIOVASCULAR: S1 and S2 present. No murmurs, rubs, or gallops. PULMONARY: Chest is clear to auscultation, no wheezing or crackles. ABDOMEN: Soft, nontender, nondistended, normoactive bowel sounds. No palpable organomegaly. MUSCULOSKELETAL: No joint swelling or deformity. EXTREMITIES: No cyanosis, clubbing, or pedal edema. NEUROLOGICAL: Gross neurological examination did not reveal any focal deficits. SKIN: No rashes. Stage 1/healing stage 2 right buttock pressure injury. Covered with optifoam. Assessment Dyspnea likely related to sepsis Acute urinary tract infection with sepsis present on admission gram -negative bacilli bacteremia pending final cultures Hypotension from sepsis patient is chronically on midodrine pressures usually run in the 100-110s systolic History of chronic atrial fibrillation with underlying ventricular pacemaker anticoagulated with eliquis outpatient History of sleep apnea with CPAP use History hypertension History of hyperlipidemia History of cardiac catheterization Morbid obesity Chronic medical debility patient is primarily bedbound uses constanza lift for transfers Stage 1/healing stage 2 pressure injury right buttock Hx of systolic dysfunction Former smoker GI prophylaxis DVT prophylaxis on eliquis as mentioned Full code Plan Continue empiric antibiotics IV ceftriaxone pending urine culture /repeat blood cultures ID has been consulted for the bacteremia Patient will by hydrated overnight normal saline at 75 mls/ hr received 2 L fluid bolus in the EC recommend cautious hydration due to history of heart failure with EF of 40% Continue local wound care to the right buttock pressure injury utilize barrier cream and optifoam with pressure reduction and frequent repositioning Carvedilol placed on hold and patient started on metoprolol due to the decreased blood pressures Continue on midodrine. Follow up labs in AM The impression and plan of care has been dictated by Myriam Sebastian Nurse Practitioner as directed. Dr. Giovanna MD I have performed a history and physical examination and medical decision making of this patient, discussed the same with the dictator, and agree with the dictators assessment and plan as written, documented as a scribe. Based on total visit time, I have performed more than 50% of this visit. Objective - Vital Signs Vital signs: Vital Signs Temp 98.2 F 04/26/23 06:58 Pulse 65 04/26/23 06:58 Resp 19 04/26/23 06:58 BP 97/64 08/30/23 06:58 Pulse Ox 95 04/26/23 06:58 FiO2 Intake & Output 04/25/23 04/26/23 04/26/23 18:59 06:59 18:59 Intake Total 1305 Output Total 100 Balance 1205 Weight 140 kg Intake: Intake, IV Titration 825 Amount Sodium Chloride 0.9% 1, 775 000 ml @ 75 mls/hr IV . [id number] [facility] Rx#:[id number] cefTRIAXone 2 gm In 50 Sodium Chloride 0.9% 50 ml @ 100 mls/hr IVPB Q24H [facility] Rx#:[id number] Oral 480 Output: Urine 100 Other: Voiding Method External Catheter - Labs CBC & Chem 7: 04/26/23 05:34 04/26/23 05:34 Labs: Microbiology - Last 24 Hours (Table) 04/25/23 03:00 Blood Culture Gram Stain - Preliminary Blood Blood Culture - Preliminary Gram Neg Bacilli Assessment and Plan Time with Patient: Less than 30
[2023-04-26] MEDS: GABAPENTIN 100 MG CAP PO SCH (20:35)
[2023-04-27] MEDS: ACETAMINOPHEN TAB 325 MG TAB PO PRN ×3 (05:10→22:00)
[2023-04-27] MEDS: PRAMIPEXOLE 1 MG TAB PO PRN ×3 (05:12→21:05)
--- NOTE | 2023-04-27 06:13 | P.CONS ---
History of Present Illness - Reason for Consult Consult date: 04/26/23 - History of Present Illness Patient is a 83-year-old male with a past medical his significant for hypertension hyperlipidemia reflux atrial fibrillation prostate disorder patient presenting to the ER yesterday morning for evaluation of fever and chills the patient's symptoms started the day before presentation to the hospital and lasted all day long patient also complaining of feeling weak and no energy patient denies having any headache or URI symptoms no chest pain cough no nausea vomiting no abdominal pain no diarrhea and did not have any urinary symptoms on presentation to the hospital the patient did have a low-grade fever of 99.5 F patient was not tachycardic or hypotensive patient did have a normal white count however white count is up to 11.35 this morning patient did have a normal creatinine urine was positive with large leukocyte esterase more than 1-2 WBC influenza RSV and COVID testing was negative patient diagnosed with a UTI admitted to the hospital blood cultures are coming back positive with gram- negative bacilli prompted this infectious disease consultation patient did have a chest x-ray that was chronic change with mild cardiomegaly without acute cardiopulmonary process Past Medical History Past Medical History: Atrial Fibrillation, GERD/Reflux, Hyperlipidemia, Hypertension, Osteoarthritis (OA), Prostate Disorder, Sleep Apnea/CPAP/BIPAP Additional Past Medical History / Comment(s): hx colon polyps, RLS, chronic back pain, DDD spinal stenosis, hemorrhoids, C-Pap machine., pacemaker., gastric sleeve., states hay left leg- unable to bend leg, uses w/c and has constanza lift & walker., dysphagia, hypotension, History of Any Multi-Drug Resistant Organisms: None Reported Past Surgical History: Back Surgery, Bariatric Surgery, Cholecystectomy, Heart Catheterization, Joint Replacement, Orthopedic Surgery, Pacemaker, Prostate Surgery Additional Past Surgical History / Comment(s): RODS IN BACK, PACEMAKER 11/2004 & REPLACED 04/2013, TURP, GASTRIC SLEEVE (12/2012),LEFT HEEL SPUR, RUMA TOTAL KNEE., RUMA ROTATOR CUFF, Back injections; RUMA KNEE SCOPES x 4, SINUS SX X 2. LEFT KNEE SX TENDON REPAIR. TOTAL LT KNEE x2 and then hay placed left leg, all teeth removed mid year 2021 and he got dentures Past Anesthesia/Blood Transfusion Reactions: No Reported Reaction Type of Cardiac Device: Permanent Pacemaker Device Placement Date:: -11/2004, REPLACED 04/2013-[employer] Past Psychological History: Anxiety, Depression Smoking Status: Former smoker - Past Family History Father Family Medical History: Cancer Additional Family Medical History / Comment(s): prostate cancer Mother Family Medical History: Coronary Artery Disease (CAD), Myocardial Infarction (WA) Additional Family Medical History / Comment(s): Mother of a WA at the age of 73 yrs. Brother(s) Family Medical History: No Reported History Sister(s) Family Medical History: CVA/TIA Daughter(s) Family Medical History: No Reported History Son(s) Family Medical History: No Reported History Medications and Allergies Home Medications Medication Instructions Recorded Confirmed Type Pravastatin Sodium [Pravachol] 40 mg PO DAILY 11/22/14 04/25/23 History Pramipexole [Mirapex] 1 mg PO TID PRN 03/29/17 04/25/23 History Apixaban [Eliquis] 5 mg PO BID 11/25/20 04/25/23 History carvediloL [Coreg] 6.25 mg PO BID 11/25/20 04/25/23 History Ferrous Sulfate [Iron (65 MG 325 mg PO HS 07/12/21 04/25/23 History Elemental)] Midodrine [ProAmatine] 5 mg PO BID 09/29/22 04/25/23 History Gabapentin [Neurontin] 100 mg PO HS #3 cap 10/04/22 04/25/23 Rx ALPRAZolam [Xanax] 0.25 mg PO BID PRN 04/25/23 04/25/23 History Omeprazole [PriLOSEC] 20 mg PO AC-BID 04/25/23 04/25/23 History Potassium Chloride [Klor-Con M20] 20 meq PO DAILY 04/25/23 04/25/23 History Allergies Allergy/AdvReac Type Severity Reaction Status Date / Time No Known Allergies Allergy Verified 04/25/23 09:54 Physical Exam Vitals: Vital Signs Temp Pulse Pulse Pulse Resp BP BP 04/26/23 11:23 98.5 F 60 16 04/26/23 08:00 19 04/26/23 06:58 98.2 F 65 19 04/26/23 00:38 97.7 F 65 19 94/59 04/25/23 23:46 04/25/23 21:30 98.0 F 65 19 95/58 04/25/23 20:33 98.1 F 65 20 91/56 04/25/23 19:00 64 18 85/58 04/25/23 18:30 65 19 81/57 04/25/23 18:00 64 18 90/63 BP Pulse Ox 04/26/23 11:23 91/59 94 L 04/26/23 08:00 04/26/23 06:58 97/64 95 04/26/23 00:38 92 L 04/25/23 23:46 04/25/23 21:30 95 04/25/23 20:33 95 04/25/23 19:00 96 04/25/23 18:30 96 04/25/23 18:00 95 Intake and Output 04/26/23 04/26/23 04/26/23 06:59 14:59 22:59 Intake Total 1065 Output Total 100 Balance 965 Intake: Intake, IV Titration 825 Amount Sodium Chloride 0.9% 1, 775 000 ml @ 75 mls/hr IV . [id number] [facility] Rx#:[id number] cefTRIAXone 2 gm In 50 Sodium Chloride 0.9% 50 ml @ 100 mls/hr IVPB Q24H [facility] Rx#:[id number] Oral 240 Output: Urine 100 Other: Voiding Method External Catheter External Catheter Results CBC & Chem 7: 04/26/23 05:34 04/26/23 05:34 Labs: Abnormal Lab Results - Last 24 Hours (Table) 04/26/23 Range/Units 05:34 WBC 11.35 H (4.50-10.00) X 10*3/uL RBC 3.86 L (4.40-5.60) X 10*6/uL Hgb 11.9 L (13.0-17.0) d/dL Hct 37.7 L (39.6-50.0) % MCV 97.7 H (80.0-97.0) FL MCHC 31.6 L (32.0-37.0) d/dL Plt Count 100 L (140-440) X 10*3/uL Neutrophils # 9.91 H (1.80-7.70) X 10*3/uL Lymphocytes # 0.64 L (0.90-5.00) X 10*3/uL Microbiology - Last 24 Hours (Table) 04/25/23 02:45 Blood Culture - Preliminary Blood 04/25/23 03:00 Blood Culture Gram Stain - Preliminary Blood Blood Culture - Preliminary Gram Neg Bacilli Assessment and Plan Plan: 1patient with a gram-negative bacteremia source likely urinary has abated have significantly positive UA likely from enteric gram-negative pathogen. 2we will obtain ultrasound of the kidney bladder area to make sure no evidence of any obstructive uropathy. 3Rocephin 2 g daily while waiting for the culture to finalize. We will follow on clinical condition and cultures to further adjust medication if needed Thank you for this consultation we will follow the patient along with you Dictation was produced using [employer] dictation software. please excuse any grammatical, word or spelling errors. Time with Patient: Greater than 30
[2023-04-27] MEDS: METOPROLOL TARTRATE 25 MG TAB PO SCH ×2 (08:44→20:14)
[2023-04-27] MEDS: MIDODRINE 5 MG TAB PO SCH ×2 (08:44→20:14)
[2023-04-27] MEDS: APIXABAN 5 MG TAB PO SCH ×2 (08:44→20:14)
[2023-04-27] MEDS: PRAVASTATIN SODIUM 40 MG TAB PO SCH (08:44)
[2023-04-27] MEDS: PANTOPRAZOLE 40 MG/10 ML VIAL IVP SCH (08:44)
[2023-04-27 09:07] LABS: Basophils # (A) 0.04 X 10*3/uL (0.00-0.10); Basophils % (A) 0.5 %; Eosinophils # (A) 0.16 X 10*3/uL (0.04-0.35); HCT 35.9 % (39.6-50.0); HGB 11.3 d/dL (13.0-17.0); Lymphocytes # (A) 0.58 X 10*3/uL (0.90-5.00); Lymphocytes % (A) 7.4 %; MCH 30.6 pg (27.0-32.0); MCHC 31.5 d/dL (32.0-37.0); MCV 97.3 FL (80.0-97.0); Mean Platelet Volume 10.4 FL (9.5-12.2); Monocytes # (A) 0.42 X 10*3/uL (0.20-1.00); Monocytes % (A) 5.3 %; NRBC Per 100 WBC 0 X 10*3/uL (0.00-0.01); Neutrophils # (A) 6.63 X 10*3/uL (1.80-7.70); Neutrophils % (A) 84.4 %; Platelet Count 84 X 10*3/uL (140-440); RBC 3.69 X 10*6/uL (4.40-5.60); RDW 14.4 % (11.5-14.5); WBC 7.86 X 10*3/uL (4.50-10.00)
--- NOTE | 2023-04-27 09:33 | US ---
EXAMINATION TYPE: US kidneys/renal and bladder DATE OF EXAM: 04/27/2023 Exam done portable COMPARISON: CT abdomen and pelvis of 03/05/2012 CLINICAL INDICATION: Male, 83 years old with history of uti and bacteremia; EXAM MEASUREMENTS: Right Kidney: 11.2 x 5.8 x 4.5 cm Left Kidney: 10.4 x 5.5 x 5.1 cm Difficult and limited study due to morbidly obese patient Right Kidney: 2.4cm hypoechoic exophytic area lateral superior pole, inferior pole obscured by overly ing bowel gas Left Kidney: visualized portions wnl, mostly obscured by overlying bowel gas Bladder: appears wnl as seen Bilateral Jets seen: no There is no evidence for hydronephrosis at this point in time. No nephrolithiasis is seen. Hypoechoi c exophytic right lateral superior pole 2.4 cm cystic lesion. Cortical medullary differentiation is m aintained bilaterally. No perinephric fluid collections. The urinary bladder is anechoic. Bilateral ureteral jets are seen. IMPRESSION: Limited examination due to patient's body habitus. 1. No hydronephrosis or nephrolithiasis identified. No perinephric fluid collections. 2. Hypoechoic 2.4 cm right renal cystic lesion. Probable cyst however evaluation is limited. Follow-u p renal ultrasound in 6 months is recommended to assess for stability.
[2023-04-27 09:45] LABS: BUN/Creat Ratio 23.22 Ratio (12.00-20.00); Blood Urea Nitrogen 20.9 mg/dL (9.0-27.0); Calcium 8.4 mg/dL (8.7-10.3); Carbon Dioxide 28.4 mmol/L (21.6-31.8); Chloride 98 mmol/L (96-109); Glucose 86 mg/dL (70-110); Sodium 135 mmol/L (135-145)
[2023-04-27] MEDS: SODIUM CHLORIDE 0.9% 1,000 ML IV SCH (12:45)
--- NOTE | 2023-04-27 13:06 | P.PN ---
Subjective Progress Note Date: 04/27/23 I am seeing this patient in consultation today 04/25/2023 after he presented to the emergency room earlier this morning with nonspecific symptoms of fever, weakness, and some associated shortness of breath. He was found to have urinary tract infection. Patient is a 83-year-old male with past medical history significant for atrial fibrillation anticoagulated on Eliquis, permanent pacemaker, COPD, obstructive sleep apnea with home CPAP device, BPH, hyperlipidemia, hypertension, GERD, morbid obesity with previous gastric sleeve procedure. Patient denies any history of asthma or COPD. His primary care provider is Dr. Francisco. Patient presented to the emergency room early this morning with subjective fevers at home, generalized weakness, and was mildly dyspneic. He also states that he has had some urinary frequency. Denies any dysuria, hematuria, flank pain. Urinalysis was concerning for UTI. Denies any cough, hemoptysis. Denies sick contacts. Negative for influenza, RSV, COVID- 19. Chest x-ray on arrival showed some mild cardiomegaly without any acute cardiopulmonary process. NT proBNP was elevated at 2000. Patient denies any chest pain, increased lower extremity edema, orthopnea. lightheadedness, syncope. CBC on arrival was unremarkable. No leukocytosis. BMP on arrival shows sodium 136, potassium 4.5, chloride 93, serum bicarbonate 34, BUN 16, creatinine 0.9, glucose 98. Currently receiving a 500 ML normal saline bolus. Blood pressure is marginal at 90/54. Heart rhythm is currently V paced. Patient was started on empiric Rocephin. Lactic acid level was 1.7. Patient is currently sitting up in bed, on 2 L/m nasal cannula, in no acute distress. SpO2 is currently 97-99% on 2 L/m nasal cannula. He does have a home CPAP device which is not currently present. He is quite debilitated and weak, and reportedly bedbound at home. Currently afebrile. Patient will be monitored on the general medical floor. The patient is seen today 04/26/2023 in follow-up on the regular medical floor. He is currently sitting up in bed. Awake and alert in no acute distress. Echocardiogram revealed preserved left ventricular systolic function. Mild pulmonary hypertension. Blood cultures are showing gram-negative bacilli. He is currently on ceftriaxone. Anticoagulant with Eliquis. Normal saline at 75 ML's per hour. Patient is seen today 04/27/2023 in follow-up on the regular medical floor. He is currently resting comfortably in bed. Awake and alert in no acute distress. Blood and urine cultures are positive for gram-negative bacilli. White count 7.8. Hemoglobin 11.3. Platelets 84,000. Sodium 135. Potassium 4.0. Bicarb 20. BUN 21. Creatinine 0.9. He is continued on ceftriaxone. Anticoagulated with Eliquis. Normal saline at 75 ML's per hour. Objective - Vital Signs Vital signs: Vital Signs Temp 98.1 F 04/27/23 11:20 Pulse 64 04/27/23 11:20 Resp 17 04/27/23 11:20 BP 104/72 04/27/23 11:20 Pulse Ox 93 L 04/27/23 11:20 FiO2 Intake & Output 04/26/23 04/27/23 04/27/23 18:59 06:59 18:59 Intake Total 900 Output Total 300 600 Balance -300 300 Intake: Intake, IV Titration 900 Amount Sodium Chloride 0.9% 1, 900 000 ml @ 75 mls/hr IV . [id number] [facility] Rx#:[id number] Output: Urine 300 600 Other: Voiding Method External Catheter External Catheter External Catheter - Exam GENERAL EXAM: Alert, 83-year-old male, debilitated, on room air, comfortable in no apparent distress. HEAD: Normocephalic and atraumatic EYES: Normal reaction of pupils, equal size. NOSE: Clear with pink turbinates. THROAT: No erythema or exudates. NECK: No masses, no JVD. CHEST: No chest wall deformity. LUNGS: Equal air entry with no crackles, wheeze, rhonchi or dullness. CVS: S1 and S2 normal with no audible murmur, regular rhythm. No extra heart sounds ABDOMEN: Obese abdomen, no hepatosplenomegaly, active bowel sounds, no guarding or rigidity. SPINE: No scoliosis or deformity SKIN: No rashes CENTRAL NERVOUS SYSTEM: No focal deficits, tone is normal in all 4 extremities. EXTREMITIES: There is mild nonpitting bilateral lower extremity peripheral edema. No clubbing, or cyanosis. Peripheral pulses are intact. - Labs CBC & Chem 7: 04/27/23 05:32 04/27/23 05:32 Labs: Abnormal Lab Results - Last 24 Hours (Table) 04/26/23 04/27/23 04/27/23 Range/Units 05:34 05:32 05:32 WBC 11.35 H (4.50-10.00) X 10*3/uL RBC 3.86 L 3.69 L (4.40-5.60) X 10*6/uL Hgb 11.9 L 11.3 L (13.0-17.0) d/dL Hct 37.7 L 35.9 L (39.6-50.0) % MCV 97.7 H 97.3 H (80.0-97.0) FL MCHC 31.6 L 31.5 L (32.0-37.0) d/dL Plt Count 100 L 84 L (140-440) X 10*3/uL Neutrophils # 9.91 H (1.80-7.70) X 10*3/uL Lymphocytes # 0.64 L 0.58 L (0.90-5.00) X 10*3/uL BUN/Creatinine Ratio 23.22 H (12.00-20.00) Ratio Calcium 8.4 L (8.7-10.3) mg/dL Microbiology - Last 24 Hours (Table) 04/25/23 02:45 Blood Culture - Preliminary Blood 04/25/23 00:14 Urine Culture - Preliminary Urine,Voided Gram Neg Bacilli Assessment and Plan Assessment: Suspected urinary tract infection, culture pending, currently on ceftriaxone Hypotension, secondary to sepsis, midodrine restarted Bacteremia secondary to gram-negative bacilli suspect from urinary tract infection Acute hypoxemic respiratory failure, recovered and on room air. Chest x-ray on arrival showed mild cardiomegaly. No acute focal infiltrates, pleural effusion, pneumothorax. NT proBNP 2000. Negative for influenza, RSV, COVID-19 Diastolic congestive heart failure, possibly in mild exacerbation. Echocardiogram reveals preserved left ventricular systolic function. Mild pulmonary hypertension. Chronic obstructive pulmonary disease, stable Obstructive sleep apnea, with home CPAP History of atrial fibrillation, anticoagulated on Eliquis. Patient has permanent pacemaker Hyperlipidemia Morbid obesity with a BMI of 41.9 kg/m status/post gastric sleeve surgery in 2012 Benign prostate hypertrophy Osteoarthritis Remote ex-smoker Plan: The patient was seen and evaluated Labs and medications reviewed Stable and on room air Continue ceftriaxone We will continue to follow I have personally seen and examined the patient, performed the documentation and the assessment and plan as written. Number of minutes spent on the visit: 10.
--- NOTE | 2023-04-27 14:41 | P.PN ---
Subjective Progress Note Date: 04/27/23 Principal diagnosis: E. coli UTI and bacteremia Patient is a 83-year-old male with a past medical his significant for hypertension hyperlipidemia reflux atrial fibrillation prostate disorder patient presenting to the ER for evaluation of fever and chills the patient's symptoms started the day before presentation to the hospital , for his did have positive UA and chest x-ray was negative for pneumonia, patient's blood cultures came back positive with gram-negative bacilli. On today's evaluation that is 04/27/2023, patient denies having any fever or chills, the patient is breathing comfortably on room air no chest pain shortness of breath or cough no abdominal pain no diarrhea, Patient did have a white count of 7.86, creatinine 0.9, blood cultures with E. coli ultrasound negative for any hydronephrosis Objective - Vital Signs Vital signs: Vital Signs Temp 98.2 F 04/27/23 07:00 Pulse 61 04/27/23 07:00 Resp 16 04/27/23 07:00 BP 102/65 04/27/23 07:00 Pulse Ox 92 L 04/27/23 07:00 FiO2 Intake & Output 04/26/23 04/27/23 04/27/23 18:59 06:59 18:59 Intake Total 900 Output Total 300 600 Balance -300 300 Intake: Intake, IV Titration 900 Amount Sodium Chloride 0.9% 1, 900 000 ml @ 75 mls/hr IV . [id number] [facility] Rx#:[id number] Output: Urine 300 600 Other: Voiding Method External Catheter External Catheter External Catheter - Exam GENERAL DESCRIPTION: An elderly male lying in bed in no distress RESPIRATORY SYSTEM: Unlabored breathing , decreased breath sounds at bases HEART: S1 S2 regular rate and rhythm , ABDOMEN: Soft , no tenderness EXTREMITIES: No edema feet - Labs CBC & Chem 7: 04/27/23 05:32 04/27/23 05:32 Labs: Abnormal Lab Results - Last 24 Hours (Table) 04/26/23 04/27/23 Range/Units 05:34 05:32 WBC 11.35 H (4.50-10.00) X 10*3/uL RBC 3.86 L 3.69 L (4.40-5.60) X 10*6/uL Hgb 11.9 L 11.3 L (13.0-17.0) d/dL Hct 37.7 L 35.9 L (39.6-50.0) % MCV 97.7 H 97.3 H (80.0-97.0) FL MCHC 31.6 L 31.5 L (32.0-37.0) d/dL Plt Count 100 L 84 L (140-440) X 10*3/uL Neutrophils # 9.91 H (1.80-7.70) X 10*3/uL Lymphocytes # 0.64 L 0.58 L (0.90-5.00) X 10*3/uL Microbiology - Last 24 Hours (Table) 04/25/23 00:14 Urine Culture - Preliminary Urine,Voided Gram Neg Bacilli 04/25/23 02:45 Blood Culture - Preliminary Blood 04/25/23 03:00 Blood Culture Gram Stain - Preliminary Blood Blood Culture - Preliminary Gram Neg Bacilli Assessment and Plan Plan: 1patient with a gram-negative bacteremia source likely urinary as the patient did have significantly positive UA likely from enteric gram-negative pathogen. 2ultrasound of the kidney bladder area with no evidence of any obstructive uropathy. 3patient to continue with Rocephin 2 g daily while waiting for the culture to finalize and monitor clinical course closely. Dictation was produced using [employer] dictation software. please excuse any grammatical, word or spelling errors. Time with Patient: Less than 30
--- NOTE | 2023-04-27 14:42 | P.PN ---
Subjective Progress Note Date: 04/27/23 This is an 83-year-old male with medical history of GERD, atrial fibrillation anticoagulated with eliquis, hypertension, hyperlipidemia, sleep apnea with CPAP use, cardiac catheterization and has a permanent pacemaker. Patient is a former smoker. Lives alone with caregivers and has been chronically bed bound for about 1 year now, uses a constanza lift for transfers. Presents to ER with complaints of shortness of breath fever and chills with a 1 day onset. Patient also reports increased urinary frequency and burning sensation with urination. No prior history of enlarged prostate and not having increased nocturia. On admission his blood pressure found to be lower than normal in the 70s systolic and patient met sepsis criteria. Patient denies any nausea vomiting or diarrhea he is not having any abdominal pain denies any chest pain. Denies shortness of breath as well. He is alert and oriented x 3. Chest xray admission shows chronic changes and mild cardiomegaly without acute pulmonary process. There are chronic parenchymal changes. Urinalysis is abnormal with large leukocyte esterase, many bacteria greater than 182 white count. Patient has normal white blood cell count on admission at 8.8, BNP was mildly elevated at 2010. He as started on empiric antibiotics for the urinary tract infection and admitted to the hospital under medicine. 04/26/2023 Patient is evaluated today in the medical floor. He is resting in bed. He continues to be alert and oriented 3. He does report improvement in symptoms overnight. He remains on antibiotics in the form of IV ceftriaxone pulmonary blood culture is positive for gram-negative bacilli and blood culture has been repeated. Urine culture remains pending at this time. Infectious disease will be consulted for the blood cultures. He remains on normal saline at 75 mL per hour. White count of 11.35 today. Kidney function remained stable. 04/27/2023 Patient stable today no acute complaints overnight. Blood culture showing E. Coli and microsensitivities are available. Pending repeat blood cultures for clearance of the bacteremia. Urine culture showing gram negative bacilli and pending final culture as well. Patient continues on IV ceftriaxone. ID following. Pulmonary following. Blood pressure continues to improve, patient remains on IV fluids. Now in the low 100s systolic and near baseline. Had abdomen bladder US done today, showing no hydronephrosis, or nephrolisthiasis due to patients body habitus, hypoechoic 2.4 cm right renal cystic lesion. Probable cyst however evaluation is limited. No obstructive uropathy. Remains afebrile. Hoping for D/C before to watch the game. Review of Systems Constitutional: Denied any fatigue denied any fever. Cardio vascular: denied any chest pain, palpitations Gastrointestinal: denied any nausea, vomiting, diarrhea Pulmonary: Denied any shortness of breath cough Neurologic denied any new focal deficits All inpatient medications were reviewed and appropriate changes in these medications as dictated in the interval history and assessment and plan. PHYSICAL EXAMINATION: GENERAL: The patient is alert and oriented x3, not in any acute distress. Well developed, well nourished. Morbidly obese HEENT: Pupils are round and equally reacting to light. EOMI. No scleral icterus. No conjunctival pallor. Normocephalic, atraumatic. No pharyngeal erythema. No thyromegaly. CARDIOVASCULAR: S1 and S2 present. No murmurs, rubs, or gallops. PULMONARY: Chest is clear to auscultation, no wheezing or crackles. ABDOMEN: Soft, nontender, nondistended, normoactive bowel sounds. No palpable organomegaly. MUSCULOSKELETAL: No joint swelling or deformity. EXTREMITIES: No cyanosis, clubbing, or pedal edema. NEUROLOGICAL: Gross neurological examination did not reveal any focal deficits. SKIN: No rashes. Stage 1/healing stage 2 right buttock pressure injury. Covered with optifoam. Assessment Dyspnea likely related to sepsis resolved Acute urinary tract infection with sepsis present on admission E.Coli bacteremia Hypotension from sepsis patient is chronically on midodrine pressures usually run in the 100-110s systolic, improving. History of chronic atrial fibrillation with underlying ventricular pacemaker anticoagulated with eliquis outpatient History of sleep apnea with CPAP use History hypertension History of hyperlipidemia History of cardiac catheterization Morbid obesity Chronic medical debility patient is primarily bedbound uses constanza lift for transfers Stage 1/healing stage 2 pressure injury right buttock Hx of systolic dysfunction Former smoker GI prophylaxis DVT prophylaxis on eliquis as mentioned Full code Plan Continue on IV ceftriaxone pending repeat blood cultures and D/C antibiotics per ID. ID has been consulted for the bacteremia Patient will by hydrated normal saline at 75 mls/ hr received 2 L fluid bolus in the EC recommend cautious hydration due to history of heart failure with EF of 40% Continue local wound care to the right buttock pressure injury utilize barrier cream and optifoam with pressure reduction and frequent repositioning Carvedilol placed on hold and patient started on metoprolol due to the decreased blood pressures Continue on midodrine. Follow up labs in AM The impression and plan of care has been dictated by Myriam Sebastian, Nurse Practitioner as directed. Dr. Giovanna MD I have performed a history and physical examination and medical decision making of this patient, discussed the same with the dictator, and agree with the dictators assessment and plan as written, documented as a scribe. Based on total visit time, I have performed more than 50% of this visit. Objective - Vital Signs Vital signs: Vital Signs Temp 98.1 F 04/27/23 11:20 Pulse 64 04/27/23 11:20 Resp 17 04/27/23 11:20 BP 104/72 04/27/23 11:20 Pulse Ox 93 L 04/27/23 11:20 FiO2 Intake & Output 04/26/23 04/27/23 04/27/23 18:59 06:59 18:59 Intake Total 900 Output Total 300 600 Balance -300 300 Intake: Intake, IV Titration 900 Amount Sodium Chloride 0.9% 1, 900 000 ml @ 75 mls/hr IV . [id number] [facility] Rx#:[id number] Output: Urine 300 600 Other: Voiding Method External Catheter External Catheter External Catheter - Labs CBC & Chem 7: 04/27/23 05:32 04/27/23 05:32 Labs: Abnormal Lab Results - Last 24 Hours (Table) 04/27/23 04/27/23 Range/Units 05:32 05:32 RBC 3.69 L (4.40-5.60) X 10*6/uL Hgb 11.3 L (13.0-17.0) d/dL Hct 35.9 L (39.6-50.0) % MCV 97.3 H (80.0-97.0) FL MCHC 31.5 L (32.0-37.0) d/dL Plt Count 84 L (140-440) X 10*3/uL Lymphocytes # 0.58 L (0.90-5.00) X 10*3/uL BUN/Creatinine Ratio 23.22 H (12.00-20.00) Ratio Calcium 8.4 L (8.7-10.3) mg/dL Microbiology - Last 24 Hours (Table) 04/25/23 03:00 Blood Culture Gram Stain - Final Blood Blood Culture - Final Escherichia coli 04/25/23 02:45 Blood Culture - Preliminary Blood 04/25/23 00:14 Urine Culture - Preliminary Urine,Voided Gram Neg Bacilli Assessment and Plan Time with Patient: Less than 30
[2023-04-27] MEDS: LORATADINE 10 MG TAB PO SCH (16:53)
[2023-04-27] MEDS: GABAPENTIN 100 MG CAP PO SCH (20:14)
[2023-04-27] MEDS: CIPROFLOXACIN-DEXAMETH 0.3-0.1% DROPS 7.5 ML BTL LEFT EAR SCH (20:17)
[2023-04-28 08:03] VITALS: PULSE 65
[2023-04-28] MEDS: APIXABAN 5 MG TAB PO SCH (08:38)
[2023-04-28] MEDS: LORATADINE 10 MG TAB PO SCH (08:38)
[2023-04-28] MEDS: PANTOPRAZOLE 40 MG/10 ML VIAL IVP SCH (08:38)
[2023-04-28] MEDS: METOPROLOL TARTRATE 25 MG TAB PO SCH (08:38)
[2023-04-28] MEDS: MIDODRINE 5 MG TAB PO SCH (08:39)
[2023-04-28] MEDS: PRAVASTATIN SODIUM 40 MG TAB PO SCH (08:39)
[2023-04-28] MEDS: CIPROFLOXACIN-DEXAMETH 0.3-0.1% DROPS 7.5 ML BTL LEFT EAR SCH (08:39)
--- NOTE | 2023-04-28 11:45 | P.PN ---
Subjective Progress Note Date: 04/28/23 I am seeing this patient in consultation today 04/25/2023 after he presented to the emergency room earlier this morning with nonspecific symptoms of fever, weakness, and some associated shortness of breath. He was found to have urinary tract infection. Patient is a 83-year-old male with past medical history significant for atrial fibrillation anticoagulated on Eliquis, permanent pacemaker, COPD, obstructive sleep apnea with home CPAP device, BPH, hyperlipidemia, hypertension, GERD, morbid obesity with previous gastric sleeve procedure. Patient denies any history of asthma or COPD. His primary care provider is Dr. Francisco. Patient presented to the emergency room early this morning with subjective fevers at home, generalized weakness, and was mildly dyspneic. He also states that he has had some urinary frequency. Denies any dysuria, hematuria, flank pain. Urinalysis was concerning for UTI. Denies any cough, hemoptysis. Denies sick contacts. Negative for influenza, RSV, COVID- 19. Chest x-ray on arrival showed some mild cardiomegaly without any acute cardiopulmonary process. NT proBNP was elevated at 2000. Patient denies any chest pain, increased lower extremity edema, orthopnea. lightheadedness, syncope. CBC on arrival was unremarkable. No leukocytosis. BMP on arrival shows sodium 136, potassium 4.5, chloride 93, serum bicarbonate 34, BUN 16, creatinine 0.9, glucose 98. Currently receiving a 500 ML normal saline bolus. Blood pressure is marginal at 90/54. Heart rhythm is currently V paced. Patient was started on empiric Rocephin. Lactic acid level was 1.7. Patient is currently sitting up in bed, on 2 L/m nasal cannula, in no acute distress. SpO2 is currently 97-99% on 2 L/m nasal cannula. He does have a home CPAP device which is not currently present. He is quite debilitated and weak, and reportedly bedbound at home. Currently afebrile. Patient will be monitored on the general medical floor. The patient is seen today 04/26/2023 in follow-up on the regular medical floor. He is currently sitting up in bed. Awake and alert in no acute distress. Echocardiogram revealed preserved left ventricular systolic function. Mild pulmonary hypertension. Blood cultures are showing gram-negative bacilli. He is currently on ceftriaxone. Anticoagulant with Eliquis. Normal saline at 75 ML's per hour. Patient is seen today 04/27/2023 in follow-up on the regular medical floor. He is currently resting comfortably in bed. Awake and alert in no acute distress. Blood and urine cultures are positive for gram-negative bacilli. White count 7.8. Hemoglobin 11.3. Platelets 84,000. Sodium 135. Potassium 4.0. Bicarb 20. BUN 21. Creatinine 0.9. He is continued on ceftriaxone. Anticoagulated with Eliquis. Normal saline at 75 ML's per hour. The patient is seen today 04/28/2023 in follow-up on the regular medical floor. He is awake and alert in no acute distress. Maintaining good O2 saturations in the 90s on room air. He's been afebrile. Hemodynamically stable. Blood and urine cultures positive for E. coli. He remains on ceftriaxone. Anticoagulated with Eliquis. Objective - Vital Signs Vital signs: Vital Signs Temp 97.8 F 04/28/23 08:01 Pulse 65 04/28/23 08:01 Resp 18 04/28/23 08:01 BP 136/83 04/28/23 08:01 Pulse Ox 92 L 04/28/23 08:18 FiO2 21 04/28/23 08:18 Intake & Output 04/27/23 04/28/23 04/28/23 18:59 06:59 18:59 Intake Total 950 Output Total 450 650 Balance -450 300 Intake: Intake, IV Titration 950 Amount Sodium Chloride 0.9% 1, 900 000 ml @ 75 mls/hr IV . [id number] [facility] Rx#:[id number] cefTRIAXone 2 gm In 50 Sodium Chloride 0.9% 50 ml @ 100 mls/hr IVPB Q24H [facility] Rx#:[id number] Output: Urine 450 650 Other: Voiding Method External Catheter External Catheter External Catheter - Exam GENERAL EXAM: Alert, pleasant 83-year-old male, on room air, comfortable in no apparent distress. HEAD: Normocephalic and atraumatic EYES: Normal reaction of pupils, equal size. NOSE: Clear with pink turbinates. THROAT: No erythema or exudates. NECK: No masses, no JVD. CHEST: No chest wall deformity. LUNGS: Equal air entry with no crackles, wheeze, rhonchi or dullness. CVS: S1 and S2 normal with no audible murmur, regular rhythm. No extra heart sounds ABDOMEN: Obese abdomen, no hepatosplenomegaly, active bowel sounds, no guarding or rigidity. SPINE: No scoliosis or deformity SKIN: No rashes CENTRAL NERVOUS SYSTEM: No focal deficits, tone is normal in all 4 extremities. EXTREMITIES: There is mild nonpitting bilateral lower extremity peripheral edema. No clubbing, or cyanosis. Peripheral pulses are intact. - Labs CBC & Chem 7: 04/27/23 05:32 04/27/23 05:32 Labs: Microbiology - Last 24 Hours (Table) 04/25/23 00:14 Urine Culture - Final Urine,Voided Escherichia coli 04/26/23 11:48 Blood Culture - Preliminary Blood 04/25/23 03:00 Blood Culture Gram Stain - Final Blood Blood Culture - Final Escherichia coli 04/25/23 02:45 Blood Culture - Preliminary Blood Assessment and Plan Assessment: Acute urinary tract infection, secondary to E. coli, currently on ceftriaxone Hypotension, secondary to sepsis, midodrine restarted Bacteremia secondary to E. coli from urinary tract infection Acute hypoxemic respiratory failure, recovered and on room air. Chest x-ray on arrival showed mild cardiomegaly. No acute focal infiltrates, pleural effusion, pneumothorax. NT proBNP 2000. Negative for influenza, RSV, COVID-19 Diastolic congestive heart failure, possibly in mild exacerbation. Echocardiogram reveals preserved left ventricular systolic function. Mild pulmonary hypertension. Chronic obstructive pulmonary disease, stable Obstructive sleep apnea, with home CPAP History of atrial fibrillation, anticoagulated on Eliquis. Patient has p ermanent pacemaker Hyperlipidemia Morbid obesity with a BMI of 41.9 kg/m status/post gastric sleeve surgery in 2013 Benign prostate hypertrophy Osteoarthritis Remote ex-smoker Plan: The patient was seen and evaluated Labs and medications reviewed Stable and on room air Could be switched to oral antibiotics Cleared for discharge from the pulmonary standpoint I have personally seen and examined the patient, performed the documentation and the assessment and plan as written. Number of minutes spent on the visit: 10.
[2023-04-28] MEDS: SODIUM CHLORIDE 0.9% 1,000 ML IV SCH (13:39)
[2023-04-28 13:55] VITALS: BP 119/78; RESP 16; TEMP 98.1
[2023-04-28 14:04] LABS: Basophils # (A) 0.06 X 10*3/uL (0.00-0.10); Basophils % (A) 0.9 %; Eosinophils # (A) 0.24 X 10*3/uL (0.04-0.35); Eosinophils % (A) 3.8 %; HCT 38.5 % (39.6-50.0); Lymphocytes # (A) 0.59 X 10*3/uL (0.90-5.00); Lymphocytes % (A) 9.2 %; MCH 31.2 pg (27.0-32.0); MCHC 31.2 d/dL (32.0-37.0); Mean Platelet Volume 10.4 FL (9.5-12.2); Monocytes # (A) 0.43 X 10*3/uL (0.20-1.00); Monocytes % (A) 6.7 %; NRBC Per 100 WBC 0 X 10*3/uL (0.00-0.01); Neutrophils # (A) 5.04 X 10*3/uL (1.80-7.70); Neutrophils % (A) 78.9 %; Platelet Count 101 X 10*3/uL (140-440); RBC 3.85 X 10*6/uL (4.40-5.60); RDW 14.3 % (11.5-14.5); WBC 6.39 X 10*3/uL (4.50-10.00)
[2023-04-28 20:28] LABS: BUN/Creat Ratio 21.56 Ratio (12.00-20.00); Blood Urea Nitrogen 19.4 mg/dL (9.0-27.0); Glucose 81 mg/dL (70-110)
[2023-04-28 20:29] LABS: Calcium 8.3 mg/dL (8.7-10.3); Carbon Dioxide 29.5 mmol/L (21.6-31.8); Chloride 100 mmol/L (96-109); Potassium 4.1 mmol/L (3.5-5.5); Sodium 138 mmol/L (135-145)
--- NOTE | 2023-04-30 10:38 | P.DS ---
Providers Date of admission: 04/25/23 02:51 Expected date of discharge: 04/28/23 Attending physician: Elizabeth Vaughan Consults: 04/25/23 02:49 Consult Physician Routine Consulting Provider: Alem Ventura Consult Reason/Comments: hypoxia, history of sleep apnea Do you want consulting provider notified?: Yes 04/26/23 14:41 Consult Physician Routine Consulting Provider: Kendra Jimenez Consult Reason/Comments: bacteremia Do you want consulting provider notified?: Yes Primary care physician: Ethan Francisco [facility] Course: Final diagnosis Dyspnea likely related to sepsis resolved Acute urinary tract infection with sepsis present on admission E.Coli bacteremia secondary to urinary tract infection, present on admission, resolved Hypotension from sepsis patient is chronically on midodrine pressures usually run in the 100-110s systolic, improved. History of chronic atrial fibrillation with underlying ventricular pacemaker anticoagulated with eliquis outpatient History of sleep apnea with CPAP use History hypertension History of hyperlipidemia History of cardiac catheterization Morbid obesity Chronic medical debility patient is primarily bedbound uses constanza lift for transfers Stage 1/healing stage 2 pressure injury right buttock Hx of systolic dysfunction Former smoker GI prophylaxis DVT prophylaxis on eliquis as mentioned Full code Discharge disposition Patient is being discharged in a stable condition with guarded prognosis to home. Patient will follow-up with Dr. Francisco in the outpatient setting upon discharge. Patient is to continue with oral Cipro for the next 10 days and close outpatient follow-up with infectious disease as scheduled. Total time taken is greater than 35 minutes. Hospital course This is a 83-year-old male who was recently admitted with sepsis present on admission likely secondary to acute urinary tract infection also had bacteremia with E. coli. Infectious disease following and patient was maintained on antibiotics and will continue on oral Cipro 500 mg twice daily for the next 12 days to complete course. Patient needs close outpatient follow-up with infectious disease along with primary care provider. Patient extremely anxious to going home and has support with multiple caregivers in the home. Patient has been cleared by consultations. Please refer to consultation notes for further HPI. Currently no reports of chest pain, shortness of breath, or palpitations. Patient is afebrile. No reports of nausea or vomiting and patient is tolerating diet. Patient will be discharged home today. Physical exam: Gen: This is a 83-year-old male is awake, alert and oriented 3, well-developed, well-nourished, obese morbidly HEENT: Head is atraumatic, normocephalic. Pupils equal, round. Sclerae is anicteric. NECK: Supple. No JVD. No lymphadenopathy. No thyromegaly. LUNGS: Clear to auscultation. No wheezes or rhonchi. No intercostal retractions. HEART: Regular rate and rhythm. No murmur. ABDOMEN: Soft. Bowel sounds are present. No masses. No tenderness. EXTREMITIES: No pedal edema. No calf tenderness. Bilateral upper and lower extremity swelling, chronic NEUROLOGICAL: Patient is awake, alert and oriented x3. Cranial nerves 2 through 12 are grossly intact. Diffusely weak Please refer to medication reconciliation sheet for a list of medications. The impression and plan of care has been dictated by Mikaela Wall, Nurse Practitioner as directed. Dr. Evin MD I have performed a history and examination and MDM of this patient, discussed the same with the dictator, and agree with the dictator's assessment and plan as written ,documented as a scribe. Based on total visit time, I have performed more than 50% of the visit. Patient Condition at Discharge: Stable Plan - Discharge Summary Discharge Rx Participant: Yes New Discharge Prescriptions: New Ciprofloxacin HCl [Cipro] 500 mg PO BID 12 Days #24 tab Metoprolol Tartrate [Lopressor] 25 mg PO BID #60 tab Ciprofloxacin-Dexameth [Ciprodex Otic Susp] 4 drops LEFT EAR BID 7 Days #5 ml Loratadine [Claritin] 5 mg PO DAILY #30 tab Acetaminophen Tab [Tylenol] 650 mg PO Q6HR PRN tab PRN Reason: Mild Pain Or Fever > 100.5 Continue Pravastatin Sodium [Pravachol] 40 mg PO DAILY Pramipexole [Mirapex] 1 mg PO TID PRN PRN Reason: RESTLESS LEG Midodrine [ProAmatine] 5 mg PO BID ALPRAZolam [Xanax] 0.25 mg PO BID PRN PRN Reason: Anxiety Omeprazole [PriLOSEC] 20 mg PO AC-BID Apixaban [Eliquis] 5 mg PO BID Gabapentin [Neurontin] 100 mg PO HS #3 cap Potassium Chloride [Klor-Con M20] 20 meq PO DAILY Discontinued Ferrous Sulfate [Iron (65 MG Elemental)] 325 mg PO HS carvediloL [Coreg] 6.25 mg PO BID Discharge Medication List Pravastatin Sodium [Pravachol] 40 mg PO DAILY 11/22/14 [History] Pramipexole [Mirapex] 1 mg PO TID PRN 03/29/17 [History] Apixaban [Eliquis] 5 mg PO BID 11/25/20 [History] Midodrine [ProAmatine] 5 mg PO BID 09/29/22 [History] Gabapentin [Neurontin] 100 mg PO HS #3 cap 10/04/22 [Rx] ALPRAZolam [Xanax] 0.25 mg PO BID PRN 04/25/23 [History] Omeprazole [PriLOSEC] 20 mg PO AC-BID 04/25/23 [History] Potassium Chloride [Klor-Con M20] 20 meq PO DAILY 04/25/23 [History] Acetaminophen Tab [Tylenol] 650 mg PO Q6HR PRN tab 04/28/23 [Rx] Ciprofloxacin HCl [Cipro] 500 mg PO BID 12 Days #24 tab 04/28/23 [Rx] Ciprofloxacin-Dexameth [Ciprodex Otic Susp] 4 drops LEFT EAR BID 7 Days #5 ml 04/28/23 [Rx] Loratadine [Claritin] 5 mg PO DAILY #30 tab 04/28/23 [Rx] Metoprolol Tartrate [Lopressor] 25 mg PO BID #60 tab 04/28/23 [Rx] Follow up Appointment(s)/Referral(s): Ethan Francisco MD [Primary Care Provider] - 05/08/23 11:00 am Kendra Jimenez MD [STAFF PHYSICIAN] - 1 Week (Please call office on monday to make follow up appointment.) Patient Instructions/Handouts: Ciprofloxacin (By mouth), Metoprolol (By mouth), Loratadine (By mouth), Ciprofloxacin/Dexamethasone (Into the ear) Activity/Diet/Wound Care/Special Instructions: Activity Limited until follow-up Follow-up with primary care provider on discharge Continue taking medications as prescribed Until all of antibiotics Follow-up with infectious disease outpatient Discharge Disposition: HOME WITH HOME HEALTH SERVICES
== END 2023-04-28 19:22 | disposition home health service (06) | DRG 871 ==
LOC: EC 23:23 → 5NMEDONC 04-25 02:51
PROVIDERS: ADMIT Hospitalist; ATTEND Hospitalist
DX: A41.51 Sepsis due to Escherichia coli [E. coli] (principal); I50.33 Acute on chronic diastolic (congestive) heart failure; J96.01 Acute respiratory failure with hypoxia; Z68.41 Body mass index [BMI] 40.0-44.9, adult; E27.2 Addisonian crisis; I48.20 Chronic atrial fibrillation, unspecified; Z20.822 Contact with and (suspected) exposure to COVID-19; N30.90 Cystitis, unspecified without hematuria; J44.9 Chronic obstructive pulmonary disease, unspecified; I11.0 Hypertensive heart disease with heart failure; L89.312 Pressure ulcer of right buttock, stage 2; E66.01 Morbid (severe) obesity due to excess calories; G89.29 Other chronic pain; M19.90 Unspecified osteoarthritis, unspecified site; F32.A Depression, unspecified; K21.9 Gastro-esophageal reflux disease without esophagitis; F41.9 Anxiety disorder, unspecified; G25.81 Restless legs syndrome; J40 Bronchitis, not specified as acute or chronic; N40.0 Benign prostatic hyperplasia without lower urinary tract symptoms; I07.1 Rheumatic tricuspid insufficiency; E78.5 Hyperlipidemia, unspecified; G47.33 Obstructive sleep apnea (adult) (pediatric); I27.20 Pulmonary hypertension, unspecified; Z87.891 Personal history of nicotine dependence; Z74.01 Bed confinement status; Z98.84 Bariatric surgery status; Z87.19 Personal history of other diseases of the digestive system; Z86.010 Personal history of colon polyps; Z79.01 Long term (current) use of anticoagulants; Z79.899 Other long term (current) drug therapy; Z82.49 Family history of ischemic heart disease and other diseases of the circulatory system; Z95.0 Presence of cardiac pacemaker; Z90.49 Acquired absence of other specified parts of digestive tract; Z96.653 Presence of artificial knee joint, bilateral
CPT/HCPCS: 36415; 71045; 76770; 80048; 80053; 81001; 83605; 83735; 83880; 85025; 85610; 85730; 87040; 87077; 87086; 87186; 87636; 93005; 93306; 94760; 96361; 96365; 99291

== ENCOUNTER 2023-06-30 12:30 | Emergency (ER) | payer MEDICARE ==
--- NOTE | 2023-06-30 13:34 | ED ---
SOB HPI - General Chief Complaint: Shortness of Breath Stated Complaint: FANY Time Seen by Provider: 06/30/23 12:40 Source: patient, EMS, RN notes reviewed, old records reviewed Mode of arrival: EMS Limitations: physical limitation - History of Present Illness Initial Comments: This is a 83-year-old male to the emergency department for evaluation. Patient does resents today for evaluation of some unclear thinking. Patient states she's in foggy with his mental status about the last day day and a half. Thinks he may have urinary tract infection. Patient was found by visiting nurse to have low oxygen and sent to ER for evaluation. Patient denies chest pain or shortness of breath. Patient does have A. fib and does take Ahlquist -: days(s) (1) Severity: mild Severity scale (1-10): 2 Consistency: intermittent Improves With: nothing Worsens With: nothing Known History Of: COPD, congestive heart failure Context: anxiety, recent illness Associated Symptoms: denies other symptoms Treatments Prior to Arrival: oxygen - Related Data Home Medications Medication Instructions Recorded Confirmed Pravastatin Sodium [Pravachol] 40 mg PO DAILY 11/22/14 06/30/23 Pramipexole [Mirapex] 1 mg PO TID PRN 03/29/17 06/30/23 Apixaban [Eliquis] 5 mg PO BID 11/25/20 06/30/23 Midodrine [ProAmatine] 5 mg PO BID 09/29/22 06/30/23 ALPRAZolam [Xanax] 0.25 mg PO BID PRN 04/25/23 06/30/23 Omeprazole [PriLOSEC] 20 mg PO AC-BID 04/25/23 06/30/23 Potassium Chloride [Klor-Con M20] 20 meq PO DAILY 04/25/23 06/30/23 Previous Rx's Medication Instructions Recorded Gabapentin [Neurontin] 100 mg PO HS #3 cap 10/04/22 Acetaminophen Tab [Tylenol] 650 mg PO Q6HR PRN tab 04/28/23 Loratadine [Claritin] 5 mg PO DAILY #30 tab 04/28/23 Metoprolol Tartrate [Lopressor] 25 mg PO BID #60 tab 04/28/23 Allergies Allergy/AdvReac Type Severity Reaction Status Date / Time No Known Allergies Allergy Verified 11/03/23 15:36 Review of Systems ROS Statement: Those systems with pertinent positive or pertinent negative responses have been documented in the HPI. ROS Other: All systems not noted in ROS Statement are negative. Past Medical History Past Medical History: Atrial Fibrillation, GERD/Reflux, Hyperlipidemia, Hypertension, Osteoarthritis (OA), Prostate Disorder, Sleep Apnea/CPAP/BIPAP Additional Past Medical History / Comment(s): hx colon polyps, RLS, chronic back pain, DDD spinal stenosis, hemorrhoids, C-Pap machine., pacemaker., gastric sleeve., states hay left leg- unable to bend leg, uses w/c and has constanza lift & walker., dysphagia, hypotension, History of Any Multi-Drug Resistant Organisms: None Reported Past Surgical History: Back Surgery, Bariatric Surgery, Cholecystectomy, Heart Catheterization, Joint Replacement, Orthopedic Surgery, Pacemaker, Prostate Surgery Additional Past Surgical History / Comment(s): RODS IN BACK, PACEMAKER 11/2004 & REPLACED 04/2013, TURP, GASTRIC SLEEVE (12/2012),LEFT HEEL SPUR, RUMA TOTAL KNEE., RUMA ROTATOR CUFF, Back injections; RUMA KNEE SCOPES x 4, SINUS SX X 2. LEFT KNEE SX TENDON REPAIR. TOTAL LT KNEE x2 and then hay placed left leg, all teeth removed mid year 2021 and he got dentures Past Anesthesia/Blood Transfusion Reactions: No Reported Reaction Type of Cardiac Device: Permanent Pacemaker Device Placement Date:: -11/2004, REPLACED 04/2013-[employer] Past Psychological History: Anxiety, Depression Smoking Status: Former smoker - Past Family History Father Family Medical History: Cancer Additional Family Medical History / Comment(s): prostate cancer Mother Family Medical History: Coronary Artery Disease (CAD), Myocardial Infarction (NM) Additional Family Medical History / Comment(s): Mother of a NM at the age of 73 yrs. Brother(s) Family Medical History: No Reported History Sister(s) Family Medical History: CVA/TIA Daughter(s) Family Medical History: No Reported History Son(s) Family Medical History: No Reported History General Exam Limitations: physical limitation General appearance: obese Head exam: Present: atraumatic, normocephalic, normal inspection Eye exam: Present: normal appearance, PERRL, EOMI. Absent: scleral icterus, conjunctival injection, periorbital swelling ENT exam: Present: normal exam, mucous membranes moist Neck exam: Present: normal inspection. Absent: tenderness, meningismus, lymphadenopathy Respiratory exam: Present: normal lung sounds bilaterally. Absent: respiratory distress, wheezes, rales, rhonchi, stridor Cardiovascular Exam: Present: regular rate, normal rhythm, normal heart sounds. Absent: systolic murmur, diastolic murmur, rubs, gallop, clicks GI/Abdominal exam: Present: soft, normal bowel sounds. Absent: distended, tenderness, guarding, rebound, rigid Extremities exam: Present: normal inspection, full ROM, normal capillary refill. Absent: tenderness, pedal edema, joint swelling, calf tenderness Back exam: Present: normal inspection Neurological exam: Present: alert, oriented X3, CN II-XII intact Psychiatric exam: Present: normal affect, normal mood Skin exam: Present: warm, dry, intact, normal color. Absent: rash Course Vital Signs 06/30/23 06/30/23 06/30/23 12:32 12:40 12:45 Temperature 97.6 F Pulse Rate 69 Respiratory 24 22 Rate Blood Pressure 147/81 O2 Sat by Pulse 91 L 98 Oximetry 06/30/23 06/30/23 06/30/23 14:04 15:07 15:11 Temperature 97.6 F 97.7 F Pulse Rate 65 65 Respiratory 20 19 Rate Blood Pressure 146/90 145/81 O2 Sat by Pulse 100 87 L 97 Oximetry 06/30/23 06/30/23 17:08 18:07 Temperature 97.6 F Pulse Rate 65 64 Respiratory 19 20 Rate Blood Pressure 115/85 130/93 O2 Sat by Pulse 94 L 95 Oximetry - Reevaluation(s) Reevaluation #1: 06/30/23 13:34 Records reviewed Reevaluation #2: 06/30/23 15:14 Patient initially had oxygen currently taken off several oxygen and still maint aining oxygenation Reevaluation #3: 06/30/23 15:15 Patient informed results questions answered Reevaluation #4: 06/30/23 13:34 Was pt. sent in by a medical professional or institution (, PA, CURBSTONE SETTER, urgent care, hospital, or assisted...) When possible be specific @ -no Did you speak to anyone other than the patient for history (EMS, parent, family, police, friend...)? What history was obtained from this source @ -no Did you review nursing and triage notes (agree or disagree)? Why? @ -agree Are old charts reviewed (outside hosp., previous admission, EMS record, old EKG, old radiological studies, urgent care reports/EKG's, assisted records)? Report findings @ -yes Differential Diagnosis (chest pain, altered mental status, abdominal pain women, abdominal pain men, vaginal bleeding, weakness, fever, dyspnea, syncope, headac he, dizziness, GI bleed, back pain, seizure, CVA, palpatations, mental health, musculoskeletal)? @ -prior EKG interpreted by me (3pts min.). @ -yes X-rays interpreted by me (1pt min.). @ -yes CT interpreted by me (1pt min.). @ -no U/S interpreted by me (1pt. min.). @ -no What testing was considered but not performed or refused? (CT, X-rays, U/S, labs)? Why? @ -none What meds were considered but not given or refused? Why? @ -none Did you discuss the management of the patient with other professionals (professionals i.e. , PA, CURBSTONE SETTER, lab, RT, psych nurse, social media project manager, felt hat pouncing operator hand, teacher, ambulance officer, business case analyst)? Give summary @ -no Was smoking cessation discussed for >3mins.? @ -no Was critical care preformed (if so, how long)? @ -no Were there social determinants of health that impacted care today? How? (Homelessness, low income, unemployed, alcoholism, drug addiction, trans portation, low edu. Level, literacy, decrease access to med. care, halfway, rehab)? @ -none Was there de-escalation of care discussed even if they declined (Discuss DNR or withdrawal of care, Hospice)? DNR status @ -no What co-morbidities impacted this encounter? (DM, HTN, Smoking, COPD, CAD, Cancer, CVA, ARF, Chemo, Hep., AIDS, mental health diagnosis, sleep apnea, morbid obesity)? @ -none Was patient admitted / discharged? Hospital course, mention meds given and route, prescriptions, significant lab abnormalities, going to OR and other pertinent info. @ - 83 male to the emergency department for evaluation. Patient presents today for evaluation regards to some altered mental status not feeling clear. Process and was found to have a low oxygen level at home by visiting nurse. Patient has had normal oxygenation here in the ER with supplemental to then maintained on room air. Patient can be discharged home Discharge Undiagnosed new problem with uncertain prognosis? @ -no Drug Therapy requiring intensive monitoring for toxicity (Heparin, Nitro, Insulin, Cardizem)? @ -no Were any procedures done? @ -no Diagnosis/symptom? @ -Altered mental status Acute, or Chronic, or Acute on Chronic? @ -Acute Uncomplicated (without systemic symptoms) or Complicated (systemic symptoms)? @ -Complicated Side effects of treatment? @ -no Exacerbation, Progression, or Severe Exacerbation? @ -exacerbation Poses a threat to life or bodily function? How? (Chest pain, USA, NM, pneumonia, PE, COPD, DKA, ARF, appy, cholecystitis, CVA, Diverticulitis, Homicidal, Suicidal, threat to staff... and all critical care pts) @ -no Reevaluation #5: 06/30/23 13:34 Differential Altered Mental Status: Hypoglycemia, DKA, hypercapnia, ETOH, overdose, CO poisoning, trauma, myxedema coma, HTN encephalopathy, infection, encephalitis, psychosis, intercranial hemorrhage, hepatic encephalopathy, meningitis, CVA, this is not meant to be an all-inclusive list Differential Dyspnea: Coronary syndrome, arrhythmia, tamponade, asthma, COPD, pulmonary embolism, pneumonia, pneumothorax, pulmonary effusion, anaphylaxis, diabetic ketoacidosis, flailed chest, pulmonary contusion, diaphragmatic rupture, anemia, neuromuscular, this is not meant to be an all-inclusive list. Medical Decision Making - Medical Decision Making 83 male to the emergency department for evaluation. Patient presents today for evaluation regards to some altered mental status not feeling clear. Process and was found to have a low oxygen level at home by visiting nurse. Patient has had normal oxygenation here in the ER with supplemental to then maintained on room air. Patient can be discharged home - Lab Data Result diagrams: 06/30/23 13:55 06/30/23 13:55 Lab Results 06/30/23 06/30/23 06/30/23 Range/Units 13:55 13:55 13:55 WBC 6.3 (3.8-10.6) k/uL RBC 4.21 L (4.30-5.90) m/uL Hgb 12.9 L (13.0-17.5) gm/dL Hct 40.7 (39.0-53.0) % MCV 96.7 (80.0-100.0) fL MCH 30.6 (25.0-35.0) pg MCHC 31.7 (31.0-37.0) g/dL RDW 14.0 (11.5-15.5) % Plt Count 126 L (150-450) k/uL MPV 7.6 Neutrophils % 78 % Lymphocytes % 12 % Monocytes % 4 % Eosinophils % 3 % Basophils % 1 % Neutrophils # 4.9 (1.3-7.7) k/uL Lymphocytes # 0.8 L (1.0-4.8) k/uL Monocytes # 0.2 (0-1.0) k/uL Eosinophils # 0.2 (0-0.7) k/uL Basophils # 0.0 (0-0.2) k/uL Hypochromasia Slight PT (10.0-12.5) sec INR (<1.2) APTT (22.0-30.0) sec Sodium (137-145) mmol/L Potassium (3.5-5.1) mmol/L Chloride (98-107) mmol/L Carbon Dioxide (22-30) mmol/L Anion Gap mmol/L BUN (9-20) mg/dL Creatinine (0.66-1.25) mg/dL Est GFR (CKD-EPI)AfAm (>60 ml/min/1.73 sqM) Est GFR (CKD-EPI)NonAf (>60 ml/min/1.73 sqM) Glucose (74-99) mg/dL Plasma Lactic Acid Trey 1.4 (0.7-2.0) mmol/L Calcium (8.4-10.2) mg/dL Phosphorus (2.5-4.5) mg/dL Magnesium (1.6-2.3) mg/dL Total Bilirubin (0.2-1.3) mg/dL AST (17-59) U/L ALT (4-49) U/L Alkaline Phosphatase (38-126) U/L Troponin I (0.000-0.034) ng/mL NT-Pro-B Natriuret Pep pg/mL Total Protein (6.3-8.2) g/dL Albumin (3.5-5.0) g/dL Urine Color Light Yellow Urine Appearance Clear (Clear) Urine pH 5.5 (5.0-8.0) Ur Specific Micro 1.011 (1.001-1.035) Urine Protein Negative (Negative) Urine Glucose (UA) Negative (Negative) Urine Ketones Negative (Negative) Urine Blood Negative (Negative) Urine Nitrite Negative (Negative) Urine Bilirubin Negative (Negative) Urine Urobilinogen <2.0 (<2.0) mg/dL Ur Leukocyte Esterase Negative (Negative) 06/30/23 06/30/23 06/30/23 Range/Units 13:55 13:55 13:55 WBC (3.8-10.6) k/uL RBC (4.30-5.90) m/uL Hgb (13.0-17.5) gm/dL Hct (39.0-53.0) % MCV (80.0-100.0) fL MCH (25.0-35.0) pg MCHC (31.0-37.0) g/dL RDW (11.5-15.5) % Plt Count (150-450) k/uL MPV Neutrophils % % Lymphocytes % % Monocytes % % Eosinophils % % Basophils % % Neutrophils # (1.3-7.7) k/uL Lymphocytes # (1.0-4.8) k/uL Monocytes # (0-1.0) k/uL Eosinophils # (0-0.7) k/uL Basophils # (0-0.2) k/uL Hypochromasia PT 13.0 H (10.0-12.5) sec INR 1.2 H (<1.2) APTT 29.3 (22.0-30.0) sec Sodium 137 (137-145) mmol/L Potassium 4.2 (3.5-5.1) mmol/L Chloride 96 L (98-107) mmol/L Carbon Dioxide 34 H (22-30) mmol/L Anion Gap 7 mmol/L BUN 19 (9-20) mg/dL Creatinine 0.87 (0.66-1.25) mg/dL Est GFR (CKD-EPI)AfAm >90 (>60 ml/min/1.73 sqM) Est GFR (CKD-EPI)NonAf 81 (>60 ml/min/1.73 sqM) Glucose 93 (74-99) mg/dL Plasma Lactic Acid Trey (0.7-2.0) mmol/L Calcium 8.9 (8.4-10.2) mg/dL Phosphorus 3.8 (2.5-4.5) mg/dL Magnesium 2.0 (1.6-2.3) mg/dL Total Bilirubin 1.0 (0.2-1.3) mg/dL AST 28 (17-59) U/L ALT 12 (4-49) U/L Alkaline Phosphatase 43 (38-126) U/L Troponin I 0.024 (0.000-0.034) ng/mL NT-Pro-B Natriuret Pep 8680 pg/mL Total Protein 6.5 (6.3-8.2) g/dL Albumin 3.4 L (3.5-5.0) g/dL Urine Color Urine Appearance (Clear) Urine pH (5.0-8.0) Ur Specific Micro (1.001-1.035) Urine Protein (Negative) Urine Glucose (UA) (Negative) Urine Ketones (Negative) Urine Blood (Negative) Urine Nitrite (Negative) Urine Bilirubin (Negative) Urine Urobilinogen (<2.0) mg/dL Ur Leukocyte Esterase (Negative) - EKG Data -: EKG Interpreted by Me (EKG is paced at 65 QRS 180 QTc 474) - Radiology Data Radiology results: report reviewed (Chest x-rays negative for acute disease), image reviewed Disposition Clinical Impression: Weakness, Altered mental state Disposition: HOME SELF-CARE Condition: Fair Instructions (If sedation given, give patient instructions): Weakness (ED) Is patient prescribed a controlled substance at d/c from ED?: No Referrals: Rafa Hernández MD [Primary Care Provider] - 1-2 days Time of Disposition: 15:15
[2023-06-30 14:02] LABS: Basophils % (A) 1 %; Eosinophils # (A) 0.2 k/uL (0-0.7); Eosinophils % (A) 3 %; HCT 40.7 % (39.0-53.0); HGB 12.9 gm/dL (13.0-17.5); Hypochromasia Slight; Lymphocytes # (A) 0.8 k/uL (1.0-4.8); Lymphocytes % (A) 12 %; MCH 30.6 pg (25.0-35.0); MCHC 31.7 g/dL (31.0-37.0); MCV 96.7 fL (80.0-100.0); Mean Platelet Volume 7.6; Monocytes # (A) 0.2 k/uL (0-1.0); Monocytes % (A) 4 %; Neutrophils # (A) 4.9 k/uL (1.3-7.7); Neutrophils % (A) 78 %; Platelet Count 126 k/uL (150-450); RBC 4.21 m/uL (4.30-5.90); WBC 6.3 k/uL (3.8-10.6)
--- NOTE | 2023-06-30 14:12 | XR ---
EXAMINATION TYPE: XR chest 1V portable DATE OF EXAM: 06/30/2023 COMPARISON: 04/25/2023 INDICATION: Short of breath TECHNIQUE: Single frontal view of the chest is obtained. FINDINGS: The heart size is enlarged. Is being overlies left chest. The pulmonary vasculature is normal. The lungs are clear. IMPRESSION: 1. No acute pulmonary process.
[2023-06-30 14:22] LABS: ALT 12 U/L (4-49); AST 28 U/L (17-59); African American GFR (CKD) >90 (>60 ml/min/1.73 sqM); Albumin 3.4 g/dL (3.5-5.0); Alkaline Phosphatase 43 U/L (38-126); Anion Gap 7 mmol/L; Blood Urea Nitrogen 19 mg/dL (9-20); Calcium 8.9 mg/dL (8.4-10.2); Carbon Dioxide 34 mmol/L (22-30); Chloride 96 mmol/L (98-107); Glucose 93 mg/dL (74-99); INR 1.2 (<1.2); Non-African American GFR(CKD) 81 (>60 ml/min/1.73 sqM); Partial Thromboplastin Time 29.3 sec (22.0-30.0); Phosphorus 3.8 mg/dL (2.5-4.5); Potassium 4.2 mmol/L (3.5-5.1); Sodium 137 mmol/L (137-145); Total Protein 6.5 g/dL (6.3-8.2)
[2023-06-30 14:26] LABS: Appearance,Urine Clear (Clear); Bilirubin,Urine Negative (Negative); Blood,Urine Negative (Negative); Color,Urine Light Yellow; Glucose,Urine (UA) Negative (Negative); Ketones,Urine Negative (Negative); Leukocyte Esterase,Urine Negative (Negative); Nitrite,Urine Negative (Negative); PH, Urine 5.5 (5.0-8.0); Protein,Urine Negative (Negative); Specific Gravity,Urine 1.011 (1.001-1.035); Urobilinogen,Urine <2.0 mg/dL (<2.0)
[2023-06-30 14:31] LABS: NT-Pro-B-Type Natriuretic Pept 8680 pg/mL
[2023-06-30 18:24] VITALS: BP 130/93; PULSE 64; RESP 20; TEMP 97.6
== END 2023-06-30 18:11 | disposition home or self-care (01) ==
LOC: EC 12:30
DX: R41.82 Altered mental status, unspecified (principal); R53.1 Weakness; E78.5 Hyperlipidemia, unspecified; I48.91 Unspecified atrial fibrillation; I11.0 Hypertensive heart disease with heart failure; I50.9 Heart failure, unspecified; J44.9 Chronic obstructive pulmonary disease, unspecified; K21.9 Gastro-esophageal reflux disease without esophagitis; M19.90 Unspecified osteoarthritis, unspecified site; F41.9 Anxiety disorder, unspecified; F32.A Depression, unspecified; Z87.891 Personal history of nicotine dependence; Z79.01 Long term (current) use of anticoagulants; Z79.899 Other long term (current) drug therapy
CPT/HCPCS: 36415; 71045; 80053; 81003; 83605; 83735; 83880; 84100; 84484; 85025; 85610; 85730; 93005; 99285